=== PATIENT | male | born 1930 | race Caucasian/White ===

== ENCOUNTER 2017-03-01 21:23 | Inpatient (IN) | payer OTHER ==
[~2017-03-01] VITALS: Ht 167.6 cm; Wt 91.7 kg
[2017-03-01 11:00] VITALS: BP 184/105; PULSE 97; O2SAT 97
[2017-03-02] VITALS (18 sets, daily range): BP systolic 120–202; BP diastolic 72–116; PULSE 63–115; TEMP 36.5–38; O2SAT 90–99; Ht 167.6 cm; Wt 91.7 kg
[2017-03-02] MEDS ORDERED: ONDANSETRON INJ 2 MG/ML 2 ML VIAL IV PRN (02:00)
[2017-03-02] MEDS ORDERED: ACETAMINOPHEN 325 MG TAB PO PRN (02:00)
[2017-03-02] MEDS ORDERED: POLYETHYLENE (MIRALAX) 17 GM PACK PO PRN (02:00)
--- NOTE | 2017-03-02 02:13 | History and Physical ---
History & Physical Date & Time of Service: Mar 02, 2017 at 02:05 Chief Complaint: Liver (Food) Stuck In Lung From Aspiration Primary Care Physician: Kelvin Ivan M.D. History of Present Illness Source: patient 86-year-old male with past medical history of hypertension, metabolic placement , diabetes mellitus, paroxysmal atrial fibrillation currently on Coumadin, BPH, gout presented as a direct admit from [facility] after he had presented there with aspiration of food material this evening He stated that he was at a restaurant today and had choked on beef liver/belizean fries . He denied any respiratory distress, stridor but initially complained about chest pain after swallowing. He stated that he tried to cough up food material but was not able to. Denies any wheezing, fevers or chills. He stated that this is the second time in 6 months that he had trouble swallowing. Last time he had choked on a piece of apple and was admitted at [facility]. Allergies Coded Allergies: Penicillins (Unverified Allergy, Unknown, UNKOWN , 03/02/17) Informed from PT had blood work done while in [facility]. was told he should not recieved Penicillins. Home Medications Scheduled Allopurinol (Allopurinol), DAILY Colchicine (Colchicine), DAILY Digoxin (Digoxin), DAILY Diltiazem Hcl Ext Rel (Tiazac), 180 MG PO QPM Finasteride (Proscar), 5 MG PO DAILY Levofloxacin (Levaquin), 250 MG PO DAILY Lisinopril (Zestril), 10 MG PO DAILY Magnesium Oxide (Mag-Ox), 400 MG PO BID Metformin Hcl (Glucophage), 500 MG PO DAILY Metronidazole (Flagyl), 1 TAB PO TID Warfarin Sod (Coumadin), 2XWK Miscellaneous Medications Warfarin Sodium (Coumadin), 5 MG PO Review of Systems Constitutional: No fever, No chills Eyes: No worsening of vision ENT: No hearing loss Respiratory: No cough, No sputum Cardiovascular: No chest pain Abdomen: No pain, No nausea, No vomiting Musculoskeletal: No joint pain Genitourinary - Male: No hematuria Neurologic: No memory loss Psychiatric: No depression symptoms Endocrine: No fatigue Hematologic / Lymphatic: No abnormal bleeding/bruising Integumentary: No rash Allergic / Immunologic: No environmental allergies Physical Exam General Appearance: WD/WN, no apparent distress Eyes: normal inspection ENT: normal ENT inspection Neck: supple Respiratory/Chest: chest non-tender, lungs clear, normal breath sounds, no respiratory distress, no accessory muscle use Cardiovascular: regular rate, rhythm Abdomen/GI: normal bowel sounds, non tender, soft Extremities/Musculoskelatal: no pedal edema Neurologic/Psych: alert, normal mood/affect, oriented x 3 Skin: normal color Diagnostics Diagnostic Radiology Chest x-ray: Unremarkable Chest CT: Occlusion of the right lower lobe bronchus. This is nonspecific and could be due to numerous etiologies, including tumor. However, given the history, I suspect this is a soft tissue density food material. Rhonchi noted to be predominantly calcified, but otherwise appear clear. Bronchoscopy should be considered. There is a mild post obstructive atelectasis in the right lower lung field. The lungs elsewhere appear clear. Cardiac surgery with mitral valve replacement. Prominent atherosclerotic vascular calcifications particularly in the coronary arteries. Vascular structures are not evaluated in detail on this noncontrast examination Impression Assessment and Plan 86-year-old male with past medical history of hypertension, metabolic placement , diabetes mellitus, paroxysmal atrial fibrillation currently on Coumadin, BPH, gout presented as a direct admit from [facility] after he had presented there with aspiration of food material this evening Aspiration of food material: - Confirmed on CT chest done at outside hospital: Soft tissue density food material causing occlusion of right lower lobe bronchus - Consult pulmonology for bronchoscopy - O2 per protocol - Ceftriaxone and clindamycin for prophylactic coverage - Video swallow eval/ speech therapy consult considering history of prior aspiration Paroxysmal atrial fibrillation : - Continue digoxin and diltiazem - AC with Coumadin . Currently held in anticipation of bronchoscopy - Had received 10 mg of vitamin K at outside hospital Hypertension: - Continue lisinopril Gout: - Continue allopurinol and colchicine Diabetes: - Hold home medications - Insulin sliding scale DVT prophylaxis: SCDs Disposition: Admitted to telemetry, for bronchoscopy today Attending Addendum: I physically seen and examined this patient, have supervised the medical residents activities, and agree with the H&P as noted above with the following exceptions: NONE The patient is awake, well-developed and adequately nourished, alert and oriented 3, normocephalic and atraumatic, lying in bed and in no acute distress. HEENT--PERRL, EOMI, mucous membranes and oropharynx dry. Neck--supple, no JVD or bruits, thyroid normal, trachea midline, no adenopathy. Heart--normal S1 and S2, no extra beats, no murmurs, rubs or gallops. Lungs--clear bilaterally with good air movement, no respiratory distress, no accessory muscle use. Abdomen--normal bowel sounds and soft, nontender and nondistended, no hernias or masses, no organomegaly. Extremities--no cyanosis, clubbing or edema. There are good distal pulses b/l. Dermatologic--normal skin turgor, normal color, warm and dry, no abnormal lymph nodes, no rash. Neurologic--cranial nerves II through XII grossly intact, motor and sensory examination normal. Rheumatologic--normal range of motion, nontender, muscles and joints. Psychiatric--normal affect. Assessment and Plan: 1. Food aspiration into right lower lobe bronchus--patient is transferred from [facility] after abnormal findings on CT, and ED consultation there with Dr. Romero from pulmonology. The patient is transferred to [facility] for further diagnosis and treatment. He'll be kept nothing by mouth for potential bronchoscopy later in the day. Ceftriaxone 1 g IV daily, and clindamycin 900 mg IV every 8 hours will be started. Order video swallow and speech therapy consult. Consult Dr. Romero from pulmonology. Patient had already been given vitamin K 10 mg IV at our instruction at [facility] emergency department. Order follow-up PT/INR stat, along with CBC with differential, BMP and magnesium levels. VTE Prophylaxis VTE Risk Assessment Done? Y/N: Yes Risk Level: Moderate Resident Tracking Resident Involvement: Resident Care Provided Care Provided: Adult Hospital Medicine
[2017-03-02 02:23] LABS: BASO % 0.2 %; BASO ABS # 0.02 K/uL (0-0.2); COMPLETE YES; HEMATOCRIT 39.6 % (42-52); IG% 0.9 %; LYMPH % 15.7 %; LYMPH ABS # 1.65 K/uL (1.2-3.4); MEAN CELL VOLUME 91.9 fL (80-100); MEAN CORPUSCULAR HEMOGLOBIN 32.5 pg (25-34); MEAN CORPUSCULAR HGB CONC 35.4 g/dl (32-36); MEAN PLATELET VOLUME 11.2 fL (7.4-10.4); MONO % 11.3 %; NEUT % 70.9 %; PLATELET COUNT 149 K/uL (130-400); RED BLOOD COUNT 4.31 M/uL (4.7-6.1); WHITE BLOOD COUNT 10.48 K/uL (4.8-10.8)
[2017-03-02] MEDS ORDERED: GLUCOSE 10 TABS/TUBE PO PRN (02:30)
[2017-03-02] MEDS ORDERED: PATIENT'S ALLERGY INFO NEEDS ENTERED SCH (02:30)
[2017-03-02] MEDS ORDERED: DEXTROSE 50% 50 ML SYR IV PRN (02:30)
[2017-03-02] MEDS ORDERED: GLUCAGON FOR INJ 1 MG VIAL SQ PRN (02:30)
[2017-03-02] MEDS ORDERED: GLUCOSE 40% GEL 15 GM TUBE PO PRN (02:30)
[2017-03-02] MEDS ORDERED: DILT-113 PO (02:34)
[2017-03-02 02:37] LABS: INR 1.4 (0.9-1.1); PARTIAL THROMBOPLASTIN RATIO 1.1; PROTHROMBIN TIME (PATIENT) 15.3 SECONDS (9.0-12.0)
[2017-03-02] MEDS ORDERED: LISI-461 PO (02:37)
[2017-03-02 02:42] LABS: BUN/CREATININE RATIO 16.8 (10-20); CALCIUM 8.8 mg/dl (8.5-10.1); CREATININE 1.5 mg/dl (0.60-1.40); POTASSIUM 4.4 mmol/L (3.5-5.1)
[2017-03-02] MEDS ORDERED: FINA5TAB PO (02:51)
[2017-03-02] MEDS ORDERED: WARF5TAB90 PO (02:51)
[2017-03-02] MEDS ORDERED: CMD25 (02:51)
[2017-03-02] MEDS ORDERED: COLC1TAB25 (02:51)
[2017-03-02] MEDS ORDERED: LNX125 (02:51)
[2017-03-02] MEDS ORDERED: GLC/500 PO (02:51)
[2017-03-02] MEDS: SODIUM CHLORIDE 0.9% 1000ML 1,000 ML IV SCH ×2 (02:51→16:16)
[2017-03-02] MEDS ORDERED: ALL100 (02:51)
[2017-03-02] MEDS: CEFTRIAXONE SOD INJ 1 GM in DEXTROSE 5% ADD-VANTAGE 50ML 50 ML IV SCH (05:06)
[2017-03-02] MEDS ORDERED: PIPERACILL/TAZOBAC IV 3.375 GM in DEXTROSE 5% 100ML 100 ML IV SCH (06:00)
[2017-03-02] MEDS: CLINDAMYCIN IV 600 MG in DEXTROSE 5% 50ML 50 ML IV SCH ×2 (06:07→14:33)
[2017-03-02] MEDS: INSULIN ASPART 100 UNITS/ML 3 ML PEN SC SCH ×4 (08:47→21:15)
[2017-03-02] MEDS: COLCHICINE 0.6 MG TAB PO SCH (09:00)
[2017-03-02] MEDS: FINASTERIDE 5 MG TAB PO SCH (09:00)
[2017-03-02] MEDS: LISINOPRIL 10 MG TAB PO SCH (09:00)
[2017-03-02] MEDS: ALLOPURINOL 100 MG TAB PO SCH (09:00)
--- NOTE | 2017-03-02 10:04 | Pulmonary Consultation ---
History General Date of Service: Mar 02, 2017. Stated Complaint: Liver (Food) Stuck In Lung From Aspiration HPI The patient is a 86 year old male who presents to [facility] with complaints of Liver (Food) Stuck In Lung From Aspiration. The patient's primary care provider is Kelvin Ivan M.D.. Mr. Arguello is an 86 year old gentleman with PMH of HTN, mitral valve placement, DM, and paroxysmal atrial fibrillation on Coumadin who presents with a direct admit from [facility] after he presented with an aspiration after eating his evening meal. He was at [employer] and ser[employer] fries when he choked. He denies any respiratory distress or shortness of breath, but had the sensation of food bolus that was stuck in his throat that was associated with chest pain with swallowing. He made several attempts to cough of food bolus was was unable to. He denies any fevers, chills, wheezing or stridor. He denies any changes in appetite, weight loss or lethargy. CT done showed occlusion of right lower lobe bronchus with mild post obstructive atelectasis. He was transferred to [facility] for further evaluation and possible bronchoscopy. Of note, he states that he had similar episode about 6 months ago when he aspirated on an apple, but was able to cough it out. He was admitted to [facility] at that time. He had bronchoscopy at that time to evaluate for any retained food bolus. Today, he states that he feels fine. He denies any respiratory symptoms or distress. Historian: patient Onset: just prior to arrival Severity: moderate Complaint Status: improved Review of Systems Constitutional: reports: no symptoms Eyes: reports: no symptoms ENT: reports: no symptoms Cardiovascular: reports: no symptoms Respiratory: reports: as stated in HPI, other Genitourinary - Male: reports: no symptoms Musculoskeletal: reports: no symptoms Neurologic: reports: no symptoms Psychiatric: reports: no symptoms Endocrine: no symptoms Hematologic / Lymphatic: no symptoms Allergic / Immunologic: no symptoms All Other Symptoms All Other Systems: Reviewed and Negative Past Medical History Past Medical History: Hypertension Diabetes Mellitus Paroxysmal atrial fibrillation on coumadin BPH Gout Past Medical History: A Fib, diabetes Past Surgical History: CABG Mitral valve replacement AAA repair Cholecystecomy Appendectomy Family History Denies any pertinent medical history Social History Hx Tobacco Use In Past Year?: No Smoking Status: Former Smoker Alcohol: never Drug Use: none Allergies Coded Allergies: Penicillins (Unverified Allergy, Unknown, UNKOWN , 03/02/17) Informed from PT had blood work done while in [employer]. was told he should not recieved Penicillins. Current Medications Reported Home Medications Medications Dose Route/Sig Max Daily Dose Days Date Category Dose Instructions Glucophage (Metformin Hcl) 500 Mg Tab 500 Mg PO DAILY 03/02/17 Reported Coumadin (Warfarin Sodium) 5 Mg Tab 5 Mg PO 03/02/17 Reported Q Tuesday, Tuesday, Tuesday, , Tuesday Coumadin (Warfarin Sod) 2.5 Mg Tab 2XWK 03/02/17 Reported tuesday and tuesday Proscar (Finasteride) 5 Mg Tab 5 Mg PO DAILY 03/02/17 Reported Colchicine 0.6 Mg Tab DAILY 03/02/17 Reported Digoxin 0.125 Mg Tab DAILY 03/02/17 Reported Allopurinol 100 Mg Tab DAILY 03/02/17 Reported Zestril (Lisinopril) 10 Mg Tab 10 Mg PO DAILY 03/02/17 Reported Tiazac (Diltiazem HCl) 180 Mg Capcr 180 Mg PO QPM 03/02/17 Reported Physical Physical Exam Vital Signs: Date Time Temp Pulse Resp B/P (MAP) Pulse Ox O2 Delivery O2 Flow Rate FiO2 03/02/17 07:50 36.5 80 18 140/82 (101) 98 03/02/17 04:15 36.8 63 22 147/72 (97) 94 Nasal Cannula 4.0 03/02/17 04:00 Nasal Cannula 4.0 03/02/17 01:47 36.7 81 16 150/85 94 Nasal Cannula 4.0 General Appearance: WELL-APPEARING, NO APPARENT DISTRESS Head: NORMOCEPHALIC, ATRAUMATIC Eyes: PERRLA, NO DISCHARGE, EOMI, SCLERAE NORMAL, CONJUNCTIVAE NORMAL ENT: NORMAL NASAL EXAM, NORMAL MOUTH EXAM, NORMAL THROAT EXAM Neck: NORMAL RANGE OF MOTION, NO TENDERNESS, TRACHEA MIDLINE, NO STRIDOR, SUPPLE Respiratory: NO RESPIRATORY DISTRESS, NO TENDERNESS, other (Sporadic rhonchi on right lung field, left lung CTA) Cardiovasular: REGULAR RATE/RHYTHM, NORMAL S1S2, NORMAL PERIPHERAL PULSES, irregular rate, mechanical murmur Abdomen: NON TENDER, NORMAL BOWEL SOUNDS Back: NORMAL INSPECTION Upper Extremities: NO EDEMA Lower Extremities: NO EDEMA Neuro: ALERT, ORIENTED x 3 Psychiatric: NORMAL AFFECT, NO SUICIDAL IDEATION Diagnostics Labs Results Past 24 Hours Test 03/02/17 02:12 03/02/17 02:13 03/02/17 06:41 Range/Units Prothrombin Time 15.3 9.0-12.0 SECONDS Prothromb Time International Ratio 1.4 0.9-1.1 Activated Partial Thromboplast Time 29.2 21.0-31.0 SECONDS Partial Thromboplastin Ratio 1.1 Sodium Level 140 136-145 mmol/L Potassium Level 4.4 3.5-5.1 mmol/L Chloride Level 109 98-107 mmol/L Carbon Dioxide Level 22 21-32 mmol/L Anion Gap 9.0 3-11 mmol/L Blood Urea Nitrogen 25 7-18 mg/dl Creatinine 1.50 0.60-1.40 mg/dl Est Creatinine Clear Calc Drug Dose 39.0 ml/min Estimated GFR () 48.8 Estimated GFR (Non- 42.1 BUN/Creatinine Ratio 16.8 10-20 Random Glucose 200 70-99 mg/dl Calcium Level 8.8 8.5-10.1 mg/dl White Blood Count 10.48 4.8-10.8 K/uL Red Blood Count 4.31 4.7-6.1 M/uL Hemoglobin 14.0 14.0-18.0 g/dL Hematocrit 39.6 42-52 % Mean Corpuscular Volume 91.9 80-100 fL Mean Corpuscular Hemoglobin 32.5 25-34 pg Mean Corpuscular Hemoglobin Concent 35.4 32-36 g/dl Platelet Count 149 130-400 K/uL Mean Platelet Volume 11.2 7.4-10.4 fL Neutrophils (%) (Auto) 70.9 % Lymphocytes (%) (Auto) 15.7 % Monocytes (%) (Auto) 11.3 % Eosinophils (%) (Auto) 1.0 % Basophils (%) (Auto) 0.2 % Neutrophils # (Auto) 7.43 1.4-6.5 K/uL Lymphocytes # (Auto) 1.65 1.2-3.4 K/uL Monocytes # (Auto) 1.18 0.11-0.59 K/uL Eosinophils # (Auto) 0.11 0-0.5 K/uL Basophils # (Auto) 0.02 0-0.2 K/uL RDW Standard Deviation 48.8 36.4-46.3 fL RDW Coefficient of Variation 14.4 11.5-14.5 % Immature Granulocyte % (Auto) 0.9 % Immature Granulocyte # (Auto) 0.09 0.00-0.02 K/uL Bedside Glucose 208 70-99 mg/dl Diagnostic Radiology No imaging on file. Imaging document from [facility] CXR-unremarkable CT chest- occluseion of right lower lobe bronchus. This is nonspecific and cough be numerous etilogies. including tumor. However, given history, I suspect this is a soft tissue density food material. Bronchi noted to be predominatly calcified, but otherwise appear clear. Bronchoscopy should be considered. There is post-obstructive atelectasis in the right lower lung field. The lungs elsewhere appear clear. Cardiac surgery with mitral valve replacement. Prominent atherosclerotic vascular calcifications particularly in the coronary arteries. Vascular structures are not evaluated in detail on the noncontrast examination. EKG EKG 03/02/2017 74 bpm Sinus rhythm with 1st degree A-V block Left axis deviation Abnormal ECG No previous ECGs available Impression Assessment and Plan 86 year old male who presents s/p aspiration on food bolus with obsturction of RLL bronchus seen on CT from outside hospital. He is hemodynamically stable and not currently in any respiratory discomfort or distress. Aspiration on food bolus -Will obtain images from [facility] for review -Will schedule bronchoscopy today for retrieval of possible food bolus. Obtain consent for bronchoscopy with moderate sedation. He is currently NPO and coumadin is being held. -Continue with prophylactic antiobiotics -Speech and swallow evaluation for possible dysphagia. Appreciate the consult.
--- NOTE | 2017-03-02 10:38 | Procedure Note ---
Pre-Mod Sedation Assessment General Date of Moderate Sedation: Mar 02, 2017. Vital Signs: Vital Signs Past 12 Hours Date Time Temp Pulse Resp B/P (MAP) Pulse Ox O2 Delivery O2 Flow Rate FiO2 03/02/17 08:00 Nasal Cannula 4.0 03/02/17 07:50 36.5 80 18 140/82 (101) 98 03/02/17 04:15 36.8 63 22 147/72 (97) 94 Nasal Cannula 4.0 03/02/17 04:00 Nasal Cannula 4.0 03/02/17 01:47 36.7 81 16 150/85 94 Nasal Cannula 4.0 Review Cardiovascular: + irregularly irregular, + abnormal rhythm Abdomen: normal bowel sounds, non tender, soft Lungs: chest non-tender, + rhonchi, + pertinent finding Airway Class: III Pre-Sedation Airway Assessment Oral Cavity: Dentures Able to Visualize Vocal Cords: Yes Short Thick Neck: No Hx of Sleep Apnea: No Smoking Status: Former Smoker Mallampati Classification: Class III ASA Classification: Class III Procedure Planning Contraindications-for Mod Sed: None Yes Notes The planned sedation has been discussed with the patient and consent obtained. I have identified the patient, determined the appropriateness of sedation and have assessed the patient immediately prior to the procedure. All medicine(s) and interventions are by my order.
--- NOTE | 2017-03-02 11:32 | Family Medicine Progress Note ---
Progress Note Date of Service Mar 02, 2017. Subjective Pt evaluation today including: conversation w/ patient, physical exam, chart review, lab review, review of inpatient medication list Pain: No pain reported by patient PO Intake: NPO from midnight for bronch procedure today Voiding: no voiding problems Patient is alert and in good spirits this morning He has no complaints aside from wanting to be rid of nasal oxygen He is eager to go home as soon as possible Constitutional: No fever, No chills, No sweats, No weight loss, No weakness , No fatigue, No problem reported ENT: + trouble swallowing, No hearing loss, No unusual epistaxis, No nasal symptoms, No sore throat, No tinnitus, No dental problems, No problem reported Respiratory: No cough, No sputum, No wheezing, No shortness of breath, No dyspnea on exertion, No dyspnea at rest, No hemoptysis, No problem reported All Other Systems: Reviewed and Negative Medications Current Inpatient Medications Medications (Trade) Dose Ordered Sig/Nitza Route Start Time Stop Time Status Last Admin Dose Admin Sodium Chloride 1,000 ml @ 75 mls/hr [id number] IV 03/02/17 01:54 04/01/17 01:53 03/03/17 04:28 75 MLS/HR Acetaminophen (Tylenol Tab) 650 mg Q4H PRN PO 03/02/17 02:00 04/01/17 01:59 03/02/17 19:27 650 MG Ondansetron HCl (Zofran Inj) 4 mg Q6H PRN IV 03/02/17 02:00 04/01/17 01:59 Polyethylene (Miralax Powder Packet) 17 gm DAILY PRN PO 03/02/17 02:00 04/01/17 01:59 Insulin Aspart (novoLOG ASPART) SLIDING SCALE G... ACHS SC 03/02/17 07:00 04/01/17 06:59 03/02/17 21:15 2 UNITS Glucose (Glucose 40% Gel) 15-30 GRAMS 15 GRAMS... UD PRN PO 03/02/17 02:30 04/01/17 02:29 Glucose (Glucose Chew Tab) 4-8 Tablets 4 Tabl... UD PRN PO 03/02/17 02:30 04/01/17 02:29 Dextrose (Dextrose 50% 50ML Syringe) 25-50ML OF 50% DW IV FOR... UD PRN IV 03/02/17 02:30 04/01/17 02:29 Glucagon (Glucagon Inj) 1 mg UD PRN SQ 03/02/17 02:30 04/01/17 02:29 Ceftriaxone Sodium 1 gm/ Dextrose 50 ml @ 100 mls/hr Q24H IV 03/02/17 05:00 03/09/17 04:59 03/03/17 04:28 100 MLS/HR Allopurinol (Zyloprim Tab) 100 mg DAILY PO 03/02/17 09:00 04/01/17 08:59 Colchicine (Colchicine Tab) 0.6 mg DAILY PO 03/02/17 09:00 04/01/17 08:59 Digoxin (Lanoxin Tab) 0.125 mg DAILY@1600 PO 03/02/17 16:00 04/01/17 15:59 Future Hold 03/02/17 16:41 0.125 MG Diltiazem HCl (TIAzac CAP) 180 mg QPM PO 03/02/17 21:00 04/01/17 20:59 Future Hold 03/02/17 21:14 180 MG Finasteride (Proscar Tab) 5 mg DAILY PO 03/02/17 09:00 04/01/17 08:59 Lisinopril (Zestril Tab) 10 mg DAILY PO 03/02/17 09:00 04/01/17 08:59 Lactobacillus Acidophilus (Floranex Tab) 4 tab TIDM PO 03/03/17 07:30 04/02/17 07:29 Objective Vital Signs Date Time Temp Pulse Resp B/P (MAP) Pulse Ox O2 Delivery O2 Flow Rate FiO2 03/03/17 04:00 37.0 80 20 153/83 (106) 93 Room Air 03/03/17 04:00 93 Nasal Cannula 3.0 03/03/17 00:13 37.1 97 21 159/88 (111) 95 Nasal Cannula 4.0 03/03/17 00:01 Nasal Cannula 3.0 03/02/17 20:00 Nasal Cannula 3.0 03/02/17 19:25 38.0 115 24 159/90 (113) 93 Nasal Cannula 3.0 03/02/17 16:41 114 03/02/17 16:00 Nasal Cannula 3.0 03/02/17 15:30 37.0 90 22 130/78 (95) 90 Nasal Cannula 3.0 03/02/17 13:46 36.8 73 20 172/81 (111) 95 Nasal Cannula 3.0 03/02/17 12:44 36.8 81 130/81 (97) 96 Nasal Cannula 3.0 03/02/17 12:16 Nasal Cannula 4.0 03/02/17 12:14 36.8 89 127/79 (95) 95 Nasal Cannula 3.0 03/02/17 12:05 Mask 03/02/17 11:45 92 24 120/76 92 Nasal Cannula 3.0 03/02/17 11:40 95 24 133/77 95 Mask 8.0 03/02/17 11:35 97 20 168/79 97 Mask 8.0 03/02/17 11:30 110 16 168/79 97 Mask 8.0 03/02/17 11:25 106 16 178/81 98 Mask 8.0 03/02/17 11:20 105 16 163/93 99 Mask 8.0 03/02/17 11:15 101 20 173/100 99 Mask 8.0 03/02/17 11:10 94 20 172/88 94 Mask 8.0 03/02/17 11:05 97 20 202/116 97 Mask 8.0 03/02/17 08:00 Nasal Cannula 4.0 03/02/17 07:50 36.5 80 18 140/82 (101) 98 Physical Exam General Appearance: WD/WN, no apparent distress Eyes: normal inspection, PERRL, EOMI ENT: normal ENT inspection, hearing grossly normal, TMs normal, pharynx normal Neck: supple, no JVD Respiratory/Chest: chest non-tender, no respiratory distress, no accessory muscle use, + wheezing (on right side, presumably related to bolus of food aspirated), + pertinent finding (noticeable rattling on inspiration and expiration on right side, related to food bolus presumably) Cardiovascular: regular rate, rhythm, no edema, no JVD, no murmur Abdomen: normal bowel sounds, non tender, soft Extremities: normal range of motion, non-tender, normal inspection, no pedal edema Neurologic/Psychiatric: 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, no motor/sensory deficits, alert, normal mood/affect, oriented x 3 Skin: normal color, no rash Laboratory Results 03/03/17 05:55 Red Blood Count 4.20, Mean Corpuscular Volume 92.9, Mean Corpuscular Hemoglobin 32.1, Mean Corpuscular Hemoglobin Concent 34.6, Mean Platelet Volume 10.7, Neutrophils (%) (Auto) 75.9, Lymphocytes (%) (Auto) 11.9, Monocytes (%) (Auto) 10.9, Eosinophils (%) (Auto) 0.5, Basophils (%) (Auto) 0.1, Neutrophils # (Auto ) 9.44, Lymphocytes # (Auto) 1.48, Monocytes # (Auto) 1.35, Eosinophils # (Auto ) 0.06, Basophils # (Auto) 0.01 Test 03/02/17 18:25 03/02/17 21:11 03/03/17 05:55 Bedside Glucose 192 mg/dl (70-99) White Blood Count 12.43 K/uL (4.8-10.8) Red Blood Count 4.20 M/uL (4.7-6.1) Hemoglobin 13.5 g/dL (14.0-18.0) Hematocrit 39.0 % (42-52) Mean Corpuscular Volume 92.9 fL (80-100) Mean Corpuscular Hemoglobin 32.1 pg (25-34) Mean Corpuscular Hemoglobin Concent 34.6 g/dl (32-36) Platelet Count 128 K/uL (130-400) Mean Platelet Volume 10.7 fL (7.4-10.4) Neutrophils (%) (Auto) 75.9 % Lymphocytes (%) (Auto) 11.9 % Monocytes (%) (Auto) 10.9 % Eosinophils (%) (Auto) 0.5 % Basophils (%) (Auto) 0.1 % Neutrophils # (Auto) 9.44 K/uL (1.4-6.5) Lymphocytes # (Auto) 1.48 K/uL (1.2-3.4) Monocytes # (Auto) 1.35 K/uL (0.11-0.59) Eosinophils # (Auto) 0.06 K/uL (0-0.5) Basophils # (Auto) 0.01 K/uL (0-0.2) RDW Standard Deviation 49.3 fL (36.4-46.3) RDW Coefficient of Variation 14.6 % (11.5-14.5) Immature Granulocyte % (Auto) 0.7 % Immature Granulocyte # (Auto) 0.09 K/uL (0.00-0.02) Assessment and Plan Mr. Chavez is a 86 yo male who presents today after an episode of choking which led to aspiration of food bolus. His PMH includes:HTN, diabetes mellitus, paroxysmal atrial fibrillation currently on Coumadin, BPH, and gout Current Issues: Aspiration of food material: - Bronchoscopy today for removal of food bolus - O2 per protocol - Prophylactic Ceftriaxone and clindamycin for pneumonia Update: will convert clindamycin to metronidazole; total of 5 days - Video swallow evaluation as outpatient considering history of prior aspiration Paroxysmal atrial fibrillation: - Continue digoxin and diltiazem - Coumadin held today for bronchoscopy - Had received 10 mg of vitamin K at outside hospital - Will likely receive extra dose of coumadin for this reason before discharge - Recheck INR on TuesdayMarch 03 Hypertension: - Continue lisinopril Gout: - Continue allopurinol and colchicine Diabetes: - Hold home medications - Insulin sliding scale while admitted VTE: SCDs/coumadin held today DISPO: Admitted to telemetry, for bronchoscopy today CODE STATUS: unknown Resident Physician Supervision Note: I interviewed and examined the patient. Discussed with Dr. Soares and agree with findings and plan as documented in the note. Any exceptions or clarifications are listed here: None Documented By: Aydin Connor d/w pulmonary bronch went well did appear to have pneumonitis. no clear food particles but thick mucous. post bronch feeling reasonable but hadn't eaten yet hadn't tried to wean O2. later was having some chills otherwise not feeling bad but took pills w nursing supervision while i was there and had no problems. d/w son as well. later had tachycardia w exertion. all other ROS otherwise negative except for as above vitals noted nad breathing unlabored did have mild shaking chills when i was there second visit, no distress no respiratory distress no pallor or icterus aspiration event / aspiration pneumonitis - due to liver and azeri fries. post bronch no residual food particles. transition to levaquin/flagyl. probiotics with recent research suggesting maybe some benefit and he's low risk , await formal speech eval but suspect not a true dysphagia patient likely aspiration from not concentrating on eating or talking while eating hypoxia - due to above, supportive care wean O2 tachycardia - likely baseline disease of afib w acute flare from above. extra dilt x 1, dig and dilt today as regular. 12 lead EKG. afib - as above, resume coumadin. risks/benefits favor not bridging given friable lungs from pneumonitis DVT proph - coumadin Resident Tracking Resident Involvement: Resident Care Provided Care Provided: Adult Hospital Medicine
--- NOTE | 2017-03-02 11:43 | Procedure Note ---
Post-Moderate Sedation Plan General Date of Moderate Sedation Mar 02, 2017. Vital Signs: Vital Signs Past 12 Hours Date Time Temp Pulse Resp B/P (MAP) Pulse Ox O2 Delivery O2 Flow Rate FiO2 03/02/17 11:30 110 16 168/79 97 Mask 8.0 03/02/17 11:25 106 16 178/81 98 Mask 8.0 03/02/17 11:20 105 16 163/93 99 Mask 8.0 03/02/17 11:15 101 20 173/100 99 Mask 8.0 03/02/17 11:10 94 20 172/88 94 Mask 8.0 03/02/17 11:05 97 20 202/116 97 Mask 8.0 03/02/17 08:00 Nasal Cannula 4.0 03/02/17 07:50 36.5 80 18 140/82 (101) 98 03/02/17 04:15 36.8 63 22 147/72 (97) 94 Nasal Cannula 4.0 03/02/17 04:00 Nasal Cannula 4.0 03/02/17 01:47 36.7 81 16 150/85 94 Nasal Cannula 4.0 Review - Discharge Plan Post Moderate Sedation Plan: On clinical assessment, the patient appears to have tolerated the conscious sedation without complications. Patient is recovering as anticipated. Patient will continue to be monitored by nursing and may be discharged when conscious sedation discharge criteria are met.
--- NOTE | 2017-03-02 12:05 | Procedure Note ---
Procedure Note Date of Service Mar 02, 2017. Procedure Note After informed consent and time out, fiberoptic bronchoscope was entered into right nare. There was some difficult in passage. The left nare was also attempted without success. The bronchoscope was withdrawn and inserted orally. The vocal cords were visualized. No lesions were visualized. The trachea was inspected to the liz. The right mainstem bronchus, bronchus intermedius was visualized where whitish color particle was seen and suctioned until clear. The right upper lobe and right lower lobes and right middle lobe were inspected the subsegmental level no endobronchial lesion were seen. There was some mucus in the lower lobes that was suctioned until clear.The mucosa of the right middle and lower lobe was friable and had some bleeding. BAL was taken of L. The bronchoscope was withdrawn back to the liz and left mainstem inspected. The left upper lobe, lingula, and lower lobes were inspected to subsegmental level and no endobronchial lesions or abnormalities were visualized. The bronchoscope was withdrawn. The patient tolerated the procedure well without any complications. He was sedated with versed 2 mg and and 50 mg of fentanyl. Post procedure CXR ordered.
--- NOTE | 2017-03-02 12:23 | DIAGNOSTIC IMAGING REPORT ---
CHEST 1 VW FRONT-NOT PORTABLE HISTORY:86 yearsMalepost bronchoscopy COMPARISON: Chest CT and chest radiograph 03/01/2017 TECHNIQUE: Portable AP view of the chest FINDINGS: Cardiac silhouette is again mildly enlarged. Prior median sternotomy and prosthetic mitral valve placement. There is mild pulmonary vascular congestion without pneumothorax, pleural effusion, focal airspace consolidation or overt pulmonary edema. Degenerative changes involve the AC joints. Bones are grossly intact. IMPRESSION: 1. Cardiomegaly with mild pulmonary vascular congestion. 2. Prior median sternotomy with prosthetic mitral valve. The above report was generated using voice recognition software. It may contain grammatical, syntax or spelling errors. Electronically signed by: Bird Christopher M.D. 03/02/2017 12:22 PM Dictated Date/Time: 03/02/2017 12:20 PM
[2017-03-02] MEDS ORDERED: FENTANYL CITRATE 100 MCG 2 ML CARP IV ONE (12:53)
[2017-03-02] MEDS ORDERED: MIDAZOLAM HCL 5 MG/ML 2ML VIAL IV ONE (12:53)
[2017-03-02] MEDS ORDERED: FENTANYL CITRATE INJ 50 MCG/1 ML 2 ML VIAL IV ONE (13:00)
[2017-03-02] MEDS ORDERED: MIDAZOLAM HCL 5 MG/ML 1 ML VIAL IV ONE (13:00)
[2017-03-02] MEDS ORDERED: NURSING VERBAL MED ORDER ONE (13:00)
[2017-03-02] MEDS ORDERED: LEVO-17 PO (14:07)
[2017-03-02] MEDS ORDERED: METR-162 PO (14:07)
--- NOTE | 2017-03-02 14:12 | Discharge Instructions ---
Discharge Instructions Date of Service Mar 02, 2017. Admission Reason for Admission: Liver (Food) Stuck In Lung From Aspiration Discharge Discharge Diagnosis / Problem: aspiration event with pneumonitis (inflamed lung ) Discharge Goals Goal(s): Diagnostic testing, Therapeutic intervention Activity Recommendations Activity Limitations: resume your previous activity . Instructions / Follow-Up Instructions / Follow-Up aspiration pneumonitis (inflammation of your lung from the inhaled food/saliva) -fortunately this should get better quickly since you were treated right away -it's appearing that 5 more days of antibiotics should suffice - levaquin 500mg today (given before leaving) and 250mg daily (starting tomorrow) for 4 days, and flagyl (metronidazole) 500mg three times a day for five more days (next dose at bedtime tonight) -both antibiotics are usually really well tolerated. the levaquin (really rarely) can cause tendonitis or even tendon rupture so we'd want you to take it easy for the next few weeks as far as any heavy lifting/repetitive lifting/etc -the flagyl (metronidazole) can interact with alcohol (even one drink) to cause a nasty nausea/vomiting reaction, so it would be prudent to not drink anything alcoholic at all for the next week ---we'll have a speech therapy appointment set up to evaluate your swallowing in more detail; in the meantime, take it slow when you're eating, make sure you chew thoroughly, and take your time to swallow carefully. avoid talking while eating (far and away the most common "easy" way to aspirate something) -- but your bedside swallowing evaluation by nursing (who assess our patients even when they're immediately after stroke as far as safety with swallowing) appeared OK so if there is anything speech needs to work with it will likely be fairly minor. --levaquin can interact with coumadin to raise your INR - it's not very likely to run into trouble because we had to hold/reverse the coumadin in order to safely do the bronchoscopy, and also because it's going to be such a short course - but resume your regular dosing of coumadin as prescribed and have a PT/ INR checked on Sunday 03/04 Current Hospital Diet Patient's current hospital diet: Diabetes Type 2 Diet Discharge Diet Recommended Diet: Diabetes Type 2 Diet (chew thoroughly, swallow deliberately) Pending Studies Studies pending at discharge: no Medical Emergencies . Who to Call and When: Medical Emergencies: If at any time you feel your situation is an emergency, please call 911 immediately. . Non-Emergent Contact Non-Emergency issues call your: Primary Care Provider (follow up with Dr Ivan by the end of the week, and have a PT/INR drawn on tuesday) . . "Provider Documentation" section prepared by Aydin Connor. . VTE Core Measure Inpt VTE Proph given/why not?: Warfarin (Coumadin) (held for bronchoscopy)
[2017-03-02] MEDS ORDERED: METRONIDAZOLE 250 MG TAB PO ONE (15:00)
[2017-03-02] MEDS ORDERED: LEVOFLOXACIN 500 MG TAB PO ONE (15:00)
[2017-03-02] MEDS ORDERED: DIGOXIN 0.125 MG TAB PO SCH (16:00)
[2017-03-02] MEDS ORDERED: WARFARIN SOD 5 MG TAB PO ONE (16:00)
[2017-03-02] MEDS ORDERED: DILTIAZEM HCL 30 MG TAB PO ONE (17:45)
[2017-03-02] MEDS ORDERED: DILTIAZEM HCL (TIAzac) 180 MG CAPCR PO SCH (21:00)
[2017-03-03] VITALS (7 sets, daily range): BP systolic 153–159; BP diastolic 81–94; PULSE 75–97; TEMP 37–37.1; O2SAT 93–96
[2017-03-03] MEDS: CEFTRIAXONE SOD INJ 1 GM in DEXTROSE 5% ADD-VANTAGE 50ML 50 ML IV SCH (04:28)
[2017-03-03] MEDS: SODIUM CHLORIDE 0.9% 1000ML 1,000 ML IV SCH (04:28)
[2017-03-03] MEDS ORDERED: NURSING VERBAL MED ORDER ONE (05:45)
[2017-03-03 06:12] LABS: BASO % 0.1 %; BASO ABS # 0.01 K/uL (0-0.2); EOS % 0.5 %; IG% 0.7 %; LYMPH % 11.9 %; LYMPH ABS # 1.48 K/uL (1.2-3.4); MEAN CELL VOLUME 92.9 fL (80-100); MEAN CORPUSCULAR HEMOGLOBIN 32.1 pg (25-34); MEAN PLATELET VOLUME 10.7 fL (7.4-10.4); MONO % 10.9 %; NEUT % 75.9 %; PLATELET COUNT 128 K/uL (130-400); WHITE BLOOD COUNT 12.43 K/uL (4.8-10.8)
[2017-03-03 06:13] LABS: COMPLETE YES; MEAN CORPUSCULAR HGB CONC 34.6 g/dl (32-36)
[2017-03-03 06:43] LABS: BUN/CREATININE RATIO 17.3 (10-20); CALCIUM 8.7 mg/dl (8.5-10.1); CREATININE 1.5 mg/dl (0.60-1.40); MAGNESIUM 1.5 mg/dl (1.8-2.4); POTASSIUM 4.6 mmol/L (3.5-5.1)
[2017-03-03 07:10] LABS: ESTIMATED AVERAGE GLUCOSE 143 mg/dl; HA1C FLAG Normal (Normal)
[2017-03-03] MEDS: INSULIN ASPART 100 UNITS/ML 3 ML PEN SC SCH ×2 (07:25→11:38)
[2017-03-03] MEDS: LISINOPRIL 10 MG TAB PO SCH (07:29)
[2017-03-03] MEDS: LACTOBACILLUS ACIDOPHILUS (FLORANEX) TAB PO SCH ×2 (07:29→11:38)
[2017-03-03] MEDS: COLCHICINE 0.6 MG TAB PO SCH (07:29)
[2017-03-03] MEDS: ALLOPURINOL 100 MG TAB PO SCH (07:29)
[2017-03-03] MEDS: FINASTERIDE 5 MG TAB PO SCH (07:29)
[2017-03-03] MEDS ORDERED: MAGNESIUM OXIDE 400 MG TAB PO SCH (09:00)
--- NOTE | 2017-03-03 09:36 | Discharge Summary ---
Discharge Summary Date of Service Mar 03, 2017. (Aubree Soares M.D.) Discharge Summary Admission Date: Mar 02, 2017 at 02:05 Discharge Date: Mar 02, 2017 Discharge Disposition: Home Principal Diagnosis: Aspiration of food bolus Problems/Secondary Diagnoses: Diabetes mellitus, BPH, gout Procedures: Bronchoscopy for extraction of aspirated food bolus Consultations: Pulmonology, Hearing Aid Repairer (Aubree Soares M.D.) Medication Reconciliation New Medications: Levofloxacin (Levaquin) 250 Mg Tab 250 MG PO DAILY, #5 TAB Magnesium Oxide (Mag-Ox) 400 Mg Tab 400 MG PO BID for low mag for 7 Days, #14 TAB Metronidazole (Flagyl) 500 Mg Tab 1 TAB PO TID, #15 TAB Continued Medications: Allopurinol (Allopurinol) 100 Mg Tab DAILY Colchicine (Colchicine) 0.6 Mg Tab DAILY Digoxin (Digoxin) 0.125 Mg Tab DAILY Diltiazem Hcl Ext Rel (Tiazac) 180 Mg Capcr 180 MG PO QPM, CAP Finasteride (Proscar) 5 Mg Tab 5 MG PO DAILY, TAB Lisinopril (Zestril) 10 Mg Tab 10 MG PO DAILY, TAB Metformin Hcl (Glucophage) 500 Mg Tab 500 MG PO DAILY, TAB Warfarin Sod (Coumadin) 2.5 Mg Tab 2XWK tuesday and tuesday Warfarin Sodium (Coumadin) 5 Mg Tab 5 MG PO, TAB Q Tuesday, Tuesday, Tuesday, , Tuesday Discharge Exam Review of Systems: Constitutional: No fever, No chills, No sweats, No weight loss, No weakness , No fatigue, No problem reported Eyes: No worsening of vision, No eye pain, No redness, No discharge, No diplopia, No problem reported ENT: No hearing loss, No unusual epistaxis, No nasal symptoms, No sore throat, No tinnitus, No dental problems, No trouble swallowing, No problem reported Respiratory: No cough, No sputum, No wheezing, No shortness of breath, No dyspnea on exertion, No dyspnea at rest, No hemoptysis, No problem reported Cardiovascular: No chest pain, No orthopnea, No PND, No edema, No claudication, No palpitations, No problem reported Abdomen: No pain, No nausea, No vomiting, No diarrhea, No constipation, No GI bleeding, No problem reported Genitourinary - Male: No hematuria, No dysuria, No urinary frequency, No urinary urgency, No urinary hesitancy, No urinary retention, No urinary incontinence, No penile discharge, No lesions, No impotence, No problem reported Neurologic: No memory loss, No paralysis, No weakness, No numbness/tingling , No vertigo, No balance problems, No problem reported Psychiatric: No depression symptoms, No anhedonism, No anxiety, No insomnia , No substance abuse, No problem reported Endocrine: + problem reported (Concerned about elevated glucose levels) Hematologic / Lymphatic: No abnormal bleeding/bruising, No clotting problems , No swollen lymph nodes, No night sweats, No problem reported Physical Exam: General Appearance: WD/WN, no apparent distress Eyes: normal inspection, PERRL, sclerae normal ENT: normal ENT inspection, hearing grossly normal, pharynx normal Neck: supple, no JVD Respiratory/Chest: chest non-tender, lungs clear, normal breath sounds, no respiratory distress, no accessory muscle use Cardiovascular: regular rate, rhythm, no edema, no JVD, no murmur Abdomen / GI: normal bowel sounds, non tender, soft Extremities: normal inspection, no pedal edema Neurologic/Psychiatric: land manager II-XII nml as tested, no motor/sensory deficits , alert, normal mood/affect, oriented x 3 Skin: normal color, warm/dry, no rash (Aubree Soares M.D.) Hospital Course 86-year-old male with past medical history of hypertension, diabetes mellitus, paroxysmal atrial fibrillation, BPH, and gout presented as a direct admit from [facility] after he had presented there with aspiration of food material Aspiration of food material: - CT chest done at outside hospital: Soft tissue density food material causing occlusion of right lower lobe bronchus - Bronchoscopy performed yesterday, was successful and patient feels much better - O2 given per protocol - Ceftriaxone and clindamycin for prophylactic coverage initially; switched to levofloxacin and metronidazole - Swallow eval performed successfully; - Referral placed for home speech therapy considering history of multiple aspirations in the last 6 months Paroxysmal atrial fibrillation : - Continue digoxin and diltiazem - Coumadin restarted after bronchoscopy yesterday - Had received 10 mg of vitamin K at outside hospital - Draw INR and PT on Tuesday, March 05. Patient given Rx for this. Hypertension: - Continue lisinopril Gout: - Continue allopurinol and colchicine Diabetes: - Home medications held - Insulin sliding scale - Patient admits that he has not been pleased with his glucose levels lately; we discussed bringing this up with his PCP next week. I recommend a repeat Magnesium test at next appointment; patient had level of 1.5 during admission; likely transient but considering changes in ECG, pt was discharged on a short course of magnesium tabs Total Time Spent: Less than 30 minutes This includes examination of the patient, discharge planning, medication reconciliation, and communication with other providers. (Aubree Soares M.D.) Resident Physician Supervision Note: I interviewed and examined the patient. Discussed with Dr. Soares and agree with findings and plan as documented in the note. Any exceptions or clarifications are listed here: None Documented By: Aydin Connor feeling better wants to go home set up for speech as outpt as well speech inpatient input appreciated. discussed abx and f/u, revisited and family had no further questions. vitals noted nad breathing unlabored no pallor or icterus aspiration event/pneumonitis / hypoxia -- bronch done, improving. finish abx w levaquin/flagyl. stable for home. emphasized eating slow and deliberate, ongoign speech treat as outpt. PT/INR 2 days, PCP mid next week (Aydin Connor, D.O.) Discharge Instructions Please refer to the electronic Patient Visit Report (Discharge Instructions) for additional information. (Aubree Soares M.D.) Additional Copies To Kelvin Ivan M.D. Resident Tracking Resident Involvement: Resident Care Provided Care Provided: Adult Hospital Medicine (Aubree Soares M.D.)
[2017-03-03] MEDS ORDERED: MAGN400T6 PO (11:39)
[2017-03-28 23:29] LABS: HERPES SIMPLEX CULT SOURCE RESPIRATORY-RML; HERPES SIMPLEX VIRUS CULT NOT ISOLATED (NOT ISOLATED)
== END 2017-03-03 12:54 | disposition home health service (06) | DRG 168 ==
LOC: C.2E 03-02 01:04 → UNDOADMIN 03-02 01:04 → C.2E 03-02 02:05
PROVIDERS: ADMIT Hospitalist; ATTEND Family Medicine
PROC: 0B9D8ZX Drainage of Right Middle Lung Lobe, Via Natural or Artificial Opening Endoscopic, Diagnostic (ICD-10-PCS; principal; 2017-03-02)
PROC: 0BC38ZZ Extirpation of Matter from Right Main Bronchus, Via Natural or Artificial Opening Endoscopic (ICD-10-PCS; principal; 2017-03-02)
DX: T17.920A Food in respiratory tract, part unspecified causing asphyxiation, initial encounter (principal); I10 Essential (primary) hypertension; E11.9 Type 2 diabetes mellitus without complications; I48.0 Paroxysmal atrial fibrillation; N40.0 Benign prostatic hyperplasia without lower urinary tract symptoms; M10.9 Gout, unspecified; Z79.01 Long term (current) use of anticoagulants; Z79.899 Other long term (current) drug therapy; Z79.84 Long term (current) use of oral hypoglycemic drugs; X58.XXXA Exposure to other specified factors, initial encounter; Z95.2 Presence of prosthetic heart valve

== ENCOUNTER 2018-09-23 12:30 | Inpatient (IN) ==
[2018-09-23 17:04] LABS: Hematocrit (blood only) 33.8 % (42-52); Hemoglobin 12.1 g/dL (14.0-18.0); Mean Corpuscular Volume 92.6 fL (80-100); Mean Platelet Volume 11.7 fL (7.4-10.4); Platelet Count 154 K/uL (130-400); RDW Coefficient of Variation 14.2 % (11.5-14.5); Red Blood Count 3.65 M/uL (4.7-6.1); White Blood Count 9.85 K/uL (4.8-10.8)
[2018-09-23 17:20] LABS: Albumin Level 3.2 gm/dl (3.4-5.0); BUN Creatinine Ratio 33.2 (10-20); Calcium 9.2 mg/dl (8.5-10.1); Creatinine Clr Calc Pharmacy 12.1 ml/min; Est GFR (African American) 14.9; Est GFR (Non-African American) 12.9; Potassium 5.5 mmol/L (3.5-5.1)
[2018-09-23 17:23] LABS: Albumin Globulin Ratio 1.1 (0.9-2); Bilirubin,Total 0.3 mg/dl (0.2-1); Total Protein 6.2 gm/dl (6.4-8.2)
[2018-09-23 17:29] LABS: Mean Corpuscular Hgb Conc 35.8 g/dL (32-36)
[2018-09-23 17:30] LABS: Basophils # (auto) 0.01 K/uL (0-0.2); Basophils % (auto) 0.1 %; Echinocytes 2+; Eosinophils # (auto) 0.04 K/uL (0-0.5); Eosinophils % (auto) 0.4 %; Immature Granulocytes # (auto) 0.04 K/uL (0.00-0.02); Immature Granulocytes % (auto) 0.4 %; Lymphocytes # (auto) 1.29 K/uL (1.2-3.4); Lymphocytes % (auto) 13.1 %; Monocytes # (auto) 0.62 K/uL (0.11-0.59); Monocytes % (auto) 6.3 %; Neutrophils # (auto) 7.85 K/uL (1.4-6.5); Neutrophils % (auto) 79.7 %
[2018-09-23] MEDS ORDERED: NSS + 20MEQ KCL 20 MEQ/1,000 ML BAG IV SCH (17:30)
[2018-09-23 17:37] LABS: Prothrombin Time > 100.0 Seconds (9.0-12.0)
[2018-09-23 17:42] LABS: INR > 11.0 (0.9-1.1)
[2018-09-23] MEDS: SODIUM CHLORIDE 0.9% 1000ML 1,000 ML IV SCH (18:00)
[2018-09-23] MEDS: PANTOprazole 40 MG in DEXTROSE 5% 100 ML IV SCH ×2 (18:28→22:34)
[2018-09-23] MEDS ORDERED: PHYTONADIONE 10 MG in SODIUM CHLORIDE 0.9% 50 ML IV ONE (18:45)
--- NOTE | 2018-09-23 19:24 | History & Physical Report ---
Date of Service September 23, 2018 Assessment & Plan (1) NAIF (acute kidney injury): 88 y/o M with PMH HTN, HLD, Afib on Coumadin, Mitral Valve Replacement, BPH, Gout, DM2, and Hyothyroidism direct admit from [facility] for supratherapuetic INR (~15) and increased BUN (120) and Cr (4+). 1) NAIF -latest BUN 131, Cr. 3.95. Cont trend. Baseline? -IVF 100 mls/hr -nephro consult 2) Supratherapeutic INR -last INR >11 -warfarin held -10 mg Vit K x1 -recheck INR in AM, cont trend -GI consult 3) Acute GI bleed/ Anemia -dark tarry stool. Hematuria also noted -GI consult -last hgb 12.1, cont trend h/h -transfuse as needed, threshold 7.0 -PPI drip 4) Afib -coumadin held 5) HTN -cont [employer] lisinopril 10 mg, diltiazem Hcl ER 240 mg daily 6) HLD - cont atorvastatin 20 mg daily 7) DM -hold home glipizide 10 mg PO and metformin HCL 500 mg PO BID -ISS, qAC checks. Will adjust as needed 8) Hypothyroidism -cont levothyroxin 75 mcg PO daily 9) BPH -cont tamsulosin .8 mg, finasteride 5 mg PO daily *Will work to find PCP records for additional background on Meds/History FULL DVT Prophylaxis: SCD's, Warfarin held History of Present Illness Primary Care Provider: Kelvin Ivan MD 88 y/o M with PMH of HTN, HLD, Afib on Coumadin, Mitral Valve Replacement, BPH , Gout, DM2, and Hyothyroidism presents to [facility] as direct admit from [facility] ER. Earlier today, pt presented to ER with complaints of cough, congestion, SOB , decreased appetite that had been going on ~3 weeks. Denied any F/N/V/D, chills , abd pain. Influenza swab was negative. CXR at [place] was negative for any acute pathology. CBC was 'reassuring.' CMP showed increased BUN 120, Cr 4+. BSG 50. Was given D10 500 ml bolus and D5 @200 mls/hr and transferred to [facility] in case of possible dialysis. Additionally, INR found to be 15.16 and was subsequently given PO mephyton (Vit. K) 5 mg x1. In speaking with pt on arrival , he denies any acute concerns or complaints. Denies any CP, SOB, cough, lightheadedness, dizziness, abd pain, F/N/V, signs of bleeding (melena, epistaxis). Notes that he has never had something like this happen in past. Further history not able to be obtained 2/2 pt being a poor historian and no family present yet. Allergies Allergy/AdvReac Type Severity Reaction Status Date / Time Penicillins Allergy Unknown UNKOWN Unverified 03/02/17 02:51 Home Medications Home Medications Medication Instructions Recorded Confirmed Type Allopurinol 300 mg DAILY #0 03/02/17 History Colchicine DAILY #0 03/02/17 History Digoxin DAILY #0 03/02/17 History Diltiazem Hcl Ext Rel (Tiazac) 240 mg PO DAILY #0 cap 03/02/17 History Finasteride (Proscar) 5 mg PO DAILY #0 tab 03/02/17 History Lisinopril (Zestril) 10 mg PO DAILY #0 tab 03/02/17 History METFORMIN HCL (GLUCOPHAGE) 500 mg PO BID #0 tab 03/02/17 History Warfarin Sod (Coumadin) DAILY #0 03/02/17 History atorvastatin 20 mg PO DAILY 09/23/18 History glipizide 10 mg PO BID 09/23/18 History levothyroxine 75 mcg PO DAILY 09/23/18 History tamsulosin 0.8 mg PO DAILY 09/23/18 History trazodone 50 mg PO HS 09/23/18 History Past Med/Surg History Social History Current Living Situation: Alone Other Information That Helps Us Care for You: No Feels Safe at Home: Yes Safety Concerns: Feels Safe At This Time Smoking Status: Former smoker Do You Dip or Chew Tobacco: No Smoking End Date: 1978 Second Hand Exposure: No Tobacco Cessation Education Requested by Patient: No Hx Alcohol Use: No Hx Substance Use: No Beliefs That Will Affect Care: None Communication Ability: Impaired Review of Systems All systems reviewed & are unremarkable except as noted in HPI & below Physical Exam 2 Vital Signs (Past 24 Hours): Last Vital Signs Temp 36.4 C L 09/23/18 14:51 Pulse 80 09/23/18 14:51 Resp 20 09/23/18 14:51 BP 152/68 H 09/23/18 14:51 Pulse Ox 97 09/23/18 14:51 Constitutional: WD/WN, vitals as above Eyes: PERRL, conjunctivae normal, anicteric sclerae ENMT: external ear and nose normal, oropharynx normal Respiratory: b/l crackles Cardiovascular: RRR, no murmur, no edema Gastrointestinal (Abdomen): normal bowel sounds, soft, nontender, no hepatosplenomegaly Skin: no rashes, warm and dry Psychiatric: A+Ox3, euthymic affect Lymphatic: no LE swelling, calfs non-tender Results & Data Laboratory Results Laboratory Results - last 24 hr 09/23/18 09/23/18 09/23/18 16:42 16:42 16:44 WBC 9.85 RBC 3.65 L Hgb 12.1 L Hct 33.8 L MCV 92.6 MCH 33.2 MCHC 35.8 RDW Std Deviation 48.0 H RDW Coeff of Ayo 14.2 Plt Count 154 MPV 11.7 H Immature Gran % (Auto) 0.4 Neut % (Auto) 79.7 Lymph % (Auto) 13.1 [place] % (Auto) 6.3 Eos % (Auto) 0.4 Baso % (Auto) 0.1 Immature Gran # (Auto) 0.04 H Neut # (Auto) 7.85 H Lymph # (Auto) 1.29 [place] # (Auto) 0.62 H Eos # (Auto) 0.04 Baso # (Auto) 0.01 Echinocytes 2+ PT > 100.0 H INR > 11.0 H* Sodium 135 L Potassium 5.5 H Chloride 114 H Carbon Dioxide 11 L Anion Gap 10.0 BUN 131 H Creatinine 3.95 H Est Cr Clr Drug Dosing 12.1 Est GFR ( Amer) 14.9 Est GFR (Non-Af Amer) 12.9 BUN/Creatinine Ratio 33.2 H Glucose 109 H POC Glucose Calcium 9.2 Total Bilirubin 0.3 AST 16 ALT 20 Alkaline Phosphatase 103 Total Protein 6.2 L Albumin 3.2 L Globulin 3.0 Albumin/Globulin Ratio 1.1 Stool Occult Bld Scrn 09/23/18 09/23/18 18:20 20:12 WBC RBC Hgb Hct MCV MCH MCHC RDW Std Deviation RDW Coeff of Ayo Plt Count MPV Immature Gran % (Auto) Neut % (Auto) Lymph % (Auto) [place] % (Auto) Eos % (Auto) Baso % (Auto) Immature Gran # (Auto) Neut # (Auto) Lymph # (Auto) [place] # (Auto) Eos # (Auto) Baso # (Auto) Echinocytes PT INR Sodium Potassium Chloride Carbon Dioxide Anion Gap BUN Creatinine Est Cr Clr Drug Dosing Est GFR ( Amer) Est GFR (Non-Af Amer) BUN/Creatinine Ratio Glucose POC Glucose 91 Calcium Total Bilirubin AST ALT Alkaline Phosphatase Total Protein Albumin Globulin Albumin/Globulin Ratio Stool Occult Bld Scrn Positive H Medications Administered Current Inpatient Medications Sodium Chloride (Nss 1000ml) 1,000 mls @ 100 mls/hr IV .Q10H NOLAN Stop: 10/23/18 17:14 Last Admin: 09/23/18 18:00 Dose: 100 mls/hr Pantoprazole Sodium 40 mg/ (Dextrose) 100 mls @ 20 mls/hr IV Q5H [facility]OL[facility] Stop: 10/23/18 17:44 Last Admin: 09/23/18 18:28 Dose: 8 mg/hr, 20 mls/hr Sodium Chloride (Nss 1000ml) 500 mls @ 999 mls/hr IV .Q31M ONE Stop: 09/23/18 20:48 Insulin Aspart (Novolog Flexpen) 0 units SC ACHS [facility] Stop: 10/23/18 20:59 Last Admin: 09/23/18 20:13 Dose: Not Given Code Status & VTE Plan Code Status FULL Supervising Physician Co-Signing Physician Notes Patient seen and examined at bedside following transfer from [facility]. Sleeping but easily arousable and responsive to questions. Presently states that he is feeling mildly fatigued but otherwise well. Specifically, denies CULVER, vision changes, lightheadedness, CP/palpitations, SOB, n/v, paresthesias, rashes, brusing, epistaxis. On inquiry, he is unable to give me a particularly specific history of his medical issues and is unsure of his medications and conditions at this time. On examination, Gen: AAOx3, NAD EENT: Minimal visible subconjunctival pallor, no jaundice/cullen CV: S1/S2 nl regular on exam Resp: CTAB Abd: NT/ND, BS +ve Ext: No appreciable edema, str 5/5 Repeat lab studies reviewed from [facility], as well as records from [facility]. OBTAIN records from PCP for full medical hx and medications. Acute GIB with melena in the setting of INR > 11 - hold warfarin. 10mg Vit K x 1. Trend INR daily. GI consultation. PPI drip. Monitor H/H q4h overnight. Transfusion threshold @ 7 or with symptoms, or with aggressive drop in Hgb. Acute renal injury - reported baseline Cr of 1. IVF. Nephrology consultation. Monitor BMP in AM. Hyperkalemia - last 5.5, will bolus 500cc NS and repeat in AM DMII - hold home medications. insulin sliding scale and AM qAC checks, t/c lantus if needed. HTN - hold diltiazem, lisinopril for concern of GIB ?Atrial fibrillation - patient is on digoxin but does not accurately recall AF in history, will review charts/records and restart when clear. Else per resident documentation as noted. Resident Activity Tracking Resident Involvement: Resident Care Provided Care Provided: Adult Hospital Medicine
[2018-09-23] MEDS: INSULIN ASPART 100 UNITS/ML 3 ML PEN SC SCH (20:13)
[2018-09-23] MEDS ORDERED: SODIUM CHLORIDE 0.9% 1000ML 500 ML IV ONE (20:18)
[2018-09-24 02:51] LABS: Hematocrit (blood only) 33.4 % (42-52); Hemoglobin 12.1 g/dL (14.0-18.0); Mean Corpuscular Hgb Conc 36.2 g/dL (32-36); Mean Corpuscular Volume 92.5 fL (80-100); Mean Platelet Volume 10.5 fL (7.4-10.4); Platelet Count 134 K/uL (130-400); RDW Coefficient of Variation 14.1 % (11.5-14.5); RDW Standard Deviation 47.5 fL (36.4-46.3); Red Blood Count 3.61 M/uL (4.7-6.1); White Blood Count 11.36 K/uL (4.8-10.8)
[2018-09-24 03:02] LABS: INR 1.7 (0.9-1.1); Prothrombin Time 16.9 Seconds (9.0-12.0)
[2018-09-24 03:13] LABS: Basophils # (auto) 0.01 K/uL (0-0.2); Basophils % (auto) 0.1 %; Echinocytes 3+; Eosinophils % (auto) 0.9 %; Immature Granulocytes # (auto) 0.04 K/uL (0.00-0.02); Immature Granulocytes % (auto) 0.4 %; Lymphocytes # (auto) 1.42 K/uL (1.2-3.4); Lymphocytes % (auto) 12.5 %; Monocytes # (auto) 1.11 K/uL (0.11-0.59); Monocytes % (auto) 9.8 %; Neutrophils # (auto) 8.68 K/uL (1.4-6.5); Neutrophils % (auto) 76.3 %; Ovalocytes 2+
[2018-09-24 03:18] LABS: Albumin Globulin Ratio 1.2 (0.9-2); Albumin Level 3.4 gm/dl (3.4-5.0); BUN Creatinine Ratio 36.8 (10-20); Bilirubin,Total 0.9 mg/dl (0.2-1); Calcium 9.1 mg/dl (8.5-10.1); Est GFR (African American) 17.8; Est GFR (Non-African American) 15.4; Globulin 2.9 gm/dl (2.5-4.0); Potassium 5.3 mmol/L (3.5-5.1); Total Protein 6.3 gm/dl (6.4-8.2)
[2018-09-24] MEDS: PANTOprazole 40 MG in DEXTROSE 5% 100 ML IV SCH ×4 (04:01→22:13)
[2018-09-24] MEDS: SODIUM CHLORIDE 0.9% 1000ML 1,000 ML IV SCH (05:52)
[2018-09-24] MEDS: INSULIN ASPART 100 UNITS/ML 3 ML PEN SC SCH ×4 (07:40→21:32)
[2018-09-24] MEDS ORDERED: GLUCOSE 10 TABS/TUBE PO PRN (09:34)
[2018-09-24] MEDS ORDERED: CARBOHYDRATES FOR HYPOGLYCEMIA PO PRN (09:34)
[2018-09-24] MEDS ORDERED: DEXTROSE 50% 50 ML SYRINGE IV PRN (09:34)
[2018-09-24] MEDS ORDERED: GLUCOSE 40% GEL 15 GM TUBE PO PRN (09:34)
[2018-09-24] MEDS ORDERED: GLUCAGON FOR INJ 1 MG VIAL IM PRN (09:34)
[2018-09-24] MEDS: SODIUM BICARBONATE 8.4% 150 MEQ in WATER, STERILE 1,000 ML IV SCH ×2 (10:04→23:31)
[2018-09-24 10:10] LABS: Appearance Urine Clear (Clear); Bacteria Urine Automated Negative (Negative); Bilirubin Urine Negative (Negative); Color Urine Yellow; Epithelial Cell Urine Auto 0-5 /lpf (0-5); Glucose Urine UA Negative (Negative); Ketones Urine Negative (Negative); Leukocyte Esterase Urine Negative (Negative); Nitrite Urine Negative (Negative); Protein Urine Negative (Negative); Specific Gravity Urine 1.012 (1.000-1.030); Urobilinogen Urine Negative (Negative)
[2018-09-24 10:43] LABS: Creatinine Urine Random 32.3 mg/dl; Total Protein Urine Random 18.2 mg/dl (0-11.9)
--- NOTE | 2018-09-24 11:36 | Nephrology Consultation ---
Date of Consultation September 24, 2018 Assessment & Plan (1) Renal insufficiency: -- Patient is clinically euvolemic. He has metabolic acidosis and mild hyperkalemia that will respond to IV NaHCO3 therapy. No acute indication for HD today -- Will order urinalysis w/ microscopy and renal US -- Will order tatum catheter insertion due to h/o BPH and to monitor UO. Will repeat PSA -- Serial PRP -- Will request last OV note and all creatinine values over the last [address] Kelvin Ivan (PCP in [place], [place]) (2) Metabolic acidosis: -- OPAL likely related to renal insufficiency and recent Metformin therapy. Agree w/ stopping Metformin. Use insulin for glycemic control. Will start NaHCO3 gtt to correct metabolic acidosis (3) Anemia: -- Mild anemia. Will check iron studies. FOBT positive x1. Recommend consultation w/ GI History of Present Illness Reason for Consultation: Evaluation of renal insufficiency and metabolic acidosis Attending Physician: Joseph Napier MD History of Present Illness Mr. Chavez is an 88 year old white male who is seen at the request of [facility] Hospitalist Service for evaluation of renal insufficiency and metabolic acidosis. 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 Mr. Chavez has a h/o BPH. His last [facility] Urology evaluation was in 2012. At that time he was placed on Flomax therapy. It was noted that his PSA increased from 2.7 to 8.0 while on alpha bindu therapy. One year check up was advised but patient was lost to follow up. He reports that he stopped Flomax as he did not feel that it was helping. Mr. Chavez baseline creatinine is unknown at this time. Over the last 3 weeks he has suffered from progressive weakness and anorexia. He presented to [facility] yesterday for evaluation and was found to have renal insufficiency and metabolic acidosis. Mr. Chavez was transferred to [facility] in case dialysis is needed. Mr. Chavez does c/o urinary hesitancy. His home medication list does include Lisinopril and Metformin. These medications have already been held Allergies Allergy/AdvReac Type Severity Reaction Status Date / Time Penicillins Allergy Unknown UNKOWN Unverified 03/02/17 02:51 Home Medications Home Medications Medication Instructions Recorded Confirmed Type Allopurinol 300 mg DAILY #0 03/02/17 History Colchicine DAILY #0 03/02/17 History Digoxin DAILY #0 03/02/17 History Diltiazem Hcl Ext Rel (Tiazac) 240 mg PO DAILY #0 cap 03/02/17 History Finasteride (Proscar) 5 mg PO DAILY #0 tab 03/02/17 History Lisinopril (Zestril) 10 mg PO DAILY #0 tab 03/02/17 History METFORMIN HCL (GLUCOPHAGE) 500 mg PO BID #0 tab 03/02/17 History Warfarin Sod (Coumadin) DAILY #0 03/02/17 History atorvastatin 20 mg PO DAILY 09/23/18 History glipizide 10 mg PO BID 09/23/18 History levothyroxine 75 mcg PO DAILY 09/23/18 History tamsulosin 0.8 mg PO DAILY 09/23/18 History trazodone 50 mg PO HS 09/23/18 History Patient History Social History Current Living Situation: Alone Other Information That Helps Us Care for You: No Feels Safe at Home: Yes Safety Concerns: Feels Safe At This Time Smoking Status: Former smoker Do You Dip or Chew Tobacco: No Smoking End Date: 1978 Second Hand Exposure: No Tobacco Cessation Education Requested by Patient: No Hx Alcohol Use: No Hx Substance Use: No Beliefs That Will Affect Care: None Preferred Language: Chinese Communication Ability: Effective Communication Ability Comment: alert to person and place 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 Required: No Review of Systems Constitutional: no fever Respiratory: no dyspnea Cardiovascular: no chest pain and no edema Gastrointestinal: no abdominal pain Genitourinary (Male): + urinary hesitancy Physical Exam 2 Vital Signs (Past 24 Hours): Last Vital Signs Temp 36.9 C 09/24/18 06:55 Pulse 94 H 09/24/18 06:55 Resp 16 09/24/18 06:55 BP 127/68 09/24/18 06:55 Pulse Ox 96 09/24/18 06:55 Constitutional: well developed; no acute distress Eyes: PERRL, conjunctivae normal, anicteric sclerae Neck: trachea midline, no thyromegaly Respiratory: normal respiratory effort, lungs clear to auscultation Cardiovascular: Rate/Rhythm: regular rate and regular rhythm (Prosthetic S1) Extremities: no edema Gastrointestinal (Abdomen): normal bowel sounds, soft, nontender, no hepatosplenomegaly Results & Data Laboratory Results Laboratory Tests 09/24/18 09/24/18 09/24/18 02:38 02:38 09:50 WBC 11.36 H Hgb 12.1 L Hct 33.4 L Plt Count 134 Sodium 135 L Potassium 5.3 H Chloride 118 H Carbon Dioxide 8 L* BUN 126 H Creatinine 3.41 H D Glucose 114 H Calcium 9.1 Albumin 3.4 Urine Color Yellow Urine Appearance Clear Urine pH 5.0 Ur Specific [place] 1.012 Urine Protein Negative Urine Glucose (UA) Negative Urine Blood 3+ H Urine Nitrite Negative Urine WBC (Auto) 1-5 Urine RBC (Auto) 10-30 H U Epithel Cells (Auto) 0-5 Urine Bacteria (Auto) Negative U Random Total Protein Protein/Creatinin Ratio 09/24/18 09:50 WBC Hgb Hct Plt Count Sodium Potassium Chloride Carbon Dioxide BUN Creatinine Glucose Calcium Albumin Urine Color Urine Appearance Urine pH Ur Specific [place] Urine Protein Urine Glucose (UA) Urine Blood Urine Nitrite Urine WBC (Auto) Urine RBC (Auto) U Epithel Cells (Auto) Urine Bacteria (Auto) U Random Total Protein 18.2 H Protein/Creatinin Ratio 0.6 H
[2018-09-24] MEDS ORDERED: HALOPERIDOL LACTATE 5 MG/ML 1 ML VIAL IM PRN (12:04)
--- NOTE | 2018-09-24 12:23 | CT Scan Report ---
CT head/brain wo con CT DOSE: 835.71 mGycm HISTORY: Mental status change ams TECHNIQUE: Multiaxial CT images of the head were performed without the use of intravenous contrast. A dose lowering technique was utilized adhering to the principles of ALARA. Comparison: None. Findings: The paranasal sinuses and mastoid air cells are clear. The calvarium and skull base are int act. The ventricles and sulci are within normal limits. There is no mass, hematoma, midline shift, or acute infarct. Impression: No acute intracranial abnormality. Age-related atrophy and chronic small vessel change The above report was generated using voice recognition software. It may contain grammatical, syntax or spelling errors. Electronically signed by: Zach Cardenas M.D. 09/24/2018 12:21 PM
--- NOTE | 2018-09-24 13:10 | Gastrointestinal Consultation ---
Date of Consultation September 24, 2018 Assessment & Plan (1) Anemia: Patient with chronic anemia and CKD, admitted with NAIF and supratherpeutic INR, his FOBT was positive hence GI consulted. Rectal exam with no overt ongoing GI bleeding. H/H at baseline for many years. He has AMS at this time. No family available. Serial H/H here are unchanged. Recommend: No ongoing overt GI bleeding and H/H in the hospital is stable despite his high INR hence no active bleed to warrant urgent endoscopy. His positive stool occult blood can be investigated with endoscopy electively as OP once his NAIF resolve and if family desires. Please recall GI if any questions or concerns. (2) Positive fecal occult blood test: History of Present Illness Attending Physician: Joseph Napier MD 88 years old male patient with medical comorbids of HTN, Afib on Coumadin, Mitral Valve Replacement, BPH, Gout, DM2, and Hyothyroidism presents to [facility] as direct admit from [facility] ER for NAIF. He reported symptoms of fatigue and cough for few weeks and found with NAIF and hyperkalemia. His INR was >11 hence given vitamin K. GI consulted for positive FOBT and dark colored stool. The patient is a poor historian but denies any rectal bleeding or hematemesis. No abdominal pain or vomiting. Reviewed records from [facility] and his H/H are at baseline. Allergies Allergy/AdvReac Type Severity Reaction Status Date / Time Penicillins Allergy Unknown UNKOWN Unverified 03/02/17 02:51 Home Medications Home Medications Medication Instructions Recorded Confirmed Type Allopurinol 300 mg DAILY #0 03/02/17 History Colchicine DAILY #0 03/02/17 History Digoxin DAILY #0 03/02/17 History Diltiazem Hcl Ext Rel (Tiazac) 240 mg PO DAILY #0 cap 03/02/17 History Finasteride (Proscar) 5 mg PO DAILY #0 tab 03/02/17 History Lisinopril (Zestril) 10 mg PO DAILY #0 tab 03/02/17 History METFORMIN HCL (GLUCOPHAGE) 500 mg PO BID #0 tab 03/02/17 History Warfarin Sod (Coumadin) DAILY #0 03/02/17 History atorvastatin 20 mg PO DAILY 09/23/18 History glipizide 10 mg PO BID 09/23/18 History levothyroxine 75 mcg PO DAILY 09/23/18 History tamsulosin 0.8 mg PO DAILY 09/23/18 History trazodone 50 mg PO HS 09/23/18 History Patient History Social History Current Living Situation: Alone Other Information That Helps Us Care for You: No Feels Safe at Home: Yes Safety Concerns: Feels Safe At This Time Smoking Status: Former smoker Do You Dip or Chew Tobacco: No Smoking End Date: 1978 Second Hand Exposure: No Tobacco Cessation Education Requested by Patient: No Hx Alcohol Use: No Hx Substance Use: No Beliefs That Will Affect Care: None Preferred Language: Brazilian Communication Ability: Effective Communication Ability Comment: alert to person and place Gis Instructor Required: No Review of Systems Constitutional: no fever, no chills, no fatigue and no weight loss Respiratory: no cough, no dyspnea, no dyspnea on exertion and no wheezing Cardiovascular: no chest pain, no orthopnea, no palpitations and no edema Gastrointestinal: as per Subjective / HPI Physical Exam 2 Vital Signs (Past 24 Hours): Last Vital Signs Temp 36.9 C 09/24/18 06:55 Pulse 94 H 09/24/18 06:55 Resp 16 09/24/18 06:55 BP 127/68 09/24/18 06:55 Pulse Ox 96 09/24/18 06:55 Constitutional: comfortable; no acute distress Respiratory: normal respiratory effort, lungs clear to auscultation Cardiovascular: RRR, no murmur, no edema Gastrointestinal (Abdomen): normal bowel sounds, soft, nontender, no hepatosplenomegaly Rectal exam: dark green stool, no melena or blood. Results & Data Laboratory Results Laboratory Results - last 24 hr 09/23/18 09/23/18 09/23/18 16:42 16:42 16:44 WBC 9.85 RBC 3.65 L Hgb 12.1 L Hct 33.8 L MCV 92.6 MCH 33.2 MCHC 35.8 RDW Std Deviation 48.0 H RDW Coeff of Ayo 14.2 Plt Count 154 MPV 11.7 H Immature Gran % (Auto) 0.4 Neut % (Auto) 79.7 Lymph % (Auto) 13.1 [place] % (Auto) 6.3 Eos % (Auto) 0.4 Baso % (Auto) 0.1 Immature Gran # (Auto) 0.04 H Neut # (Auto) 7.85 H Lymph # (Auto) 1.29 [place] # (Auto) 0.62 H Eos # (Auto) 0.04 Baso # (Auto) 0.01 Ovalocytes Echinocytes 2+ PT > 100.0 H INR > 11.0 H* ABG pH ABG pCO2 ABG pO2 ABG HCO3 ABG O2 Saturation ABG Base Excess Javad Test Barometric Pressure Oxygen Given Sodium 135 L Potassium 5.5 H Chloride 114 H Carbon Dioxide 11 L Anion Gap 10.0 BUN 131 H Creatinine 3.95 H Est Cr Clr Drug Dosing 12.1 Est GFR ( Amer) 14.9 Est GFR (Non-Af Amer) 12.9 BUN/Creatinine Ratio 33.2 H Glucose 109 H POC Glucose Calcium 9.2 Total Bilirubin 0.3 AST 16 ALT 20 Alkaline Phosphatase 103 Total Protein 6.2 L Albumin 3.2 L Globulin 3.0 Albumin/Globulin Ratio 1.1 Urine Color Urine Appearance Urine pH Ur Specific [place] Urine Protein Urine Glucose (UA) Urine Ketones Urine Blood Urine Nitrite Urine Bilirubin Urine Urobilinogen Ur Leukocyte Esterase Urine WBC (Auto) Urine RBC (Auto) U Hyaline Cast (Auto) U Epithel Cells (Auto) Urine Bacteria (Auto) Ur Random Creatinine U Random Total Protein Protein/Creatinin Ratio Stool Occult Bld Scrn 09/23/18 09/23/18 09/24/18 18:20 20:12 02:38 WBC RBC Hgb Hct MCV MCH MCHC RDW Std Deviation RDW Coeff of Ayo Plt Count MPV Immature Gran % (Auto) Neut % (Auto) Lymph % (Auto) [place] % (Auto) Eos % (Auto) Baso % (Auto) Immature Gran # (Auto) Neut # (Auto) Lymph # (Auto) [place] # (Auto) Eos # (Auto) Baso # (Auto) Ovalocytes Echinocytes PT 16.9 H INR 1.7 H ABG pH ABG pCO2 ABG pO2 ABG HCO3 ABG O2 Saturation ABG Base Excess Javad Test Barometric Pressure Oxygen Given Sodium Potassium Chloride Carbon Dioxide Anion Gap BUN Creatinine Est Cr Clr Drug Dosing Est GFR ( Amer) Est GFR (Non-Af Amer) BUN/Creatinine Ratio Glucose POC Glucose 91 Calcium Total Bilirubin AST ALT Alkaline Phosphatase Total Protein Albumin Globulin Albumin/Globulin Ratio Urine Color Urine Appearance Urine pH Ur Specific [place] Urine Protein Urine Glucose (UA) Urine Ketones Urine Blood Urine Nitrite Urine Bilirubin Urine Urobilinogen Ur Leukocyte Esterase Urine WBC (Auto) Urine RBC (Auto) U Hyaline Cast (Auto) U Epithel Cells (Auto) Urine Bacteria (Auto) Ur Random Creatinine U Random Total Protein Protein/Creatinin Ratio Stool Occult Bld Scrn Positive H 09/24/18 09/24/18 09/24/18 02:38 02:38 07:30 WBC 11.36 H RBC 3.61 L Hgb 12.1 L Hct 33.4 L MCV 92.5 MCH 33.5 MCHC 36.2 H RDW Std Deviation 47.5 H RDW Coeff of Ayo 14.1 Plt Count 134 MPV 10.5 H Immature Gran % (Auto) 0.4 Neut % (Auto) 76.3 Lymph % (Auto) 12.5 [place] % (Auto) 9.8 Eos % (Auto) 0.9 Baso % (Auto) 0.1 Immature Gran # (Auto) 0.04 H Neut # (Auto) 8.68 H Lymph # (Auto) 1.42 [place] # (Auto) 1.11 H Eos # (Auto) 0.10 Baso # (Auto) 0.01 Ovalocytes 2+ Echinocytes 3+ PT INR ABG pH ABG pCO2 ABG pO2 ABG HCO3 ABG O2 Saturation ABG Base Excess Javad Test Barometric Pressure Oxygen Given Sodium 135 L Potassium 5.3 H Chloride 118 H Carbon Dioxide 8 L* Anion Gap 9.0 BUN 126 H Creatinine 3.41 H D Est Cr Clr Drug Dosing 14.0 Est GFR ( Amer) 17.8 Est GFR (Non-Af Amer) 15.4 BUN/Creatinine Ratio 36.8 H Glucose 114 H POC Glucose 131 H Calcium 9.1 Total Bilirubin 0.9 D AST 22 ALT 21 Alkaline Phosphatase 110 Total Protein 6.3 L Albumin 3.4 Globulin 2.9 Albumin/Globulin Ratio 1.2 Urine Color Urine Appearance Urine pH Ur Specific [place] Urine Protein Urine Glucose (UA) Urine Ketones Urine Blood Urine Nitrite Urine Bilirubin Urine Urobilinogen Ur Leukocyte Esterase Urine WBC (Auto) Urine RBC (Auto) U Hyaline Cast (Auto) U Epithel Cells (Auto) Urine Bacteria (Auto) Ur Random Creatinine U Random Total Protein Protein/Creatinin Ratio Stool Occult Bld Scrn 09/24/18 09/24/18 09/24/18 09:50 09:50 12:54 WBC RBC Hgb Hct MCV MCH MCHC RDW Std Deviation RDW Coeff of Ayo Plt Count MPV Immature Gran % (Auto) Neut % (Auto) Lymph % (Auto) [place] % (Auto) Eos % (Auto) Baso % (Auto) Immature Gran # (Auto) Neut # (Auto) Lymph # (Auto) [place] # (Auto) Eos # (Auto) Baso # (Auto) Ovalocytes Echinocytes PT INR ABG pH 7.28 L ABG pCO2 20 L ABG pO2 99 H ABG HCO3 9 L ABG O2 Saturation 97.3 H ABG Base Excess -15.4 L Javad Test Pos Barometric Pressure 733.0 Oxygen Given ROOM AIR Sodium Potassium Chloride Carbon Dioxide Anion Gap BUN Creatinine Est Cr Clr Drug Dosing Est GFR ( Amer) Est GFR (Non-Af Amer) BUN/Creatinine Ratio Glucose POC Glucose Calcium Total Bilirubin AST ALT Alkaline Phosphatase Total Protein Albumin Globulin Albumin/Globulin Ratio Urine Color Yellow Urine Appearance Clear Urine pH 5.0 Ur Specific [place] 1.012 Urine Protein Negative Urine Glucose (UA) Negative Urine Ketones Negative Urine Blood 3+ H Urine Nitrite Negative Urine Bilirubin Negative Urine Urobilinogen Negative Ur Leukocyte Esterase Negative Urine WBC (Auto) 1-5 Urine RBC (Auto) 10-30 H U Hyaline Cast (Auto) 1-5 U Epithel Cells (Auto) 0-5 Urine Bacteria (Auto) Negative Ur Random Creatinine 32.3 U Random Total Protein 18.2 H Protein/Creatinin Ratio 0.6 H Stool Occult Bld Scrn
[2018-09-24 13:11] LABS: Allen Test Pos (Pos); HCO3 ABG 9 mmol/L (19-24); Oxygen Saturation ABG 97.3 % (90-95); PCO2 ABG 20 mmHg (35-46); PO2 ABG 99 mm/Hg (80-95); pH ABG 7.28 (7.35-7.45)
--- NOTE | 2018-09-24 14:22 | Ultrasound Report ---
US renal/blad retro comp HISTORY: Renal insufficiency NAIF COMPARISON: None. FINDINGS: Right kidney: Maximum linear dimension 10.5 cm. No evidence for hydronephrosis. 1.6 cm upper pole cys t. Cortical thinning and scarring Left kidney: Maximum linear dimension 12.1 cm. No evidence for hydronephrosis. Several small sub-1 c m cysts. Moderate cortical thinning and scarring Bladder: No bladder wall thickening. The bilateral ureteral jets were identified. IMPRESSION: 1. No evidence for hydronephrosis. 2. Cortical thinning and scarring bilaterally. 3. Several small renal cysts. The above report was generated using voice recognition software. It may contain grammatical, syntax or spelling errors. Electronically signed by: Zach Cardenas M.D. 09/24/2018 2:20 PM
--- NOTE | 2018-09-24 18:49 | Family Medicine Progress Note ---
Date of Service September 24, 2018 Assessment & Plan (1) NAIF (acute kidney injury): 88 y/o M with PMH HTN, HLD, Afib on Coumadin, Mitral Valve Replacement, BPH, Gout, DM2, and Hyothyroidism direct admit from [facility] for supratherapuetic INR (~15) and increased BUN (120) and Cr (4+). 1) NAIF -latest BUN 126, Cr. 3.41. Cont trend. Baseline Cr around 1 -IVF 100 mls/hr -nephro consult: IV NaHCO3 therapy for OPAL and mild hyperkalemia. No acute indication for HD today. Will order urinalysis w/ microscopy and renal US. Will repeat PSA. Serial PRP 2) Supratherapeutic INR/Anemia -last INR 1.7 -warfarin held -10 mg Vit K x1 on admission -recheck INR in AM, cont trend -last hgb 12.1, cont trend h/h. Transfuse as needed, threshold 7.0 -FOBT positive -GI consult: No ongoing overt GI bleeding and H/H stable despite high INR yesterday, hence no urgent endoscopy. Positive FOBT can be investigated with endoscopy electively as OP once NAIF resolve -PPI drip 3) Afib -coumadin held 4) HTN -hold [employer] lisinopril 10 mg, diltiazem Hcl ER 240 mg daily 5) HLD - cont atorvastatin 20 mg daily 6) DM -hold home glipizide 10 mg PO and metformin HCL 500 mg PO BID -ISS, qAC checks. Will adjust as needed 7) Hypothyroidism -hold levothyroxin 75 mcg PO daily 8) BPH -hold tamsulosin .8 mg, finasteride 5 mg PO daily -per nephro: tatum catheter insertion due to h/o BPH and to monitor UO 9) Acute Delirium -CT head normal. Other Labs (UA, UDS, ABG, TSH) unremarkable -haldol 0.5 IM prn for agitation *Will work to find PCP records for additional background on Meds/History in AM FULL DVT Prophylaxis: SCD's, Warfarin held Supervising Physician Co-Signing Physician Notes Attending attestation Pt seen and examined in concert with Dr. Vega. In agreement with the documented findings as noted in the resident documentation with any exceptions or additions as noted here. Called to bedside for patient delirium agitated but easily redirected. Denies pain but refusing to answer other questions. Unable to assess patient refusal/agitation Delirium renal insufficiency v. underlying dementia CT head, lab studies as noted. Haldol 0.5mg IM q6 for agitation w/ provider notification. Acute renal insufficiency with metabolic acidosis, hyperkalemia - Nephrology consultation appreciated IV hydration w/ NaHCO3 and monitor q12h Supratherapeutic INR with hematuria improved following Vit K administration, now 1.7. Trend PT/INR daily. DMII - hold home medications. insulin sliding scale and AM qAC checks, t/c lantus if needed. Obtain records from PCP in AM Else per resident documentation as noted. Subjective 88 y/o M found in bed today in NAD. Reports no acute overnight events. Per RN, pt was acting agitated later in day and pulled out IV. Was cooperative with physicians. No issues voiding, tatum still in. Toleratin PO intake. Pt reports no other acute concerns or complaints. Review of Systems All systems reviewed & are unremarkable except as noted in HPI & below Physical Exam 2 Vital Signs (Past 24 Hours): Last Vital Signs Temp 37.1 C 09/24/18 15:42 Pulse 102 H 09/24/18 16:00 Resp 18 09/24/18 15:42 BP 161/90 H 09/24/18 15:42 Pulse Ox 98 09/24/18 15:42 Constitutional: WD/WN, vitals as above Eyes: PERRL, conjunctivae normal, anicteric sclerae ENMT: external ear and nose normal, oropharynx normal Respiratory: crackles auscultated b/l Cardiovascular: RRR, no murmur, no edema Gastrointestinal (Abdomen): normal bowel sounds, soft, nontender, no hepatosplenomegaly Skin: no rashes, warm and dry Psychiatric: A+Ox3, euthymic affect Somewhat agitated on exam. Results & Data Laboratory Results Laboratory Results - last 24 hr 09/23/18 09/24/18 09/24/18 20:12 02:38 02:38 WBC 11.36 H RBC 3.61 L Hgb 12.1 L Hct 33.4 L MCV 92.5 MCH 33.5 MCHC 36.2 H RDW Std Deviation 47.5 H RDW Coeff of Ayo 14.1 Plt Count 134 MPV 10.5 H Immature Gran % (Auto) 0.4 Neut % (Auto) 76.3 Lymph % (Auto) 12.5 [place] % (Auto) 9.8 Eos % (Auto) 0.9 Baso % (Auto) 0.1 Immature Gran # (Auto) 0.04 H Neut # (Auto) 8.68 H Lymph # (Auto) 1.42 [place] # (Auto) 1.11 H Eos # (Auto) 0.10 Baso # (Auto) 0.01 Ovalocytes 2+ Echinocytes 3+ PT 16.9 H INR 1.7 H ABG pH ABG pCO2 ABG pO2 ABG HCO3 ABG O2 Saturation ABG Base Excess Javad Test Barometric Pressure Oxygen Given Sodium Potassium Chloride Carbon Dioxide Anion Gap BUN Creatinine Est Cr Clr Drug Dosing Est GFR ( Amer) Est GFR (Non-Af Amer) BUN/Creatinine Ratio Glucose POC Glucose 91 Calcium Total Bilirubin AST ALT Alkaline Phosphatase Total Protein Albumin Globulin Albumin/Globulin Ratio TSH Urine Color Urine Appearance Urine pH Ur Specific [place] Urine Protein Urine Glucose (UA) Urine Ketones Urine Blood Urine Nitrite Urine Bilirubin Urine Urobilinogen Ur Leukocyte Esterase Urine WBC (Auto) Urine RBC (Auto) U Hyaline Cast (Auto) U Epithel Cells (Auto) Urine Bacteria (Auto) Ur Random Creatinine U Random Total Protein Protein/Creatinin Ratio Digoxin 09/24/18 09/24/18 09/24/18 02:38 07:30 09:50 WBC RBC Hgb Hct MCV MCH MCHC RDW Std Deviation RDW Coeff of Ayo Plt Count MPV Immature Gran % (Auto) Neut % (Auto) Lymph % (Auto) [place] % (Auto) Eos % (Auto) Baso % (Auto) Immature Gran # (Auto) Neut # (Auto) Lymph # (Auto) [place] # (Auto) Eos # (Auto) Baso # (Auto) Ovalocytes Echinocytes PT INR ABG pH ABG pCO2 ABG pO2 ABG HCO3 ABG O2 Saturation ABG Base Excess Javad Test Barometric Pressure Oxygen Given Sodium 135 L Potassium 5.3 H Chloride 118 H Carbon Dioxide 8 L* Anion Gap 9.0 BUN 126 H Creatinine 3.41 H D Est Cr Clr Drug Dosing 14.0 Est GFR ( Amer) 17.8 Est GFR (Non-Af Amer) 15.4 BUN/Creatinine Ratio 36.8 H Glucose 114 H POC Glucose 131 H Calcium 9.1 Total Bilirubin 0.9 D AST 22 ALT 21 Alkaline Phosphatase 110 Total Protein 6.3 L Albumin 3.4 Globulin 2.9 Albumin/Globulin Ratio 1.2 TSH Urine Color Yellow Urine Appearance Clear Urine pH 5.0 Ur Specific [place] 1.012 Urine Protein Negative Urine Glucose (UA) Negative Urine Ketones Negative Urine Blood 3+ H Urine Nitrite Negative Urine Bilirubin Negative Urine Urobilinogen Negative Ur Leukocyte Esterase Negative Urine WBC (Auto) 1-5 Urine RBC (Auto) 10-30 H U Hyaline Cast (Auto) 1-5 U Epithel Cells (Auto) 0-5 Urine Bacteria (Auto) Negative Ur Random Creatinine U Random Total Protein Protein/Creatinin Ratio Digoxin 09/24/18 09/24/18 09/24/18 09:50 11:53 12:53 WBC RBC Hgb Hct MCV MCH MCHC RDW Std Deviation RDW Coeff of Ayo Plt Count MPV Immature Gran % (Auto) Neut % (Auto) Lymph % (Auto) [place] % (Auto) Eos % (Auto) Baso % (Auto) Immature Gran # (Auto) Neut # (Auto) Lymph # (Auto) [place] # (Auto) Eos # (Auto) Baso # (Auto) Ovalocytes Echinocytes PT INR ABG pH ABG pCO2 ABG pO2 ABG HCO3 ABG O2 Saturation ABG Base Excess Javad Test Barometric Pressure Oxygen Given Sodium Potassium Chloride Carbon Dioxide Anion Gap BUN Creatinine Est Cr Clr Drug Dosing Est GFR ( Amer) Est GFR (Non-Af Amer) BUN/Creatinine Ratio Glucose POC Glucose 161 H Calcium Total Bilirubin AST ALT Alkaline Phosphatase Total Protein Albumin Globulin Albumin/Globulin Ratio TSH 0.388 Urine Color Urine Appearance Urine pH Ur Specific [place] Urine Protein Urine Glucose (UA) Urine Ketones Urine Blood Urine Nitrite Urine Bilirubin Urine Urobilinogen Ur Leukocyte Esterase Urine WBC (Auto) Urine RBC (Auto) U Hyaline Cast (Auto) U Epithel Cells (Auto) Urine Bacteria (Auto) Ur Random Creatinine 32.3 U Random Total Protein 18.2 H Protein/Creatinin Ratio 0.6 H Digoxin 09/24/18 09/24/18 09/24/18 12:54 12:54 16:07 WBC RBC Hgb Hct MCV MCH MCHC RDW Std Deviation RDW Coeff of Ayo Plt Count MPV Immature Gran % (Auto) Neut % (Auto) Lymph % (Auto) [place] % (Auto) Eos % (Auto) Baso % (Auto) Immature Gran # (Auto) Neut # (Auto) Lymph # (Auto) [place] # (Auto) Eos # (Auto) Baso # (Auto) Ovalocytes Echinocytes PT INR ABG pH 7.28 L ABG pCO2 20 L ABG pO2 99 H ABG HCO3 9 L ABG O2 Saturation 97.3 H ABG Base Excess -15.4 L Javad Test Pos Barometric Pressure 733.0 Oxygen Given ROOM AIR Sodium Potassium Chloride Carbon Dioxide Anion Gap BUN Creatinine Est Cr Clr Drug Dosing Est GFR ( Amer) Est GFR (Non-Af Amer) BUN/Creatinine Ratio Glucose POC Glucose 195 H Calcium Total Bilirubin AST ALT Alkaline Phosphatase Total Protein Albumin Globulin Albumin/Globulin Ratio TSH Urine Color Urine Appearance Urine pH Ur Specific [place] Urine Protein Urine Glucose (UA) Urine Ketones Urine Blood Urine Nitrite Urine Bilirubin Urine Urobilinogen Ur Leukocyte Esterase Urine WBC (Auto) Urine RBC (Auto) U Hyaline Cast (Auto) U Epithel Cells (Auto) Urine Bacteria (Auto) Ur Random Creatinine U Random Total Protein Protein/Creatinin Ratio Digoxin 0.2 L Medications Administered Current Inpatient Medications Dextrose (Dextrose 50%) 25 - 50 ml IV UD PRN; Protocol PRN Reason: Hypoglycemia Protocol Stop: 10/24/18 09:33 Glucagon (Glucagen) 1 mg IM UD PRN; Protocol PRN Reason: Hypoglycemia Protocol Stop: 10/24/18 09:33 Glucose (Glucose 40%) 15 - 30 gm PO UD PRN; Protocol PRN Reason: Hypoglycemia Protocol Stop: 10/24/18 09:33 Glucose (Dex4 Glucose) 4 - 8 tabs PO UD PRN; Protocol PRN Reason: Hypoglycemia Protocol Stop: 10/24/18 09:33 Haloperidol Lactate (Haldol) 0.5 mg IM DAILY PRN PRN Reason: Agitation Stop: 10/24/18 12:03 Pantoprazole Sodium 40 mg/ (Dextrose) 100 mls @ 20 mls/hr IV Q5H [facility] Stop: 10/23/18 17:44 Last Admin: 09/24/18 15:40 Dose: 8 mg/hr, 20 mls/hr Sodium Bicarbonate 150 meq/ (Sterile Water) 1,150 mls @ 100 mls/hr IV .[id number] [facility] Stop: 10/24/18 09:29 Last Admin: 09/24/18 10:04 Dose: 100 mls/hr Insulin Aspart (Novolog Flexpen) 0 units SC ACHS [facility] Stop: 10/23/18 20:59 Last Admin: 09/24/18 16:59 Dose: 2 units Miscellaneous (Carbohydrates For Hypoglycemia) 15 - 30 gm PO UD PRN PRN Reason: Hypoglycemia Treatment Stop: 10/24/18 09:33 Resident Activity Tracking Resident Involvement: Resident Care Provided Care Provided: Adult Hospital Medicine
[2018-09-25 00:15] LABS: Hematocrit (blood only) 33.8 % (42-52)
[2018-09-25] MEDS: INSULIN ASPART 100 UNITS/ML 3 ML PEN SC SCH ×5 (00:22→23:56)
[2018-09-25] MEDS: PANTOprazole 40 MG in DEXTROSE 5% 100 ML IV SCH ×2 (03:30→08:51)
[2018-09-25 07:01] LABS: Basophils # (auto) 0.02 K/uL (0-0.2); Basophils % (auto) 0.2 %; Eosinophils # (auto) 0.06 K/uL (0-0.5); Eosinophils % (auto) 0.5 %; Hematocrit (blood only) 34.2 % (42-52); Hemoglobin 12.4 g/dL (14.0-18.0); Immature Granulocytes # (auto) 0.04 K/uL (0.00-0.02); Immature Granulocytes % (auto) 0.4 %; Lymphocytes # (auto) 1.21 K/uL (1.2-3.4); Lymphocytes % (auto) 11.1 %; Mean Corpuscular Hgb Conc 36.3 g/dL (32-36); Mean Corpuscular Volume 90.7 fL (80-100); Mean Platelet Volume 11.1 fL (7.4-10.4); Monocytes # (auto) 1.18 K/uL (0.11-0.59); Monocytes % (auto) 10.8 %; Neutrophils # (auto) 8.43 K/uL (1.4-6.5); Platelet Count 151 K/uL (130-400); RDW Coefficient of Variation 14.1 % (11.5-14.5); RDW Standard Deviation 46.2 fL (36.4-46.3); Red Blood Count 3.77 M/uL (4.7-6.1); White Blood Count 10.94 K/uL (4.8-10.8)
[2018-09-25 07:17] LABS: INR 1.2 (0.9-1.1); Prothrombin Time 11.7 Seconds (9.0-12.0)
[2018-09-25 07:34] LABS: Albumin Level 3.4 gm/dl (3.4-5.0); BUN Creatinine Ratio 35.5 (10-20); Bilirubin,Total 1.2 mg/dl (0.2-1); Calcium 9.3 mg/dl (8.5-10.1); Creatinine Clr Calc Pharmacy 19.3 ml/min; Est GFR (African American) 23.7; Est GFR (Non-African American) 20.4; Ferritin 556.5 ng/ml (8-388); Globulin 3.3 gm/dl (2.5-4.0); Potassium 4.1 mmol/L (3.5-5.1); Prostate Specific Antigen 9.2 ng/ml (0-4); Total Protein 6.7 gm/dl (6.4-8.2)
[2018-09-25] MEDS: SODIUM BICARBONATE 8.4% 150 MEQ in WATER, STERILE 1,000 ML IV SCH ×2 (08:54→20:50)
--- NOTE | 2018-09-25 10:45 | Family Medicine Progress Note ---
Date of Service September 25, 2018 Assessment & Plan (1) NAIF (acute kidney injury): 88 y/o M with PMH HTN, HLD, Afib on Coumadin, Mitral Valve Replacement, BPH, Gout, DM2, and Hyothyroidism direct admit from [facility] for supratherapuetic INR (~15) and increased BUN (120) and Cr (4+). 1) NAIF -latest BUN 96, Cr. 2.70. Trending down. Cont trend. Baseline Cr around 1 -continue IVF 100 mls/hr -nephro consult: IV NaHCO3 therapy for OPAL and mild hyperkalemia. No acute indication for HD today. Will order urinalysis w/ microscopy and renal US. Will repeat PSA. Serial PRP 2) Supratherapeutic INR/Anemia -last INR 1.2 -warfarin held -10 mg Vit K x1 on admission -recheck INR in AM, cont trend -last hgb 12.4, cont trend h/h. Transfuse as needed, threshold 7.0 -FOBT positive -GI consult: No ongoing overt GI bleeding and H/H stable despite high INR yesterday, hence no urgent endoscopy. Positive FOBT can be investigated with endoscopy electively as OP once NAIF resolve -PPI drip 3) Afib -coumadin held 4) HTN -hold [employer] HE[employer] THERAPIST lisinopril 10 mg, diltiazem Hcl ER 240 mg daily 5) HLD - cont atorvastatin 20 mg daily 6) DM -hold home glipizide 10 mg PO and metformin HCL 500 mg PO BID -ISS, qAC checks. Will adjust as needed 7) Hypothyroidism -hold levothyroxin 75 mcg PO daily 8) BPH -hold tamsulosin .8 mg, finasteride 5 mg PO daily -per nephro: tatum catheter insertion due to h/o BPH and to monitor UO 9) Acute Delirium -CT head normal. Other Labs (UA, UDS, ABG, TSH) unremarkable -haldol 0.5 IM prn for agitation *Will work to find PCP records for additional background on Meds/History in AM FULL DVT Prophylaxis: SCD's, Warfarin held Supervising Physician Co-Signing Physician Notes I personally examined the patient and verified all lackey points of history and exam, discussed case, and agree with decision making with Dr Singh. No meaningful HPI or review of systems. Son is present. He notes that his dad had diarrhea ongoing for about 2 weeks, with poor appetite. It was not until Tuesday that he started to see him acting off, in fact earlier this week he was still driving to a restaurant to meet his friends "the old [employer] club" as his son put it. Then on Tuesday he was appearing weaker and a little bit confused, they kept a close eye on him, and then Tuesday as he was clearly worsening they brought him to the ER. Son also wonders if he was taking too much of his meds given his INR being significantly elevated, although there is no other reason the son is suspecting this besides his labwork. Vitals noted, in general he is awake but just staring at the ceiling but appears in no distress. HEENT normocephalic atraumatic mucous membranes may be slightly dry. Lungs are unlabored no accessory muscle use. Skin shows no rashes may be mild pallor no icterus. Acute renal failureappears to be due to dehydration, from poor oral intake and diarrhea, compounded probably by late effects from his ALMAZ inhibitor and metformin once he was already significantly dehydrated. Continue IV fluids and supportive care Metabolic encephalopathyhe appears most likely delirious from his dehydration and renal failure, we will be vigilant for any signs or symptoms of infection ( currently none) and be vigilant for any other metabolic or toxic contributors to his delirium (currently not as well), discussed delirium with the son in depth he expresses a good understanding, more than likely the patient will need to go to SNF at time of discharge unless his delirium clears more quickly than average Heme positive stool/supratherapeutic INRmore than likely the heme positive stools are just due to his high INR. He does not show any signs or symptoms of true acute blood loss. Vigilance, supportive care, his INR has been reversed, endoscopic workup can be looked at as an outpatient is still required. Otherwise as above Subjective Pt was agitated overnight, trying to get out of bed. Son and granddaughter at bedside later. Son states that pt had about 2 weeks of diarrhea before presentation with decreased meal intake/appetite. Described a slow progression of delirium that has seemed to worsen in the last few days. Agrees there might be a possibility of warfarin overdose with the delirium but can't say for sure. Review of Systems Unobtainable due to cognitive status Physical Exam 2 Vital Signs (Past 24 Hours): Last Vital Signs Temp 36.8 C 09/25/18 07:05 Pulse 110 H 09/25/18 07:05 Resp 20 09/25/18 07:05 BP 133/83 09/25/18 07:05 Pulse Ox 99 09/25/18 07:05 General: Alert, NOT orientedx3. No acute distress HEENT: NC/AT, PERRL, EOMI, oropharynx moist. Chest: Nontender to palpation. CV: RRR, Normal s1, s2. No murmurs appreciated Resp: Breath sounds clear bilaterally, no increased effort of breathing. No crackles/rhonchi/rales. Abdomen: BS+. Soft, nontender, nondistended. No guarding. No organomegaly appreciated. Extremities: No edema. Results & Data Laboratory Results Laboratory Results - last 24 hr 09/24/18 09/24/18 09/24/18 09:50 11:53 12:53 WBC RBC Hgb Hct MCV MCH MCHC RDW Std Deviation RDW Coeff of Ayo Plt Count MPV Immature Gran % (Auto) Neut % (Auto) Lymph % (Auto) [place] % (Auto) Eos % (Auto) Baso % (Auto) Immature Gran # (Auto) Neut # (Auto) Lymph # (Auto) [place] # (Auto) Eos # (Auto) Baso # (Auto) PT INR ABG pH ABG pCO2 ABG pO2 ABG HCO3 ABG O2 Saturation ABG Base Excess Javad Test Barometric Pressure Oxygen Given Sodium Potassium Chloride Carbon Dioxide Anion Gap BUN Creatinine Est Cr Clr Drug Dosing Est GFR ( Amer) Est GFR (Non-Af Amer) BUN/Creatinine Ratio Glucose POC Glucose 161 H Calcium Iron Transferrin Transferrin % Sat Ferritin Total Bilirubin AST ALT Alkaline Phosphatase Total Protein Albumin Globulin Albumin/Globulin Ratio Prostate Specific Ag TSH 0.388 Ur Random Creatinine 32.3 U Random Total Protein 18.2 H Protein/Creatinin Ratio 0.6 H Digoxin 09/24/18 09/24/18 09/24/18 12:54 12:54 16:07 WBC RBC Hgb Hct MCV MCH MCHC RDW Std Deviation RDW Coeff of Ayo Plt Count MPV Immature Gran % (Auto) Neut % (Auto) Lymph % (Auto) [place] % (Auto) Eos % (Auto) Baso % (Auto) Immature Gran # (Auto) Neut # (Auto) Lymph # (Auto) [place] # (Auto) Eos # (Auto) Baso # (Auto) PT INR ABG pH 7.28 L ABG pCO2 20 L ABG pO2 99 H ABG HCO3 9 L ABG O2 Saturation 97.3 H ABG Base Excess -15.4 L Javad Test Pos Barometric Pressure 733.0 Oxygen Given ROOM AIR Sodium Potassium Chloride Carbon Dioxide Anion Gap BUN Creatinine Est Cr Clr Drug Dosing Est GFR ( Amer) Est GFR (Non-Af Amer) BUN/Creatinine Ratio Glucose POC Glucose 195 H Calcium Iron Transferrin Transferrin % Sat Ferritin Total Bilirubin AST ALT Alkaline Phosphatase Total Protein Albumin Globulin Albumin/Globulin Ratio Prostate Specific Ag TSH Ur Random Creatinine U Random Total Protein Protein/Creatinin Ratio Digoxin 0.2 L 09/24/18 09/25/18 09/25/18 23:59 00:05 06:04 WBC RBC Hgb 12.0 L Hct 33.8 L MCV MCH MCHC RDW Std Deviation RDW Coeff of Ayo Plt Count MPV Immature Gran % (Auto) Neut % (Auto) Lymph % (Auto) [place] % (Auto) Eos % (Auto) Baso % (Auto) Immature Gran # (Auto) Neut # (Auto) Lymph # (Auto) [place] # (Auto) Eos # (Auto) Baso # (Auto) PT INR ABG pH ABG pCO2 ABG pO2 ABG HCO3 ABG O2 Saturation ABG Base Excess Javad Test Barometric Pressure Oxygen Given Sodium Potassium Chloride Carbon Dioxide Anion Gap BUN Creatinine Est Cr Clr Drug Dosing Est GFR ( Amer) Est GFR (Non-Af Amer) BUN/Creatinine Ratio Glucose POC Glucose 172 H 198 H Calcium Iron Transferrin Transferrin % Sat Ferritin Total Bilirubin AST ALT Alkaline Phosphatase Total Protein Albumin Globulin Albumin/Globulin Ratio Prostate Specific Ag TSH Ur Random Creatinine U Random Total Protein Protein/Creatinin Ratio Digoxin 09/25/18 09/25/18 09/25/18 06:38 06:38 06:38 WBC 10.94 H RBC 3.77 L Hgb 12.4 L Hct 34.2 L MCV 90.7 MCH 32.9 MCHC 36.3 H RDW Std Deviation 46.2 RDW Coeff of Ayo 14.1 Plt Count 151 MPV 11.1 H Immature Gran % (Auto) 0.4 Neut % (Auto) 77.0 Lymph % (Auto) 11.1 [place] % (Auto) 10.8 Eos % (Auto) 0.5 Baso % (Auto) 0.2 Immature Gran # (Auto) 0.04 H Neut # (Auto) 8.43 H Lymph # (Auto) 1.21 [place] # (Auto) 1.18 H Eos # (Auto) 0.06 Baso # (Auto) 0.02 PT 11.7 INR 1.2 H ABG pH ABG pCO2 ABG pO2 ABG HCO3 ABG O2 Saturation ABG Base Excess Javad Test Barometric Pressure Oxygen Given Sodium 143 D Potassium 4.1 D Chloride 113 H Carbon Dioxide 19 L Anion Gap 11.0 BUN 96 H Creatinine 2.70 H D Est Cr Clr Drug Dosing 19.3 Est GFR ( Amer) 23.7 Est GFR (Non-Af Amer) 20.4 BUN/Creatinine Ratio 35.5 H Glucose 199 H POC Glucose Calcium 9.3 Iron 122 Transferrin 189 L Transferrin % Sat 46 Ferritin 556.5 H Total Bilirubin 1.2 H AST 27 ALT 22 Alkaline Phosphatase 116 Total Protein 6.7 Albumin 3.4 Globulin 3.3 Albumin/Globulin Ratio 1.0 Prostate Specific Ag 9.200 H TSH Ur Random Creatinine U Random Total Protein Protein/Creatinin Ratio Digoxin Medications Administered Home Medications Allopurinol 300 mg DAILY #0 03/02/17 [History] Colchicine DAILY #0 03/02/17 [History] Digoxin DAILY #0 03/02/17 [History] Diltiazem Hcl Ext Rel (Tiazac) 240 mg PO DAILY #0 cap 03/02/17 [History] Finasteride (Proscar) 5 mg PO DAILY #0 tab 03/02/17 [History] Lisinopril (Zestril) 10 mg PO DAILY #0 tab 03/02/17 [History] METFORMIN HCL (GLUCOPHAGE) 500 mg PO BID #0 tab 03/02/17 [History] Warfarin Sod (Coumadin) DAILY #0 03/02/17 [History] atorvastatin 20 mg PO DAILY 09/23/18 [History] glipizide 10 mg PO BID 09/23/18 [History] levothyroxine 75 mcg PO DAILY 09/23/18 [History] tamsulosin 0.8 mg PO DAILY 09/23/18 [History] trazodone 50 mg PO HS 09/23/18 [History] Active Medications Dextrose (Dextrose 50%) 25 - 50 ml IV UD PRN; Protocol PRN Reason: Hypoglycemia Protocol Stop: 10/24/18 09:33 Glucagon (Glucagen) 1 mg IM UD PRN; Protocol PRN Reason: Hypoglycemia Protocol Stop: 10/24/18 09:33 Glucose (Glucose 40%) 15 - 30 gm PO UD PRN; Protocol PRN Reason: Hypoglycemia Protocol Stop: 10/24/18 09:33 Glucose (Dex4 Glucose) 4 - 8 tabs PO UD PRN; Protocol PRN Reason: Hypoglycemia Protocol Stop: 10/24/18 09:33 Haloperidol Lactate (Haldol) 0.5 mg IM DAILY PRN PRN Reason: Agitation Stop: 10/24/18 12:03 Last Admin: 09/25/18 02:14 Dose: 0.5 mg Sodium Bicarbonate 150 meq/ (Sterile Water) 1,150 mls @ 100 mls/hr IV .[id number] [facility] Stop: 10/24/18 09:29 Last Admin: 09/25/18 08:54 Dose: 100 mls/hr Insulin Aspart (Novolog Flexpen) 0 units SC Q6 [facility] Stop: 10/25/18 00:00 Last Admin: 09/25/18 06:23 Dose: 2 units Miscellaneous (Carbohydrates For Hypoglycemia) 15 - 30 gm PO UD PRN PRN Reason: Hypoglycemia Treatment Stop: 10/24/18 09:33 Resident Activity Tracking Resident Involvement: Resident Care Provided Care Provided: Adult Hospital Medicine
--- NOTE | 2018-09-25 11:40 | Nephrology Progress Note ---
Date of Service September 25, 2018 Assessment & Plan (1) Renal insufficiency: 88-year-old male with acute kidney injury with history of chronic kidney disease. Most likely pre renal with volume depletion as renal function has been improving nicely with volume resuscitation. Renal ultrasound with no postrenal obstruction. Creatinine improved to 2.7 from 4.0 on admission. Metabolic acidosis improving as well. -- continue on sodium bicarbonate drip for now -- Serial PRP -- continue to hold metformin and ALMAZ-inhibitor/ARB Will follow (2) Metabolic acidosis: s (3) Anemia: -- Mild anemia, hemoglobin stable. Evaluated by GI, no other workup at this time point, can have further evaluation as an outpatient. Kyrie Arguello Was seen and examined in his room this morning with his sitter at bedside. He was awake and alert however was confused. He was not aware that he was in hospital however he was able to give some detailed report of his remote medical history. Denies shortness of breath, chest pain, fever or chills. Denies nausea, vomiting or abdominal pain. Review of Systems Detailed review of system was negative except mentioned above. Genitourinary (Male): + urinary hesitancy Physical Exam 2 Vital Signs (Past 24 Hours): Last Vital Signs Temp 36.8 C 09/25/18 07:05 Pulse 110 H 09/25/18 07:05 Resp 20 09/25/18 07:05 BP 133/83 09/25/18 07:05 Pulse Ox 99 09/25/18 07:05 Constitutional: + ill appearing Awake, alert but confused. Respiratory: normal respiratory effort, lungs clear to auscultation Cardiovascular: Heart Sounds: normal S1 and normal S2 Gastrointestinal (Abdomen): normal bowel sounds, soft, nontender, no hepatosplenomegaly Neurologic: moves all extremities and awake Psychiatric: Orientation: alert
[2018-09-26 00:38] LABS: Appearance Urine Clear (Clear); Bilirubin Urine Negative (Negative); Color Urine Orange; Epithelial Cell Urine Auto 0-5 /lpf (0-5); Glucose Urine UA Negative (Negative); Ketones Urine 1+ (Negative); Leukocyte Esterase Urine 1+ (Negative); Nitrite Urine Negative (Negative); Protein Urine 1+ (Negative); Specific Gravity Urine 1.015 (1.000-1.030); Urobilinogen Urine Negative (Negative)
[2018-09-26 00:57] LABS: Amphetamines+Metham, Urine Neg (Neg); Barbiturates, Urine Neg (Neg); Benzodiazepine, Urine Neg (Neg); Cocaine, Urine Neg (Neg); MDMA (Ecstacy), Urine Neg (Neg); Methadone, Urine Neg (Neg); Opiate, Urine Neg (Neg); Phencyclidine, Urine Neg (Neg)
[2018-09-26 02:01] LABS: Bacteria Urine Automated 1+ (Negative)
[2018-09-26] MEDS: INSULIN ASPART 100 UNITS/ML 3 ML PEN SC SCH ×4 (06:28→20:41)
[2018-09-26 07:27] LABS: Basophils # (auto) 0.01 K/uL (0-0.2); Basophils % (auto) 0.1 %; Eosinophils # (auto) 0.12 K/uL (0-0.5); Hematocrit (blood only) 33.6 % (42-52); Hemoglobin 11.9 g/dL (14.0-18.0); Immature Granulocytes # (auto) 0.05 K/uL (0.00-0.02); Immature Granulocytes % (auto) 0.4 %; Lymphocytes # (auto) 1.54 K/uL (1.2-3.4); Mean Corpuscular Hgb Conc 35.4 g/dL (32-36); Mean Corpuscular Volume 90.8 fL (80-100); Mean Platelet Volume 12.1 fL (7.4-10.4); Monocytes # (auto) 1.35 K/uL (0.11-0.59); Monocytes % (auto) 11.4 %; Neutrophils # (auto) 8.75 K/uL (1.4-6.5); Neutrophils % (auto) 74.1 %; Platelet Count 143 K/uL (130-400); RDW Coefficient of Variation 14.2 % (11.5-14.5); RDW Standard Deviation 47.1 fL (36.4-46.3); White Blood Count 11.82 K/uL (4.8-10.8)
[2018-09-26 07:32] LABS: Albumin Level 3.3 gm/dl (3.4-5.0); BUN Creatinine Ratio 35.7 (10-20); Creatinine Clr Calc Pharmacy 25.3 ml/min; Est GFR (African American) 32.8; Est GFR (Non-African American) 28.3; Phosphorus 2.6 mg/dl (2.5-4.9); Potassium 3.8 mmol/L (3.5-5.1)
[2018-09-26] MEDS: SODIUM BICARBONATE 8.4% 150 MEQ in WATER, STERILE 1,000 ML IV SCH (07:54)
[2018-09-26 08:38] LABS: INR 1.2 (0.9-1.1); Prothrombin Time 11.6 Seconds (9.0-12.0)
--- NOTE | 2018-09-26 10:38 | Nephrology Progress Note ---
Date of Service September 26, 2018 Assessment & Plan (1) Renal insufficiency: 88-year-old male with acute kidney injury with history of chronic kidney disease. Most likely pre renal with volume depletion as renal function has been improving nicely with volume resuscitation. Renal ultrasound with no postrenal obstruction. Renal function continues to improve, creatinine down to 2.1. Electrolyte abnormality resolved. -- discontinue bicarb drip, give normal saline if patient is not taking orally -- Serial PRP -- continue to hold metformin and ALMAZ-inhibitor/ARB Will follow (2) Metabolic acidosis: s (3) Anemia: -- Mild anemia, hemoglobin stable. Evaluated by GI, no other workup at this time point, can have further evaluation as an outpatient. Kyrie Arguello Was seen and examined in his room this morning with his sitter at bedside. He was in deep sleep, woke up but fell asleep again. He did not sleep last 2 days until this morning. Vital sign has been stable. Renal function continues to improve, electrolyte abnormality resolved. Genitourinary (Male): + urinary hesitancy Physical Exam 2 Vital Signs (Past 24 Hours): Last Vital Signs Temp 36.8 C 09/26/18 07:00 Pulse 109 H 09/26/18 08:00 Resp 20 09/26/18 07:00 BP 143/84 H 09/26/18 07:00 Pulse Ox 96 09/26/18 07:00 Constitutional: + ill appearing Respiratory: normal respiratory effort, lungs clear to auscultation Cardiovascular: Heart Sounds: normal S1 and normal S2 Gastrointestinal (Abdomen): normal bowel sounds, soft, nontender, no hepatosplenomegaly
--- NOTE | 2018-09-26 10:49 | Family Medicine Progress Note ---
Date of Service September 26, 2018 Assessment & Plan (1) NAIF (acute kidney injury): 88 y/o M with PMH HTN, HLD, Afib on Coumadin, Mitral Valve Replacement, BPH, Gout, DM2, and Hyothyroidism direct admit from [facility] for supratherapuetic INR (~15) and increased BUN (120) and Cr (4+). 1) NAIF -latest BUN 74, Cr. 2.06. Trending down. Cont trend. Baseline Cr around 1 -continue IVF 100 mls/hr -nephro consult: "Renal function continues to improve, creatinine down to 2.1. Electrolyte abnormality resolved. discontinue bicarb drip, give normal saline if patient is not taking orally. Serial PRP. continue to hold metformin and ALMAZ- inhibitor/ARB. Will follow" 2) Supratherapeutic INR/Anemia -last INR 1.2 -warfarin held -10 mg Vit K x1 on admission -recheck INR in AM, cont trend -last hgb 11.9, cont trend h/h. Transfuse as needed, threshold 7.0 -FOBT positive -GI consult: No ongoing overt GI bleeding and H/H stable despite high INR yesterday, hence no urgent endoscopy. Positive FOBT can be investigated with endoscopy electively as OP once NAIF resolve -PPI drip 3) Afib -coumadin held 4) HTN -hold [employer] lisinopril 10 mg, diltiazem Hcl ER 240 mg daily 5) HLD - cont atorvastatin 20 mg daily 6) DM -hold home glipizide 10 mg PO and metformin HCL 500 mg PO BID -ISS, qAC checks. Will adjust as needed 7) Hypothyroidism -hold levothyroxin 75 mcg PO daily 8) BPH -hold tamsulosin .8 mg, finasteride 5 mg PO daily -per nephro: tatum catheter insertion due to h/o BPH and to monitor UO 9) Acute Delirium -CT head normal. Other Labs (UA, UDS, ABG, TSH) unremarkable -haldol 0.5 IM prn for agitation -Diet with aspiration precautions FULL DVT Prophylaxis: SCD's, Warfarin held Supervising Physician Co-Signing Physician Notes I personally examined the patient and verified all lackey points of history and exam, discussed case, and agree with decision making with Dr Singh. Still no meaningful HPI or review of systems obtainable. We were informed the family was present, Dr. Singh and I went to see the patient to discuss with family, and unfortunately they left. Dr. Singh will try to get a hold of the family later. Vitals noted, in general he is awake but just staring at the ceiling but appears in no distress. HEENT normocephalic atraumatic mucous membranes may be slightly dry. Lungs are unlabored no accessory muscle use no rales rhonchi or wheezes with good effort. Skin shows no rashes may be mild pallor no icterus. Cardio is regular rate no rubs murmurs or gallops Acute renal failureappears to be due to dehydration, from poor oral intake and diarrhea, compounded probably by late effects from his ALMAZ inhibitor and metformin once he was already significantly dehydrated. Continue IV fluids and supportive care, this is improving Metabolic encephalopathyhe appears most likely delirious from his dehydration and renal failure, we will be vigilant for any signs or symptoms of infection ( currently none) and be vigilant for any other metabolic or toxic contributors to his delirium (currently not as well), he does appear alert enough to cautiously try diet with aspiration precautions Heme positive stool/supratherapeutic INRmore than likely the heme positive stools are just due to his high INR. He does not show any signs or symptoms of true acute blood loss. This is fortunately appearing stable. Otherwise as above Subjective Pt oriented to self only. Still agitated overnight. Review of Systems Unobtainable due to cognitive status Physical Exam 2 Vital Signs (Past 24 Hours): Last Vital Signs Temp 36.8 C 09/26/18 07:00 Pulse 109 H 09/26/18 08:00 Resp 20 09/26/18 07:00 BP 143/84 H 09/26/18 07:00 Pulse Ox 96 09/26/18 07:00 General: Alert, orientedx1. No acute distress HEENT: NC/AT, PERRL, EOMI, oropharynx moist. Chest: Nontender to palpation. CV: RRR, Normal s1, s2. No murmurs appreciated Resp: Breath sounds clear bilaterally, no increased effort of breathing. No crackles/rhonchi/rales. Abdomen: BS+. Soft, nontender, nondistended. No guarding. No organomegaly appreciated. : tatum in place Extremities: No edema. Results & Data Laboratory Results Laboratory Results - last 24 hr 09/25/18 09/25/18 09/25/18 12:02 18:17 23:52 WBC RBC Hgb Hct MCV MCH MCHC RDW Std Deviation RDW Coeff of Ayo Plt Count MPV Immature Gran % (Auto) Neut % (Auto) Lymph % (Auto) Dillon % (Auto) Eos % (Auto) Baso % (Auto) Immature Gran # (Auto) Neut # (Auto) Lymph # (Auto) Dillon # (Auto) Eos # (Auto) Baso # (Auto) PT INR Sodium Potassium Chloride Carbon Dioxide Anion Gap BUN Creatinine Est Cr Clr Drug Dosing Est GFR ( Amer) Est GFR (Non-Af Amer) BUN/Creatinine Ratio Glucose POC Glucose 170 H 171 H 142 H Calcium Phosphorus Albumin Urine Color Urine Appearance Urine pH Ur Specific [place] Urine Protein Urine Glucose (UA) Urine Ketones Urine Blood Urine Nitrite Urine Bilirubin Urine Urobilinogen Ur Leukocyte Esterase Urine WBC (Auto) Urine RBC (Auto) U Hyaline Cast (Auto) U Epithel Cells (Auto) Urine Bacteria (Auto) Urine Yeast Urine Opiates Screen Ur Methadone, Qual Urine Barbiturates Ur Phencyclidine (PCP) U Amphetamin/Meth Scrn MDMA (Ecstasy) Screen U Benzodiazepines Scrn Ur Cocaine Metabolite U Marijuana (THC) Screen 09/26/18 09/26/18 09/26/18 00:20 00:20 06:10 WBC RBC Hgb Hct MCV MCH MCHC RDW Std Deviation RDW Coeff of Ayo Plt Count MPV Immature Gran % (Auto) Neut % (Auto) Lymph % (Auto) Dillon % (Auto) Eos % (Auto) Baso % (Auto) Immature Gran # (Auto) Neut # (Auto) Lymph # (Auto) Dillon # (Auto) Eos # (Auto) Baso # (Auto) PT INR Sodium Potassium Chloride Carbon Dioxide Anion Gap BUN Creatinine Est Cr Clr Drug Dosing Est GFR ( Amer) Est GFR (Non-Af Amer) BUN/Creatinine Ratio Glucose POC Glucose 157 H Calcium Phosphorus Albumin Urine Color [place] Urine Appearance Clear Urine pH 5.0 Ur Specific [place] 1.015 Urine Protein 1+ H Urine Glucose (UA) Negative Urine Ketones 1+ H Urine Blood 3+ H Urine Nitrite Negative Urine Bilirubin Negative Urine Urobilinogen Negative Ur Leukocyte Esterase 1+ H Urine WBC (Auto) 5-10 H Urine RBC (Auto) >30 H U Hyaline Cast (Auto) 1-5 U Epithel Cells (Auto) 0-5 Urine Bacteria (Auto) 1+ H Urine Yeast Not Reportable Urine Opiates Screen Neg Ur Methadone, Qual Neg Urine Barbiturates Neg Ur Phencyclidine (PCP) Neg U Amphetamin/Meth Scrn Neg MDMA (Ecstasy) Screen Neg U Benzodiazepines Scrn Neg Ur Cocaine Metabolite Neg U Marijuana (THC) Screen Neg 09/26/18 09/26/18 09/26/18 06:29 06:29 07:35 WBC 11.82 H RBC 3.70 L Hgb 11.9 L Hct 33.6 L MCV 90.8 MCH 32.2 MCHC 35.4 RDW Std Deviation 47.1 H RDW Coeff of Ayo 14.2 Plt Count 143 MPV 12.1 H Immature Gran % (Auto) 0.4 Neut % (Auto) 74.1 Lymph % (Auto) 13.0 Dillon % (Auto) 11.4 Eos % (Auto) 1.0 Baso % (Auto) 0.1 Immature Gran # (Auto) 0.05 H Neut # (Auto) 8.75 H Lymph # (Auto) 1.54 Dillon # (Auto) 1.35 H Eos # (Auto) 0.12 Baso # (Auto) 0.01 PT INR Sodium 145 Potassium 3.8 Chloride 110 H Carbon Dioxide 27 Anion Gap 8.0 BUN 74 H Creatinine 2.06 H D Est Cr Clr Drug Dosing 25.3 Est GFR ( Amer) 32.8 Est GFR (Non-Af Amer) 28.3 BUN/Creatinine Ratio 35.7 H Glucose 156 H POC Glucose 158 H Calcium 9.0 Phosphorus 2.6 Albumin 3.3 L Urine Color Urine Appearance Urine pH Ur Specific [place] Urine Protein Urine Glucose (UA) Urine Ketones Urine Blood Urine Nitrite Urine Bilirubin Urine Urobilinogen Ur Leukocyte Esterase Urine WBC (Auto) Urine RBC (Auto) U Hyaline Cast (Auto) U Epithel Cells (Auto) Urine Bacteria (Auto) Urine Yeast Urine Opiates Screen Ur Methadone, Qual Urine Barbiturates Ur Phencyclidine (PCP) U Amphetamin/Meth Scrn MDMA (Ecstasy) Screen U Benzodiazepines Scrn Ur Cocaine Metabolite U Marijuana (THC) Screen 09/26/18 08:07 WBC RBC Hgb Hct MCV MCH MCHC RDW Std Deviation RDW Coeff of Ayo Plt Count MPV Immature Gran % (Auto) Neut % (Auto) Lymph % (Auto) Dillon % (Auto) Eos % (Auto) Baso % (Auto) Immature Gran # (Auto) Neut # (Auto) Lymph # (Auto) Dillon # (Auto) Eos # (Auto) Baso # (Auto) PT 11.6 INR 1.2 H Sodium Potassium Chloride Carbon Dioxide Anion Gap BUN Creatinine Est Cr Clr Drug Dosing Est GFR ( Amer) Est GFR (Non-Af Amer) BUN/Creatinine Ratio Glucose POC Glucose Calcium Phosphorus Albumin Urine Color Urine Appearance Urine pH Ur Specific [place] Urine Protein Urine Glucose (UA) Urine Ketones Urine Blood Urine Nitrite Urine Bilirubin Urine Urobilinogen Ur Leukocyte Esterase Urine WBC (Auto) Urine RBC (Auto) U Hyaline Cast (Auto) U Epithel Cells (Auto) Urine Bacteria (Auto) Urine Yeast Urine Opiates Screen Ur Methadone, Qual Urine Barbiturates Ur Phencyclidine (PCP) U Amphetamin/Meth Scrn MDMA (Ecstasy) Screen U Benzodiazepines Scrn Ur Cocaine Metabolite U Marijuana (THC) Screen Medications Administered Home Medications Allopurinol 300 mg DAILY #0 03/02/17 [History] Colchicine DAILY #0 03/02/17 [History] Digoxin DAILY #0 03/02/17 [History] Diltiazem Hcl Ext Rel (Tiazac) 240 mg PO DAILY #0 cap 03/02/17 [History] Finasteride (Proscar) 5 mg PO DAILY #0 tab 03/02/17 [History] Lisinopril (Zestril) 10 mg PO DAILY #0 tab 03/02/17 [History] METFORMIN HCL (GLUCOPHAGE) 500 mg PO BID #0 tab 03/02/17 [History] Warfarin Sod (Coumadin) DAILY #0 03/02/17 [History] atorvastatin 20 mg PO DAILY 09/23/18 [History] glipizide 10 mg PO BID 09/23/18 [History] levothyroxine 75 mcg PO DAILY 09/23/18 [History] tamsulosin 0.8 mg PO DAILY 09/23/18 [History] trazodone 50 mg PO HS 09/23/18 [History] Active Medications Dextrose (Dextrose 50%) 25 - 50 ml IV UD PRN; Protocol PRN Reason: Hypoglycemia Protocol Stop: 03/05/19 09:33 Glucagon (Glucagen) 1 mg IM UD PRN; Protocol PRN Reason: Hypoglycemia Protocol Stop: 10/24/18 09:33 Glucose (Glucose 40%) 15 - 30 gm PO UD PRN; Protocol PRN Reason: Hypoglycemia Protocol Stop: 10/24/18 09:33 Glucose (Dex4 Glucose) 4 - 8 tabs PO UD PRN; Protocol PRN Reason: Hypoglycemia Protocol Stop: 10/24/18 09:33 Haloperidol Lactate (Haldol) 0.5 mg IM DAILY PRN PRN Reason: Agitation Stop: 10/24/18 12:03 Last Admin: 09/25/18 02:14 Dose: 0.5 mg Dextrose/Sodium Chloride (D5w And Nss) 1,000 mls @ 80 mls/hr IV .[id number] [facility] Stop: 10/26/18 10:44 Insulin Aspart (Novolog Flexpen) 0 units SC Q6 [facility] Stop: 10/25/18 00:00 Last Admin: 09/26/18 06:28 Dose: Not Given Miscellaneous (Carbohydrates For Hypoglycemia) 15 - 30 gm PO UD PRN PRN Reason: Hypoglycemia Treatment Stop: 10/24/18 09:33 Resident Activity Tracking Resident Involvement: Resident Care Provided Care Provided: Adult Hospital Medicine
[2018-09-26] MEDS: D5W AND NSS 1,000 ML IV SCH (11:19)
[2018-09-27] MEDS: D5W AND NSS 1,000 ML IV SCH ×2 (00:41→12:36)
[2018-09-27 07:33] LABS: Basophils # (auto) 0.02 K/uL (0-0.2); Basophils % (auto) 0.2 %; Eosinophils # (auto) 0.14 K/uL (0-0.5); Eosinophils % (auto) 1.3 %; Hematocrit (blood only) 29.4 % (42-52); Hemoglobin 10.3 g/dL (14.0-18.0); Immature Granulocytes # (auto) 0.04 K/uL (0.00-0.02); Immature Granulocytes % (auto) 0.4 %; Lymphocytes # (auto) 1.65 K/uL (1.2-3.4); Lymphocytes % (auto) 15.9 %; Mean Corpuscular Volume 93.3 fL (80-100); Mean Platelet Volume 10.8 fL (7.4-10.4); Monocytes # (auto) 1.03 K/uL (0.11-0.59); Monocytes % (auto) 9.9 %; Neutrophils # (auto) 7.53 K/uL (1.4-6.5); Neutrophils % (auto) 72.3 %; Platelet Count 130 K/uL (130-400); RDW Coefficient of Variation 14.3 % (11.5-14.5); RDW Standard Deviation 48.2 fL (36.4-46.3); Red Blood Count 3.15 M/uL (4.7-6.1); White Blood Count 10.41 K/uL (4.8-10.8)
[2018-09-27] MEDS: LEVOTHYROXINE SODIUM 75 MCG TABLET PO SCH (07:44)
[2018-09-27] MEDS: INSULIN ASPART 100 UNITS/ML 3 ML PEN SC SCH ×4 (07:47→20:14)
[2018-09-27 08:22] LABS: Albumin Level 2.9 gm/dl (3.4-5.0); BUN Creatinine Ratio 32.3 (10-20); Calcium 8.6 mg/dl (8.5-10.1); Creatinine Clr Calc Pharmacy 26.3 ml/min; Est GFR (African American) 38.1; Est GFR (Non-African American) 32.9; Phosphorus 2.6 mg/dl (2.5-4.9); Potassium 3.6 mmol/L (3.5-5.1)
--- NOTE | 2018-09-27 10:34 | Nephrology Progress Note ---
Date of Service September 27, 2018 Assessment & Plan (1) Renal insufficiency: 88-year-old male with acute kidney injury with history of chronic kidney disease. Most likely pre renal with volume depletion as renal function has been improving nicely with volume resuscitation. Renal ultrasound with no postrenal obstruction. Renal function continues to improve, creatinine down to 1.8. Electrolyte abnormality resolved. -- discontinue IV fluid as patient has been awake and alert and has been able to have adequate oral fluid intake -- Serial PRP --discontinue Kwong catheter -- continue to hold metformin and ALMAZ-inhibitor/ARB Will follow (2) Metabolic acidosis: s (3) Anemia: -- Mild anemia, hemoglobin stable. Evaluated by GI, no other workup at this time point, can have further evaluation as an outpatient. Kyrie Arguello Was seen and examined in his room this morning. He is awake, alert and answering question appropriately. Vital sign has been stable. Renal function continues to improve, electrolyte abnormality resolved. Genitourinary (Male): + urinary hesitancy Physical Exam 2 Vital Signs (Past 24 Hours): Last Vital Signs Temp 37 C 09/27/18 09:54 Pulse 101 H 09/27/18 09:54 Resp 18 09/27/18 09:54 BP 154/74 H 09/27/18 09:54 Pulse Ox 93 09/27/18 09:54 Constitutional: + ill appearing Respiratory: normal respiratory effort, lungs clear to auscultation Cardiovascular: Heart Sounds: normal S1 and normal S2 Gastrointestinal (Abdomen): normal bowel sounds, soft, nontender, no hepatosplenomegaly Neurologic: moves all extremities and awake Psychiatric: Orientation: alert
--- NOTE | 2018-09-27 12:00 | Family Medicine Progress Note ---
Date of Service September 27, 2018 Assessment & Plan (1) NAIF (acute kidney injury): 88 y/o M with PMH HTN, HLD, Afib on Coumadin, Mitral Valve Replacement, BPH, Gout, DM2, and Hyothyroidism direct admit from [facility] for supratherapuetic INR (~15) and increased BUN (120) and Cr (4+). 1) NAIF -latest BUN 74, Cr. 2.06. Trending down. Cont trend. Baseline Cr around 1 -continue IVF 100 mls/hr -nephro consult: "Renal function continues to improve, creatinine down to 2.1. Electrolyte abnormality resolved. discontinue bicarb drip, give normal saline if patient is not taking orally. Serial PRP. continue to hold metformin and ALMAZ- inhibitor/ARB. Will follow" 2) Supratherapeutic INR/Anemia -last INR 1.2 -warfarin held -10 mg Vit K x1 on admission -recheck INR in AM, cont trend -last hgb 11.9, cont trend h/h. Transfuse as needed, threshold 7.0 -FOBT positive -GI consult: No ongoing overt GI bleeding and H/H stable despite high INR yesterday, hence no urgent endoscopy. 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 Will adjust as needed 7) Hypothyroidism -hold levothyroxin 75 mcg PO daily 8) BPH -hold tamsulosin .8 mg, finasteride 5 mg PO daily -per nephro: tatum catheter insertion due to h/o BPH and to monitor UO 9) Acute Delirium -CT head normal. Other Labs (UA, UDS, ABG, TSH) unremarkable -haldol 0.5 IM prn for agitation -Diet with aspiration precautions FULL DVT Prophylaxis: SCD's, Warfarin held Supervising Physician Co-Signing Physician Notes I personally examined the patient and verified all lackey points of history and exam, discussed case, and agree with decision making with Dr Singh. able to talk! feeling fairly well, ate well. only complaint is pain from tatum. corroborates HPI of diarrhea preceding admission, poor PO intake leading up to it too. Vitals noted, in general he is awake but just staring at the ceiling but appears in no distress. HEENT normocephalic atraumatic mucous membranes moist, breathing unlabored no accessory muscles. Acute renal failureappears to be due to dehydration, from poor oral intake and diarrhea, compounded probably by late effects from his ALMAZ inhibitor and metformin once he was already significantly dehydrated. This is improving nicely, his p.o. intake is improved, will hold IV fluids and continue to follow. Metabolic encephalopathyhe was most likely delirious from his dehydration and renal failure, and is a very pleasant surprise he is improved very quickly Heme positive stool/supratherapeutic INRmore than likely the heme positive stools are just due to his high INR. He does not show any signs or symptoms of true acute blood loss. This is fortunately appearing stable. Outpatient endoscopic workup, defer to his PCP in this regard. Stable for MedSurg, hopefully to SNF with a rehab emphasis tomorrow Otherwise as above Subjective Pt was in a better state mentally today, aware of his surroundings and able to carry on a conversation. Review of Systems All systems reviewed & are unremarkable except as noted in HPI & below Physical Exam 2 Vital Signs (Past 24 Hours): Last Vital Signs Temp 37 C 09/27/18 09:54 Pulse 101 H 09/27/18 09:54 Resp 18 09/27/18 09:54 BP 154/74 H 09/27/18 09:54 Pulse Ox 93 09/27/18 09:54 General: Alert, orientedx2. No acute distress HEENT: NC/AT, PERRL, EOMI, oropharynx moist. Chest: Nontender to palpation. CV: RRR, Normal s1, s2. No murmurs appreciated Resp: Breath sounds clear bilaterally, no increased effort of breathing. No crackles/rhonchi/rales. Abdomen: BS+. Soft, nontender, nondistended. No guarding. No organomegaly appreciated. : tatum in place Extremities: No edema. Results & Data Laboratory Results Laboratory Results - last 24 hr 09/27/18 09/27/18 09/27/18 07:16 07:17 07:17 WBC 10.41 RBC 3.15 L Hgb 10.3 L Hct 29.4 L MCV 93.3 MCH 32.7 MCHC 35.0 RDW Std Deviation 48.2 H RDW Coeff of Ayo 14.3 Plt Count 130 MPV 10.8 H Immature Gran % (Auto) 0.4 Neut % (Auto) 72.3 Lymph % (Auto) 15.9 Harvey % (Auto) 9.9 Eos % (Auto) 1.3 Baso % (Auto) 0.2 Immature Gran # (Auto) 0.04 H Neut # (Auto) 7.53 H Lymph # (Auto) 1.65 Harvey # (Auto) 1.03 H Eos # (Auto) 0.14 Baso # (Auto) 0.02 Sodium 146 H Potassium 3.6 Chloride 111 H Carbon Dioxide 30 Anion Gap 5.0 BUN 59 H Creatinine 1.82 H Est Cr Clr Drug Dosing 26.3 Est GFR ( Amer) 38.1 Est GFR (Non-Af Amer) 32.9 BUN/Creatinine Ratio 32.3 H Glucose 169 H POC Glucose 161 H Calcium 8.6 Phosphorus 2.6 Albumin 2.9 L Specimen Hemolysis 09/27/18 09/27/18 09/27/18 11:24 16:32 19:49 WBC RBC Hgb Hct MCV MCH MCHC RDW Std Deviation RDW Coeff of Ayo Plt Count MPV Immature Gran % (Auto) Neut % (Auto) Lymph % (Auto) [place] % (Auto) Eos % (Auto) Baso % (Auto) Immature Gran # (Auto) Neut # (Auto) Lymph # (Auto) Harvey # (Auto) Eos # (Auto) Baso # (Auto) Sodium Potassium Chloride Carbon Dioxide Anion Gap BUN Creatinine Est Cr Clr Drug Dosing Est GFR ( Amer) Est GFR (Non-Af Amer) BUN/Creatinine Ratio Glucose POC Glucose 172 H 163 H 146 H Calcium Phosphorus Albumin Specimen Hemolysis 09/28/18 06:17 WBC 9.53 RBC 3.10 L Hgb 10.3 L Hct 29.1 L MCV 93.9 MCH 33.2 MCHC 35.4 RDW Std Deviation 48.2 H RDW Coeff of Ayo 14.1 Plt Count 127 L MPV 10.5 H Immature Gran % (Auto) 0.5 Neut % (Auto) 71.8 Lymph % (Auto) 17.2 [place] % (Auto) 9.0 Eos % (Auto) 1.4 Baso % (Auto) 0.1 Immature Gran # (Auto) 0.05 H Neut # (Auto) 6.84 H Lymph # (Auto) 1.64 [place] # (Auto) 0.86 H Eos # (Auto) 0.13 Baso # (Auto) 0.01 Sodium Potassium Chloride Carbon Dioxide Anion Gap BUN Creatinine Est Cr Clr Drug Dosing Est GFR ( Amer) Est GFR (Non-Af Amer) BUN/Creatinine Ratio Glucose POC Glucose Calcium Phosphorus Albumin Specimen Hemolysis Medications Administered Home Medications Allopurinol 300 mg DAILY #0 03/02/17 [History] Colchicine DAILY #0 03/02/17 [History] Digoxin DAILY #0 03/02/17 [History] Diltiazem Hcl Ext Rel (Tiazac) 240 mg PO DAILY #0 cap 03/02/17 [History] Finasteride (Proscar) 5 mg PO DAILY #0 tab 03/02/17 [History] Lisinopril (Zestril) 10 mg PO DAILY #0 tab 03/02/17 [History] METFORMIN HCL (GLUCOPHAGE) 500 mg PO BID #0 tab 03/02/17 [History] Warfarin Sod (Coumadin) DAILY #0 03/02/17 [History] atorvastatin 20 mg PO DAILY 09/23/18 [History] glipizide 10 mg PO BID 09/23/18 [History] levothyroxine 75 mcg PO DAILY 09/23/18 [History] tamsulosin 0.8 mg PO DAILY 09/23/18 [History] trazodone 50 mg PO HS 09/23/18 [History] Active Medications Dextrose (Dextrose 50%) 25 - 50 ml IV UD PRN; Protocol PRN Reason: Hypoglycemia Protocol Stop: 10/24/18 09:33 Glucagon (Glucagen) 1 mg IM UD PRN; Protocol PRN Reason: Hypoglycemia Protocol Stop: 10/24/18 09:33 Glucose (Glucose 40%) 15 - 30 gm PO UD PRN; Protocol PRN Reason: Hypoglycemia Protocol Stop: 10/24/18 09:33 Glucose (Dex4 Glucose) 4 - 8 tabs PO UD PRN; Protocol PRN Reason: Hypoglycemia Protocol Stop: 10/24/18 09:33 Haloperidol Lactate (Haldol) 0.5 mg IM DAILY PRN PRN Reason: Agitation Stop: 10/24/18 12:03 Last Admin: 09/25/18 02:14 Dose: 0.5 mg Insulin Aspart (Novolog Flexpen) 0 units SC ACHS [facility] Stop: 10/26/18 20:59 Last Admin: 09/27/18 20:14 Dose: Not Given Levothyroxine Sodium (Synthroid) 75 mcg PO DAILYBB [facility] Stop: 10/27/18 06:29 Last Admin: 09/28/18 06:11 Dose: 75 mcg Miscellaneous (Carbohydrates For Hypoglycemia) 15 - 30 gm PO UD PRN PRN Reason: Hypoglycemia Treatment Stop: 10/24/18 09:33
[2018-09-28] MEDS: LEVOTHYROXINE SODIUM 75 MCG TABLET PO SCH (06:11)
[2018-09-28 06:46] LABS: Basophils # (auto) 0.01 K/uL (0-0.2); Basophils % (auto) 0.1 %; Eosinophils # (auto) 0.13 K/uL (0-0.5); Eosinophils % (auto) 1.4 %; Hematocrit (blood only) 29.1 % (42-52); Hemoglobin 10.3 g/dL (14.0-18.0); Immature Granulocytes # (auto) 0.05 K/uL (0.00-0.02); Immature Granulocytes % (auto) 0.5 %; Lymphocytes # (auto) 1.64 K/uL (1.2-3.4); Lymphocytes % (auto) 17.2 %; Mean Corpuscular Hgb Conc 35.4 g/dL (32-36); Mean Corpuscular Volume 93.9 fL (80-100); Mean Platelet Volume 10.5 fL (7.4-10.4); Monocytes # (auto) 0.86 K/uL (0.11-0.59); Neutrophils # (auto) 6.84 K/uL (1.4-6.5); Neutrophils % (auto) 71.8 %; Platelet Count 127 K/uL (130-400); RDW Coefficient of Variation 14.1 % (11.5-14.5); RDW Standard Deviation 48.2 fL (36.4-46.3); White Blood Count 9.53 K/uL (4.8-10.8)
[2018-09-28 07:24] LABS: Albumin Level 2.9 gm/dl (3.4-5.0); BUN Creatinine Ratio 27.9 (10-20); Calcium 8.4 mg/dl (8.5-10.1); Creatinine Clr Calc Pharmacy 31.9 ml/min; Est GFR (African American) 48.2; Est GFR (Non-African American) 41.6; Phosphorus 2.7 mg/dl (2.5-4.9); Potassium 3.5 mmol/L (3.5-5.1)
[2018-09-28 08:33] LABS: INR 1.1 (0.9-1.1); Prothrombin Time 11.3 Seconds (9.0-12.0)
[2018-09-28] MEDS: INSULIN ASPART 100 UNITS/ML 3 ML PEN SC SCH ×4 (08:45→21:21)
--- NOTE | 2018-09-28 09:10 | Discharge Summary ---
Date of Service September 28, 2018 Admission HPI Per Admitting Provider 88 y/o M with PMH of HTN, HLD, Afib on Coumadin, Mitral Valve Replacement, BPH , Gout, DM2, and Hyothyroidism presents to [facility] as direct admit from [facility]. Earlier today, pt presented to ER with complaints of cough, congestion, SOB , decreased appetite that had been going on ~3 weeks. Denied any F/N/V/D, chills , abd pain. Influenza swab was negative. CXR at [place] was negative for any acute pathology. CBC was 'reassuring.' CMP showed increased BUN 120, Cr 4+. BSG 50. Was given D10 500 ml bolus and D5 @200 mls/hr and transferred to [facility] in case of possible dialysis. Additionally, INR found to be 15.16 and was subsequently given PO mephyton (Vit. K) 5 mg x1. In speaking with pt on arrival , he denies any acute concerns or complaints. Denies any CP, SOB, cough, lightheadedness, dizziness, abd pain, F/N/V, signs of bleeding (melena, epistaxis). Notes that he has never had something like this happen in past. Further history not able to be obtained 2/2 pt being a poor historian and no family present yet. Admission Exam Per Admitting Provider Constitutional: WD/WN, vitals as above Eyes: PERRL, conjunctivae normal, anicteric sclerae ENMT: external ear and nose normal, oropharynx normal Respiratory: b/l crackles Cardiovascular: RRR, no murmur, no edema Gastrointestinal (Abdomen): normal bowel sounds, soft, nontender, no hepatosplenomegaly Skin: no rashes, warm and dry Psychiatric: A+Ox3, euthymic affect Lymphatic: no LE swelling, calfs non-tender Principal Diagnosis Acute Kidney Injury Discharge Exam General: Alert, orientedx2. No acute distress HEENT: NC/AT, PERRL, EOMI, oropharynx moist. Chest: Nontender to palpation. CV: RRR, Normal s1, s2. Murmur appreciated. Resp: Breath sounds clear bilaterally, no increased effort of breathing. No crackles/rhonchi/rales. Abdomen: BS+. Soft, nontender, nondistended. No guarding. No organomegaly appreciated. : tatum removed Extremities: No edema. Discharge Data Allergies Allergy/AdvReac Type Severity Reaction Status Date / Time Penicillins Allergy Unknown UNKOWN Unverified 03/02/17 02:51 Consultations 09/23/18 16:28 Consult Gastroenterology Routine 09/23/18 20:57 Consult Nephrology Routine Ordered Studies 09/24/18 09:31 US renal/blad retro comp Routine 09/24/18 11:52 CT head/brain wo con Stat Hospital Course (1) NAIF (acute kidney injury): 88 y/o M with PMH HTN, HLD, Afib on Coumadin, Mitral Valve Replacement, BPH, Gout, DM2, and Hyothyroidism direct admit from [facility] for supratherapuetic INR (~15) and increased BUN (120) and Cr (4+). 1) NAIF -latest BUN 42, Cr. 1.50. Trending down. Baseline Cr around 1 - IVF 100 mls/hr- STOPPED -nephro consult: "88-year-old male with acute kidney injury with history of chronic kidney disease. Most likely pre renal with volume depletion as renal function has been improving nicely with volume resuscitation. Renal ultrasound with no postrenal obstruction. Renal function continues to improve, creatinine down to 1.8. Electrolyte abnormality resolved. -- discontinue IV fluid as patient has been awake and alert and has been able to have adequate oral fluid intake -- Serial PRP --discontinue Tatum catheter -- continue to hold metformin and ALMAZ-inhibitor/ARB" 2) Supratherapeutic INR/Anemia -last INR 1.2 -warfarin restarted- home dose of 2.5mg daily -10 mg Vit K x1 on admission -INR trend -last hgb 10.3, cont trend h/h. Transfuse as needed, threshold 7.0 -FOBT positive -GI consult: No ongoing overt GI bleeding and H/H stable despite high INR yesterday, hence no urgent endoscopy. 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 Will adjust as needed 7) Hypothyroidism -hold levothyroxin 75 mcg PO daily 8) BPH -hold tamsulosin .8 mg, finasteride 5 mg PO daily -per nephro: tatum catheter insertion due to h/o BPH and to monitor UO 9) Acute Delirium -CT head normal. Other Labs (UA, UDS, ABG, TSH) unremarkable -haldol 0.5 IM prn for agitation -Diet with aspiration precautions FULL DVT Prophylaxis: SCD's, Warfarin held Total Time Total Time Spent Total Time Spent (In Minutes): <30 Total Time Includes: Examination of the Patient, Discharge Planning and Medication Reconciliation Discharge Plan Discharge Items Patient Disposition: Transfer Shelter Fac Reason For Visit: ACUTE RENAL FAILURE Discharge Diagnosis: Acute Renal Failure, AMS Discharge Goals: Decrease discomfort and Improve disease control Activity: Resume your previous activity Non-emergency contact: Primary Care Provider Call non-emergency contact if: you have any medication questions, your symptoms worsen and your pain is not controlled Follow-up/Referrals: Kelvin Ivan MD [Primary Care Provider] - Diet: Regular Diet Texture: Dental soft (bite-sized) Addtl Provider Instructions: You were admitted because your kidneys were injured and not working as they should. You also had some changes to your mental status. You were seen while here by many doctors including the kidney doctors. You were treated with fluids and an IV sodium bicarbonate drip medication that seemed to slowly improve how your kidneys were functioning.Your mental status waxed and waned as a result of delirium that often happens when older folks are sick and hospitalized and away from their usual surroundings.A blood test of your feces determined that you are bleeding in your gut and that is likely contributing to your anemia that we noticed. It is not so severe that anything had to be done while hospitalized, HOWEVER we strongly suggest that you follow up with the tire tester you will be connected with on discharge for further workup. Acute Kidney Injury -continue to remain hydrated, PO intake and IV fluids if adequate fluids cannot be taken orally. And ESPECIALLY if diarrhea develops once more. -Continue to hold lisinopril, metformin, finasteride and tamsulosin until creatinine function back to baseline. Upon discharge it was 1.50, baseline is 1.0 -Continue to do weekly BMP checks and once back to baseline and medications above restarted, check a BMP the next day. Supratherapeutic INR -INR at discharge down to 1.1, down from ~15 upon admission. For atrial fibrillation control should be between 2-3. -Warfarin restarted at home dose of 2.5mg daily. -Follow INR as outpatient closely Hypertension -Lisinopril held as described above. Please restart once creatinine back to baseline. Check BMP 3-5 days after restart. Diabetes -Continue to hold metformin as above until creatinine back to baseline. BPH -Continue to hold tamsulosin and finesteride as above until creatinine back to baseline. Positive Fecal Occult blood test -Please followup with the [employer] Sales Representative office of Dr. Granda who saw you while hospitalized. Please also followup with your primary care physician in a few days after discharge. Please let him/her know if there are any new symptoms or your symptoms have returned or are getting worse. Please go to the nearest emergency room immediately should you develop the sudden onset of chest pain, trouble breathing or your heart racing. Prescriptions: Continue Diltiazem Hcl Ext Rel (Tiazac) 180 MG CONTR REL CAP 240 mg PO DAILY Qty: 0 RF: 0 Allopurinol 100 MG tablet 300 mg DAILY Qty: 0 RF: 0 Colchicine 0.6 MG tablet DAILY Qty: 0 RF: 0 Digoxin 0.125 MG tablet DAILY Qty: 0 RF: 0 Warfarin Sod (Coumadin) 2.5 MG tablet DAILY Qty: 0 RF: 0 levothyroxine 75 mcg Capsule 75 mcg PO DAILY RF: 0 glipizide 10 mg Tablet 10 mg PO BID RF: 0 trazodone 50 mg Tablet 50 mg PO HS RF: 0 atorvastatin 20 mg Tablet 20 mg PO DAILY RF: 0 Discontinued Lisinopril (Zestril) 10 MG tablet 10 mg PO DAILY Qty: 0 RF: 0 Finasteride (Proscar) 5 MG tablet 5 mg PO DAILY Qty: 0 RF: 0 METFORMIN HCL (GLUCOPHAGE) 500 MG tablet 500 mg PO BID Qty: 0 RF: 0 tamsulosin 0.4 mg Capsule 0.8 mg PO DAILY RF: 0 Stand-Alone Forms: [facility] Discharge Orders: Discharge Order (Routine); Ordered 09/28/18 Ordered By: Aydin Connor Skilled Items Patient informed of condition?: Yes DNR: No Discharge Level of Care: Skilled Communicable Disease: No Discharge Prognosis: Stable Admission Data Admit Date/Time: 09/23/18 14:47 Attending Provider: Aydin Connor Admit Provider: Storm Webb Primary Care Provider: Kelvin Ivan Other Providers: Joseph Napier ; Guy Granda ; Jacob Jones Service: Medical Supervising Physician Co-Signing Physician Notes I personally examined the patient and verified all lackey points of history and exam, discussed case, and agree with decision making with Dr Singh. Feeling okay, eating okay, no new complaints. Ready to go to SNF Vitals noted, in general he is awake and alert, no distress. HEENT normocephalic atraumatic mucous membranes moist, breathing unlabored no accessory muscles. Neuro shows no focal deficits Acute renal failureappears to be due to dehydration, from poor oral intake and diarrhea, compounded probably by late effects from his ALMAZ inhibitor and metformin once he was already significantly dehydrated. Continues to improve, even off of IV fluids. Follow p.o. intake, follow basic metabolic panel, continue to hold lisinopril and metformin until he is euvolemic and back to baseline, but he is stable for SNF with serial BMPs there Metabolic encephalopathyhe was most likely delirious from his dehydration and renal failure, and is a very pleasant surprise he is improved very quickly, stable for SNF Heme positive stool/supratherapeutic INRmore than likely the heme positive stools are just due to his high INR. He did not show any signs or symptoms of true acute blood loss. Cautiously resume Coumadin for his atrial fibrillation, follow his INR closely, but I suspect that he got supratherapeutic more due to continuing to take his Coumadin with poor p.o. intake and/or accidentally taking too much Coumadin, rather than truly being on too high of a dose, given that this seems to be the first time he got so supratherapeutic. Consider outpatient endoscopic workup, defer to his PCP in this regard. Stable for transfer to SNF with close follow-up as above, serial BMP, close follow-up of his INR, and resumption of his lisinopril and metformin once his creatinine is returned to baseline, with a follow-up basic metabolic panel afterwards as well Otherwise as above Resident Activity Tracking Resident Involvement: Resident Care Provided Care Provided: Adult [facility] Medicine
--- NOTE | 2018-09-28 10:06 | Nephrology Progress Note ---
Date of Service September 28, 2018 Assessment & Plan (1) Renal insufficiency: 88-year-old male with acute kidney injury with history of chronic kidney disease. Most likely pre renal with volume depletion as renal function has been improving nicely with volume resuscitation. Renal ultrasound with no postrenal obstruction. Renal function continues to improve, creatinine down to 1.5. Electrolyte abnormality resolved. Blood pressure well controlled -- continue to monitor renal function while in patient --discontinue Kwong catheter -- continue to hold metformin and ALMAZ-inhibitor/ARB, if renal function stays stable or further improvement ALMAZ-inhibitor/ARB and metformin could be resumed on discharge Will sign off. Thank you for the consultation. (2) Metabolic acidosis: s (3) Anemia: -- Mild anemia, hemoglobin stable. Evaluated by GI, no other workup at this time point, can have further evaluation as an outpatient. Kyrie Agruello Was seen and examined in his room this morning. He is awake, alert and answering question appropriately. Vital sign has been stable. Renal function continues to improve, creatinine down to 1.5, electrolyte abnormality resolved. Blood pressure well controlled. Decent urine output. Genitourinary (Male): + urinary hesitancy Physical Exam 2 Vital Signs (Past 24 Hours): Last Vital Signs Temp 36.7 C 09/28/18 07:08 Pulse 79 09/28/18 07:08 Resp 18 09/28/18 07:08 BP 148/80 H 09/28/18 07:08 Pulse Ox 97 09/28/18 07:08 Constitutional: + ill appearing Respiratory: normal respiratory effort, lungs clear to auscultation Cardiovascular: Heart Sounds: normal S1 and normal S2 Gastrointestinal (Abdomen): normal bowel sounds, soft, nontender, no hepatosplenomegaly Neurologic: moves all extremities and awake Psychiatric: Orientation: alert
--- NOTE | 2018-09-28 14:33 | Family Medicine Progress Note ---
Date of Service September 28, 2018 Assessment & Plan (1) NAIF (acute kidney injury): 88 y/o M with PMH HTN, HLD, Afib on Coumadin, Mitral Valve Replacement, BPH, Gout, DM2, and Hyothyroidism direct admit from [facility] for supratherapuetic INR (~15) and increased BUN (120) and Cr (4+). 1) NAIF -latest BUN 42, Cr. 1.50. Trending down. Baseline Cr around 1 - IVF 100 mls/hr- STOPPED -nephro consult: "88-year-old male with acute kidney injury with history of chronic kidney disease. Most likely pre renal with volume depletion as renal function has been improving nicely with volume resuscitation. Renal ultrasound with no postrenal obstruction. Renal function continues to improve, creatinine down to 1.8. Electrolyte abnormality resolved. -- discontinue IV fluid as patient has been awake and alert and has been able to have adequate oral fluid intake -- Serial PRP --discontinue Tatum catheter -- continue to hold metformin and ALMAZ-inhibitor/ARB" 2) Supratherapeutic INR/Anemia -last INR 1.1 -warfarin restarted- home dose of 2.5mg daily -10 mg Vit K x1 on admission -INR trend -last hgb 10.3, cont trend h/h. Transfuse as needed, threshold 7.0 -FOBT positive -GI consult: No ongoing overt GI bleeding and H/H stable despite high INR yesterday, hence no urgent endoscopy. 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 Will adjust as needed 7) Hypothyroidism -hold levothyroxin 75 mcg PO daily 8) BPH -hold tamsulosin .8 mg, finasteride 5 mg PO daily -per nephro: tatum catheter insertion due to h/o BPH and to monitor UO 9) Acute Delirium -CT head normal. Other Labs (UA, UDS, ABG, TSH) unremarkable -haldol 0.5 IM prn for agitation -Diet with aspiration precautions FULL DVT Prophylaxis: SCD's, Warfarin held Supervising Physician Co-Signing Physician Notes I personally examined the patient and verified all lackey points of history and exam, discussed case, and agree with decision making with Dr Singh. Feeling better, more alert, still a little bit cloudy mentally but only off and on. Pleased with his progress and eating well. Vitals noted, in general he is awake and alert no distress. HEENT normal cephalic atraumatic mucous membranes are moist. Skin shows no rashes no pallor or icterus. Lungs are unlabored no accessory muscle use good effort. Acute renal failurethis is improving quite nicely appears to have been from volume depletion related to diarrhea and then probably compounded by his home meds once he was dry. Continue to follow, he is stable for SNF when available. Deliriumprobably metabolic encephalopathy related to his renal failure. This is improving far quicker than anticipated, and fortunately his mental status is improving quite nicely. Stable for SNF when available. Subjective Alert and oriented x 2. No new complaints. Denies chest pain, n/v, sob, palps. Review of Systems All systems reviewed & are unremarkable except as noted in HPI & below Physical Exam 2 Vital Signs (Past 24 Hours): Last Vital Signs Temp 36.7 C 09/28/18 07:08 Pulse 79 09/28/18 07:08 Resp 18 09/28/18 07:08 BP 148/80 H 09/28/18 07:08 Pulse Ox 97 09/28/18 07:08 General: Alert, orientedx2. No acute distress HEENT: NC/AT, PERRL, EOMI, oropharynx moist. Chest: Nontender to palpation. CV: RRR, Normal s1, s2. Murmur appreciated. Resp: Breath sounds clear bilaterally, no increased effort of breathing. No crackles/rhonchi/rales. Abdomen: BS+. Soft, nontender, nondistended. No guarding. No organomegaly appreciated. : tatum removed Extremities: No edema. Results & Data Laboratory Results Laboratory Results - last 24 hr 09/27/18 09/27/18 09/28/18 16:32 19:49 06:17 WBC RBC Hgb Hct MCV MCH MCHC RDW Std Deviation RDW Coeff of Ayo Plt Count MPV Immature Gran % (Auto) Neut % (Auto) Lymph % (Auto) Dickey % (Auto) Eos % (Auto) Baso % (Auto) Immature Gran # (Auto) Neut # (Auto) Lymph # (Auto) Dickey # (Auto) Eos # (Auto) Baso # (Auto) PT INR Sodium 142 Potassium 3.5 Chloride 109 H Carbon Dioxide 28 Anion Gap 5.0 BUN 42 H Creatinine 1.50 H D Est Cr Clr Drug Dosing 31.9 Est GFR ( Amer) 48.2 Est GFR (Non-Af Amer) 41.6 BUN/Creatinine Ratio 27.9 H Glucose 127 H POC Glucose 163 H 146 H Calcium 8.4 L Phosphorus 2.7 Albumin 2.9 L 09/28/18 09/28/18 09/28/18 06:17 07:43 08:07 WBC 9.53 RBC 3.10 L Hgb 10.3 L Hct 29.1 L MCV 93.9 MCH 33.2 MCHC 35.4 RDW Std Deviation 48.2 H RDW Coeff of Ayo 14.1 Plt Count 127 L MPV 10.5 H Immature Gran % (Auto) 0.5 Neut % (Auto) 71.8 Lymph % (Auto) 17.2 Dickey % (Auto) 9.0 Eos % (Auto) 1.4 Baso % (Auto) 0.1 Immature Gran # (Auto) 0.05 H Neut # (Auto) 6.84 H Lymph # (Auto) 1.64 Dickey # (Auto) 0.86 H Eos # (Auto) 0.13 Baso # (Auto) 0.01 PT 11.3 INR 1.1 Sodium Potassium Chloride Carbon Dioxide Anion Gap BUN Creatinine Est Cr Clr Drug Dosing Est GFR ( Amer) Est GFR (Non-Af Amer) BUN/Creatinine Ratio Glucose POC Glucose 128 H Calcium Phosphorus Albumin 09/28/18 11:31 WBC RBC Hgb Hct MCV MCH MCHC RDW Std Deviation RDW Coeff of Ayo Plt Count MPV Immature Gran % (Auto) Neut % (Auto) Lymph % (Auto) Dickey % (Auto) Eos % (Auto) Baso % (Auto) Immature Gran # (Auto) Neut # (Auto) Lymph # (Auto) Dickey # (Auto) Eos # (Auto) Baso # (Auto) PT INR Sodium Potassium Chloride Carbon Dioxide Anion Gap BUN Creatinine Est Cr Clr Drug Dosing Est GFR ( Amer) Est GFR (Non-Af Amer) BUN/Creatinine Ratio Glucose POC Glucose 143 H Calcium Phosphorus Albumin Medications Administered Home Medications Allopurinol 300 mg DAILY #0 03/02/17 [History] Colchicine DAILY #0 03/02/17 [History] Digoxin DAILY #0 03/02/17 [History] Diltiazem Hcl Ext Rel (Tiazac) 240 mg PO DAILY #0 cap 03/02/17 [History] Finasteride (Proscar) 5 mg PO DAILY #0 tab 03/02/17 [History] Lisinopril (Zestril) 10 mg PO DAILY #0 tab 03/02/17 [History] METFORMIN HCL (GLUCOPHAGE) 500 mg PO BID #0 tab 03/02/17 [History] Warfarin Sod (Coumadin) DAILY #0 03/02/17 [History] atorvastatin 20 mg PO DAILY 09/23/18 [History] glipizide 10 mg PO BID 09/23/18 [History] levothyroxine 75 mcg PO DAILY 09/23/18 [History] tamsulosin 0.8 mg PO DAILY 09/23/18 [History] trazodone 50 mg PO HS 09/23/18 [History] Active Medications Dextrose (Dextrose 50%) 25 - 50 ml IV UD PRN; Protocol PRN Reason: Hypoglycemia Protocol Stop: 10/24/18 09:33 Glucagon (Glucagen) 1 mg IM UD PRN; Protocol PRN Reason: Hypoglycemia Protocol Stop: 10/24/18 09:33 Glucose (Glucose 40%) 15 - 30 gm PO UD PRN; Protocol PRN Reason: Hypoglycemia Protocol Stop: 10/24/18 09:33 Glucose (Dex4 Glucose) 4 - 8 tabs PO UD PRN; Protocol PRN Reason: Hypoglycemia Protocol Stop: 10/24/18 09:33 Haloperidol Lactate (Haldol) 0.5 mg IM DAILY PRN PRN Reason: Agitation Stop: 10/24/18 12:03 Last Admin: 09/25/18 02:14 Dose: 0.5 mg Insulin Aspart (Novolog Flexpen) 0 units SC ACHS [facility] Stop: 10/26/18 20:59 Last Admin: 09/28/18 12:33 Dose: 4 units Levothyroxine Sodium (Synthroid) 75 mcg PO DAILYBB [facility] Stop: 10/27/18 06:29 Last Admin: 09/28/18 06:11 Dose: 75 mcg Miscellaneous (Carbohydrates For Hypoglycemia) 15 - 30 gm PO UD PRN PRN Reason: Hypoglycemia Treatment Stop: 10/24/18 09:33 Warfarin Sodium (Coumadin) 2.5 mg PO DAILY@1600 [facility] Stop: 10/28/18 15:59 Resident Activity Tracking Resident Involvement: Resident Care Provided Care Provided: Adult Hospital Medicine
[2018-09-28] MEDS: WARFARIN SOD 2.5 MG TAB PO SCH (16:08)
[2018-09-29 05:50] LABS: Basophils # (auto) 0.01 K/uL (0-0.2); Basophils % (auto) 0.1 %; Eosinophils # (auto) 0.19 K/uL (0-0.5); Eosinophils % (auto) 2.2 %; Hematocrit (blood only) 29.6 % (42-52); Hemoglobin 10.3 g/dL (14.0-18.0); Immature Granulocytes # (auto) 0.05 K/uL (0.00-0.02); Immature Granulocytes % (auto) 0.6 %; Lymphocytes # (auto) 1.83 K/uL (1.2-3.4); Lymphocytes % (auto) 20.9 %; Mean Corpuscular Hgb Conc 34.8 g/dL (32-36); Mean Corpuscular Volume 93.4 fL (80-100); Mean Platelet Volume 11.4 fL (7.4-10.4); Monocytes # (auto) 0.83 K/uL (0.11-0.59); Monocytes % (auto) 9.5 %; Neutrophils # (auto) 5.84 K/uL (1.4-6.5); Neutrophils % (auto) 66.7 %; Platelet Count 151 K/uL (130-400); RDW Coefficient of Variation 14.3 % (11.5-14.5); RDW Standard Deviation 48.1 fL (36.4-46.3); Red Blood Count 3.17 M/uL (4.7-6.1); White Blood Count 8.75 K/uL (4.8-10.8)
[2018-09-29 05:56] LABS: INR 1.1 (0.9-1.1); Prothrombin Time 11.2 Seconds (9.0-12.0)
[2018-09-29] MEDS: LEVOTHYROXINE SODIUM 75 MCG TABLET PO SCH (06:16)
[2018-09-29 06:19] LABS: Albumin Level 3.1 gm/dl (3.4-5.0); BUN Creatinine Ratio 22.1 (10-20); Calcium 8.6 mg/dl (8.5-10.1); Creatinine Clr Calc Pharmacy 31.9 ml/min; Est GFR (African American) 48.2; Est GFR (Non-African American) 41.6; Phosphorus 2.9 mg/dl (2.5-4.9); Potassium 3.7 mmol/L (3.5-5.1)
[2018-09-29] MEDS: INSULIN ASPART 100 UNITS/ML 3 ML PEN SC SCH ×2 (08:23→12:21)
[2018-09-29] MEDS: WARFARIN SOD 2.5 MG TAB PO SCH (15:32)
== END 2018-09-29 16:28 | disposition home health service (06) | DRG 682 ==
LOC: 2S 14:47 → SUATTDRO 14:47 → 2S 09-24 17:09 → 4E 09-27 07:52

== ENCOUNTER 2019-01-16 16:53 | Inpatient (IN) ==
--- OUTSIDE RECORDS SUMMARY | 2019-01-16 16:56 | External Medical Summary | Continuity of Care Document ---
:1930 Author Name Alon Saucedo Address Unavailable Unavailable , Care Team Providers Name Role Phone Unavailable Unavailable Unavailable Adithya Saucedo Unavailable [email or web address] CHAND Unavailable Unavailable Unavailable Unavailable Unavailable Problems Benign prostatic hypertrophy with urinary obstruction (600.0 1) (N40.1) Allergies and Adverse Reactions No Known Drug Allergies (Allergy) Medications Finasteride 5 MG Oral Tablet; TAKE ONE TABLET BY MOUTH DAILY Sheryl Haji Start: 04-Dec-2012 Quantity: 90 Refills: 3 Tamsulosin HCl - 0.4 MG Oral Capsule; TA KE 1 CAPSULE Daily 1/2 hour after supper Sheryl Haji Start: 04-Dec-2012 Quantity: 90 Refills: 0 Procedures Procedures not documented Immunizations Immunizations not documented Social History - Smoking Status Former smoker Never smoker Plan of Treatment Planned Observations Planned Goals not documented Results No Known Results Results not documented
[2019-01-16] MEDS ORDERED: PHYTONADIONE 5 MG in SODIUM CHLORIDE 0.9% 50 ML IV ONE ×2 (17:15→17:23)
[2019-01-16] MEDS ORDERED: SODIUM CHLORIDE 0.9% 250 ML IV PRN ×4 (17:25→19:33)
[2019-01-16] MEDS ORDERED: PHYTONADIONE 10 MG in SODIUM CHLORIDE 0.9% 50 ML IV ONE (17:30)
[2019-01-16] MEDS ORDERED: PANTOprazole 40 MG in SYRINGE 0 ML IV ONE (17:30)
[2019-01-16] MEDS ORDERED: PROTHROMBIN COMP CONC- KCENTRA 4,000 UNITS in SYRINGE 0 ML IV SCH (17:30)
[2019-01-16] MEDS: SODIUM CHLORIDE 0.9% 1000ML 1,000 ML IV SCH (18:15)
[2019-01-16] MEDS: PANTOprazole 40 MG in DEXTROSE 5% 100 ML IV SCH ×2 (18:20→22:35)
--- NOTE | 2019-01-16 18:31 | History & Physical Report ---
Date of Service January 16, 2019 Assessment & Plan (1) Acute GI bleeding: (2) Melena: This is a 88-year-old male who has a significant PMH of mechanical mitral valve replacement in 1985 on chronic warfarin therapy, T2DM, HTN, HLD, CKD stage III with baseline creatinine 1.7, hypothyroidism, BPH who presents to [facility] secondary to melena x3 weeks. Hgb/hct 4.9/30.1 NAILER MACHINE. While at [facility] patient received 1 unit of PRBC, Protonix bolus and 1 L of IVF Repeat H/H 5.8 and 17, POC INR > 7.0 2 units PRBC ordered 10mg of VIT K given KCENTRA ordered Monitor H/H q6h Consult GI - spoke with Dr. Caputo NPO Per Dr. 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: Noted on EKG done outpatient cardiology office on 01/12 At that time digoxin was stopped A Holter/echocardiogram recommended Monitor patient on telemetry and once patient hemodynamically stable from a GI bleed standpoint patient may need echocardiogram and cardiology evaluation (5) H/O mitral valve replacement with mechanical valve: MVR done back in 1980s lost to cardiology follow up last echo 2011 EF 50-54%, Grade 1 diastolic dysfunction along with functioning MVR established with [facility] cardiology on 01/12 (6) HTN (hypertension): Blood pressure stable Hold lasix in setting of hypovolemia continue diltiazem for now (7) HLD (hyperlipidemia): Hold statin in setting of acute GI bleed (8) T2DM (type 2 diabetes mellitus): A1C 6.8 04/2018 hold oral glycemics Accuchecks Q4h NovoLog sliding scale per protocol (9) Hypothyroidism: continue levothyroxine (10) DVT prophylaxis: SCDS/TEDS Warfarin on hold given acute GIB follow PT/INR Disposition: to be determined, case management consulted Follow up: PCP Dr. Ivan upon discharge along with appropriate GI and cardiology follow up History of Present Illness Chief Complaint: Melena x 3 weeks. 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 Patient was initially seen this morning at [facility] and referred to [facility] secondary to acute GI bleed. Patient had recent lab work done from cardiology office which revealed a hemoglobin of 4.9 today. Patient then referred to [facility] ED. He received 1 unit of PRBC along with 1 L of normal saline and Protonix bolus. He states he has been doing well until the past 3 weeks. He noticed increasing fatigue, LEON, dark tarry bowel movements, dizziness with standing, intermittent lower abdominal discomfort. Abdominal discomfort was located in suprapubic region, nonradiating, lasting approximately 1 hour, improving on own, nothing makes symptoms better or worse including urination or BM. Pain will not occur daily. He denies any other recent illness fever, chills, syncope, chest pain, palpitations, shortness breath at rest, cough, hemoptysis, nausea, vomiting, hematemesis, diarrhea, dysuria, hematuria. He does have history of BPH and therefore does have difficulty with stream as well as incomplete bladder emptying which he feels is unchanged. His appetite has overall been poor. He notes a 20 to 25 pound weight loss unintentional in the past 2 to 2-1/2 months. Of significance patient follows [facility] pharmacy for Coumadin management. Last INR was done on 01/11 and was 3.65. Goal ranges 2.5-3.5 given mechanical valve. He was instructed to continue warfarin 2.5 mg on Tuesday and 5 mg all other days. He also saw per cardiology Dr. Acevedo on 01/12. 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 At this visit digoxin was stopped secondary to EKG revealing second-degree AV block Mobitz type I. His Lasix was increased to 20 mg daily as opposed to every other day. He was also ordered a Holter monitor and echocardiogram which does not appear to have been done. His last echocardiogram was done in 2011 which revealed EF 50 to 55% with grade 1 diastolic dysfunction along with functioning mitral valve replacement. He was hospitalized in [facility] in September 2018 secondary to NAIF as well as supratherapeutic INR. At that time he was heme positive stool but H&H was stable therefore no further intervention was done. Allergies Allergy/AdvReac Type Severity Reaction Status Date / Time Penicillins Allergy Unknown UNKOWN Unverified 01/16/19 17:24 Home Medications Home Medications Medication Instructions Recorded Confirmed Type atorvastatin 20 mg PO DAILY 09/23/18 01/16/19 History glipizide 10 mg PO BID 09/23/18 01/16/19 History levothyroxine 75 mcg PO DAILY 09/23/18 01/16/19 History trazodone 50 mg PO HS 09/23/18 01/16/19 History allopurinol 300 mg PO DAILY 01/16/19 01/16/19 History colchicine 0.6 mg PO DAILY PRN 01/16/19 01/16/19 History diltiazem HCl 240 mg PO DAILY 01/16/19 01/16/19 History furosemide [Lasix] 20 mg PO DAILY 01/16/19 01/16/19 History warfarin 2.5 mg PO SUMOWEFR 01/16/19 01/16/19 History warfarin [Coumadin] 2.5 mg PO TUTHSA 01/16/19 01/16/19 History Past Med/Surg History Medical History T2DM (type 2 diabetes mellitus) (Chronic) HLD (hyperlipidemia) (Chronic) CKD (chronic kidney disease) stage 3, GFR 30-59 ml/min (Chronic) HTN (hypertension) (Chronic) 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) BPH (benign prostatic hyperplasia) (Chronic) Hypothyroidism (Chronic) Obesity (Chronic) Lumbar spinal stenosis (Chronic) Positive fecal occult blood test Anemia Metabolic acidosis NAIF (acute kidney injury) (Resolved) Aspiration into airway (Resolved) Surgical History 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) History of AAA (abdominal aortic aneurysm) repair (Chronic) History of cholecystectomy (Chronic) History of appendectomy (Chronic) History of bronchoscopy (Chronic) No pertinent past surgical history Family History Father Pancreatic cancer Mother Coronary heart disease Brother MVA (motor vehicle accident) Son Diabetes Other No pertinent past surgical history Social History Preferred Language: Greenlandic Communication Ability: Effective Visual Impairment: No Limitations Hearing Ability: Normal Beliefs That Will Affect Care: None Current Living Situation: Alone Feels Safe at Home: Yes Smoking Status: Former smoker Second Hand Exposure: No Hx Alcohol Use: No Hx Substance Use: No Review of Systems Review of Systems: As noted per HPI, 10 systems reviewed and negative unless noted above. Physical Exam Physical Exam: Gen: WD/WN, male, pale, sitting up in bed, pleasant, conversing easily, answers questions appropriately Head: Normocephalic, Atraumatic Eyes: Sclera normal, no conjunctival injection, PERRLA, EOMI ENT: Gross hearing intact, normal pharynx, mucous membranes dry Neck: supple, no adenopathy, No JVD, no bruit, Resp: Clear to auscultation b/l, no wheeze, rales, rhonchi. 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 Extremities: +1 edema bilaterally Skin: warm, moist, no rash,Mild turgor, cap refill prolonged Neuro: Alert and oriented x 3, but was unaware of year, speech normal, good mood/affect, cran nerve 2-12 intact grossly : deferred Results & Data Vital Signs (Past 12 Hours) Vital Signs Temp Pulse Resp BP Pulse Ox 01/16/19 17:31 70 21 159/78 H 95 01/16/19 17:30 70 20 92 01/16/19 17:16 64 24 153/65 H 97 01/16/19 17:15 60 24 96 01/16/19 17:06 70 29 H 148/64 H 96 01/16/19 17:02 72 22 96 01/16/19 17:00 36.4 C L 76 18 169/80 H 97 01/16/19 16:56 72 17 169/80 H 93 Laboratory Results H/H 5.8 and 17 Medications Administered Pantoprazole Sodium 40 mg/ (Dextrose) 100 mls @ 20 mls/hr IV Q5H [facility] Stop: 01/16/19 22:29 Last Admin: 01/16/19 18:20 Dose: 20 mls/hr Documented by: [id number] Prothrombin Complex Concent ( (Human) 4,000 units/ Syringe) 160 mls @ 0 mls/min IV TODAY@1730 [facility]; Protocol Stop: 01/16/19 20:00 Last Admin: 01/16/19 17:37 Dose: 5 mls/min Documented by: [id number] Sodium Chloride (Nss 1000ml) 1,000 mls @ 125 mls/hr IV .Q8H [facility] Stop: 02/15/19 17:29 Last Admin: 01/16/19 18:15 Dose: 125 mls/hr Documented by: [id number] Discontinued Medications Pantoprazole Sodium 40 mg/ (Syringe) 10 mls @ 5 mls/min IV ONE ONE Stop: 01/16/19 17:31 Last Admin: 01/16/19 17:57 Dose: 5 mls/min Documented by: [id number] Phytonadione 10 mg/ Sodium (Chloride) 51 mls @ 102 mls/hr IV NOW ONE Stop: 01/16/19 17:59 Last Admin: 01/16/19 17:59 Dose: 102 mls/hr Documented by: [id number] Code Status & VTE Plan Code Status Full Code VTE Prophylaxis Plan VTE Prophylaxis will be ordered: Yes Reason for no VTE drug order: Contraindicated Supervising Physician Co-Signing Physician Notes I have seen and examined the patient with physician bankruptcy legal assistant and agree with the assessment and plan and would like to add that patient was seen at [facility] with severe anemia with Hgb of 4 and supratherapeutic INR. Patient had received 1 unit of PRBC at [facility] and the supratherepeutic INR has been reversed to 1.6 with currently Hgb 6.1. Patient will be due for 2 units or PRBC as ordered by ED physician but has not received blood products yet due to IV access issues. Patient on exam is awake and alert and breathing comfortably on room air. He is somewhat pale looking but vitals are stable. Patient able to sit up and cooperate with physical exam. No focal neurologic deficits. will keep patient NPO and hold the coumadin in case of acute blood loss anemia from a gastrointestinal bleed. Gastroenterology service is aware. Continue IV fluids and Protonix Continue the telemetry monitoring. the mechanical valve management and 2nd degree heart block should be followed but the active issue at this time is to stabilize the anemia
[2019-01-16 18:33] LABS: iSTAT Creatinine 1.6 mg/dl (0.6-1.3); iSTAT Hemoglobin 5.8 g/dl (14.0-18.0); iSTAT Ionized Calcium 1.15 mmol/l (1.12-1.32)
[2019-01-16 18:57] LABS: Bilirubin Direct 0.2 mg/dl (0-0.2); Bilirubin,Total 0.7 mg/dl (0.2-1)
[2019-01-16 18:59] LABS: INR 1.6 (0.9-1.1); Partial Thromboplastin Ratio 0.8; Partial Thromboplastin Time 22.8 Seconds (21.0-31.0); Prothrombin Time 15.9 Seconds (9.0-12.0)
[2019-01-16 19:01] LABS: Hematocrit (blood only) 18.3 % (42-52); Hemoglobin 6.1 g/dL (14.0-18.0); Mean Corpuscular Hgb Conc 33.3 g/dL (32-36); Mean Corpuscular Volume 88.4 fL (80-100); Mean Platelet Volume 10.3 fL (7.4-10.4); Nucleated RBC # (auto) 0.02 K/uL (0-0); Nucleated RBC % (auto) 0.3 %; Platelet Count 193 K/uL (130-400); RDW Coefficient of Variation 15.9 % (11.5-14.5); RDW Standard Deviation 51.2 fL (36.4-46.3); Red Blood Count 2.07 M/uL (4.7-6.1); White Blood Count 6.18 K/uL (4.8-10.8)
[2019-01-16] MEDS ORDERED: CARBOHYDRATES FOR HYPOGLYCEMIA PO PRN (19:26)
[2019-01-16] MEDS ORDERED: DEXTROSE 50% 50 ML SYRINGE IV PRN (19:26)
[2019-01-16] MEDS ORDERED: ACETAMINOPHEN 325 MG TAB PO PRN (19:26)
[2019-01-16] MEDS ORDERED: GLUCOSE 40% GEL 15 GM TUBE PO PRN (19:26)
[2019-01-16] MEDS ORDERED: MAGNESIUM HYDROXIDE SUSP 30 ML UDC PO PRN (19:26)
[2019-01-16] MEDS ORDERED: GLUCOSE 10 TABS/TUBE PO PRN (19:26)
[2019-01-16] MEDS ORDERED: ALUMINUM/MAGNESIUM SUSP 30 ML UDC PO PRN (19:26)
[2019-01-16] MEDS ORDERED: ONDANSETRON INJ 2 MG/ML 2 ML VIAL IV PRN (19:26)
[2019-01-16] MEDS ORDERED: GLUCAGON FOR INJ 1 MG VIAL SQ PRN (19:26)
--- NOTE | 2019-01-16 21:00 | Emergency Department Note ---
Entered by Heidi Ashford acting as a scribe for History of Present Illness General Chief complaint: GI Bleed Stated complaint: WEAKNESS, SOB, GI BLEED, TRANSFER FROM [facility] Source: patient Mode of arrival: EMS Limitations: no limitations History of Present Illness Onset (ago): week(s) 3 Location: abdomen (rectum) Pain Consistency: + constant Quality: + other (GI bleed) Exacerbated By: + movement Associated symptoms: + shortness of breath and + weakness; no other (The patient denies abdominal pain.) The patient is an 88 year old male with a history of mitral valve replacement who presents to the ED via EMS with complaints of a constant GI bleed that onset 3 weeks ago. Patient states he has had black stools for 3 weeks. The patient was referred from [facility]. We did receive a phone call prior to his arrival. Patient was seen and evaluated there and found to have a hemoglobin of 4.7. Patient does take Coumadin due to a prior mechanical valve replacement as well as atrial fibrillation. The ER doctor there who called stated he did perform a rectal exam which was positive on the patient. The patient complains of melena, weakness, and shortness of breath. Patient denies any recent nausea or vomiting. Denies any accompanying chest pain or palpitations. Denies headaches. States he does get lightheaded/dizzy with standing up and movement. The patient denies abdominal pain. He notes that he is on Coumadin. He does not know when his Coumadin was last checked and cannot recall an INR. Patient denies any prior history of GI bleeding including peptic ulcer disease or other intestinal bleeding. It was reported that prior to arrival patient did receive IV Protonix and 1 unit of packed red blood cells. A second unit that have been ordered could not be given to him as the EMS crew bring him a similar to transfuse the patient in route. Patient states on arrival here that he is feeling better after receiving 1 unit of blood. Home Medications Home Medications Medication Instructions Recorded Confirmed Type atorvastatin 20 mg PO DAILY 09/23/18 01/16/19 History glipizide 10 mg PO BID 09/23/18 01/16/19 History levothyroxine 75 mcg PO DAILY 09/23/18 01/16/19 History trazodone 50 mg PO HS 09/23/18 01/16/19 History allopurinol 300 mg PO DAILY 01/16/19 01/16/19 History colchicine 0.6 mg PO DAILY PRN 01/16/19 01/16/19 History diltiazem HCl 240 mg PO DAILY 01/16/19 01/16/19 History furosemide [Lasix] 20 mg PO DAILY 01/16/19 01/16/19 History warfarin 2.5 mg PO SUMOWEFR 01/16/19 01/16/19 History warfarin [Coumadin] 2.5 mg PO TUTHSA 01/16/19 01/16/19 History Allergies Allergy/AdvReac Type Severity Reaction Status Date / Time Penicillins Allergy Unknown UNKOWN Unverified 01/16/19 17:24 Past Med/Surg History Medical History T2DM (type 2 diabetes mellitus) (Chronic) HLD (hyperlipidemia) (Chronic) CKD (chronic kidney disease) stage 3, GFR 30-59 ml/min (Chronic) HTN (hypertension) (Chronic) 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) BPH (benign prostatic hyperplasia) (Chronic) Hypothyroidism (Chronic) Obesity (Chronic) Lumbar spinal stenosis (Chronic) Positive fecal occult blood test Anemia Metabolic acidosis NAIF (acute kidney injury) (Resolved) Aspiration into airway (Resolved) Surgical History 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) History of AAA (abdominal aortic aneurysm) repair (Chronic) History of cholecystectomy (Chronic) History of appendectomy (Chronic) History of bronchoscopy (Chronic) No pertinent past surgical history Family History Father Pancreatic cancer Mother Coronary heart disease Brother MVA (motor vehicle accident) Son Diabetes Other No pertinent past surgical history Social History Preferred Language: German Communication Ability: Effective Visual Impairment: No Limitations Hearing Ability: Normal Tune Up Mechanic Required: No Beliefs That Will Affect Care: None Current Living Situation: Alone Other Information That Helps Us Care for You: No Feels Safe at Home: Yes Safety Concerns: Feels Safe At This Time Smoking Status: Former smoker Second Hand Exposure: No Hx Alcohol Use: Yes Alcohol type: beer Hx Substance Use: No Review of Systems See HPI for pertinent positives & negatives. and A total of 10 systems reviewed and were otherwise negative Physical Exam Vital Signs Vital Signs - 24 hr 01/16/19 16:56 01/16/19 17:00 01/16/19 17:02 Temperature 36.4 C L Temperature Source Oral Sepsis Recent Fever Within 48 Hours No Sepsis New/Unexplained Change in Mental Status No Sepsis Action Taken by Nursing No Action Required Pulse Rate 72 76 72 Pulse Rate from SpO2 Sensor 74 71 Respiratory Rate 17 18 22 Respiratory Effort / Characteristics Non-Labored Spontaneous Respiratory Depth Normal Respiratory Pattern Regular Blood Pressure 169/80 H 169/80 H Blood Pressure Mean 109 109 Pulse Oximetry 93 97 96 Oxygen Delivery Method Room Air 01/16/19 17:06 01/16/19 17:15 01/16/19 17:16 Temperature Temperature Source Sepsis Recent Fever Within 48 Hours Sepsis New/Unexplained Change in Mental Status Sepsis Action Taken by Nursing Pulse Rate 70 60 64 Pulse Rate from SpO2 Sensor 69 57 L 64 Respiratory Rate 29 H 24 24 Respiratory Effort / Characteristics Respiratory Depth Respiratory Pattern Blood Pressure 148/64 H 153/65 H Blood Pressure Mean 92 94 Pulse Oximetry 96 96 97 Oxygen Delivery Method 01/16/19 17:30 01/16/19 17:31 01/16/19 17:45 Temperature Temperature Source Sepsis Recent Fever Within 48 Hours Sepsis New/Unexplained Change in Mental Status Sepsis Action Taken by Nursing Pulse Rate 70 70 62 Pulse Rate from SpO2 Sensor 77 73 64 Respiratory Rate 20 21 25 H Respiratory Effort / Characteristics Respiratory Depth Respiratory Pattern Blood Pressure 159/78 H Blood Pressure Mean 105 Pulse Oximetry 92 95 95 Oxygen Delivery Method 01/16/19 17:48 Temperature Temperature Source Sepsis Recent Fever Within 48 Hours Sepsis New/Unexplained Change in Mental Status Sepsis Action Taken by Nursing Pulse Rate 67 Pulse Rate from SpO2 Sensor 68 Respiratory Rate 21 Respiratory Effort / Characteristics Respiratory Depth Respiratory Pattern Blood Pressure 147/69 H Blood Pressure Mean 95 Pulse Oximetry 97 Oxygen Delivery Method GENERAL: Pale, alert, well appearing, well nourished, no distress, non-toxic EYE EXAM: normal conjunctiva, PERRL and EOM's grossly intact OROPHARYNX: no exudate, no erythema, lips, buccal mucosa, and tongue normal and mucous membranes are moist NECK: supple, no nuchal rigidity, no adenopathy, non-tender LUNGS: Diminished breath sounds, no wheezes, rhonchi, rales. HEART: no murmurs, S1 normal and S2 normal ABDOMEN: abdomen soft, non-tender, normo-active bowel sounds, no masses, no rebound or guarding. BACK: Back is symmetrical on inspection and there is no deformity, no midline tenderness, no CVA tenderness. SKIN: no rashes and no bruising. Pale. UPPER EXTREMITIES: upper extremities are grossly normal. Full range of motion bilaterally. Normal pulses. LOWER EXTREMITIES: 1+ lower extremity edema bilaterally. Full range of motion bilaterally. NEURO EXAM: Normal sensorium, cranial nerves II-XII grossly intact, normal speech, no gross weakness of arms, no gross weakness of legs. Course 165: Past medical records reviewed. The patient was evaluated in room C07. A c omplete history and physical examination was performed. 1658: I reviewed the patient's case with Blessing Foss who was aware of the transfer. She or a colleague will see the patient. 1720: I reviewed the patient's case with Dr. Ilya Dillard. She suggested adding additional vitamin K as well as K Centra to help manage this patient's bleeding and anemia. She also recommended resuscitation and a 2:1 manner of packed cells to plasma. 1730: I received the blood consent. The patient is being evaluated by Cherise Foss. She will evaluate the patient for further management. I did discuss Dr. Caraballo's recommendations with her. Consultations Consultation #1: 1658: I reviewed the patient's case with Blessing Foss who was aware of the transfer. She or a colleague will see the patient. Time: 16:58 Consultation #2: 1720: I reviewed the patient's case with Dr. Ilya Dillard. Time: 17:20 Consultation #3: 1730: I received the blood consent. The patient is being evaluated by Cherise Foss. She will evaluate the patient for further management. Time: 17:30 Administered Medications Pantoprazole Sodium 40 mg/ (Dextrose) 100 mls @ 20 mls/hr IV Q5H [facility] Stop: 02/15/19 17:29 Last Admin: 01/16/19 18:20 Dose: 20 mls/hr Documented by: [id number] Sodium Chloride (Nss 1000ml) 1,000 mls @ 125 mls/hr IV .Q8H [facility] Stop: 02/15/19 17:29 Last Admin: 01/16/19 18:15 Dose: 125 mls/hr Documented by: [id number] Discontinued Medications Pantoprazole Sodium 40 mg/ (Syringe) 10 mls @ 5 mls/min IV ONE ONE Stop: 01/16/19 17:31 Last Admin: 01/16/19 17:57 Dose: 5 mls/min Documented by: [id number] Prothrombin Complex Concent ( (Human) 4,000 units/ Syringe) 160 mls @ 0 mls/min IV TODAY@1730 [facility]; Protocol Stop: 01/16/19 20:00 Last Admin: 01/16/19 17:37 Dose: 5 mls/min Documented by: [id number] Phytonadione 10 mg/ Sodium (Chloride) 51 mls @ 102 mls/hr IV NOW ONE Stop: 01/16/19 17:59 Last Admin: 01/16/19 17:59 Dose: 102 mls/hr Documented by: [id number] Medical Decision Making Differential Diagnosis Differential diagnoses: Diverticulosis, AVM, coagulopathy, colitis, inflammatory bowel disease, malignancy, Marbella-Saldaña tear, esophagitis, peptic ulcer disease, variceal bleed, gastritis, epistaxis, fissure, hemorrhoids, as well as others were entertained. Medical Records Attestation: I reviewed the patient's medical records. Home Medications Current Medication List: was personally reviewed by me Laboratory Data Attestation: I reviewed the patient's lab results. Result diagrams: 01/16/19 18:22 Lab Results 01/16/19 Range/Units 17:57 PT 15.9 H (9.0-12.0) Seconds INR 1.6 H (0.9-1.1) APTT 22.8 (21.0-31.0) Seconds PTT Ratio 0.8 ECG Data Attestation: I personally reviewed and interpreted this ECG as follows: Indication: other (GI bleed) Rate (beats per minute): 58 Rhythm: sinus bradycardia Findings: + other (normal axis, normal QRS and QTC. ) Blood Pressure Blood Pressure Findings: Elevated blood pressure Blood Pressure Disposition: further management by hospitalist SIMI Whyte Patient presenting here after being initially evaluated at [facility], markedly ill-appearing, however hemodynamically stable despite profound symptomatic anemia and GI bleed. No PT/INR had been performed at [facility] according to records sent. A [id number] PT/INR was performed here and found to be 7.6. Patient does use Coumadin due to prior history of mechanical valve and atrial fibrillation. No prior history of GI bleed. In light of this patient was start ed on IV vitamin K initially 5 mg as ordered by myself, however after additional discussion with Dr. Caraballo, and additional 5 mg was ordered and she also recommended adding Kcentra. I did have the patient sign a blood consent at bedside and additional units of packed red blood cells were ordered. There was some difficulty obtaining adequate IV access on the patient for all the medications that were ordered. I also ordered a Protonix drip on the patient. Patient he reported feeling improved after the first unit of packed red blood cells that was transfused to [facility] prior to transportation. Patient remained hemodynamically stable while here. Patient was made aware of all results and p brook and was in agreement. [facility] to [facility] as they were initially contacted for possible direct admission. They came and saw the patient quickly after patient's arrival at bedside while I was still evaluating the patient and managing them here in the emergency room as well. Impression & Plan GI bleed, HTN (hypertension), Symptomatic anemia, Supratherapeutic INR, NAIF (acute kidney injury), LEON (dyspnea on exertion) Critical Care Time I have personally spent 45 minutes of critical care time in the direct manageme nt of this patient. This includes bedside care, interpretation of diagnostic studies, and testing, discussion with consultants, patient, and family members, and other required patient management activities. This 45 minutes is in excess of all separately billable procedures. Critical Care Time: Yes (45) Total Critical Care Time: 45 Discharge Plan Visit Data *Final* Discharge Date/Time: 01/16/19 18:53 Chief Complaint: GI Bleed Stated Complaint: WEAKNESS, SOB, GI BLEED, TRANSFER FROM [facility] ED Provider: Carly Gomez Discharge Problem: GI bleed, HTN (hypertension), Symptomatic anemia, Supratherapeutic INR, NAIF (acute kidney injury), LEON (dyspnea on exertion) Patient Disposition: Admitted As Inpatient Discharge Instructions Interventions: ED Discharge Assessment Last Done: 01/16/19 18:53 Discharge Problem: GI bleed Qualifiers: GI bleed type/associated pathology: melena Qualified Code(s): K92.1 - Melena HTN (hypertension) Qualifiers: Hypertension type: unspecified Qualified Code(s): I10 - Essential (primary) hypertension The scribe's documentation has been prepared under my direction and personally reviewed by me in its entirety. I confirm that the note above accurately reflects all work, treatment, procedures, and medical decision making performed by me.
[2019-01-17] MEDS: INSULIN ASPART 100 UNITS/ML 3 ML PEN SC SCH ×4 (00:45→19:30)
[2019-01-17] MEDS: PANTOprazole 40 MG in DEXTROSE 5% 100 ML IV SCH ×4 (03:16→22:25)
[2019-01-17] MEDS ORDERED: FUROSEMIDE 40 MG in SYRINGE 0 ML IV ONE (05:40)
[2019-01-17] MEDS: LEVOTHYROXINE SODIUM 75 MCG TABLET PO SCH (05:43)
[2019-01-17 06:09] LABS: Hematocrit (blood only) 23.3 % (42-52); Mean Corpuscular Hgb Conc 34.3 g/dL (32-36); Mean Corpuscular Volume 87.6 fL (80-100); Mean Platelet Volume 10.6 fL (7.4-10.4); Nucleated RBC # (auto) 0.06 K/uL (0-0); Nucleated RBC % (auto) 0.6 %; Platelet Count 173 K/uL (130-400); RDW Coefficient of Variation 15.7 % (11.5-14.5); Red Blood Count 2.66 M/uL (4.7-6.1); White Blood Count 11.08 K/uL (4.8-10.8)
[2019-01-17 06:17] LABS: Estimated Average Glucose 105 mg/dl; Hemoglobin A1C 5.3 % (4.5-5.6); INR 1.2 (0.9-1.1); Prothrombin Time 12.1 Seconds (9.0-12.0)
--- NOTE | 2019-01-17 06:28 | XRay Report ---
XR chest 1V portable CLINICAL HISTORY: Shortness of breath. Crackles on physical examination. COMPARISON STUDY: 03/02/2017 FINDINGS: The study is mildly rotated. There are postsurgical changes of midline sternotomy. The hear t is enlarged. There is mild mediastinal fullness similar to the prior study given the degree of rota tion. There is elevation of the interstitium suggesting underlying pulmonary vascular congestion/flui d overload.[ IMPRESSION: Cardiomegaly and radiographic evidence of congestive failure/fluid overload. Electronically signed by: Kendell Maurer M.D. 01/17/2019 6:26 AM
[2019-01-17 06:41] LABS: BUN Creatinine Ratio 24.5 (10-20); Calcium 8.6 mg/dl (8.5-10.1); Creatinine Clr Calc Pharmacy 35.9 ml/min; Est GFR (African American) 48.6; Est GFR (Non-African American) 41.9; Potassium 3.9 mmol/L (3.5-5.1)
[2019-01-17] MEDS ORDERED: METOPROLOL TARTRATE 1 MG/ML VIAL IV STA (07:33)
[2019-01-17] MEDS: SODIUM CHLORIDE 0.9% 1000ML 1,000 ML IV SCH (07:55)
--- NOTE | 2019-01-17 09:53 | Gastrointestinal Consultation ---
Date of Consultation January 17, 2019 Assessment & Plan (1) Melena: 1. EGD later this morning. 2. Agree with PPI drip. 3. Continue NPO, close monitoring of heart rhythm, VS and stools. 4. Further recommendations to follow EGD. Present on Admission?: Yes (2) Acute on chronic blood loss anemia: Same as above. Present on Admission?: Yes Supervising Physician Co-Signing Physician Notes I saw and evaluated the patient. He presented with melena and anemia thought to be from an upper GI source. Physical examination No obvious distress No scleral icterus Systolic murmur noted Impression: Patient presents with melena and anemia likely from an upper digestive source. We are planning to do upper endoscopy today for further evaluation. Should this be negative who would then need to consider colonoscopy for further evaluation. Recommendation Upper endoscopy today History of Present Illness Reason for Consultation: GI Bleed Requesting Physician: Dr. Lo, Cherise Hubbard PA-C Attending Physician: Jose Lo, History of Present Illness Mr. Jos Chavez is an 88 yr old male pt of Dr. Ivan with a hx of HTN, DM2, hyperlipidemia, CKD-3, mitral valve replacement (mechanical) on warfarin, prior AAA repair. He presented to [facility] yesterday for SOB, weakness and black BMs. Hb was 4 and he was transferred to [facility]. He reports chronic SOB, worse in the past 3 months. Then about 3 weeks ago, he began to pass loose black BMs, 1-2 times/day, most recently on night baker last night. He has not had abdominal pain, nausea/vomiting and is not on iron or Pepto Bismol. He is maintained on colchicine and allopurinal but denies any NSAID use. He denies any abdominal pain. No prior endoscopies (no EGDs and says he was never told to do a colonoscopy). He received a unit of blood at [facility], then on arrival here yesterday, Hb was 6.1. He received 2 units of RBCs and 2 units of FFP and Hb this morning is 8, INR was 1.6 on arrival and is 1.2 today. MCV has been normal. He is awake, alert, oriented. He experienced a HR of 130's during morning care and there were irregular beats. Cardiology was consulted. I spoke with Dr. Obrien who stated that the pt had PACs/PVCs but no A-fib and no sustained arrhythmias; the pt is OK to go forward with EGD today. The pt is NPO, on a PPI drip and has remained hemodynamically stable. Allergies Allergy/AdvReac Type Severity Reaction Status Date / Time Penicillins Allergy Unknown UNKOWN Unverified 01/16/19 17:24 Home Medications Home Medications Medication Instructions Recorded Confirmed Type atorvastatin 20 mg PO DAILY 09/23/18 01/16/19 History glipizide 10 mg PO BID 09/23/18 01/16/19 History levothyroxine 75 mcg PO DAILY 09/23/18 01/16/19 History trazodone 50 mg PO HS 09/23/18 01/16/19 History allopurinol 300 mg PO DAILY 01/16/19 01/16/19 History colchicine 0.6 mg PO DAILY PRN 01/16/19 01/16/19 History diltiazem HCl 240 mg PO DAILY 01/16/19 01/16/19 History furosemide [Lasix] 20 mg PO DAILY 01/16/19 01/16/19 History warfarin 2.5 mg PO SUMOWEFR 01/16/19 01/16/19 History warfarin [Coumadin] 2.5 mg PO TUTHSA 01/16/19 01/16/19 History Patient History Medical History T2DM (type 2 diabetes mellitus) (Chronic) HLD (hyperlipidemia) (Chronic) CKD (chronic kidney disease) stage 3, GFR 30-59 ml/min (Chronic) HTN (hypertension) (Chronic) 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) BPH (benign prostatic hyperplasia) (Chronic) Hypothyroidism (Chronic) Obesity (Chronic) Lumbar spinal stenosis (Chronic) Positive fecal occult blood test Anemia Metabolic acidosis NAIF (acute kidney injury) (Resolved) Aspiration into airway (Resolved) Surgical History 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) History of AAA (abdominal aortic aneurysm) repair (Chronic) History of cholecystectomy (Chronic) History of appendectomy (Chronic) History of bronchoscopy (Chronic) No pertinent past surgical history Family History Father Pancreatic cancer Mother Coronary heart disease Brother MVA (motor vehicle accident) Son Diabetes Other No pertinent past surgical history Social History Preferred Language: Belarusian Communication Ability: Effective Visual Impairment: No Limitations Hearing 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 No fevers, weight loss Eyes: No eye redness, or pain, no recent vision changes Resp: + exertional SOB, no cough Cardio: He denies feeling any palpitations/irregular beats, denies any chest pain GI: + loose black BMs, No abdominal pain, no nausea/vomiting : Denies pain on urination Skin: No jaundice, itching or new rashes Physical Exam Constitutional: WD/WN, vitals as above well developed, well nourished and + obese (mildly) Eyes: PERRL, conjunctivae normal, anicteric sclerae ENMT: external ear and nose normal, oropharynx normal Neck: trachea midline, no thyromegaly Respiratory: normal respiratory effort, lungs clear to auscultation Cardiovascular: RRR, no murmur, no edema Gastrointestinal (Abdomen): normal bowel sounds, soft, nontender, no hepatosplenomegaly Skin: no rashes, warm and dry Neurologic: patellar DTR's 2+ bilat, sensation intact Psychiatric: A+Ox3, euthymic affect Lymphatic: no cervical or axillary lymphadenopathy Results & Data Vital Signs (Past 12 Hours) Vital Signs Temp Pulse Pulse Pulse Resp BP BP 01/17/19 09:40 74 01/17/19 07:54 84 172/90 H 01/17/19 07:31 36.6 C 88 21 01/17/19 05:09 36.5 C 80 24 164/77 H 01/17/19 04:59 37 C 83 20 146/75 H 01/17/19 03:59 36.7 C 63 20 157/70 H 01/17/19 03:47 36.8 C 60 16 145/64 H 01/17/19 03:29 36.8 C 60 16 145/64 H 01/17/19 03:14 36.7 C 64 16 139/58 L 01/17/19 02:56 37.0 C 67 20 154/86 H 01/17/19 02:15 37 C 63 18 133/65 01/17/19 02:07 37 C 71 22 133/65 01/17/19 01:07 36.5 C 67 18 141/57 H 01/17/19 00:37 36.4 C L 74 18 92/39 L 01/17/19 00:22 36.4 C L 64 18 114/52 L 01/17/19 00:03 36.8 C 68 21 95/45 L 01/17/19 00:02 36.8 C 71 15 121/70 01/17/19 00:00 63 01/16/19 23:25 37 C 69 18 138/65 01/16/19 23:17 37.0 C 80 18 01/16/19 23:05 37.0 C 75 20 124/62 01/16/19 22:25 36.9 C 61 15 159/68 H 01/16/19 22:24 87 17 159/68 H 01/16/19 22:15 79 9 L 01/16/19 22:01 72 3 L 147/60 H 01/16/19 22:00 49 L 12 127/57 L 01/16/19 21:55 36.9 C 69 12 147/60 H BP Pulse Ox 01/17/19 09:40 147/80 H 01/17/19 07:54 01/17/19 07:31 172/90 H 99 01/17/19 05:09 94 01/17/19 04:59 95 01/17/19 03:59 94 01/17/19 03:47 90 01/17/19 03:29 90 01/17/19 03:14 95 01/17/19 02:56 95 01/17/19 02:15 90 01/17/19 02:07 93 01/17/19 01:07 90 01/17/19 00:37 97 01/17/19 00:22 94 01/17/19 00:03 98 01/17/19 00:02 93 01/17/19 00:00 01/16/19 23:25 92 01/16/19 23:17 124/62 93 01/16/19 23:05 97 01/16/19 22:25 91 01/16/19 22:24 90 01/16/19 22:15 87 L 01/16/19 22:01 92 01/16/19 22:00 94 01/16/19 21:55 97 Laboratory Results See HPI Diagnostic Findings CXR 01/16: Cardiomegaly and radiographic evidence of congestive failure/fluid overload. Medications Administered Most recent warfarin 01/15 Protonix drip Vit K 10mg once FFP 2 units RBCs, total of 3 units
--- NOTE | 2019-01-17 09:58 | Cardiology Consultation ---
Date of Consultation January 17, 2019 Assessment & Plan (1) Supratherapeutic INR: INR reportedly elevated at [facility], however, values not available. In any event, INR now subtherapeutic at 1.2. Chronic Coumadin therapy likely contributing to her GI bleed. She is scheduled for an EGD later this morning. (2) H/O mitral valve replacement with mechanical valve: The patient a Medtronic Kenny #31 prosthetic mitral valve placed in 1985 at [facility]. She was lost to follow-up until last week when seen by Dr. Acevedo. Would check an echocardiogram. (3) Abnormal ECG: EKG reveals sinus rhythm with first-degree AV block infrequent PACs and PVCs. No evidence of atrial fibrillation thus far. (4) HTN (hypertension): Adequate control on current medical regimen. (5) Preoperative cardiovascular examination: The patient is an acceptable cardiac risk for endoscopy or other procedures necessary to work up his GI bleed. History of Present Illness Attending Physician: Jose Lo DO History of Present Illness Mr. Chavez is an 88-year-old white male admitted yesterday with a profound anemia, melena, and chronic anticoagulation for mechanical mitral valve. This consultation was ordered to assist in his cardiac management. The patient was in his usual state of health until approximately 2-3 weeks ago. He began to notice dark stools and had progressive exertional dyspnea and lower extremity edema. He presented to the emergency room in [facility] and was found have a hemoglobin 4.7. He was transferred to our institution for further care. The patient has a history of a mechanical mitral valve (Medtronic Kenny #31) that was placed in 1985 at [facility]. Just prior to that procedure, the patient had a complicated abdominal aortic aneurysm repair would that required a total of 3 months in the hospital according to his report. The patient was lost to cardiology follow-up until January 12 of this year when she was seen in consultation by Dr. Jenn Acevedo. An EKG during that visit apparently showed sinus rhythm with Mobitz type 1 second-degree AV block. An echocardiogram was ordered at that time. The patient has never experienced exertional angina pectoris. He further denies syncope, presyncope, PND, orthopnea, palpitations, lower extremity edema, and claudication. Currently, patient is resting comfortably bed and without complaints. He is s cheduled for an upper endoscopy later this morning. Past medical and surgical history 1. Hypertension 2. Hypercholesterolemia 3. Mechanical mitral valve-Medtronic Kenny #31-1985 4. AAA repair-1985 5. Diabetes mellitus 6. Chronic renal failure 7. Hypothyroidism 8. Gout 9. BPH 10. Cholecystectomy 11. 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 Allergies Allergy/AdvReac Type Severity Reaction Status Date / Time Penicillins Allergy Unknown UNKOWN Unverified 01/16/19 17:24 Home Medications Home Medications Medication Instructions Recorded Confirmed Type atorvastatin 20 mg PO DAILY 09/23/18 01/16/19 History glipizide 10 mg PO BID 09/23/18 01/16/19 History levothyroxine 75 mcg PO DAILY 09/23/18 01/16/19 History trazodone 50 mg PO HS 09/23/18 01/16/19 History allopurinol 300 mg PO DAILY 01/16/19 01/16/19 History colchicine 0.6 mg PO DAILY PRN 01/16/19 01/16/19 History diltiazem HCl 240 mg PO DAILY 01/16/19 01/16/19 History furosemide [Lasix] 20 mg PO DAILY 01/16/19 01/16/19 History warfarin 2.5 mg PO SUMOWEFR 01/16/19 01/16/19 History warfarin [Coumadin] 2.5 mg PO TUTHSA 01/16/19 01/16/19 History Patient History Medical History T2DM (type 2 diabetes mellitus) (Chronic) HLD (hyperlipidemia) (Chronic) CKD (chronic kidney disease) stage 3, GFR 30-59 ml/min (Chronic) HTN (hypertension) (Chronic) 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) BPH (benign prostatic hyperplasia) (Chronic) Hypothyroidism (Chronic) Obesity (Chronic) Lumbar spinal stenosis (Chronic) Positive fecal occult blood test Anemia Metabolic acidosis NAIF (acute kidney injury) (Resolved) Aspiration into airway (Resolved) Surgical History 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) History of AAA (abdominal aortic aneurysm) repair (Chronic) History of cholecystectomy (Chronic) History of appendectomy (Chronic) History of bronchoscopy (Chronic) No pertinent past surgical history Family History Father Pancreatic cancer Mother Coronary heart disease Brother MVA (motor vehicle accident) Son Diabetes Other No pertinent past surgical history Social History Preferred Language: [place] Communication Ability: Effective Visual Impairment: No Limitations Hearing Ability: Normal Nursing Specialist Required: No Beliefs That Will Affect Care: None Current Living Situation: Alone Other Information That Helps Us Care for You: No Feels Safe at Home: Yes Safety Concerns: Feels Safe At This Time Smoking Status: Former smoker Second Hand Exposure: No Hx Alcohol Use: Yes Alcohol type: beer Hx Substance Use: No Physical Exam Physical Exam: In general is a pale, well-developed well-nourished white male lying supine in bed without complaints. HEENT exam is negative. Neck is supple with full carotid upstrokes. There are no carotid bruits. Jugular venous pr essure is flat at 90 degrees. There is no thyromegaly. Cardiovascular exam reveals a regular rhythm with an occasional extrasystole. [place] mechanical valve sounds noted. No obvious murmurs. No S3. Lungs are clear without rales, rhonchi or wheezes. Chest reveals a well-healed midline scar. Abdomen is soft nontender without bruits. Well-healed midline scar is noted. Extremities reveal intact radial artery pulses bilaterally. Trace pretibial edema is noted. Results & Data Vital Signs (Past 12 Hours) Vital Signs Temp Pulse Pulse Pulse Resp BP BP 01/17/19 09:40 74 01/17/19 07:54 84 172/90 H 01/17/19 07:31 36.6 C 88 21 01/17/19 05:09 36.5 C 80 24 164/77 H 01/17/19 04:59 37 C 83 20 146/75 H 01/17/19 03:59 36.7 C 63 20 157/70 H 01/17/19 03:47 36.8 C 60 16 145/64 H 01/17/19 03:29 36.8 C 60 16 145/64 H 01/17/19 03:14 36.7 C 64 16 139/58 L 05/29/19 02:56 37.0 C 67 20 154/86 H 01/17/19 02:15 37 C 63 18 133/65 01/17/19 02:07 37 C 71 22 133/65 01/17/19 01:07 36.5 C 67 18 141/57 H 01/17/19 00:37 36.4 C L 74 18 92/39 L 01/17/19 00:22 36.4 C L 64 18 114/52 L 01/17/19 00:03 36.8 C 68 21 95/45 L 01/17/19 00:02 36.8 C 71 15 121/70 01/17/19 00:00 63 01/16/19 23:25 37 C 69 18 138/65 01/16/19 23:17 37.0 C 80 18 01/16/19 23:05 37.0 C 75 20 124/62 01/16/19 22:25 36.9 C 61 15 159/68 H 01/16/19 22:24 87 17 159/68 H 01/16/19 22:15 79 9 L 01/16/19 22:01 72 3 L 147/60 H 01/16/19 22:00 49 L 12 127/57 L 01/16/19 21:55 36.9 C 69 12 147/60 H 01/16/19 21:45 80 16 BP Pulse Ox 01/17/19 09:40 147/80 H 01/17/19 07:54 01/17/19 07:31 172/90 H 99 01/17/19 05:09 94 01/17/19 04:59 95 01/17/19 03:59 94 01/17/19 03:47 90 01/17/19 03:29 90 01/17/19 03:14 95 01/17/19 02:56 95 01/17/19 02:15 90 01/17/19 02:07 93 01/17/19 01:07 90 01/17/19 00:37 97 01/17/19 00:22 94 01/17/19 00:03 98 01/17/19 00:02 93 01/17/19 00:00 01/16/19 23:25 92 01/16/19 23:17 124/62 93 01/16/19 23:05 97 01/16/19 22:25 91 01/16/19 22:24 90 01/16/19 22:15 87 L 01/16/19 22:01 92 01/16/19 22:00 94 01/16/19 21:55 97 01/16/19 21:45 81 L Laboratory Results CBC notes a hemoglobin of 8.0, hematocrit 23.3, white count 11.08, and platelet count of [id number]. Electrolytes note a sodium of 141, potassium 3.9, chloride 111, bicarb 21, BUN 36, creatinine 1.49, and glucose of 156. INR is 1 2. Initial EKG notes sinus rhythm with first-degree AV block, frequent PACs, and poor R-wave progression across the anterior precordium. Second EKG is similar but does note PVCs. Review of lunchroom monitor confirms the same.
[2019-01-17 10:15] LABS: Hematocrit (blood only) 25.4 % (42-52); Hemoglobin 8.6 g/dL (14.0-18.0)
--- NOTE | 2019-01-17 10:27 | Hospitalist Progress Note ---
Date of Service January 17, 2019 Assessment & Plan (1) Acute GI bleeding: (2) Melena: This is a 88-year-old male who has a significant PMH of mechanical mitral valve replacement in 1985 on chronic warfarin therapy, T2DM, HTN, HLD, CKD stage III with baseline creatinine 1.7, hypothyroidism, BPH who presents to [facility] secondary to melena x3 weeks. 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 While at [facility] patient received 1 unit of PRBC, Protonix bolus and 1 L of IVF Repeat H/H 5.8 and 17, POC INR > 7.0 2 units PRBC ordered 10mg of VIT K given KCENTRA ordered Monitor H/H q6h Consult GI - spoke with Dr. Caputo NPO Per Dr. 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: Noted on EKG done outpatient cardiology office on 01/12 At that time digoxin was stopped A Holter/echocardiogram recommended Monitor patient on telemetry and once patient hemodynamically stable from a GI bleed standpoint patient may need echocardiogram and cardiology evaluation (5) H/O mitral valve replacement with mechanical valve: MVR done back in 1980s lost to cardiology follow up last echo 2011 EF 50-54%, Grade 1 diastolic dysfunction along with functioning MVR established with [facility] cardiology on 01/12 (6) HTN (hypertension): Blood pressure stable Hold lasix in setting of hypovolemia continue diltiazem for now (7) HLD (hyperlipidemia): Hold statin in setting of acute GI bleed (8) T2DM (type 2 diabetes mellitus): A1C 6.8 04/2018 hold oral glycemics Accuchecks Q4h NovoLog sliding scale per protocol (9) Hypothyroidism: continue levothyroxine (10) DVT prophylaxis: SCDS/TEDS Warfarin on hold given acute GIB follow PT/INR ROS-No Headache, No Visual Changes, No Nausea, No Vomiting, No Fever, No Chills, No Neck Pain or Stiffness, No Chest Pain, No Palpitations, No SOB, No LEON, No Cough, No Sputum, No Wheezing, No Abdominal Pain, No Diarrhea, No Hematemesis, No Hemoptysis, No Unexpected Weight Loss, No Flank pain, No Melena, No Hematochezia, No Frequency, No Urgency, No Burning, No Hematuria, No Rashes, No Diaphoresis. Appetite is Normal Physical Exam Gen-AAO x 3, NAD, Afebrile, Obese Head-NCAT, EOMI, PERRLA, Anicteric Sclera, Pale, No Posterior Pharyngeal Erythema Neck-Supple, No JVD, No Thyromegaly, No Masses, No LAD, No Bruits Lungs-Clear to Auscultation Bilaterally, No Rales, No Rhonchi, No Wheezing, No Crepitus Chest-No S4, +S1, +S2, No S3, No Murmurs, No Rubs, No Gallops, No Ectopy Abdomen-Soft, Obese, Bowel Sounds Present, Non Tender, Non Distended, No Hepatomegaly, No Splenomegaly, No Palpable Masses, No Rebound, No Rigidity, No Guarding Musculoskeletal-Full Range of Motion Bilaterally, No CVAT Extremities-No Cyanosis, No Clubbing, No Edema Nuero-Cranial Nerves II-XII grossly intact, Motor WNL, DTRs WNL, Strength WNL, Non Focal Psych-Normal Mood Disposition: to be determined, case management consulted Follow up: PCP Dr. Ivan upon discharge along with appropriate GI and cardiology follow up Results & Data Vital Signs (Past 12 Hours) Vital Signs Temp Pulse Pulse Pulse Resp BP BP 01/17/19 09:40 74 01/17/19 07:54 84 172/90 H 01/17/19 07:31 36.6 C 88 21 01/17/19 05:09 36.5 C 80 24 164/77 H 01/17/19 04:59 37 C 83 20 146/75 H 01/17/19 03:59 36.7 C 63 20 157/70 H 01/17/19 03:47 36.8 C 60 16 145/64 H 01/17/19 03:29 36.8 C 60 16 145/64 H 01/17/19 03:14 36.7 C 64 16 139/58 L 01/17/19 02:56 37.0 C 67 20 154/86 H 01/17/19 02:15 37 C 63 18 133/65 01/17/19 02:07 37 C 71 22 133/65 01/17/19 01:07 36.5 C 67 18 141/57 H 01/17/19 00:37 36.4 C L 74 18 92/39 L 01/17/19 00:22 36.4 C L 64 18 114/52 L 01/17/19 00:03 36.8 C 68 21 95/45 L 01/17/19 00:02 36.8 C 71 15 121/70 01/17/19 00:00 63 01/16/19 23:25 37 C 69 18 138/65 01/16/19 23:17 37.0 C 80 18 01/16/19 23:05 37.0 C 75 20 124/62 BP Pulse Ox 01/17/19 09:40 147/80 H 01/17/19 07:54 01/17/19 07:31 172/90 H 99 01/17/19 05:09 94 01/17/19 04:59 95 01/17/19 03:59 94 01/17/19 03:47 90 01/17/19 03:29 90 01/17/19 03:14 95 01/17/19 02:56 95 01/17/19 02:15 90 01/17/19 02:07 93 01/17/19 01:07 90 01/17/19 00:37 97 01/17/19 00:22 94 01/17/19 00:03 98 01/17/19 00:02 93 01/17/19 00:00 01/16/19 23:25 92 01/16/19 23:17 124/62 93 01/16/19 23:05 97 Current Diagnoses Hypothyroidism, unspecified (01/16/19) Type 2 diabetes mellitus without complications (01/16/19) Hyperlipidemia, unspecified (01/16/19) Essential (primary) hypertension (01/16/19) Atrioventricular block, second degree (01/16/19) Melena (01/16/19) Gastrointestinal hemorrhage, unspecified (01/16/19) Chronic kidney disease, stage 3 (moderate) (01/16/19) Abnormal coagulation profile (01/16/19) Abnormal electrocardiogram [ECG] [EKG] (01/16/19) Encounter for preprocedural cardiovascular examination (05/28/19) Presence of prosthetic heart valve (01/16/19) Allergies Penicillins Allergy (Unknown, Unverified 01/16/19 17:24) UNKOWN Height/Weight/Isolation Height 5 ft 6 in Weight 82.5 kg Chemistry 01/17/19 05:37 Sodium 141 Potassium 3.9 Chloride 111 H Carbon Dioxide 21 Anion Gap 9.0 BUN 36 H Creatinine 1.49 H Glucose 139 H
[2019-01-17] MEDS ORDERED: LIDOCAINE HCL 2% 2 ML VIAL/AMP(20MG/ML) INFIL ONE (13:58)
[2019-01-17] MEDS ORDERED: PROPOFOL IV EMULSION 10 MG/ML 20 ML VIAL IV ONE (13:58)
--- NOTE | 2019-01-17 14:08 | History & Physical Bridge Note ---
Date of Service January 17, 2019 History & Physical Bridge Note I have examined the patient, reviewed the History & Physical and in the interval since the performance of the History & Physical I have noted the following changes of clinical significance: no changes noted
--- NOTE | 2019-01-17 14:37 | Anesthesiology Consultation ---
Date of Service January 17, 2019 Assessment & Plan Chart Review Chart Review: Acceptable Risk for Surgery Consults Requested none History Surgery Operation Date: 01/17/19 08:30 Proposed Procedures p Esophagogastroduodenoscopy Dr Migue Camarena Height/Weight Height: 5 ft 6 in Weight: 82.5 kg Allergies Allergy/AdvReac Type Severity Reaction Status Date / Time Penicillins Allergy Unknown UNKOWN Unverified 01/16/19 17:24 Medications Home Medications Medication Instructions Recorded Confirmed Last Taken atorvastatin 20 mg PO DAILY 09/23/18 01/16/19 01/15/19 glipizide 10 mg PO BID 09/23/18 01/16/19 01/15/19 levothyroxine 75 mcg PO DAILY 09/23/18 01/16/19 01/15/19 trazodone 50 mg PO HS 09/23/18 01/16/19 01/15/19 allopurinol 300 mg PO DAILY 01/16/19 01/16/19 01/15/19 colchicine 0.6 mg PO DAILY PRN 01/16/19 01/16/19 01/15/19 diltiazem HCl 240 mg PO DAILY 01/16/19 01/16/19 01/15/19 furosemide [Lasix] 20 mg PO DAILY 01/16/19 01/16/19 01/15/19 warfarin 2.5 mg PO SUMOWEFR 01/16/19 01/16/19 Unknown warfarin [Coumadin] 2.5 mg PO TUTHSA 01/16/19 01/16/19 01/15/19 Active Medications Generic Name Dose Route Start Last Admin Trade Name Freq PRN Reason Stop Dose Admin Pantoprazole Sodium 40 mg/ 100 mls @ 20 mls/hr 01/16/19 17:30 01/17/19 13:09 Dextrose IV 02/15/19 17:29 20 mls/hr Q5H NOLAN Administration Insulin Aspart 0 units 01/17/19 00:00 01/17/19 12:20 Novolog Flexpen SC 02/16/19 00:00 2 units Q6 NOLAN Administration Levothyroxine Sodium 75 mcg 01/17/19 06:30 01/17/19 05:43 Synthroid PO 02/16/19 06:29 75 mcg DAILYBB NOLAN Administration NPO Date Last Intake of Fluids: 01/17/19 Time Last Intake of Fluids: 06:00 Last Intake of Fluids Comment: sip with meds Date Last Intake of Solids: 01/16/19 Time Last Intake of Solids: 18:00 Past Medical History Medical History T2DM (type 2 diabetes mellitus) (Chronic) HLD (hyperlipidemia) (Chronic) CKD (chronic kidney disease) stage 3, GFR 30-59 ml/min (Chronic) HTN (hypertension) (Chronic) 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) BPH (benign prostatic hyperplasia) (Chronic) Hypothyroidism (Chronic) Obesity (Chronic) Lumbar spinal stenosis (Chronic) Positive fecal occult blood test Anemia Metabolic acidosis NAIF (acute kidney injury) (Resolved) Aspiration into airway (Resolved) Past Family History Family History Father Pancreatic cancer Mother Coronary heart disease Brother MVA (motor vehicle accident) Son Diabetes Other No pertinent past surgical history Past Surgical History Surgical History 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
--- NOTE | 2019-01-17 15:00 | GI REPORT ---
Patient Name: Jos Chavez Procedure Date: 01/17/2019 2:08 PM Date of : 1930 Admit Type: Inpatient Age: 88 Gender: Male Attending MD: Nusrat Camarena DO Procedure: Upper GI endoscopy Providers: Nusrat Camarena DO Referring MD: Jose Osorio Do, Richard Buza Indications: Melena Medicines: Monitored Anesthesia Care Complications: No immediate complications. Estimated blood loss: Minimal. Estimated Blood Loss: Estimated blood loss was minimal. Procedure: Pre-Anesthesia Assessment: - Prior to the procedure, a History and Physical was performed, and patient medications, allergies and sensitivities were reviewed. The patient's tolerance of previous anesthesia was reviewed. - The risks and benefits of the procedure and the sedation options and risks were discussed with the patient. All questions were answered and informed consent was obtained. - Patient identification and proposed procedure were verified prior to the procedure by the physician, the nurse and the it architect. The procedure was verified in the procedure room. - Pre-procedure physical examination revealed no contraindications to sedation. - ASA Grade Assessment: III - A patient with severe systemic disease. - After reviewing the risks and benefits, the patient was deemed in satisfactory condition to undergo the procedure. - The anesthesia plan was to use monitored anesthesia care (MAC). - Immediately prior to administration of medications, the patient was re-assessed for adequacy to receive sedatives. - The heart rate, respiratory rate, oxygen saturations, blood pressure, adequacy of pulmonary ventilation, and response to care were monitored throughout the procedure. - The physical status of the patient was re-assessed after the procedure. After obtaining informed consent, the endoscope was passed under direct vision. Throughout the procedure, the patient's blood pressure, pulse, and oxygen saturations were monitored continuously. The Endoscope was introduced through the mouth, and advanced to the third part of duodenum. The upper GI endoscopy was accomplished without difficulty. The patient tolerated the procedure well. Findings: The examined esophagus was normal. The Z-line was regular and was found 39 cm from the incisors. The entire examined stomach was normal. The examined duodenum was normal. Impression: - Normal esophagus. - Z-line regular, 39 cm from the incisors. - Normal stomach. - Normal examined duodenum. - No specimens collected. Recommendation: - Perform a colonoscopy tomorrow. Nusrat Camarena D.O. Nusrat Camarena, 01/17/2019 3:00:23 PM This report has been signed electronically. Note Initiated On: 01/17/2019 2:08 PM Number of Addenda: 0 I attest to the content of the Intraoperative Record and orders documented therein, exceptions below {[id number]}
[2019-01-17] MEDS ORDERED: LAVAGE SOLUTION 4000ML PO SCH (15:30)
--- NOTE | 2019-01-17 15:30 | Communication Note ---
Date of Service: January 17, 2019 The patient underwent upper endoscopy today. There was no evidence of a bleeding lesion from the upper digestive tract. Given this and his history of melena we would recommend further evaluation with a colonoscopy. Bowel preparation was written for tonight. Given the patient's age and comorbidities we will need to use a Colyte bowel prep.
--- NOTE | 2019-01-17 16:02 | Anesthesiology Progress Note ---
Date of Service January 17, 2019 Anesthesia Post Procedure Vital Signs Vital Signs: Temp Pulse Pulse Pulse Resp BP BP 01/17/19 15:52 37.0 C 72 18 144/63 H 01/17/19 15:17 54 L 14 124/50 L 01/17/19 15:02 59 L 16 113/62 01/17/19 11:48 36.8 C 95 H 20 01/17/19 09:40 74 01/17/19 07:54 84 172/90 H 01/17/19 07:31 36.6 C 88 21 01/17/19 05:09 36.5 C 80 24 164/77 H 01/17/19 04:59 37 C 83 20 146/75 H 01/17/19 03:59 36.7 C 63 20 157/70 H 01/17/19 03:47 36.8 C 60 16 145/64 H 01/17/19 03:29 36.8 C 60 16 145/64 H 01/17/19 03:14 36.7 C 64 16 139/58 L 01/17/19 02:56 37.0 C 67 20 154/86 H 01/17/19 02:15 37 C 63 18 133/65 01/17/19 02:07 37 C 71 22 133/65 01/17/19 01:07 36.5 C 67 18 141/57 H 01/17/19 00:37 36.4 C L 74 18 92/39 L 01/17/19 00:22 36.4 C L 64 18 114/52 L 01/17/19 00:03 36.8 C 68 21 95/45 L 01/17/19 00:02 36.8 C 71 15 121/70 01/17/19 00:00 63 01/16/19 23:25 37 C 69 18 138/65 01/16/19 23:17 37.0 C 80 18 01/16/19 23:05 37.0 C 75 20 124/62 01/16/19 22:25 36.9 C 61 15 159/68 H 01/16/19 22:24 87 17 159/68 H 01/16/19 22:15 79 9 L 01/16/19 22:01 72 3 L 147/60 H 01/16/19 22:00 49 L 12 127/57 L 01/16/19 21:55 36.9 C 69 12 147/60 H 01/16/19 21:45 80 16 01/16/19 21:41 67 12 150/68 H 01/16/19 21:40 36.9 C 71 22 150/68 H 01/16/19 21:30 77 10 L 01/16/19 21:26 37 C 79 16 138/70 01/16/19 21:23 79 17 144/77 H 01/16/19 21:15 76 10 L 01/16/19 21:01 72 10 L 138/70 01/16/19 21:00 82 11 L 01/16/19 20:45 76 22 01/16/19 20:30 47 L 15 01/16/19 20:15 63 21 01/16/19 20:01 61 19 141/59 H 01/16/19 20:00 58 L 15 01/16/19 19:48 88 01/16/19 19:45 60 15 01/16/19 19:30 71 25 H 149/84 H 01/16/19 19:27 36.8 C 78 30 H 01/16/19 19:23 99 H 35 H 01/16/19 19:00 72 24 01/16/19 18:46 73 20 152/98 H 01/16/19 18:45 70 23 01/16/19 18:31 64 22 172/49 H 01/16/19 18:30 66 22 01/16/19 18:28 62 24 154/59 H 01/16/19 18:15 68 23 01/16/19 18:01 65 15 142/69 H 01/16/19 18:00 67 01/16/19 17:48 67 21 147/69 H 01/16/19 17:45 62 25 H 01/16/19 17:31 70 21 159/78 H 01/16/19 17:30 70 20 01/16/19 17:16 64 24 153/65 H 01/16/19 17:15 60 24 01/16/19 17:06 70 29 H 148/64 H 01/16/19 17:02 72 22 01/16/19 17:00 36.4 C L 76 18 169/80 H 01/16/19 16:56 72 17 169/80 H BP Pulse Ox 01/17/19 15:52 93 01/17/19 15:17 96 01/17/19 15:02 97 01/17/19 11:48 159/94 H 95 01/17/19 09:40 147/80 H 01/17/19 07:54 01/17/19 07:31 172/90 H 99 01/17/19 05:09 94 01/17/19 04:59 95 01/17/19 03:59 94 01/17/19 03:47 90 01/17/19 03:29 90 01/17/19 03:14 95 01/17/19 02:56 95 01/17/19 02:15 90 01/17/19 02:07 93 01/17/19 01:07 90 01/17/19 00:37 97 01/17/19 00:22 94 01/17/19 00:03 98 01/17/19 00:02 93 01/17/19 00:00 01/16/19 23:25 92 01/16/19 23:17 124/62 93 01/16/19 23:05 97 01/16/19 22:25 91 01/16/19 22:24 90 01/16/19 22:15 87 L 01/16/19 22:01 92 01/16/19 22:00 94 01/16/19 21:55 97 01/16/19 21:45 81 L 01/16/19 21:41 97 01/16/19 21:40 94 01/16/19 21:30 93 01/16/19 21:26 94 01/16/19 21:23 95 01/16/19 21:15 93 01/16/19 21:01 96 01/16/19 21:00 97 01/16/19 20:45 87 L 01/16/19 20:30 95 01/16/19 20:15 84 L 01/16/19 20:01 97 01/16/19 20:00 95 01/16/19 19:48 01/16/19 19:45 93 01/16/19 19:30 99 01/16/19 19:27 149/84 H 97 01/16/19 19:23 01/16/19 19:00 95 01/16/19 18:46 97 01/16/19 18:45 98 01/16/19 18:31 97 01/16/19 18:30 96 01/16/19 18:28 100 01/16/19 18:15 96 01/16/19 18:01 98 01/16/19 18:00 96 01/16/19 17:48 97 01/16/19 17:45 95 01/16/19 17:31 95 01/16/19 17:30 92 01/16/19 17:16 97 01/16/19 17:15 96 01/16/19 17:06 96 01/16/19 17:02 96 01/16/19 17:00 97 01/16/19 16:56 93 Transfer of Care Handoff Completed per policy Notes Mental Status: alert / awake / arousable and participated in evaluation Patient Amnestic to Procedure: Yes Nausea / Vomiting: adequately controlled Pain: adequately controlled Airway Patency, RR, SpO2: stable & adequate BP & HR: stable & adequate Hydration State: stable & adequate Anesthetic Complications: no major complications apparent
[2019-01-17 16:20] LABS: Hematocrit (blood only) 26.7 % (42-52); Hemoglobin 8.4 g/dL (14.0-18.0)
[2019-01-17] MEDS ORDERED: LAVAGE SOLUTION 4000ML PO ONE (16:30)
[2019-01-17 22:31] LABS: Hematocrit (blood only) 22.7 % (42-52); Hemoglobin 7.5 g/dL (14.0-18.0)
[2019-01-18] MEDS: INSULIN ASPART 100 UNITS/ML 3 ML PEN SC SCH ×4 (00:32→18:11)
[2019-01-18] MEDS: PANTOprazole 40 MG in DEXTROSE 5% 100 ML IV SCH ×4 (03:25→15:52)
[2019-01-18] MEDS ORDERED: HALOPERIDOL LACTATE 5 MG/ML 1 ML VIAL IM STA (04:23)
[2019-01-18] MEDS: LEVOTHYROXINE SODIUM 75 MCG TABLET PO SCH (05:25)
[2019-01-18 05:54] LABS: Hematocrit (blood only) 25.2 % (42-52); Hemoglobin 8.4 g/dL (14.0-18.0); Mean Corpuscular Hgb Conc 33.3 g/dL (32-36); Mean Corpuscular Volume 88.1 fL (80-100); Mean Platelet Volume 10.8 fL (7.4-10.4); Nucleated RBC # (auto) 0.08 K/uL (0-0); Nucleated RBC % (auto) 0.7 %; Platelet Count 174 K/uL (130-400); RDW Coefficient of Variation 15.7 % (11.5-14.5); RDW Standard Deviation 50.2 fL (36.4-46.3); Red Blood Count 2.86 M/uL (4.7-6.1); White Blood Count 10.62 K/uL (4.8-10.8)
[2019-01-18 06:05] LABS: INR 1.1 (0.9-1.1); Prothrombin Time 11.3 Seconds (9.0-12.0)
[2019-01-18 06:32] LABS: BUN Creatinine Ratio 23.8 (10-20); Calcium 9.1 mg/dl (8.5-10.1); Creatinine Clr Calc Pharmacy 32.8 ml/min; Est GFR (African American) 44.6; Est GFR (Non-African American) 38.4; Potassium 3.1 mmol/L (3.5-5.1)
--- NOTE | 2019-01-18 08:05 | Anesthesiology Progress Note ---
Date of Service January 18, 2019 Anesthesia Post Procedure Vital Signs Vital Signs: Temp Pulse Pulse Pulse Resp BP BP 01/18/19 07:31 36.6 C 84 22 150/94 H 01/18/19 04:50 36.5 C 86 86 20 159/83 H 01/18/19 00:44 76 01/17/19 19:30 36.8 C 64 18 144/76 H 01/17/19 16:00 72 01/17/19 15:52 37.0 C 72 18 144/63 H 01/17/19 15:32 60 16 141/81 H 01/17/19 15:17 54 L 14 124/50 L 01/17/19 15:02 59 L 16 113/62 01/17/19 11:48 36.8 C 95 H 20 159/94 H 01/17/19 09:40 74 147/80 H Pulse Ox 01/18/19 07:31 97 01/18/19 04:50 95 01/18/19 00:44 01/17/19 19:30 93 01/17/19 16:00 01/17/19 15:52 93 01/17/19 15:32 96 01/17/19 15:17 96 01/17/19 15:02 97 01/17/19 11:48 95 01/17/19 09:40 Notes Mental Status: alert / awake / arousable and participated in evaluation Patient Amnestic to Procedure: Yes Nausea / Vomiting: adequately controlled Pain: adequately controlled Airway Patency, RR, SpO2: stable & adequate BP & HR: stable & adequate Hydration State: stable & adequate Anesthetic Complications: no major complications apparent
--- NOTE | 2019-01-18 08:38 | Hospitalist Progress Note ---
Date of Service January 18, 2019 Assessment & Plan (1) Acute GI bleeding: (2) Melena: This is a 88-year-old male who has a significant PMH of mechanical mitral valve replacement in 1985 on chronic warfarin therapy, T2DM, HTN, HLD, CKD stage III with baseline creatinine 1.7, hypothyroidism, BPH who presents to [facility] secondary to melena x3 weeks. Hgb/hct 4.9/30.1 [employer]. While at [facility] patient received 1 unit of PRBC, Protonix bolus and 1 L of IVF Repeat H/H 5.8 and 17, POC INR > 7.0 2 units PRBC ordered 10mg of VIT K given KCENTRA ordered Monitor H/H q6h GI on case Was confused last night and pulled off his telemetry leads, is refusing EGD at this point, hemoglobin 7.5 today and is trending down. Clears Per Dr. Bryant recommendations are to transfuse 2 units of PRBC to 1 unit of Plasma monitor volume status closely (3) CKD (chronic kidney disease) stage 3, GFR 30-59 ml/min: monitor bmp (4) 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: Noted on EKG done outpatient cardiology office on 01/12 At that time digoxin was stopped A Holter/echocardiogram recommended Cards on case (5) H/O mitral valve replacement with mechanical valve: MVR done back in 1980s lost to cardiology follow up last echo 2011 EF 50-54%, Grade 1 diastolic dysfunction along with functioning MVR established with LT[facility], [facility] cardiology on 12/21 (6) HTN (hypertension): Blood pressure stable Hold lasix in setting of hypovolemia continue diltiazem for now (7) HLD (hyperlipidemia): Hold statin in setting of acute GI bleed (8) T2DM (type 2 diabetes mellitus): A1C 6.8 04/2018 hold oral glycemics Accuchecks Q4h NovoLog sliding scale per protocol (9) Hypothyroidism: continue levothyroxine (10) DVT prophylaxis: SCDS/TEDS Warfarin on hold given acute GIB Patient currently has a sitter Labs were reviewed Patient was confused last night, pulled off his telemetry leads and is refusing to be scoped at this point ROS-No Headache, No Visual Changes, No Nausea, No Vomiting, No Fever, No Chills, No Neck Pain or Stiffness, No Chest Pain, No Palpitations, No SOB, No LEON, No Cough, No Sputum, No Wheezing, No Abdominal Pain, No Diarrhea, No Hematemesis, No Hemoptysis, No Unexpected Weight Loss, No Flank pain, No Melena, No Hematochezia, No Frequency, No Urgency, No Burning, No Hematuria, No Rashes, No Diaphoresis. Appetite is Normal Physical Exam Gen-AAO x 3, NAD, Afebrile, Obese Head-NCAT, EOMI, PERRLA, Anicteric Sclera, Pale, No Posterior Pharyngeal Erythema Neck-Supple, No JVD, No Thyromegaly, No Masses, No LAD, No Bruits Lungs-Clear to Auscultation Bilaterally, No Rales, No Rhonchi, No Wheezing, No Crepitus Chest-No S4, +S1, +S2, No S3, No Murmurs, No Rubs, No Gallops, No Ectopy Abdomen-Soft, Obese, Bowel Sounds Present, Non Tender, Non Distended, No Hepatomegaly, No Splenomegaly, No Palpable Masses, No Rebound, No Rigidity, No Guarding Musculoskeletal-Full Range of Motion Bilaterally, No CVAT Extremities-No Cyanosis, No Clubbing, No Edema Nuero-Cranial Nerves II-XII grossly intact, Motor WNL, DTRs WNL, Strength WNL, Non Focal Psych-Normal Mood Disposition: Would like to get him stabilized cardiac xiong to get an EGD, hemoglobin still trending down. Follow up: PCP Dr. Ivan upon discharge along with appropriate GI and cardiology follow up Results & Data Vital Signs (Past 12 Hours) Vital Signs Temp Pulse Pulse Pulse Resp BP Pulse Ox 01/18/19 07:31 36.6 C 84 22 150/94 H 97 01/18/19 04:50 36.5 C 86 86 20 159/83 H 95 01/18/19 00:44 76
[2019-01-18] MEDS ORDERED: dilTIAZem HCL 240 MG CAPCR PO SCH (09:00)
--- NOTE | 2019-01-18 09:36 | Cardiology Progress Note ---
Date of Service January 18, 2019 Assessment & Plan (1) H/O mitral valve replacement with mechanical valve: The patient a [employer] Kenny #31 prosthetic mitral valve placed in 1985 in [place]. Was seen last week by Dr. Acevedo in [place]. Would check an echocardiogram. (2) Abnormal ECG: Sinus rhythm with first-degree AV block infrequent PACs and PVCs. No evidence of atrial fibrillation. (3) HTN (hypertension): Adequate control on current medical regimen. (4) Preoperative cardiovascular examination: The patient is an acceptable cardiac risk for endoscopy or other procedures necessary to work up his GI bleed. Subjective The patient is resting comfortably at the bedside. Results of his EGD were reviewed. He is to undergo colonoscopy this morning, however, the patient explains that he is upset and wants to speak with his family before any further procedures. Physical Exam Physical Exam: In general is a pale, well-developed well-nourished white male lying supine in bed without complaints. HEENT exam is negative. Neck is supple with full carotid upstrokes. There are no carotid bruits. Jugular venous pressure is flat at 90 degrees. There is no thyromegaly. Cardiovascular exam reveals a regular rhythm with an occasional extrasystole. [place] mechanical valve sounds noted. No obvious murmurs. No S3. Lungs are clear without rales, rhonchi or wheezes. Chest reveals a well-healed midline scar. Abdomen is soft nontender without bruits. Well-healed midline scar is noted. Extremities reveal intact radial artery pulses bilaterally. Trace pretibial edema is noted. Results & Data Vital Signs (Past 12 Hours) Vital Signs Temp Pulse Pulse Pulse Resp BP Pulse Ox 01/18/19 07:31 36.6 C 84 22 150/94 H 97 01/18/19 04:50 36.5 C 86 86 20 159/83 H 95 01/18/19 00:44 76 Laboratory Results Laboratory Results - last 24 hr 01/17/19 01/17/19 01/17/19 10:01 12:11 16:08 WBC RBC Hgb 8.6 L 8.4 L Hct 25.4 L 26.7 L MCV MCH MCHC RDW Std Deviation RDW Coeff of Ayo Plt Count MPV Absolute Nucleated RBC Nucleated RBC % (auto) PT INR Sodium Potassium Chloride Carbon Dioxide Anion Gap BUN Creatinine Est Cr Clr Drug Dosing Est GFR ( Amer) Est GFR (Non-Af Amer) BUN/Creatinine Ratio Glucose POC Glucose 213 H Calcium 01/17/19 01/17/19 01/18/19 17:29 22:17 00:09 WBC RBC Hgb 7.5 L Hct 22.7 L MCV MCH MCHC RDW Std Deviation RDW Coeff of Ayo Plt Count MPV Absolute Nucleated RBC Nucleated RBC % (auto) PT INR Sodium Potassium Chloride Carbon Dioxide Anion Gap BUN Creatinine Est Cr Clr Drug Dosing Est GFR ( Amer) Est GFR (Non-Af Amer) BUN/Creatinine Ratio Glucose POC Glucose 161 H 134 H Calcium 01/18/19 01/18/19 01/18/19 05:19 05:19 05:19 WBC 10.62 RBC 2.86 L Hgb 8.4 L Hct 25.2 L MCV 88.1 MCH 29.4 MCHC 33.3 RDW Std Deviation 50.2 H RDW Coeff of Ayo 15.7 H Plt Count 174 MPV 10.8 H Absolute Nucleated RBC 0.08 H Nucleated RBC % (auto) 0.7 PT 11.3 INR 1.1 Sodium 143 Potassium 3.1 L D Chloride 108 H Carbon Dioxide 22 Anion Gap 13.0 H BUN 38 H Creatinine 1.60 H Est Cr Clr Drug Dosing 32.8 Est GFR ( Amer) 44.6 Est GFR (Non-Af Amer) 38.4 BUN/Creatinine Ratio 23.8 H Glucose 153 H POC Glucose Calcium 9.1 01/18/19 05:34 WBC RBC Hgb Hct MCV MCH MCHC RDW Std Deviation RDW Coeff of Ayo Plt Count MPV Absolute Nucleated RBC Nucleated RBC % (auto) PT INR Sodium Potassium Chloride Carbon Dioxide Anion Gap BUN Creatinine Est Cr Clr Drug Dosing Est GFR ( Amer) Est GFR (Non-Af Amer) BUN/Creatinine Ratio Glucose POC Glucose 175 H Calcium
--- NOTE | 2019-01-18 13:06 | History & Physical Bridge Note ---
Date of Service January 18, 2019 History & Physical Bridge Note I have examined the patient, reviewed the History & Physical and in the interval since the performance of the History & Physical I have noted the following changes of clinical significance: no changes noted. Given history of his anemia and melena with a negative upper endoscopy we are planning for colonoscopy today.
[2019-01-18] MEDS ORDERED: ATROPINE SULFATE 0.1 MG/ML 10ML SYR IV PRN (13:12)
[2019-01-18] MEDS ORDERED: ePHEDrine sulfate 50 MG/ML AMP IV PRN (13:12)
--- NOTE | 2019-01-18 13:48 | GI REPORT ---
Patient Name: Jos Chavez Procedure Date: 01/18/2019 12:54 PM Date of : 1930 Admit Type: Inpatient Age: 88 Gender: Male Attending MD: Nusrat Camarena DO Procedure: Colonoscopy Providers: Nusrat Camarena DO Referring MD: Jose Osorio Do Indications: Melena Medicines: Monitored Anesthesia Care Complications: No immediate complications. Estimated blood loss: Minimal. Estimated Blood Loss: Estimated blood loss was minimal. Procedure: Pre-Anesthesia Assessment: - Prior to the procedure, a History and Physical was performed, and patient medications, allergies and sensitivities were reviewed. The patient's tolerance of previous anesthesia was reviewed. - The risks and benefits of the procedure and the sedation options and risks were discussed with the patient. All questions were answered and informed consent was obtained. - Patient identification and proposed procedure were verified prior to the procedure by the physician, the nurse and the copy operator. The procedure was verified in the procedure room. - Pre-procedure physical examination revealed no contraindications to sedation. - ASA Grade Assessment: III - A patient with severe systemic disease. - After reviewing the risks and benefits, the patient was deemed in satisfactory condition to undergo the procedure. - The anesthesia plan was to use monitored anesthesia care (MAC). - Immediately prior to administration of medications, the patient was re-assessed for adequacy to receive sedatives. - The heart rate, respiratory rate, oxygen saturations, blood pressure, adequacy of pulmonary ventilation, and response to care were monitored throughout the procedure. - The physical status of the patient was re-assessed after the procedure. After I obtained informed consent, the scope was passed under direct vision. Throughout the procedure, the patient's blood pressure, pulse, and oxygen saturations were monitored continuously. The scope was introduced through the anus and advanced to the terminal ileum. The colonoscopy was performed with difficulty due to poor bowel prep, significant looping and the patient's body habitus. Successful completion of the procedure was aided by withdrawing and reinserting the scope, applying abdominal pressure and lavage. Findings: The digital rectal exam findings include non-thrombosed external hemorrhoids. Pertinent negatives include normal sphincter tone. Internal hemorrhoids were found during retroflexion. The hemorrhoids were moderate. The terminal ileum contained clotted blood. Clotted blood was found in the entire colon. Impression: - Non-thrombosed external hemorrhoids found on digital rectal exam. - Internal hemorrhoids. - Blood in the terminal ileum. - Blood in the entire examined colon. - No specimens collected. Recommendation: - [facility]. - Refer to Tertiary center for consideration of a balloon enteroscopy. Nusrat Camarena D.O. Nusrat Camarena, 01/18/2019 1:48:24 PM This report has been signed electronically. Note Initiated On: 01/18/2019 12:54 PM Number of Addenda: 0 I attest to the content of the Intraoperative Record and orders documented therein, exceptions below {[id number]}
--- NOTE | 2019-01-18 13:49 | Communication Note ---
Date of Service: January 18, 2019 The patient underwent a colonoscopy this afternoon. It was notable for clotted old blood throughout the colon in addition to the distal terminal ileum. As no source of bleeding could be identified I suspect this may be a small bowel etiology and given the nature of his symptoms I would suggest referral to a tertiary center with balloon enteroscopy capabilities.
--- NOTE | 2019-01-18 14:52 | Discharge Summary ---
Date of Service January 18, 2019 Admission HPI Per Admitting Provider This is a 88-year-old male who has a significant PMH of mechanical mitral valve replacement in 1985 on chronic warfarin therapy, T2DM, HTN, HLD, CKD stage III with baseline creatinine 1.7, hypothyroidism, BPH who presents to [facility] secondary to melena x3 weeks. Patient was initially seen this morning at [facility] and referred to [facility] secondary to acute GI bleed. Patient had recent lab work done from cardiology office which revealed a hemoglobin of 4.9 today. Patient then referred to [facility] ED. He received 1 unit of PRBC along with 1 L of normal saline and Protonix bolus. He states he has been doing well until the past 3 weeks. He noticed increasing fatigue, LEON, dark tarry bowel movements, dizziness with standing, intermittent lower abdominal discomfort. Abdominal discomfort was located in suprapubic region, nonradiating, lasting approximately 1 hour, improving on own, nothing makes symptoms better or worse including urination or BM. Pain will not occur daily. He denies any other recent illness fever, chills, syncope, chest pain, palpitations, shortness breath at rest, cough, hemoptysis, nausea, vomiting, hematemesis, diarrhea, dysuria, hematuria. He does have history of BPH and therefore does have difficulty with stream as well as incomplete bladder emptying which he feels is unchanged. His appetite has overall been poor. He notes a 20 to 25 pound weight loss unintentional in the past 2 to 2-1/2 months. Of significance patient follows [facility] pharmacy for Coumadin management. Last INR was done on 01/11 and was 3.65. Goal ranges 2.5-3.5 given mechanical valve. He was instructed to continue warfarin 2.5 mg on Tuesday and 5 mg all other days. He also saw per cardiology Dr. Acevedo on 01/12. It appears after his mitral valve replacement in the , which was done at [facility] secondary to endocarditis, patient was lost to cardiology follow-up. At this visit digoxin was stopped secondary to EKG revealing second-degree AV block Mobitz type I. His Lasix was increased to 20 mg daily as opposed to every other day. He was also ordered a Holter monitor and echocardiogram which does not appear to have been done. His last echocardiogram was done in 2011 which revealed EF 50 to 55% with grade 1 diastolic dysfunction along with functioning mitral valve replacement. He was hospitalized in [facility] in September 2018 secondary to NAIF as well as supratherapeutic INR. At that time he was heme positive stool but H&H was stable therefore no further intervention was done. Admission Exam Per Admitting Provider Gen: WD/WN, male, pale, sitting up in bed, pleasant, conversing easily, answers questions appropriately Head: Normocephalic, Atraumatic Eyes: Sclera normal, no conjunctival injection, PERRLA, EOMI ENT: Gross hearing intact, normal pharynx, mucous membranes dry Neck: supple, no adenopathy, No JVD, no bruit, Resp: Clear to auscultation b/l, no wheeze, rales, rhonchi. 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 Extremities: +1 edema bilaterally Skin: warm, moist, no rash,Mild turgor, cap refill prolonged Neuro: Alert and oriented x 3, but was unaware of year, speech normal, good mood/affect, cran nerve 2-12 intact grossly : deferred Principal Diagnosis GI Bleed s/p Upper and Lower endoscopy Acute GI DANICA HTN NAIF DM II 2nd degree Heart Block CKD III Mechanical Mitral Valve BPH Hypothyroid Spinal Stenosis Hx of AAA Discharge Exam ROS-No Headache, No Visual Changes, No Nausea, No Vomiting, No Fever, No Chills, No Neck Pain or Stiffness, No Chest Pain, No Palpitations, No SOB, No LEON, No Cough, No Sputum, No Wheezing, No Abdominal Pain, No Diarrhea, No Hematemesis, No Hemoptysis, No Unexpected Weight Loss, No Flank pain, No Melena, No Hematochezia, No Frequency, No Urgency, No Burning, No Hematuria, No Rashes, No Diaphoresis. Appetite is Normal Physical Exam Gen-AAO x 3, NAD, Afebrile Head-NCAT, EOMI, PERRLA, Anicteric Sclera, No Posterior Pharyngeal Erythema Neck-Supple, No JVD, No Thyromegaly, No Masses, No LAD, No Bruits Lungs-Clear to Auscultation Bilaterally, No Rales, No Rhonchi, No Wheezing, No Crepitus Chest-No S4, +S1, +S2, No S3, No Murmurs, No Rubs, No Gallops, No Ectopy Abdomen-Soft, Bowel Sounds Present, Non Tender, Non Distended, No Hepatomegaly, No Splenomegaly, No Palpable Masses, No Rebound, No Rigidity, No Guarding Musculoskeletal-Full Range of Motion Bilaterally, No CVAT Extremities-No Cyanosis, No Clubbing, No Edema Nuero-Cranial Nerves II-XII grossly intact, Motor WNL, DTRs WNL, Strength WNL, Non Focal Psych-Normal Mood Discharge Data Allergies Allergy/AdvReac Type Severity Reaction Status Date / Time Penicillins Allergy Unknown UNKOWN Unverified 01/16/19 17:24 Consultations 01/16/19 17:40 ED Decision to Admit Stat 01/16/19 17:59 Consult Gastroenterology Routine 01/16/19 19:26 Consult Case Management - Discharge Planning Routine 01/17/19 07:36 Consult Cardiology Routine Procedures Performed Operation Date: 01/17/19 08:30 Actual Procedures p Esophagogastroduodenoscopy - Nusrat Camarena Operation Date: 01/18/19 08:25 Actual Procedures p Colonoscopy - Nusrat Camarena Current Diagnoses Acute posthemorrhagic anemia (01/16/19) Hypothyroidism, unspecified (01/16/19) Type 2 diabetes mellitus without complications (01/16/19) Hyperlipidemia, unspecified (01/16/19) Essential (primary) hypertension (01/16/19) Atrioventricular block, second degree (01/16/19) Melena (01/16/19) Gastrointestinal hemorrhage, unspecified (01/16/19) Chronic kidney disease, stage 3 (moderate) (01/16/19) Abnormal coagulation profile (01/16/19) Abnormal electrocardiogram [ECG] [EKG] (01/16/19) Encounter for preprocedural cardiovascular examination (01/16/19) Presence of prosthetic heart valve (01/16/19) Allergies Penicillins Allergy (Unknown, Unverified 01/16/19 17:24) UNKOWN Height/Weight/Isolation Height 5 ft 6 in Weight 79.4 kg Chemistry 01/17/19 01/18/19 05:37 05:19 Sodium 141 143 Potassium 3.9 3.1 L D Chloride 111 H 108 H Carbon Dioxide 21 22 Anion Gap 9.0 13.0 H BUN 36 H 38 H Creatinine 1.49 H 1.60 H Glucose 139 H 153 H Hospital Course (1) Acute GI bleeding: (2) Melena: This is a 88-year-old male who has a significant PMH of mechanical mitral valve replacement in 1985 on chronic warfarin therapy, T2DM, HTN, HLD, CKD stage III with baseline creatinine 1.7, hypothyroidism, BPH who presents to [facility] secondary to melena x3 weeks. Hgb/hct 4.9/30.1 [employer]STATE [employer]. While at [facility] patient received 1 unit of PRBC, Protonix bolus and 1 L of IVF Repeat H/H 5.8 and 17, POC INR > 7.0 2 units PRBC ordered 10mg of VIT K given KCENTRA ordered Monitor H/H q6h GI on case Was confused last night and pulled off his telemetry leads, is refusing EGD at this point, hemoglobin 7.5 today and is trending down. NPO Dr Nusrat Camarena performed his upper and lower endoscopy, the upper endoscopy was normal however the lower endoscopies revealed blood throughout the colon and blood in the terminal ileum and he is recommending transfer to [facility] under the service of Dr. Lima with a GI consult for balloon enteroscopy Per Dr. Bryant recommendations are to transfuse 2 units of PRBC to 1 unit of Plasma monitor volume status closely (3) CKD (chronic kidney disease) stage 3, GFR 30-59 ml/min: monitor bmp (4) 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: Noted on EKG done outpatient cardiology office on 01/12 At that time digoxin was stopped A Holter/echocardiogram recommended Cards on case (5) H/O mitral valve replacement with mechanical valve: MVR done back in 1980s lost to cardiology follow up last echo 2011 EF 50-54%, Grade 1 diastolic dysfunction along with functioning MVR established with [facility] cardiology on 12/21 (6) HTN (hypertension): Blood pressure stable Hold lasix in setting of hypovolemia continue diltiazem for now (7) HLD (hyperlipidemia): Hold statin in setting of acute GI bleed (8) T2DM (type 2 diabetes mellitus): A1C 6.8 04/2018 hold oral glycemics Accuchecks Q4h NovoLog sliding scale per protocol (9) Hypothyroidism: continue levothyroxine (10) DVT prophylaxis: SCDS/TEDS Warfarin on hold given acute GIB Patient currently has a sitter Labs were reviewed Patient was confused last night, pulled off his telemetry leads and is refusing to be scoped at this point ROS-No Headache, No Visual Changes, No Nausea, No Vomiting, No Fever, No Chills, No Neck Pain or Stiffness, No Chest Pain, No Palpitations, No SOB, No LEON, No Cough, No Sputum, No Wheezing, No Abdominal Pain, No Diarrhea, No Hematemesis, No Hemoptysis, No Unexpected Weight Loss, No Flank pain, No Melena, No Hematochezia, No Frequency, No Urgency, No Burning, No Hematuria, No Rashes, No Diaphoresis. Appetite is Normal Physical Exam Gen-AAO x 3, NAD, Afebrile, Obese Head-NCAT, EOMI, PERRLA, Anicteric Sclera, Pale, No Posterior Pharyngeal Erythema Neck-Supple, No JVD, No Thyromegaly, No Masses, No LAD, No Bruits Lungs-Clear to Auscultation Bilaterally, No Rales, No Rhonchi, No Wheezing, No Crepitus Chest-No S4, +S1, +S2, No S3, No Murmurs, No Rubs, No Gallops, No Ectopy Abdomen-Soft, Obese, Bowel Sounds Present, Non Tender, Non Distended, No Hepatomegaly, No Splenomegaly, No Palpable Masses, No Rebound, No Rigidity, No Guarding Musculoskeletal-Full Range of Motion Bilaterally, No CVAT Extremities-No Cyanosis, No Clubbing, No Edema Nuero-Cranial Nerves II-XII grossly intact, Motor WNL, DTRs WNL, Strength WNL, Non Focal Psych-Normal Mood Disposition: Would like to get him stabilized cardiac xiong to get an EGD, hemoglobin still trending down. Follow up: PCP Dr. Ivan upon discharge along with appropriate GI and cardiology follow up Total Time Total Time Spent Total Time Spent (In Minutes): 1 hour Discharge Plan Discharge Items Patient Disposition: Transfer Acute Care Hospital Reason For Visit: GIB Discharge Diagnosis: GI Bleed s/p Upper and Lower endoscopy Acute GI DANICA HTN NAIF DM II 2nd degree Heart Block CKD III Mechanical Mitral Valve BPH Hypothyroid Spinal Stenosis Hx of AAA Condition: Serious Discharge Goals: Improve disease control Specific Goals: Baloon Enteroscopy Activity: As commented below Activity Comment: As Tolerated Lifting: None Bathing: No limitations Sexual Activity: Wait until after follow-up appointment Exercise/Sports: None Driving/Machine Use: No limitations Weightbearing: Left weightbearing and Right weightbearing Non-emergency contact: Primary Care Provider and Service Desk Agent Call non-emergency contact if: you have any medication questions and your symptoms worsen Follow-up/Referrals: Travis Obrien MD [Physician] - Kelvin Ivan MD [Primary Care Provider] - Charissa Caputo [Physician] - Diet: Nothing by mouth Addtl Provider Instructions: Dr Nusrat Camarena performed his upper and lower endoscopy, the upper endoscopy was normal however the lower endoscopies revealed blood throughout the colon and blood in the terminal ileum and he is recommending transfer to [facility] under the service of Dr. Mckeon with a GI consult for balloon enteroscopy Prescriptions: New acetaminophen [Mapap (acetaminophen)] 325 mg Tablet 650 mg PO Q4H PRN (Reason: fever or pain) Qty: 20 RF: 0 Continued levothyroxine 75 mcg Capsule 75 mcg PO DAILY RF: 0 trazodone 50 mg Tablet 50 mg PO HS RF: 0 diltiazem HCl 240 mg Capsule,Extended Release 24 Hr 240 mg PO DAILY RF: 0 allopurinol 300 mg Tablet 300 mg PO DAILY RF: 0 Discontinued glipizide 10 mg Tablet 10 mg PO BID RF: 0 atorvastatin 20 mg Tablet 20 mg PO DAILY RF: 0 warfarin [Coumadin] 2.5 mg Tablet 2.5 mg PO TUTHSA RF: 0 furosemide [Lasix] 20 mg Tablet 20 mg PO DAILY RF: 0 colchicine 0.6 mg Tablet 0.6 mg PO DAILY PRN (Reason: GOUT) RF: 0 warfarin 2.5 mg Tablet 2.5 mg PO SUMOWEFR RF: 0 Stand-Alone Forms: [facility] Discharge Orders: Discharge Order (Routine); Ordered 01/18/19 Ordered By: Jose Lo Admission Data Admit Date/Time: 01/16/19 17:59 Attending Provider: Jose Lo Admit Provider: Jose Owens Primary Care Provider: Kelvin Ivan Other Providers: Charissa Caputo ; Jose Owens ; Travis Obrien Service: Telemetry Other Interventions: Discharge Summary Assessment (RN) Last Done: 01/17/19 15:35
--- NOTE | 2019-01-18 15:01 | Anesthesiology Progress Note ---
Date of Service January 18, 2019 Anesthesia Post Procedure Vital Signs Vital Signs: Temp Pulse Pulse Pulse Resp BP BP 01/18/19 14:40 36.5 C 99 H 16 128/69 01/18/19 14:20 77 20 133/69 01/18/19 14:05 70 20 107/63 01/18/19 14:04 36.5 C 84 20 96/57 L 01/18/19 12:54 36.5 C 52 L 20 143/46 H 01/18/19 10:59 36.5 C 121 H 20 130/62 01/18/19 07:31 36.6 C 84 22 150/94 H 01/18/19 04:50 36.5 C 86 86 20 159/83 H 01/18/19 00:44 76 01/17/19 19:30 36.8 C 64 18 144/76 H 01/17/19 16:00 72 01/17/19 15:52 37.0 C 72 18 144/63 H 01/17/19 15:32 60 16 141/81 H 01/17/19 15:17 54 L 14 124/50 L 01/17/19 15:02 59 L 16 113/62 Pulse Ox 01/18/19 14:40 94 01/18/19 14:20 99 01/18/19 14:05 100 01/18/19 14:04 98 01/18/19 12:54 96 01/18/19 10:59 95 01/18/19 07:31 97 01/18/19 04:50 95 01/18/19 00:44 01/17/19 19:30 93 01/17/19 16:00 01/17/19 15:52 93 01/17/19 15:32 96 01/17/19 15:17 96 01/17/19 15:02 97 Transfer of Care Handoff Completed per policy Notes Mental Status: alert / awake / arousable Patient Amnestic to Procedure: Yes Nausea / Vomiting: adequately controlled Pain: adequately controlled Airway Patency, RR, SpO2: stable & adequate BP & HR: stable & adequate Hydration State: stable & adequate Anesthetic Complications: no major complications apparent
== END 2019-01-18 20:00 | disposition short-term general hospital (02) | DRG 813 ==
LOC: ED 16:53 → 2E 17:59 → SUATTDRO 17:59 → 2E 18:53

== ENCOUNTER 2019-01-31 08:13 | Inpatient (IN) ==
[2019-01-31] MEDS ORDERED: PANTOprazole 80 MG in DEXTROSE 5% 100 ML IV SCH (08:45)
[2019-01-31 09:02] LABS: Basophils # (auto) 0.01 K/uL (0-0.2); Basophils % (auto) 0.1 %; Hematocrit (blood only) 27.1 % (42-52); Hemoglobin 8.4 g/dL (14.0-18.0); Immature Granulocytes # (auto) 0.18 K/uL (0.00-0.02); Immature Granulocytes % (auto) 1.9 %; Lymphocytes % (auto) 9.3 %; Mean Corpuscular Volume 91.2 fL (80-100); Mean Platelet Volume 9.8 fL (7.4-10.4); Monocytes # (auto) 1.02 K/uL (0.11-0.59); Monocytes % (auto) 10.5 %; Neutrophils # (auto) 7.51 K/uL (1.4-6.5); Neutrophils % (auto) 77.2 %; Nucleated RBC # (auto) 0.03 K/uL (0-0); Nucleated RBC % (auto) 0.3 %; Platelet Count 241 K/uL (130-400); RDW Standard Deviation 57.6 fL (36.4-46.3); Red Blood Count 2.97 M/uL (4.7-6.1); White Blood Count 9.72 K/uL (4.8-10.8)
[2019-01-31 09:11] LABS: iSTAT Creatinine 1.2 mg/dl (0.6-1.3); iSTAT Hemoglobin 8.8 g/dl (14.0-18.0); iSTAT Ionized Calcium 1.21 mmol/l (1.12-1.32); iSTAT Potassium 3.9 mEq/L (3.3-5.0)
[2019-01-31 09:12] LABS: INR 2.3 (0.9-1.1); Partial Thromboplastin Ratio 1.3; Partial Thromboplastin Time 35.6 Seconds (21.0-31.0); Prothrombin Time 22.4 Seconds (9.0-12.0)
[2019-01-31 09:17] LABS: Albumin Level 2.8 gm/dl (3.4-5.0); BUN Creatinine Ratio 18.2 (10-20); Calcium 8.9 mg/dl (8.5-10.1); Creatinine Clr Calc Pharmacy 43.5 ml/min; Est GFR (African American) 61.8; Est GFR (Non-African American) 53.4; Potassium 3.9 mmol/L (3.5-5.1)
[2019-01-31 09:27] LABS: Albumin Globulin Ratio 0.9 (0.9-2); Bilirubin,Total 0.6 mg/dl (0.2-1); Globulin 3.1 gm/dl (2.5-4.0); Total Protein 5.9 gm/dl (6.4-8.2); Troponin I 0.159 ng/ml (0-0.045)
[2019-01-31] MEDS: PANTOprazole 40 MG in DEXTROSE 5% 100 ML IV SCH ×3 (09:49→23:16)
[2019-01-31] MEDS ORDERED: OPTIRAY 320 125ml IV PRN (10:03)
--- NOTE | 2019-01-31 10:10 | XRay Report ---
XR chest 1V portable CLINICAL HISTORY: central line placement COMPARISON STUDY: Chest radiograph January 17, 2019. FINDINGS: There is no pneumothorax following placement of a left internal jugular central line. Margo ter tip projects over the brachiocephalic vein confluence/proximal SVC. Patient is rotated. Cardiomeg heather is unchanged. There are median sternotomy wires and a prosthetic mitral valve. Pulmonary edema steward s improved. There are small bilateral pleural effusions. There is pulmonary vascular congestion. IMPRESSION: 1. No pneumothorax following placement of a left internal jugular central line. Catheter tip projects over the brachiocephalic vein confluence/proximal SVC. 2. Small bilateral pleural effusions. Pulmonary vascular congestion, improved since prior exam. Electronically signed by: Rudy Moulton M.D. 01/31/2019 10:08 AM
--- NOTE | 2019-01-31 10:28 | Gastrointestinal Consultation ---
Date of Consultation January 31, 2019 Assessment & Plan (1) GI bleed: 88 year old male with history of MVR x 3, AAA repair on coumadin w/ recent admission for obscure GIB w/ negative EGD/Colonoscopy x 2 and negative capsule who was restarted on coumadin w/ lovenox bridge on 01/25/19 who developed painless rectal bleeding last evening x 3 episodes. No melena, no prior report of coffee ground emesis or hematemesis. He is awake, alert and oriented w/o leukocytosis. HGB 8.4 largely stable from OP value of 9.1 w/o BUN elevation. INR is 2.3. Troponin was elevated 0.159 again he denies CP or SOB. - Would recommend consultation for admission - Consider cardiology consultation, troponin trending - Please keep NPO - PO PPI - Trend H&H - Monitor and document all GI output - Transfuse PRN HGB < 8 per the primary service - Arrange bleeding scan - If positive, will require transfer to a tertiary care center for IR evaluation Will review imaging when returns. Thank you for allowing us to participate in the care of this patient. Please call with any acute changes, questions or concerns. Please see addendum below with additional recommendation from my supervising physician. Attg add: I interviewed ans emxained pt, reviewed chart and labs. Pt with h/o recent overt obscure GIB on coumadin, now returns to hospital with painless rectal bleeding after resuming coumadin. BP stable but tachy, BUN mildly increased, INR 2.1, Hgb not sig decreased. Plan as above. Present on Admission?: Yes History of Present Illness Reason for Consultation: GI bleed Requesting Physician: Gab Attending Physician: Gab History of Present Illness 88 year old male with history of HTN, T2DM, dyslipidemia, CKD3, AAA repair, MVR on coumadin who presents through the ED for evaluation of rectal bleeding x 1 day. Pt was seen and evaluated, chart reviewed. Son at bedside. He was admitted at [place] in December w/ symptomatic anemia and melena. He had negative EGD following by colonoscopy w/ evidence of blood in the colon but no identifiable source. Subsequently transferred to [place]. Repeat colonoscopy w/ AVMs not thought to be source. Repeat EGD w/ capsule placement was negative. I am unable to load capsule imaging but this was reported negative. Was sent home from [place], total of 4 unit RBC transfused, HGB at discharge was 7.7 He was restarted on coumadin w/ a heparin bridge. Last evening, developed painless rectal bleeding. Endorses three additional BMs since last night. All BRB. Some clots. No melena. No abdominal pain. No rectal pain. NO nausea, vomiting. No fever, chills, CP, SOB. Denies any lightheadedness, dizziness, CP, SOB. CTA: pending VCE 01/22/19: bilious fluid throughout, no blood identified EGD 01/22/19: Small hiatal hernia.Successful completion of the Video CapsuleEnteroscope placement. Colonoscopy 01/22/19: Diverticulosis in the sigmoid colon. Three non-bleeding colonic angiodysplastic lesions.Treated with argon plasma coagulation (APC). Internal hemorrhoids. The examined portion of the ileum was normal. COMMENT: It is unlikely that these three small AVMsled to the clinically significant GI bleeding. Colonoscopy 01/18/19: Non-thrombosed external hemorrhoids found on digital rectal exam.Internal hemorrhoids. Blood in the terminal ileum. Blood in the entire examined colon. No specimens collected. EGD 01/17/19: Normal esophagus.Z-line regular, 39 cm from the incisors.Normal stomach. Normal examined duodenum. No specimens collected. Allergies Allergy/AdvReac Type Severity Reaction Status Date / Time Penicillins Allergy Unknown UNKOWN Unverified 01/31/19 09:52 Home Medications Home Medications Medication Instructions Recorded Confirmed Type levothyroxine 75 mcg PO DAILY 09/23/18 01/31/19 History trazodone 50 mg PO HS 09/23/18 01/31/19 History allopurinol 300 mg PO DAILY 01/16/19 01/31/19 History acetaminophen [Mapap 650 mg PO Q4H PRN #20 tab 01/18/19 01/31/19 Rx (acetaminophen)] atorvastatin 20 mg PO DAILY 01/31/19 01/31/19 History ciprofloxacin HCl 250 mg PO DAILY 01/31/19 01/31/19 History colchicine 0.6 mg PO DAILY PRN 01/31/19 01/31/19 History enoxaparin 80 mg SUBCUT Q12H 01/31/19 01/31/19 History ferrous sulfate 325 mg PO BIDM 01/31/19 01/31/19 History folic acid 1 mg PO DAILY 01/31/19 01/31/19 History glipizide 10 mg PO DAILY 01/31/19 01/31/19 History tamsulosin 0.8 mg PO HS 01/31/19 01/31/19 History warfarin [Jantoven] 2.5 mg PO DAILY 01/31/19 01/31/19 History Patient History Medical History T2DM (type 2 diabetes mellitus) (Chronic) HLD (hyperlipidemia) (Chronic) CKD (chronic kidney disease) stage 3, GFR 30-59 ml/min (Chronic) HTN (hypertension) (Chronic) 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) BPH (benign prostatic hyperplasia) (Chronic) Hypothyroidism (Chronic) Obesity (Chronic) Lumbar spinal stenosis (Chronic) Positive fecal occult blood test Anemia Metabolic acidosis NAIF (acute kidney injury) (Resolved) Aspiration into airway (Resolved) Surgical History 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) History of AAA (abdominal aortic aneurysm) repair (Chronic) History of cholecystectomy (Chronic) History of appendectomy (Chronic) History of bronchoscopy (Chronic) No pertinent past surgical history Family History Father Pancreatic cancer Mother Coronary heart disease Brother MVA (motor vehicle accident) Son Diabetes Other No pertinent past surgical history Social History Preferred Language: Malay Communication Ability: Effective Visual Impairment: No Limitations Hearing Ability: Normal Beliefs That Will Affect Care: None Current Living Situation: Alone Other Information That Helps Us Care for You: No Feels Safe at Home: Yes Safety Concerns: Feels Safe At This Time Smoking Status: Never smoker Second Hand Exposure: No Hx Alcohol Use: Yes Alcohol type: beer Hx Substance Use: No Review of Systems Constitutional: no fever, no chills, no fatigue and no weakness Respiratory: no cough, no dyspnea, no hemoptysis, no snoring and no wheezing Cardiovascular: no chest pain, no radiating jaw, neck or arm pain, no dyspnea on exertion and no palpitations Gastrointestinal: + blood in stools (BRB started last night); no abdominal pain, no belching, no bloating, no early satiety, no nausea, no vomiting, no coffee ground emesis, no hematemesis and no melena Physical Exam Constitutional: well developed, + ill appearing (chronically ill) and average body habitus; no acute distress Neck: trachea midline Respiratory: normal respiratory effort, lungs clear to auscultation no respiratory distress and no labored breathing Cardiovascular: Rate/Rhythm: regular rate and regular rhythm Heart Sounds: no gallop and no murmur Mechanical valve sounds. Gastrointestinal (Abdomen): normal bowel sounds, soft, nontender, no hepatosplenomegaly Percussion/Palpation: no guarding, abdomen not rigid, no abdominal mass and no ascites Skin: no rashes, warm and dry Psychiatric: A+Ox3, euthymic affect Results & Data Vital Signs (Past 12 Hours) Vital Signs Temp Pulse Pulse Resp BP BP Pulse Ox 01/31/19 10:13 87 20 146/74 H 95 01/31/19 09:46 97 H 20 146/96 H 98 01/31/19 09:31 102 H 16 149/91 H 98 01/31/19 09:16 99 H 26 H 148/96 H 98 01/31/19 09:11 96 01/31/19 09:00 104 H 22 142/83 H 96 01/31/19 08:17 36.7 C 109 H 18 147/78 H 97 Laboratory Results 01/31/19 01/31/19 01/31/19 Range/Units 08:56 08:55 08:52 WBC (4.8-10.8) K/uL RBC (4.7-6.1) M/uL Hgb (14.0-18.0) g/dL POC Hgb 8.8 L (14.0-18.0) g/dl Hct (42-52) % POC Hct 26 L (42-52) % MCV (80-100) fL MCH (25-34) pg MCHC (32-36) g/dL RDW Std Deviation (36.4-46.3) fL RDW Coeff of Ayo (11.5-14.5) % Plt Count (130-400) K/uL MPV (7.4-10.4) fL Immature Gran % (Auto) % Neut % (Auto) % Lymph % (Auto) % [place] % (Auto) % Eos % (Auto) % Baso % (Auto) % Immature Gran # (Auto) (0.00-0.02) K/uL Neut # (Auto) (1.4-6.5) K/uL Lymph # (Auto) (1.2-3.4) K/uL [place] # (Auto) (0.11-0.59) K/uL Eos # (Auto) (0-0.5) K/uL Baso # (Auto) (0-0.2) K/uL Absolute Nucleated RBC (0-0) K/uL Nucleated RBC % (auto) % PT (9.0-12.0) Seconds INR (0.9-1.1) APTT (21.0-31.0) Seconds PTT Ratio POC Sodium 141 (135-144) mEq/L Sodium (136-145) mmol/L POC Potassium 3.9 (3.3-5.0) mEq/L Potassium (3.5-5.1) mmol/L POC Chloride 105 (101-112) mEq/L Chloride (98-107) mmol/L Carbon Dioxide (21-32) mmol/L POC Total CO2 22 L (24-31) mEq/l Anion Gap (3-11) POC Anion Gap 19.0 (16-25) mmol/L POC BUN 21 H (7-18) mg/dl BUN (7-18) mg/dl Creatinine (0.6-1.4) mg/dl POC Creatinine 1.2 (0.6-1.3) mg/dl Est Cr Clr Drug Dosing ml/min Est GFR ( Amer) Est GFR (Non-Af Amer) BUN/Creatinine Ratio (10-20) Glucose (70-99) mg/dl POC Glucose (other) 155 H (70-99) mg/dl Calcium (8.5-10.1) mg/dl POC Ioniz Calcium Jose Roberto 1.21 (1.12-1.32) mmol/l Total Bilirubin (0.2-1) mg/dl AST (15-37) U/L ALT (12-78) U/L Alkaline Phosphatase (45-117) U/L Troponin I (0-0.045) ng/ml Total Protein (6.4-8.2) gm/dl Albumin (3.4-5.0) gm/dl Globulin (2.5-4.0) gm/dl Albumin/Globulin Ratio (0.9-2) POC Stool Occult Blood Positive A (Negative) Blood Type Pending Antibody Screen Pending 01/31/19 01/31/19 01/31/19 Range/Units 08:52 08:52 08:52 WBC 9.72 (4.8-10.8) K/uL RBC 2.97 L (4.7-6.1) M/uL Hgb 8.4 L (14.0-18.0) g/dL POC Hgb (14.0-18.0) g/dl Hct 27.1 L (42-52) % POC Hct (42-52) % MCV 91.2 (80-100) fL MCH 28.3 (25-34) pg MCHC 31.0 L (32-36) g/dL RDW Std Deviation 57.6 H (36.4-46.3) fL RDW Coeff of Ayo 18.0 H (11.5-14.5) % Plt Count 241 (130-400) K/uL MPV 9.8 (7.4-10.4) fL Immature Gran % (Auto) 1.9 % Neut % (Auto) 77.2 % Lymph % (Auto) 9.3 % [place] % (Auto) 10.5 % Eos % (Auto) 1.0 % Baso % (Auto) 0.1 % Immature Gran # (Auto) 0.18 H (0.00-0.02) K/uL Neut # (Auto) 7.51 H (1.4-6.5) K/uL Lymph # (Auto) 0.90 L (1.2-3.4) K/uL [place] # (Auto) 1.02 H (0.11-0.59) K/uL Eos # (Auto) 0.10 (0-0.5) K/uL Baso # (Auto) 0.01 (0-0.2) K/uL Absolute Nucleated RBC 0.03 H (0-0) K/uL Nucleated RBC % (auto) 0.3 % PT 22.4 H (9.0-12.0) Seconds INR 2.3 H (0.9-1.1) APTT 35.6 H (21.0-31.0) Seconds PTT Ratio 1.3 POC Sodium (135-144) mEq/L Sodium 142 (136-145) mmol/L POC Potassium (3.3-5.0) mEq/L Potassium 3.9 (3.5-5.1) mmol/L POC Chloride (101-112) mEq/L Chloride 109 H (98-107) mmol/L Carbon Dioxide 26 (21-32) mmol/L POC Total CO2 (24-31) mEq/l Anion Gap 7.0 (3-11) POC Anion Gap (16-25) mmol/L POC BUN (7-18) mg/dl BUN 22 H (7-18) mg/dl Creatinine 1.22 (0.6-1.4) mg/dl POC Creatinine (0.6-1.3) mg/dl Est Cr Clr Drug Dosing 43.5 ml/min Est GFR ( Amer) 61.8 Est GFR (Non-Af Amer) 53.4 BUN/Creatinine Ratio 18.2 (10-20) Glucose 146 H (70-99) mg/dl POC Glucose (other) (70-99) mg/dl Calcium 8.9 (8.5-10.1) mg/dl POC Ioniz Calcium Jose Roberto (1.12-1.32) mmol/l Total Bilirubin 0.6 (0.2-1) mg/dl AST 31 (15-37) U/L ALT 31 (12-78) U/L Alkaline Phosphatase 110 (45-117) U/L Troponin I 0.159 H* (0-0.045) ng/ml Total Protein 5.9 L (6.4-8.2) gm/dl Albumin 2.8 L (3.4-5.0) gm/dl Globulin 3.1 (2.5-4.0) gm/dl Albumin/Globulin Ratio 0.9 (0.9-2) POC Stool Occult Blood (Negative) Blood Type Antibody Screen (1) GI bleed GI bleed type/associated pathology: unspecified gastrointestinal hemorrhage type Qualified Code(s): K92.2 - Gastrointestinal hemorrhage, unspecified
--- NOTE | 2019-01-31 11:02 | CT Scan Report ---
CT angio abdomen pelvis w con CLINICAL HISTORY: 88 years-old Male with Pt hx of AAA repair, rectal bleed acute rectal bleeding a nd patient with history of abdominal aortic aneurysm with repair COMPARISON STUDY: Chest CT 03/01/2017 TECHNIQUE: Following the IV administration of 119 cc of Optiray 320, CT angiogram of the abdomen and pelvis was performed from the lung bases the proximal femora. Images are reviewed in the axial, sagit dea, and coronal planes. 3-D MIPS images are created and assessed. IV contrast was administered witho ut complication. All measurements were obtained according to NASCET criteria. A dose lowering techni que was utilized adhering to the principles of ALARA. CT DOSE: 496.10 mGy.cm FINDINGS: Mildly motion degraded exam. CTA: Marked cardiomegaly with mitral valvular prosthesis. No pericardial effusion. Moderate to severe mixe d plaque formation of the abdominal aorta. No aneurysm. Chronic partially calcified short segment dis section flap noted about the infrarenal abdominal aorta which measures up to approximately 1.3 cm in length. Mild ectasia of the aorta at the level of the dissection, 2.1 x 2.2 cm. Patency of the bilate ral common and external iliac arteries, common and visualized superficial femoral arteries. 40% lumin al narrowing at the origin of the celiac trunk secondary to mixed plaque formation. Additional promin ent mixed plaque formation is noted about the proximal splenic artery without occlusion. The superior and inferior mesenteric arteries appear patent. Mixed plaque formation at the origin of the bilatera l renal arteries without definite high-grade stenosis or occlusion. Dual renal arterial supply to the right kidney. CT ABDOMEN/PELVIS: Small bilateral pleural effusions with bibasilar groundglass opacities. No pneumatosis or pneumoperit oneum. Spleen is enlarged, 15.1 cm. The liver, pancreas and adrenal glands are unremarkable. Gallblad marta appears to be surgically absent. Mild dilation of the common bile duct is likely postsurgical. Mu ltifocal cortical scarring and parenchymal thinning of the bilateral kidneys. No ureteral calculi or obstructive uropathy. Marked prostamegaly with 12 mm cystic focus about the left paracentral prostate .. Mild circumferential wall thickening of the bladder. Nonspecific mildly prominent bilateral iliac chain lymph nodes measure up to 9 mm. Mild wall thickening of the distal esophagus. Large duodenal di verticula. No small bowel obstruction. Fluid noted within multiple loops of large bowel with air-flui d levels. Fluid-filled loops of small bowel also noted. Colonic diverticulosis without acute divertic ulitis. The appendix is not definitively seen. No secondary signs of acute appendicitis. Mild general ized body wall edema. Gynecomastia. Degenerative changes of the spine, pelvis and hips. No suspicious bone lesions. IMPRESSION: 1. Motion degraded exam. 2. 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 No aneurysm, acute dissec tion or proximal branch occlusion identified. 3. 40% luminal narrowing at the origin of the celiac trunk secondary to mixed plaque formation. 4. Fluid-filled loops of small and large bowel are noted without bowel obstruction. Cortically clinic ally to exclude enteritis with diarrheal illness. 5. Prostamegaly with urinary bladder distention and wall thickening suggestive of chronic bladder out let obstruction. Correlate with urinalysis to exclude cystitis. 6. Small pleural effusions with bibasilar groundglass densities suggestive of atelectasis or pneumoni tis. 7. Cardiomegaly. 8. Additional findings as above. The above report was generated using voice recognition software. It may contain grammatical, syntax o r spelling errors. Electronically signed by: Bird Christopher M.D. 01/31/2019 11:01 AM
[2019-01-31 13:21] LABS: Hematocrit (blood only) 27.4 % (42-52); Hemoglobin 8.4 g/dL (14.0-18.0)
--- NOTE | 2019-01-31 15:17 | Emergency Department Note ---
Entered by Charissa Cummings acting as a scribe for Mikey De Guzman MD History of Present Illness General Chief complaint: Rectal Bleed Stated complaint: GI BLEED,BLOODY STOOLS Time Seen by Provider: 01/31/19 08:22 Source: patient History of Present Illness Onset (ago): hour(s) (this morning) Location: buttocks Pain Consistency: + other (episode) Quality: + other (rectal bleed) Associated symptoms: + other (hematochezia) The patient is a 88 year old male that is presenting to the Emergency Room with complaints of an episode of rectal bleeding that started this morning. The patient reports that he noticed a considerable amount of blood in his stool this morning when he went to the bathroom in a toilet. He denies noticing any blood prior to this episode. The patient notes that he was discharged from [facility] 4 days ago. He states that he is currently taking Coumadin due to his history of heart valve replacement. The patient reports that he has a history of an abdominal aortic aneurysm that has been repaired in the past. Home Medications Home Medications Medication Instructions Recorded Confirmed Type levothyroxine 75 mcg PO DAILY 09/23/18 01/31/19 History trazodone 50 mg PO HS 09/23/18 01/31/19 History allopurinol 300 mg PO DAILY 01/16/19 01/31/19 History acetaminophen [Mapap 650 mg PO Q4H PRN #20 tab 01/18/19 01/31/19 Rx (acetaminophen)] atorvastatin 20 mg PO DAILY 01/31/19 01/31/19 History ciprofloxacin HCl 250 mg PO DAILY 01/31/19 01/31/19 History colchicine 0.6 mg PO DAILY PRN 01/31/19 01/31/19 History enoxaparin 80 mg SUBCUT Q12H 01/31/19 01/31/19 History ferrous sulfate 325 mg PO BIDM 01/31/19 01/31/19 History folic acid 1 mg PO DAILY 01/31/19 01/31/19 History glipizide 10 mg PO DAILY 01/31/19 01/31/19 History tamsulosin 0.8 mg PO HS 01/31/19 01/31/19 History warfarin [Jantoven] 2.5 mg PO DAILY 01/31/19 01/31/19 History Allergies Allergy/AdvReac Type Severity Reaction Status Date / Time Penicillins Allergy Unknown UNKOWN Unverified 01/31/19 09:52 Past Med/Surg History Medical History T2DM (type 2 diabetes mellitus) (Chronic) HLD (hyperlipidemia) (Chronic) CKD (chronic kidney disease) stage 3, GFR 30-59 ml/min (Chronic) HTN (hypertension) (Chronic) 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) BPH (benign prostatic hyperplasia) (Chronic) Hypothyroidism (Chronic) Obesity (Chronic) Lumbar spinal stenosis (Chronic) Positive fecal occult blood test Anemia Metabolic acidosis NAIF (acute kidney injury) (Resolved) Aspiration into airway (Resolved) Surgical History 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) History of AAA (abdominal aortic aneurysm) repair (Chronic) History of cholecystectomy (Chronic) History of appendectomy (Chronic) History of bronchoscopy (Chronic) No pertinent past surgical history Family History Father Pancreatic cancer Mother Coronary heart disease Brother MVA (motor vehicle accident) Son Diabetes Other No pertinent past surgical history Social History Preferred Language: [place] Communication Ability: Effective Visual Impairment: No Limitations Hearing Ability: Normal Beliefs That Will Affect Care: None Current Living Situation: Alone Other Information That Helps Us Care for You: No Feels Safe at Home: Yes Safety Concerns: Feels Safe At This Time Smoking Status: Never smoker Second Hand Exposure: No Hx Alcohol Use: Yes Alcohol type: beer Hx Substance Use: No Review of Systems See HPI for pertinent positives & negatives. and A total of 10 systems reviewed and were otherwise negative Physical Exam Vital Signs Vital Signs - 24 hr 01/31/19 08:17 01/31/19 09:00 01/31/19 09:11 Temperature 36.7 C Temperature Source Oral Sepsis Recent Fever Within 48 Hours No Sepsis New/Unexplained Change in Mental Status No Sepsis Action Taken by Nursing No Action Required Pulse Rate 109 H Pulse Rate [Apical] 104 H Pulse Rate from SpO2 Sensor Respiratory Rate 18 22 Blood Pressure 147/78 H Blood Pressure [Left Arm] 142/83 H Blood Pressure Mean 101 Blood Pressure Mean [Left Arm] 102 Pulse Oximetry 97 96 96 Oxygen Delivery Method Room Air Room Air Room Air 01/31/19 09:16 01/31/19 09:31 01/31/19 09:46 Temperature Temperature Source Sepsis Recent Fever Within 48 Hours Sepsis New/Unexplained Change in Mental Status Sepsis Action Taken by Nursing Pulse Rate 99 H 102 H 97 H Pulse Rate [Apical] Pulse Rate from SpO2 Sensor 101 H 104 H 105 H Respiratory Rate 26 H 16 20 Blood Pressure 148/96 H 149/91 H 146/96 H Blood Pressure [Left Arm] Blood Pressure Mean 113 110 112 Blood Pressure Mean [Left Arm] Pulse Oximetry 98 98 98 Oxygen Delivery Method 01/31/19 10:13 01/31/19 10:41 01/31/19 11:01 Temperature Temperature Source Sepsis Recent Fever Within 48 Hours Sepsis New/Unexplained Change in Mental Status Sepsis Action Taken by Nursing Pulse Rate 87 90 85 Pulse Rate [Apical] Pulse Rate from SpO2 Sensor 88 89 87 Respiratory Rate 20 27 H 16 Blood Pressure 146/74 H 134/88 116/82 Blood Pressure [Left Arm] Blood Pressure Mean 98 103 93 Blood Pressure Mean [Left Arm] Pulse Oximetry 95 97 98 Oxygen Delivery Method 01/31/19 11:11 01/31/19 11:30 01/31/19 12:01 Temperature Temperature Source Sepsis Recent Fever Within 48 Hours Sepsis New/Unexplained Change in Mental Status Sepsis Action Taken by Nursing Pulse Rate 92 H 66 Pulse Rate [Apical] Pulse Rate from SpO2 Sensor 87 71 Respiratory Rate 17 13 Blood Pressure 140/82 147/76 H Blood Pressure [Left Arm] Blood Pressure Mean 101 99 Blood Pressure Mean [Left Arm] Pulse Oximetry 97 98 Oxygen Delivery Method Room Air 01/31/19 12:31 01/31/19 13:01 01/31/19 13:05 Temperature Temperature Source Sepsis Recent Fever Within 48 Hours Sepsis New/Unexplained Change in Mental Status Sepsis Action Taken by Nursing Pulse Rate 100 H 88 103 H Pulse Rate [Apical] Pulse Rate from SpO2 Sensor 100 H 91 H 107 H Respiratory Rate 27 H 15 26 H Blood Pressure 126/74 143/86 H 143/86 H Blood Pressure [Left Arm] Blood Pressure Mean 91 105 105 Blood Pressure Mean [Left Arm] Pulse Oximetry 98 97 100 Oxygen Delivery Method 01/31/19 13:30 01/31/19 14:00 01/31/19 14:27 Temperature Temperature Source Sepsis Recent Fever Within 48 Hours Sepsis New/Unexplained Change in Mental Status Sepsis Action Taken by Nursing Pulse Rate 93 H 99 H Pulse Rate [Apical] Pulse Rate from SpO2 Sensor 96 H 96 H 101 H Respiratory Rate 20 9 L Blood Pressure 143/80 H 161/87 H 150/88 H Blood Pressure [Left Arm] Blood Pressure Mean 101 111 108 Blood Pressure Mean [Left Arm] Pulse Oximetry 98 95 98 Oxygen Delivery Method GENERAL: Awake, alert, well-appearing, in no acute distress HENT: Normocephalic, atraumatic. Oropharynx unremarkable. EYES: Normal conjunctiva. Sclera non-icteric. NECK: Supple. No nuchal rigidity. FROM. No JVD. RESPIRATORY: Clear to auscultation. CARDIAC: Regular rate, normal rhythm. Extremities warm and well perfused. Pulses equal. ABDOMEN: Soft, non-distended. No tenderness to palpation. No rebound or guarding. No masses. RECTAL: Dark red blood on rectal exam. Heme positive. MUSCULOSKELETAL: Chest examination reveals no tenderness. The back is symmetrical on inspection without obvious abnormality. There is no CVA tenderness to palpation. No joint edema. LOWER EXTREMITIES: Calves are equal size bilaterally and non-tender. No edema. No discoloration. NEURO: Normal sensorium. No sensory or motor deficits noted. SKIN: No rash or jaundice noted. Procedures Central Line Placement Left IJ: Time Out Performed: Yes Patient Placed on Monitor/Pulse Ox: Yes MD Prep: mask, gown and gloves Central Line Prep: Povidone-Iodine 1%, Chlorhexidine scrub and sterile drapes applied Local Anesthetic: lidocaine 1% Amount of anesthesia used (mL): 10 Ultrasound Used for Placement: Yes Central Line Lumen Inserted: triple Post Procedure: sutured in place, good blood return, all ports aspirated, flushed, capped and sterile dressing applied Post Procedure X-Ray: tip of catheter in good position and no pneumothorax seen Patient Tolerated Procedure: well and no complications Course 08:The patient was evaluated in room B06. A complete history and physical examination was performed. 899: I updated the patient on his current lab and imaging results. 919: I performed a central line placement procedure at this time. The patient tolerated the procedure well. 1020: I discussed the patient's case with [facility], who recommended the patient be admitted. 1025: I discussed the patient's case with KRISTY Tobar, who will evaluate the patient for further management and care with Dr. Choudhary as the attending physician. 1030: Upon reevaluation, the patient is resting comfortably. I discussed laboratory and radiographic results with the patient. He verbalized agreement of the treatment plan. The patient will be evaluated for further management and care. Consultations Consultation #1: I discussed the patient's case with [facility], who recommended the patient be admitted. Time: 10:20 Consultation #2: I discussed the patient's case with KRISTY Tobar, who will evaluate the patient for further management and care with Dr. Choudhary as the attending physician. Time: 10:25 Administered Medications Pantoprazole Sodium 40 mg/ (Dextrose) 100 mls @ 20 mls/hr IV Q5H [facility] Stop: 03/02/19 08:59 Last Infusion: 01/31/19 12:40 Dose: 0 mls/hr Documented by: [id number] Admin: 01/31/19 09:49 Dose: 20 mls/hr Documented by: [id number] Ioversol (Optiray 320 125ml) 119 ml IV ONCE PRN PRN Reason: Interaction Checking Stop: 02/04/19 10:02 Last Admin: 01/31/19 10:03 Dose: 119 ml Documented by: [id number] Discontinued Medications Pantoprazole Sodium 80 mg/ (Dextrose) 120 mls @ 480 mls/hr IV TODAY@0845 [facility] Stop: 01/31/19 08:59 Last Infusion: 01/31/19 09:13 Dose: 0 mls/hr Documented by: [id number] Admin: 01/31/19 08:58 Dose: 480 mls/hr Documented by: [id number] Medical Decision Making Differential Diagnosis Differential diagnosis: Etiologies such as esophagitis, variceal bleed, [place], [place] tear, gastritis, peptic ulcer disease, AVM, inflammatory bowel disease, ischemia, diverticulosis, colitis, malignancy, coagulopathy, thrombocytopenia, fissure, he morrhoid, epistaxis , as well as others were entertained. Medical Records Attestation: I reviewed the patient's medical records. Home Medications Current Medication List: was personally reviewed by me Laboratory Data Attestation: I reviewed the patient's lab results. Result diagrams: 01/31/19 13:10 01/31/19 08:52 Lab Results 01/31/19 01/31/19 01/31/19 Range/Units 08:52 08:52 08:52 WBC 9.72 (4.8-10.8) K/uL RBC 2.97 L (4.7-6.1) M/uL Hgb 8.4 L (14.0-18.0) g/dL POC Hgb (14.0-18.0) g/dl Hct 27.1 L (42-52) % POC Hct (42-52) % MCV 91.2 (80-100) fL MCH 28.3 (25-34) pg MCHC 31.0 L (32-36) g/dL RDW Std Deviation 57.6 H (36.4-46.3) fL RDW Coeff of Ayo 18.0 H (11.5-14.5) % Plt Count 241 (130-400) K/uL MPV 9.8 (7.4-10.4) fL Immature Gran % (Auto) 1.9 % Neut % (Auto) 77.2 % Lymph % (Auto) 9.3 % [place] % (Auto) 10.5 % Eos % (Auto) 1.0 % Baso % (Auto) 0.1 % Immature Gran # (Auto) 0.18 H (0.00-0.02) K/uL Neut # (Auto) 7.51 H (1.4-6.5) K/uL Lymph # (Auto) 0.90 L (1.2-3.4) K/uL [place] # (Auto) 1.02 H (0.11-0.59) K/uL Eos # (Auto) 0.10 (0-0.5) K/uL Baso # (Auto) 0.01 (0-0.2) K/uL Absolute Nucleated RBC 0.03 H (0-0) K/uL Nucleated RBC % (auto) 0.3 % PT 22.4 H (9.0-12.0) Seconds INR 2.3 H (0.9-1.1) APTT 35.6 H (21.0-31.0) Seconds PTT Ratio 1.3 POC Sodium (135-144) mEq/L Sodium 142 (136-145) mmol/L POC Potassium (3.3-5.0) mEq/L Potassium 3.9 (3.5-5.1) mmol/L POC Chloride (101-112) mEq/L Chloride 109 H (98-107) mmol/L Carbon Dioxide 26 (21-32) mmol/L POC Total CO2 (24-31) mEq/l Anion Gap 7.0 (3-11) POC Anion Gap (16-25) mmol/L POC BUN (7-18) mg/dl BUN 22 H (7-18) mg/dl Creatinine 1.22 (0.6-1.4) mg/dl POC Creatinine (0.6-1.3) mg/dl Est Cr Clr Drug Dosing 43.5 ml/min Est GFR ( Amer) 61.8 Est GFR (Non-Af Amer) 53.4 BUN/Creatinine Ratio 18.2 (10-20) Glucose 146 H (70-99) mg/dl POC Glucose (other) (70-99) mg/dl Calcium 8.9 (8.5-10.1) mg/dl POC Ioniz Calcium Jose Roberto (1.12-1.32) mmol/l Total Bilirubin 0.6 (0.2-1) mg/dl AST 31 (15-37) U/L ALT 31 (12-78) U/L Alkaline Phosphatase 110 (45-117) U/L Troponin I 0.159 H* (0-0.045) ng/ml Total Protein 5.9 L (6.4-8.2) gm/dl Albumin 2.8 L (3.4-5.0) gm/dl Globulin 3.1 (2.5-4.0) gm/dl Albumin/Globulin Ratio 0.9 (0.9-2) POC Stool Occult Blood (Negative) Blood Type Antibody Screen Antibody Identification 01/31/19 01/31/19 01/31/19 Range/Units 08:52 08:55 08:56 WBC (4.8-10.8) K/uL RBC (4.7-6.1) M/uL Hgb (14.0-18.0) g/dL POC Hgb 8.8 L (14.0-18.0) g/dl Hct (42-52) % POC Hct 26 L (42-52) % MCV (80-100) fL MCH (25-34) pg MCHC (32-36) g/dL RDW Std Deviation (36.4-46.3) fL RDW Coeff of Ayo (11.5-14.5) % Plt Count (130-400) K/uL MPV (7.4-10.4) fL Immature Gran % (Auto) % Neut % (Auto) % Lymph % (Auto) % [place] % (Auto) % Eos % (Auto) % Baso % (Auto) % Immature Gran # (Auto) (0.00-0.02) K/uL Neut # (Auto) (1.4-6.5) K/uL Lymph # (Auto) (1.2-3.4) K/uL [place] # (Auto) (0.11-0.59) K/uL Eos # (Auto) (0-0.5) K/uL Baso # (Auto) (0-0.2) K/uL Absolute Nucleated RBC (0-0) K/uL Nucleated RBC % (auto) % PT (9.0-12.0) Seconds INR (0.9-1.1) APTT (21.0-31.0) Seconds PTT Ratio POC Sodium 141 (135-144) mEq/L Sodium (136-145) mmol/L POC Potassium 3.9 (3.3-5.0) mEq/L Potassium (3.5-5.1) mmol/L POC Chloride 105 (101-112) mEq/L Chloride (98-107) mmol/L Carbon Dioxide (21-32) mmol/L POC Total CO2 22 L (24-31) mEq/l Anion Gap (3-11) POC Anion Gap 19.0 (16-25) mmol/L POC BUN 21 H (7-18) mg/dl BUN (7-18) mg/dl Creatinine (0.6-1.4) mg/dl POC Creatinine 1.2 (0.6-1.3) mg/dl Est Cr Clr Drug Dosing ml/min Est GFR ( Amer) Est GFR (Non-Af Amer) BUN/Creatinine Ratio (10-20) Glucose (70-99) mg/dl POC Glucose (other) 155 H (70-99) mg/dl Calcium (8.5-10.1) mg/dl POC Ioniz Calcium Jose Roberto 1.21 (1.12-1.32) mmol/l Total Bilirubin (0.2-1) mg/dl AST (15-37) U/L ALT (12-78) U/L Alkaline Phosphatase (45-117) U/L Troponin I (0-0.045) ng/ml Total Protein (6.4-8.2) gm/dl Albumin (3.4-5.0) gm/dl Globulin (2.5-4.0) gm/dl Albumin/Globulin Ratio (0.9-2) POC Stool Occult Blood Positive A (Negative) Blood Type O Negative Antibody Screen POSITIVE A Antibody Identification Anti-Jkb 01/31/19 Range/Units 13:10 WBC (4.8-10.8) K/uL RBC (4.7-6.1) M/uL Hgb 8.4 L (14.0-18.0) g/dL POC Hgb (14.0-18.0) g/dl Hct 27.4 L (42-52) % POC Hct (42-52) % MCV (80-100) fL MCH (25-34) pg MCHC (32-36) g/dL RDW Std Deviation (36.4-46.3) fL RDW Coeff of Ayo (11.5-14.5) % Plt Count (130-400) K/uL MPV (7.4-10.4) fL Immature Gran % (Auto) % Neut % (Auto) % Lymph % (Auto) % [place] % (Auto) % Eos % (Auto) % Baso % (Auto) % Immature Gran # (Auto) (0.00-0.02) K/uL Neut # (Auto) (1.4-6.5) K/uL Lymph # (Auto) (1.2-3.4) K/uL [place] # (Auto) (0.11-0.59) K/uL Eos # (Auto) (0-0.5) K/uL Baso # (Auto) (0-0.2) K/uL Absolute Nucleated RBC (0-0) K/uL Nucleated RBC % (auto) % PT (9.0-12.0) Seconds INR (0.9-1.1) APTT (21.0-31.0) Seconds PTT Ratio POC Sodium (135-144) mEq/L Sodium (136-145) mmol/L POC Potassium (3.3-5.0) mEq/L Potassium (3.5-5.1) mmol/L POC Chloride (101-112) mEq/L Chloride (98-107) mmol/L Carbon Dioxide (21-32) mmol/L POC Total CO2 (24-31) mEq/l Anion Gap (3-11) POC Anion Gap (16-25) mmol/L POC BUN (7-18) mg/dl BUN (7-18) mg/dl Creatinine (0.6-1.4) mg/dl POC Creatinine (0.6-1.3) mg/dl Est Cr Clr Drug Dosing ml/min Est GFR ( Amer) Est GFR (Non-Af Amer) BUN/Creatinine Ratio (10-20) Glucose (70-99) mg/dl POC Glucose (other) (70-99) mg/dl Calcium (8.5-10.1) mg/dl POC Ioniz Calcium Jose Roberto (1.12-1.32) mmol/l Total Bilirubin (0.2-1) mg/dl AST (15-37) U/L ALT (12-78) U/L Alkaline Phosphatase (45-117) U/L Troponin I (0-0.045) ng/ml Total Protein (6.4-8.2) gm/dl Albumin (3.4-5.0) gm/dl Globulin (2.5-4.0) gm/dl Albumin/Globulin Ratio (0.9-2) POC Stool Occult Blood (Negative) Blood Type Antibody Screen Antibody Identification Imaging Data Radiologist's Impression: Radiology results as stated below per my review and the radiologist's interpretation: XR chest 1V portable CLINICAL HISTORY: central line placement COMPARISON STUDY: Chest radiograph January 17, 2019. FINDINGS: There is no pneumothorax following placement of a left internal jugular central line. Catheter tip projects over the brachiocephalic vein confluence/proximal SVC. Patient is rotated. Cardiomegaly is unchanged. There are median sternotomy wires and a prosthetic mitral valve. Pulmonary edema has improved. There are small bilateral pleural effusions. There is pulmonary vascular congestion. IMPRESSION: 1. No pneumothorax following placement of a left internal jugular central line. Catheter tip projects over the brachiocephalic vein confluence/proximal SVC. 2. Small bilateral pleural effusions. Pulmonary vascular congestion, improved since prior exam. Electronically signed by: Rudy Moulton M.D. 01/31/2019 10:[address] angio abdomen pelvis w con CLINICAL HISTORY: 88 years-old Male with Pt hx of AAA repair, rectal bleed acute rectal bleeding and patient with history of abdominal aortic aneurysm with repair COMPARISON STUDY: Chest CT 03/01/2017 TECHNIQUE: Following the IV administration of 119 cc of Optiray 320, CT angiogram of the abdomen and pelvis was performed from the lung bases the proximal femora. Images are reviewed in the axial, sagittal, and coronal planes. 3-D MIPS images are created and assessed. IV contrast was administered without complication. All measurements were obtained according to NASCET criteria. A dose lowering technique was utilized adhering to the principles of ALARA. CT DOSE: 496.10 mGy.cm FINDINGS: Mildly motion degraded exam. CTA: Marked cardiomegaly with mitral valvular prosthesis. No pericardial effusion. Moderate to severe mixed plaque formation of the abdominal aorta. No aneurysm. 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 Mild ectasia of the aorta at the level of the dissection, 2.1 x 2.2 cm. Patency of the bilateral common and external iliac arteries, common and visualized superficial femoral arteries. 40% luminal narrowing at the origin of the celiac trunk secondary to mixed plaque formation. Additional prominent mixed plaque formation is noted about the proximal splenic artery without occlusion. The superior and inferior mesenteric arteries appear patent. Mixed plaque formation at the origin of the bilateral renal arteries without definite high-grade stenosis or occlusion. Dual renal arterial supply to the right kidney. CT ABDOMEN/PELVIS: Small bilateral pleural effusions with bibasilar groundglass opacities. No pneumatosis or pneumoperitoneum. Spleen is enlarged, 15.1 cm. The liver, pancreas and adrenal glands are unremarkable. Gallbladder appears to be surgically absent. Mild dilation of the common bile duct is likely postsurgical. Multifocal cortical scarring and parenchymal thinning of the bilateral kidneys. No ureteral calculi or obstructive uropathy. Marked prostamegaly with 12 mm cystic focus about the left paracentral prostate.. Mild circumferential wall thickening of the bladder. Nonspecific mildly prominent bilateral iliac chain lymph nodes measure up to 9 mm. Mild wall thickening of the distal esophagus. Large duodenal diverticula. No small bowel obstruction. Fluid noted within multiple loops of large bowel with air-fluid levels. Fluid-filled loops of small bowel also noted. Colonic diverticulosis without acute diverticulitis. The appendix is not definitively seen. No secondary signs of acute appendicitis. Mild generalized body wall edema. Gynecomastia. Degenerative changes of the spine, pelvis and hips. No suspicious bone lesions. IMPRESSION: 1. Motion degraded exam. 2. 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 No aneurysm, acute dissection or proximal branch occlusion identified. 3. 40% luminal narrowing at the origin of the celiac trunk secondary to mixed plaque formation. 4. Fluid-filled loops of small and large bowel are noted without bowel obstruction. Cortically clinically to exclude enteritis with diarrheal illness. 5. Prostamegaly with urinary bladder distention and wall thickening suggestive of chronic bladder outlet obstruction. Correlate with urinalysis to exclude cystitis. 6. Small pleural effusions with bibasilar groundglass densities suggestive of atelectasis or pneumonitis. 7. Cardiomegaly. 8. Additional findings as above. The above report was generated using voice recognition software. It may contain grammatical, syntax or spelling errors. Electronically signed by: Bird Christopher M.D. 01/31/2019 11:01 AM ECG Data Attestation: I personally reviewed and interpreted this ECG as follows: Indication: tachycardia Rate (beats per minute): 103 Rhythm: sinus rhythm Findings: + other (second degree mobitz); no ST depression, no ST elevation and no acute ischemic change Comparison ECG Date: from (01/18/2019) Change: no significant change Blood Pressure Blood Pressure Findings: Elevated blood pressure Blood Pressure Disposition: Referred to patients primary care provider MDM Narrative This is an 88-year-old male who presents emergency department complaining of rectal bleed. Patient has a complicated medical history including repair of AAA as well as mitral valve replacement on Coumadin. Due to the fact that the patient has had a AAA repair previously he was sent for CT angios. This did not show any acute process. He was typed and screened. He was started on a Protonix bolus and drip. Central line was placed as above due to the fact that the patient could not obtain access. Consent was signed for the central line and placed on the chart. I did discuss the case with the GI service who thought that the patient could be admitted here to the medicine service. Case was then discussed with the medicine service who agreed to admit the patient. Patient and family were in agreement with the treatment plan. Impression & Plan GI bleed Critical Care Time I have personally spent greater than 30 minutes of critical care time in the direct management of this patient. This includes bedside care, interpretation of diagnostic studies, and testing, discussion with consultants, patient, and family members, and other required patient management activities. This 30 minutes is in excess of all separately billable procedures. Discharge Plan Visit Data Chief Complaint: Rectal Bleed Stated Complaint: GI BLEED,BLOODY STOOLS ED Provider: Mikey De Guzman Discharge Problem: GI bleed Patient Disposition: Being Evaluated by Hospitalist Forms Stand Alone Forms: My [facility] Prescriptions Prescriptions: No Action levothyroxine 75 mcg Capsule 75 mcg PO DAILY RF: 0 trazodone 50 mg Tablet 50 mg PO HS RF: 0 allopurinol 300 mg Tablet 300 mg PO DAILY RF: 0 acetaminophen [Mapap (acetaminophen)] 325 mg Tablet 650 mg PO Q4H PRN (Reason: fever or pain) Qty: 20 RF: 0 atorvastatin 20 mg Tablet 20 mg PO DAILY RF: 0 glipizide 10 mg Tablet 10 mg PO DAILY RF: 0 warfarin [Jantoven] 2.5 mg Tablet 2.5 mg PO DAILY RF: 0 ciprofloxacin HCl 250 mg Tablet 250 mg PO DAILY RF: 0 tamsulosin 0.4 mg Capsule 0.8 mg PO HS RF: 0 ferrous sulfate 325 mg (65 mg iron) Tablet 325 mg PO BIDM RF: 0 folic acid 1 mg Tablet 1 mg PO DAILY RF: 0 colchicine 0.6 mg Tablet 0.6 mg PO DAILY PRN (Reason: GOUT) RF: 0 enoxaparin 80 mg/0.8 mL Syringe 80 mg SUBCUT Q12H RF: 0 Referrals Referrals: Kelvin Ivan MD [Primary Care Provider] - Discharge Problem: GI bleed Qualifiers: GI bleed type/associated pathology: unspecified gastrointestinal hemorrhage type Qualified Code(s): K92.2 - Gastrointestinal hemorrhage, unspecified The scribe's documentation has been prepared under my direction and personally reviewed by me in its entirety. I confirm that the note above accurately reflects all work, treatment, procedures, and medical decision making performed by me.
--- NOTE | 2019-01-31 16:51 | Nuclear Medicine Report ---
NM GI bleeding CLINICAL HISTORY: 88 years-old Male presenting with BRBPR, negative colonoscopy and negative EGD x2. TECHNIQUE: Following the IV administration of 27 mCi of technetium 99m UltraTag labeled red blood cristin ls, nuclear bleeding scan was performed. Anterior flow images were obtained every 2 seconds for a tot al 48 seconds. Anterior static images were obtained every 5 minutes for a total of 60 minutes. COMPARISON: CTA of the abdomen and pelvis from earlier today. FINDINGS: Expected radiotracer distribution within the stricture, spleen, and liver are in no evidence of radio tracer avidity which conforms to bowel anatomy or is mobile over the course of the dynamic acquisitio n. No foci of increasing avidity over time. No ectopic radiotracer avidity is appreciated. IMPRESSION: No evidence of gastrointestinal bleed. Electronically signed by: Rafi De Los Santos M.D. 01/31/2019 4:50 PM
--- NOTE | 2019-01-31 17:20 | History & Physical Report ---
Date of Service January 31, 2019 Assessment & Plan (1) GI bleed: (2) Acute on chronic blood loss anemia: This is an 88-year-old male with a PMH of recent GI bleed, h/o MV replacement in 1980s on coumadin, DM II, HTN, CKD III, AAA repair, hypothyroidism and other medical problems listed below who presents with bright red bleeding per rectum starting last night. -H/o GI bleed of unknown source, s/p EGD x 2, capsule study that were negative. Evidence of non-bleeding AVMs, diverticulosis on 01/22 colonoscopy -Hgb stable at 8.4. Continue trending -Consented, type and cross, 2u held. Transfuse for hgb <8 -On coumadin with recent Lovenox bridge until yesterday. INR of 2.3. Holding coumadin -GI consulted. Ordered nuclear medicine GI bleeding scan that was negative for acute bleeding -Received IV protonix bolus in ED. Now on PO PPI, per GI service -Clears for now, NPO after midnight (3) Elevated troponin: In setting of GI bleed, likely demand ischemia -Denies chest pain -Initial troponin 0.159. 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 Acevedo later this month -Routine cardiology consult -Telemetry (5) T2DM (type 2 diabetes mellitus): Hgb of 5.3 in December 2018 -Hold home agents -SSI while in-patient -BSG AC HS, Q6H if NPO (6) HTN (hypertension): BP slightly elevated -Diltiazem and digoxin have been on hold due to Mobitz 2 block -Will add PRN for HTN (7) CKD (chronic kidney disease) stage 3, GFR 30-59 ml/min: Kidney function improved from previous admission -Continue trending (8) H/O mitral valve replacement with mechanical valve: Coumadin held for now (9) HLD (hyperlipidemia): Holding statin for now (10) Hypothyroidism: Levothyroxine DVT Ppx: SCDs Code status: FULL PCP: [facility] Dispo: Admitted to telemetry. Discharge planning ordered. Patient seen in collaboration with Dr. Kern. Please see addendum. History of Present Illness Chief Complaint: Bright red blood per rectum Primary Care Provider: Kelvin Ivan MD This is an 88-year-old male with a PMH of recent GI bleed, h/o MV replacement in on coumadin, DM II, HTN, CKD III, AAA repair, hypothyroidism and other medical problems listed below who presents with bright red bleeding per rectum starting last night. Patient was discharged home with services from [facility] on 01/25 and denies any blood per rectum until last evening, when he reports 3 episodes of blood per rectum last night. No stool or blood clots noted. Not associated with abdominal or rectal pain. Denies lightheadedness, chest pain, SOB, nausea or vomiting. Patient was recently admitted to our service in late December with symptomatic anemia and melena, requiring blood transfusion and reversal of coumadin with vitamin K. Underwent EGD that was negative, followed by colonoscopy with evidence of blood in the colon but no identifiable source and was transferred to [place]. Repeat colonoscopy performed on January 22 with three non-bleeding AVMs and diverticulosis. Gastroenterology did not feel that was source of bleeding. Repeat EGD with capsule study negative. Was treated with Argon plasma coagulation. During admission, found to be in second degree AV block Mobitz Type I and diltiazem and digoxin have been held since then. 2D echo performed with EF of 37% (unable to view report). Has upcoming cardiology appointment with Dr. Acevedo later this month. Coumadin was restarted while at [facility] with Lovenox bridge until yesterday. Also recently completed antibiotic course of Cipro as of 01/29/19. Repeat urine cx from 01/30 with mixed normal tonya. Hemodynamically stable. Hgb of 8.4. INR of 2.3. Central line was placed while patient was in ED for access. GI evaluated the patient and he was sent for nuclear medicine GI bleeding scan that was negative for acute bleeding. Al lergies Allergy/AdvReac Type Severity Reaction Status Date / Time Penicillins Allergy Unknown UNKOWN Unverified 01/31/19 09:52 Home Medications Home Medications Medication Instructions Recorded Confirmed Type levothyroxine 75 mcg PO DAILY 09/23/18 01/31/19 History trazodone 50 mg PO HS 09/23/18 01/31/19 History allopurinol 300 mg PO DAILY 01/16/19 01/31/19 History acetaminophen [Mapap 650 mg PO Q4H PRN #20 tab 01/18/19 01/31/19 Rx (acetaminophen)] atorvastatin 20 mg PO DAILY 01/31/19 01/31/19 History colchicine 0.6 mg PO DAILY PRN 01/31/19 01/31/19 History ferrous sulfate 325 mg PO BIDM 01/31/19 01/31/19 History folic acid 1 mg PO DAILY 01/31/19 01/31/19 History glipizide 10 mg PO DAILY 01/31/19 01/31/19 History tamsulosin 0.8 mg PO HS 01/31/19 01/31/19 History warfarin 5 mg PO SUTUWETHSA@1600 01/31/19 01/31/19 History warfarin [Jantoven] 2.5 mg PO MOFR@1600 01/31/19 01/31/19 History Past Med/Surg History Medical History T2DM (type 2 diabetes mellitus) (Chronic) HLD (hyperlipidemia) (Chronic) CKD (chronic kidney disease) stage 3, GFR 30-59 ml/min (Chronic) HTN (hypertension) (Chronic) 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) BPH (benign prostatic hyperplasia) (Chronic) Hypothyroidism (Chronic) Obesity (Chronic) Lumbar spinal stenosis (Chronic) Anemia (Chronic) NAIF (acute kidney injury) (Resolved) Aspiration into airway (Resolved) Surgical History 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) History of AAA (abdominal aortic aneurysm) repair (Chronic) History of cholecystectomy (Chronic) History of appendectomy (Chronic) History of bronchoscopy (Chronic) Family History Father Pancreatic cancer Mother Coronary heart disease Brother MVA (motor vehicle accident) Son Diabetes Social History Preferred Language: Vincentian Communication Ability: Effective Visual Impairment: No Limitations Hearing Ability: Normal Beliefs That Will Affect Care: None Current Living Situation: Alone Other Information That Helps Us Care for You: No Feels Safe at Home: Yes Safety Concerns: Feels Safe At This Time Smoking Status: Never smoker Second Hand Exposure: No Hx Alcohol Use: Yes Alcohol type: beer Hx Substance Use: No Review of Systems Constitutional: + fatigue, + weakness and + weight loss; no fever, no chills and no sweats Eyes: no diplopia Ear, Nose, Mouth, Throat: no sore throat and no dysphagia Respiratory: + cough; no change in sputum, no dyspnea and no wheezing Cardiovascular: + radiating jaw, neck or arm pain; no chest pain, no dyspnea on exertion, no palpitations, no syncope and no edema Gastrointestinal: no abdominal pain, no early satiety, no heartburn, no d[place] sea, no vomiting, no coffee ground emesis and no blood in stools Genitourinary: + urinary frequency; no dysuria and no hematuria Musculoskeletal: no limited range of motion and no muscle weakness Integumentary: no rash and no wounds Neurologic: no localized weakness, no generalized weakness and no confusion Psychiatric: no behavioral changes Physical Exam Physical Exam: General Appearance: WD/WN, appears acutely ill, pale Head: normocephalic, atraumatic Eyes: normal inspection, PERRL, EOMI ENT: hearing grossly normal, pharynx normal (dry mucous membranes). + L IJ central line in place, no bleeding Neck: supple, no JVD, no adenopathy Respiratory/Chest: lungs clear to auscultation. No wheezes, rales or rhonci. No respiratory distress or accessory muscle use Cardiovascular: regular rate, irregular rhythm, no murmur appreciated, normal peripheral pulses, trace BLE edema Abdomen/GI: normal bowel sounds, soft, non-tender to palpation Extremities/Musculoskelatal: normal inspection, no calf tenderness, normal capillary refill Neurologic/Psych: alert, normal mood/affect, oriented x 3. Slow to respond to questions but at mentation baseline, per family Skin: pale, warm/dry Results & Data Vital Signs (Past 12 Hours) Vital Signs Temp Pulse Pulse Resp BP BP Pulse Ox 01/31/19 17:00 102 H 20 145/80 H 99 01/31/19 14:27 150/88 H 98 01/31/19 14:00 99 H 9 L 161/87 H 95 01/31/19 13:30 93 H 20 143/80 H 98 01/31/19 13:05 103 H 26 H 143/86 H 100 01/31/19 13:01 88 15 143/86 H 97 01/31/19 12:31 100 H 27 H 126/74 98 01/31/19 12:01 66 13 147/76 H 98 01/31/19 11:30 92 H 17 140/82 97 01/31/19 11:01 85 16 116/82 98 01/31/19 10:41 90 27 H 134/88 97 01/31/19 10:13 87 20 146/74 H 95 01/31/19 09:46 97 H 20 146/96 H 98 01/31/19 09:31 102 H 16 149/91 H 98 01/31/19 09:16 99 H 26 H 148/96 H 98 01/31/19 09:11 96 01/31/19 09:00 104 H 22 142/83 H 96 01/31/19 08:17 36.7 C 109 H 18 147/78 H 97 Laboratory Results Short CBC 01/31/19 01/31/19 01/31/19 Range/Units 08:52 08:52 13:10 WBC 9.72 (4.8-10.8) K/uL Hgb 8.4 L 8.4 L (14.0-18.0) g/dL Hct 27.1 L 27.4 L (42-52) % Plt Count 241 (130-400) K/uL Troponin I 0.159 H* (0-0.045) ng/ml 01/31/19 Range/Units 19:32 WBC (4.8-10.8) K/uL Hgb 8.8 L (14.0-18.0) g/dL Hct 27.8 L (42-52) % Plt Count (130-400) K/uL Troponin I (0-0.045) ng/ml BMP 01/31/19 08:52 Sodium 142 Potassium 3.9 Chloride 109 H Carbon Dioxide 26 BUN 22 H Creatinine 1.22 Glucose 146 H Calcium 8.9 Cardiac Enzymes 01/31/19 Range/Units 08:52 Troponin I 0.159 H* (0-0.045) ng/ml Liver Function 01/31/19 Range/Units 08:52 Total Bilirubin 0.6 (0.2-1) mg/dl AST 31 (15-37) U/L ALT 31 (12-78) U/L Alkaline Phosphatase 110 (45-117) U/L Albumin 2.8 L (3.4-5.0) gm/dl Diagnostic Findings CXR: IMPRESSION: 1. No pneumothorax following placement of a left internal jugular central line. Catheter tip projects over the brachiocephalic vein confluence/proximal SVC. 2. Small bilateral pleural effusions. Pulmonary vascular congestion, improved since prior exam. Abd/pelvis CTA: IMPRESSION: 1. Motion degraded exam. 2. 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 No aneurysm, acute dissection or proximal branch occlusion identified. 3. 40% luminal narrowing at the origin of the celiac trunk secondary to mixed plaque formation. 4. Fluid-filled loops of small and large bowel are noted without bowel obstruction. Cortically clinically to exclude enteritis with diarrheal illness. 5. Prostamegaly with urinary bladder distention and wall thickening suggestive of chronic bladder outlet obstruction. Correlate with urinalysis to exclude cystitis. 6. Small pleural effusions with bibasilar groundglass densities suggestive of atelectasis or pneumonitis. 7. Cardiomegaly. GI Bleed scan nuclear medicine: IMPRESSION: No evidence of gastrointestinal bleed. Supervising Physician Co-Signing Physician Notes Patient is an 88-year-old man with history of multiple medical problems who recently was evaluated for GI bleed and was thoroughly investigated with endo scopy, colonoscopy and capsule study and was found to have nonbleeding AVMs which were coagulated presents with history of rectal bleed which is bright red blood with some clots since yesterday. Patient is on Coumadin for chronic anticoagulation due to mechanical mitral ritika . Please review HPI for complete details of presentation. His hemoglobin was noted to be 8.8 today. INR is elevated at 2.3. Mild troponin elevation at 0.15. He denies any chest pain, shortness of breath, abdominal pain, nausea, hemoptysis. CT abdomen reviewed. Bleeding scan showed no evidence of GI bleed. Currently no active bleeding. On exam patient is chronically ill-appearing, elderly, no distress, normocephalic atraumatic neck-left central line, lungs are clear to auscultation, decreased breath sounds, S1-S2, metallic click, abdomen soft nontender, trace pedal edema, pallor,+ grossly no focal neurological deficits. Rectal bleeding in setting of chronic anticoagulation with Coumadin, therapeutic INR, history of diverticulosis of sigmoid colon, angiodysplastic lesions, external and internal hemorrhoids, AVMs. Monitor H&H, continue Protonix, transfuse PRBCs as needed. N.p.o. after midnight for EGD in the morning. Appreciate GI input. Hold Coumadin for now. If develops active bleeding will reverse INR as needed. Avoid aspirin, NSAIDs. Agree with consulting cardiology for input on second-de gree AV block management and for further anticoagulation recommendations. I personally reviewed the record. Patient is interviewed and examined at bedside. Patient's care is coordinated with Blessing Preston PA-C. Please refer to the documentation above for details of patient's presentation and for discussion of other issues. (1) GI bleed GI bleed type/associated pathology: unspecified gastrointestinal hemorrhage type Qualified Code(s): K92.2 - Gastrointestinal hemorrhage, unspecified
[2019-01-31] MEDS: SODIUM CHLORIDE 0.9% 1000ML 1,000 ML IV SCH ×2 (17:50→21:31)
[2019-01-31] MEDS ORDERED: GLUCOSE 10 TABS/TUBE PO PRN (19:05)
[2019-01-31] MEDS ORDERED: ACETAMINOPHEN 325 MG TAB PO PRN (19:05)
[2019-01-31] MEDS ORDERED: DEXTROSE 50% 50 ML SYRINGE IV PRN (19:05)
[2019-01-31] MEDS ORDERED: CARBOHYDRATES FOR HYPOGLYCEMIA PO PRN (19:05)
[2019-01-31] MEDS ORDERED: GLUCAGON FOR INJ 1 MG VIAL SQ PRN (19:05)
[2019-01-31] MEDS ORDERED: GLUCOSE 40% GEL 15 GM TUBE PO PRN (19:05)
[2019-01-31 19:38] LABS: Hematocrit (blood only) 27.8 % (42-52); Hemoglobin 8.8 g/dL (14.0-18.0)
[2019-01-31] MEDS ORDERED: SODIUM CHLORIDE 0.9% 250 ML IV PRN (20:24)
[2019-01-31] MEDS ORDERED: INSULIN ASPART 100 UNITS/ML 3 ML PEN SC SCH (21:00)
[2019-01-31] MEDS: TRAZODONE HCL 50 MG TAB PO SCH (21:30)
[2019-01-31] MEDS: TAMSULOSIN HCL 0.4 MG CAP PO SCH (21:30)
[2019-02-01 01:05] LABS: Hematocrit (blood only) 26.5 % (42-52); Hemoglobin 8.2 g/dL (14.0-18.0)
[2019-02-01] MEDS: SODIUM CHLORIDE 0.9% 1000ML 1,000 ML IV SCH ×2 (01:19→21:59)
[2019-02-01] MEDS: LEVOTHYROXINE SODIUM 75 MCG TABLET PO SCH (06:10)
[2019-02-01 06:12] LABS: Hematocrit (blood only) 25.5 % (42-52); Hemoglobin 8.1 g/dL (14.0-18.0); Mean Corpuscular Hgb Conc 31.8 g/dL (32-36); Mean Corpuscular Volume 91.1 fL (80-100); Mean Platelet Volume 9.5 fL (7.4-10.4); Nucleated RBC # (auto) 0.03 K/uL (0-0); Nucleated RBC % (auto) 0.4 %; Platelet Count 221 K/uL (130-400); RDW Coefficient of Variation 18.4 % (11.5-14.5); RDW Standard Deviation 57.6 fL (36.4-46.3); White Blood Count 8.99 K/uL (4.8-10.8)
[2019-02-01 06:33] LABS: INR 2.3 (0.9-1.1); Prothrombin Time 22.6 Seconds (9.0-12.0)
[2019-02-01] MEDS: INSULIN ASPART 100 UNITS/ML 3 ML PEN SC SCH ×3 (06:36→18:05)
[2019-02-01 06:39] LABS: Albumin Level 2.6 gm/dl (3.4-5.0); BUN Creatinine Ratio 14.6 (10-20); Calcium 8.2 mg/dl (8.5-10.1); Creatinine Clr Calc Pharmacy 37.1 ml/min; Est GFR (African American) 57.8; Est GFR (Non-African American) 49.9; Potassium 3.6 mmol/L (3.5-5.1)
[2019-02-01 06:42] LABS: Bilirubin,Total 0.9 mg/dl (0.2-1); Globulin 2.6 gm/dl (2.5-4.0); Total Protein 5.2 gm/dl (6.4-8.2)
[2019-02-01] MEDS: FOLIC ACID 1 MG TAB PO SCH (08:11)
[2019-02-01] MEDS: FERROUS SULFATE 325 MG TAB PO SCH ×2 (08:11→17:22)
[2019-02-01] MEDS ORDERED: PANTOprazole 40 MG TAB PO SCH (09:00)
[2019-02-01] MEDS ORDERED: PANTOprazole 40 MG in SYRINGE 0 ML IV SCH (09:00)
--- NOTE | 2019-02-01 09:07 | Gastroenterology Progress Note ---
Date of Service February 01, 2019 Assessment & Plan (1) GI bleed: 88 year old male with history of MVR x 3, AAA repair on coumadin w/ recent admission for obscure GIB w/ negative EGD/Colonoscopy x 2 and negative capsule who was restarted on coumadin w/ lovenox bridge on 01/25/19 who developed painless rectal bleeding last evening x 3 episodes. No melena, no prior report of coffee ground emesis or hematemesis. He is awake, alert and oriented w/o leukocytosis. HGB 8.1 largely stable from OP value of 9.1 w/o BUN elevation. INR is 2.3. Troponin trended, elevated 0.159 w/o report of CP, SOB. Since admission no further episodes of GI blood loss. Repeat endoscopy at this point in time likely low yield. - No GI contraindication to diet this AM but will keep NPO until evaluated by cardiology - No current plan for repeat endoscopic evaluation - PO PPI - Trend H&H - Monitor and document all GI output - Transfuse PRN HGB < 8 per the primary service - I did discuss safety of lobsterman coumadin use given recurrent episodes of GIB and would recommend ongoing conversation regarding this with his regular outpatient prescriber Thank you for allowing us to participate in the care of this patient. Please call with any acute changes, questions or concerns. Please see addendum below with additional recommendation from my supervising physician. Attg add: I interviewed and exmained pt, reviewed chart and labs. He has no further bleeding, and CTA and bleeding scan are without acute bleed. He is at high risk for recurrent bleeding with resumption of anti-coagulation; presumably, given his MVR, he is at also at high risk of thromboembolism. There is no way to mitigate his risk of recurrent GIB, and yield of repeat endoscopic w/u is likely low in the absence of acute ongoing GIB. At present, he is ok to resume anti-coagulation, given cessation of bleeding. The decision to continue long - term anti-coagulation should be made by his outpt prescriber. He is ok for d/c tomorrow if no recurrence of GIB. Subjective Pt was seenand evaluated, chart reviewed. CTA and bleeding scan negative. No further BM or report of rectal bleeding since admission. No melena. Overall feels well. No abdominal pain. No nausea, vomiting. Denies UGI symptoms specifically no coffee ground emesis or hematemesis. No fever, chills, CP, SOB. Bleeding scan: No evidence of gastrointestinal bleed. 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 No aneurysm, acute dissection or proximal branch occlusion identified.40% luminal narrowing at the origin of the celiac trunk secondary to mixed plaque formation.Fluid-filled loops of small and large bowel are noted without bowel obstruction. Cortically clinically to exclude enteritis with diarrheal illness.Prostamegaly with urinary bladder distention and wall thickening suggestive of chronic bladder outlet obstruction. Correlate with urinalysis to exclude cystitis.Small pleural effusions with bibasilar groundglass densities suggestive of atelectasis or pneumonitis. Cardiomegaly. VCE 01/22/19: bilious fluid throughout, no blood identified EGD 01/22/19: Small hiatal hernia.Successful completion of the Video CapsuleEnteroscope placement. Colonoscopy 01/22/19: Diverticulosis in the sigmoid colon. Three non-bleeding colonic angiodysplastic lesions.Treated with argon plasma coagulation (APC). Internal hemorrhoids. The examined portion of the ileum was normal. COMMENT: It is unlikely that these three small AVMsled to the clinically significant GI bleeding. Colonoscopy 01/18/19: Non-thrombosed external hemorrhoids found on digital rectal exam.Internal hemorrhoids. Blood in the terminal ileum. Blood in the entire examined colon. No specimens collected. EGD 01/17/19: Normal esophagus.Z-line regular, 39 cm from the incisors.Normal stomach. Normal examined duodenum. No specimens collected. Review of Systems Constitutional: no fever, no chills, no fatigue and no weakness Respiratory: no cough, no chest congestion, no dyspnea and no wheezing Cardiovascular: no chest pain, no radiating jaw, neck or arm pain, no dyspnea on exertion and no palpitations Gastrointestinal: no abdominal pain, no nausea, no vomiting, no coffee ground emesis, no hematemesis, no blood in stools (no BM or rectal bleeding since early AM 01/31/19) and no melena Physical Exam Constitutional: well developed, + ill appearing (chronically ill) and average body habitus; no acute distress Neck: trachea midline Respiratory: normal respiratory effort, lungs clear to auscultation no respiratory distress and no labored breathing Cardiovascular: Rate/Rhythm: regular rate and regular rhythm Heart Sounds: no gallop and no murmur Gastrointestinal (Abdomen): normal bowel sounds, soft, nontender, no he patosplenomegaly Percussion/Palpation: no guarding, abdomen not rigid, no abdominal mass and no ascites Skin: no rashes, warm and dry Psychiatric: A+Ox3, euthymic affect Results & Data Vital Signs (Past 12 Hours) Vital Signs Temp Pulse Pulse Resp BP Pulse Ox 02/01/19 07:44 37.0 C 104 H 18 132/72 99 02/01/19 03:02 37.1 C 101 H 20 143/78 H 95 02/01/19 01:30 121 H 02/01/19 00:01 37.2 C 97 H 18 132/70 97 (1) GI bleed GI bleed type/associated pathology: unspecified gastrointestinal hemorrhage type Qualified Code(s): K92.2 - Gastrointestinal hemorrhage, unspecified
--- NOTE | 2019-02-01 09:31 | Cardiology Progress Note ---
Date of Service February 01, 2019 Assessment & Plan (1) Elevated troponin: His troponin was elevated at 0.147 on arrival and trended down to 0.134. He denies angina. ECG shows no acute ischemic changes. The troponin elevation was likely secondary to demand ischemia in the setting of acute blood loss anemia. No evidence of ACS at this time. (2) GI bleed: He is being worked up by GI. Will defer the decision to restart anticoagulation therapy to GI. Could consider the use of heparin in the inpatient setting. (3) H/O mitral valve replacement with mechanical valve: No significant mitral valve stenosis documented by echo during his recent admission at [facility]. Continue to monitor over time. Will defer decision regarding anticoagulation therapy to GI given his significant blood loss anemia. 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 Continue to monitor on telemetry. Would refrain from utilizing any AV trisha blocking agents in the future. No indication for pacemaker implantation at this time. (5) Cardiomyopathy: LV EF 37% by echo at [facility]. He appears euvolemic on exam. Would not initiate a beta bindu given his second degree AV block. Recommend starting a low dose ALMAZ inhibitor such as lisinopril 5 mg daily. Patient discussed with Dr. Obrien, and the plan was made in collaboration with him. Supervising Physician Co-Signing Physician Notes Pt seen and examined. Agree with Sue Hollis's assessment and plan. Subjective Mr. Chavez is an 88-year-old male with a past medical history significant for mechanical mitral valve replacement ([employer] Kenny #[id number]) in 1985, AAA repair in 1985, hypertension, hypercholesterolemia, diabetes mellitus, CKD, and recent GI bleeding who presented to the ED yesterday due to recurrent blood in his his stool. He presented to the emergency room at [facility] on 01/16/19 and was found have a hemoglobin 4.7. His INR was reportedly supratherapeutic, and he he was treated with Vitamin K and Kaycentra. He was transferred to [facility] for further care. He underwent colonoscopy here which showed blood throughout the entire colon and ileum. He was subsequently transferred to [facility]. A repeat EGD and Colonoscopy was done there which showed no evidence of active bleeding. A small bowel capsule study was done which was also negative for acute bleeding. His anticoagulation was restarted with Lovenox bridge to Coumadin. He was transfused multiple units PRBC. During patient's admission at [facility], he was noted to have second-degree heart block type I, and his diltiazem and digoxin were discontinued. Patient also underwent an echocardiogram which showed reduced LV systolic function with an EF of 37%. Significant mitral valve stenosis across the mitral valve prosthesis was absent. He was discharged from [facility] on 01/25/19. He presented to the ED yesterday morning with painless rectal bleeding beginning earlier in the morning. Hemoglobin on arrival was 8.4. INR was 2.3. Troponin was elevated at 0.159 which trended down to 0.134. He has been seen by GI who ordered a bleeding scan, which showed no evidence of GI bleed. His anticoagulation therapy is currently on hold. The patient is asymptomatic this morning. He denies chest pain or shortness of breath. He has not noted any lower extremity edema. He denies palpitations, lightheadedness, syncope, or presyncope. He denies cerebrovascular symptoms. As noted in HPI. All other ROS are reviewed and otherwise negative at this time. Physical Exam Physical Exam: Constitutional: Alert, oriented, in no acute distress HEENT: Head is atraumatic and normocephalic. EOMs intact. Sclera anicteric. Face is symmetric. No perioral cyanosis. Mucous membranes moist. Neck: Supple, no JVD Pulmonary: Normal respiratory effort, clear to auscultation bilaterally Cardiac: Regular rate and rhythm, crisp mechanical valve sounds, no gallops, no rubs, no obvious murmurs Extremities: No clubbing, cyanosis, or significant edema. Pulses intact Abdomen: Normal bowel sounds, soft, non-tender, no abdominal mass palpated Skin: Normal skin color, turgor, and pigmentation, no rash, no skin lesions Neurological: Oriented to person, place, and time Results & Data Vital Signs (Past 12 Hours) Vital Signs Temp Pulse Pulse Resp BP Pulse Ox 02/01/19 07:44 37.0 C 104 H 18 132/72 99 02/01/19 03:02 37.1 C 101 H 20 143/78 H 95 02/01/19 01:30 121 H 02/01/19 00:01 37.2 C 97 H 18 132/70 97 Laboratory Results Laboratory Results WBC 8.99 K/uL (4.8-10.8) 02/01/19 05:58 RBC 2.80 M/uL (4.7-6.1) L 02/01/19 05:58 Hgb 8.1 g/dL (14.0-18.0) L 02/01/19 05:58 POC Hgb 8.8 g/dl (14.0-18.0) L 01/31/19 08:56 Hct 25.5 % (42-52) L 02/01/19 05:58 POC Hct 26 % (42-52) L 01/31/19 08:56 MCV 91.1 fL (80-100) 02/01/19 05:58 MCH 28.9 pg (25-34) 02/01/19 05:58 MCHC 31.8 g/dL (32-36) L 02/01/19 05:58 RDW Std Deviation 57.6 fL (36.4-46.3) H 02/01/19 05:58 RDW Coeff of Ayo 18.4 % (11.5-14.5) H 02/01/19 05:58 Plt Count 221 K/uL (130-400) 02/01/19 05:58 MPV 9.5 fL (7.4-10.4) 02/01/19 05:58 Immature Gran % (Auto) 1.9 % 01/31/19 08:52 Neut % (Auto) 77.2 % 01/31/19 08:52 Lymph % (Auto) 9.3 % 01/31/19 08:52 Prentiss % (Auto) 10.5 % 01/31/19 08:52 Eos % (Auto) 1.0 % 01/31/19 08:52 Baso % (Auto) 0.1 % 01/31/19 08:52 Immature Gran # (Auto) 0.18 K/uL (0.00-0.02) H 01/31/19 08:52 Neut # (Auto) 7.51 K/uL (1.4-6.5) H 01/31/19 08:52 Lymph # (Auto) 0.90 K/uL (1.2-3.4) L 01/31/19 08:52 Prentiss # (Auto) 1.02 K/uL (0.11-0.59) H 01/31/19 08:52 Eos # (Auto) 0.10 K/uL (0-0.5) 01/31/19 08:52 Baso # (Auto) 0.01 K/uL (0-0.2) 01/31/19 08:52 Absolute Nucleated RBC 0.03 K/uL (0-0) H 02/01/19 05:58 Nucleated RBC % (auto) 0.4 % 02/01/19 05:58 PT 22.6 Seconds (9.0-12.0) H 02/01/19 05:58 INR 2.3 (0.9-1.1) H 02/01/19 05:58 APTT 35.6 Seconds (21.0-31.0) H 01/31/19 08:52 PTT Ratio 1.3 01/31/19 08:52 POC Sodium 141 mEq/L (135-144) 01/31/19 08:56 Sodium 142 mmol/L (136-145) 02/01/19 05:58 POC Potassium 3.9 mEq/L (3.3-5.0) 01/31/19 08:56 Potassium 3.6 mmol/L (3.5-5.1) 02/01/19 05:58 POC Chloride 105 mEq/L (101-112) 01/31/19 08:56 Chloride 109 mmol/L (98-107) H 02/01/19 05:58 Carbon Dioxide 29 mmol/L (21-32) 02/01/19 05:58 POC Total CO2 22 mEq/l (24-31) L 01/31/19 08:56 Anion Gap 4.0 (3-11) 02/01/19 05:58 POC Anion Gap 19.0 mmol/L (16-25) 01/31/19 08:56 POC BUN 21 mg/dl (7-18) H 01/31/19 08:56 BUN 19 mg/dl (7-18) H 02/01/19 05:58 Creatinine 1.29 mg/dl (0.6-1.4) 02/01/19 05:58 POC Creatinine 1.2 mg/dl (0.6-1.3) 01/31/19 08:56 Est Cr Clr Drug Dosing 37.1 ml/min 02/01/19 05:58 Est GFR ( Amer) 57.8 02/01/19 05:58 Est GFR (Non-Af Amer) 49.9 02/01/19 05:58 BUN/Creatinine Ratio 14.6 (10-20) 02/01/19 05:58 Glucose 111 mg/dl (70-99) H 02/01/19 05:58 POC Glucose 128 (70-99) H 02/01/19 06:31 POC Glucose (other) 155 mg/dl (70-99) H 01/31/19 08:56 Calcium 8.2 mg/dl (8.5-10.1) L 02/01/19 05:58 POC Ioniz Calcium Jose Roberto 1.21 mmol/l (1.12-1.32) 01/31/19 08:56 Total Bilirubin 0.9 mg/dl (0.2-1) 02/01/19 05:58 AST 21 U/L (15-37) 02/01/19 05:58 ALT 22 U/L (12-78) 02/01/19 05:58 Alkaline Phosphatase 105 U/L (45-117) 02/01/19 05:58 Troponin I 0.134 ng/ml (0-0.045) H* 02/01/19 00:47 Total Protein 5.2 gm/dl (6.4-8.2) L 02/01/19 05:58 Albumin 2.6 gm/dl (3.4-5.0) L 02/01/19 05:58 Globulin 2.6 gm/dl (2.5-4.0) 02/01/19 05:58 Albumin/Globulin Ratio 1.0 (0.9-2) 02/01/19 05:58 POC Stool Occult Blood Positive (Negative) A 01/31/19 08:55 Blood Type O Negative 01/31/19 08:52 Antibody Screen POSITIVE A 01/31/19 08:52 Antibody Identification Anti-Jkb 01/31/19 08:52 Crossmatch See Detail 01/31/19 08:52 Diagnostic Findings ECGs and telemetry reviewed. He has evidence of sinus rhythm with first degree AV block at times as well as second-degree AV block Mobitz type I. PVCs and PACs. Echo 01/21/19: LV EF 37%. Diffuse hypokinesis. Normal RV size and systolic function. Mitral valve prosthetic regurgitation not assessed. Significant mitral valve prosthesis stenosis is absent. Mean diastolic gradient across the mitral prosthesis is 5 mmHg. Mild TR. Aortic root borderline enlarged (3.7 cm). Moderate pulmonary hypertension with estimated pulmonary artery systolic pressure of 52 mmHg. (1) GI bleed GI bleed type/associated pathology: unspecified gastrointestinal hemorrhage type Qualified Code(s): K92.2 - Gastrointestinal hemorrhage, unspecified
--- NOTE | 2019-02-01 21:34 | Hospitalist Progress Note ---
Date of Service February 01, 2019 Assessment & Plan (1) GI bleed: Recurrent GI bleeding on warfarin therapy for mechanical mitral valve replacement. Has undergone recent upper and lower endoscopic evaluations as well as video capsule endoscopy. Only findings were some nonbleeding AVMs in the colon that were cauterized. Hemoglobin was 8.4 at the time of admission and fell to 8.1 this morning. GI consulted. Repeat endoscopy not recommended at this time. Bleeding scan ordered and is in process. (2) Acute on chronic blood loss anemia: Baseline hemoglobin around 10-12. Recent GI bleeding with associated acute blood loss anemia. Hemoglobin this morning 8.1. Transfuse for hemoglobin threshold less than 8 unless patient symptomatic at higher levels. (3) H/O mitral valve replacement with mechanical valve: On warfarin for mechanical mitral valve replacement. INR 2.3 at time of admission. INR this morning = 2.3. High risk for cardioembolism. Maintain anticoagulation unless actively bleeding. 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 (5) Cardiomyopathy: History of cardiomyopathy with LVEF of 37% per recent cardiac imaging. No signs/symptoms of CHF. Not on ALMAZ or ARB because of significant renal insufficiency in past. No beta-bindu at this time because of second-degree heart block. (6) Elevated troponin: Troponin slightly elevated at 0.159 and trending downward. No anginal symptoms. Probable demand ischemia secondary to GI bleeding. (7) HTN (hypertension): Monitor and titrate therapy. (8) CKD (chronic kidney disease) stage 3, GFR 30-59 ml/min: Fluctuating renal function during recent admissions. Creatinine was as high as 3.95 in September 2018. Creatinine this morning = 1.29. Follow. (9) T2DM (type 2 diabetes mellitus): Diabetes mellitus type 2 managed with glipizide. Hold glipizide during hospital stay. Insulin coverage as needed. Fasting blood sugar this morning 128. (10) HLD (hyperlipidemia): Continue atorvastatin. (11) Hypothyroidism: Continue levothyroxine. (12) DVT (deep venous thrombosis): On warfarin with therapeutic INR. (13) Discharge planning issues: Anticipated discharge to home. Family Medicine follow-up with Dr. Ivan. Cardiology follow-up with Dr. Acevedo. Subjective Recheck for GI bleed and other problems. Patient seen in their room around 1820. Son visiting. Admitted yesterday with rectal bleeding. On warfarin for mechanical mitral valve replacement. Recurrent episode of hematochezia this afternoon, but not as voluminous as yesterday. No chest pain, lightheadedness, shortness of breath. Review of Systems: Constitutional- no fever. Cardiac- no chest pain. Pulmonary- no cough or SOB. GI- as noted above - no urinary symptoms. Otherwise, as noted above. Physical Exam Constitutional: no acute distress Respiratory: no respiratory distress Auscultation: lungs clear to auscultation bilaterally Cardiovascular: Rate/Rhythm: regular rate and regular rhythm Heart Sounds: + murmur (mechanical valve sounds mitral position); no gallop and no cardiac rub Vessels: no JVD Extremities: no calf tenderness and no edema Gastrointestinal (Abdomen): normal bowel sounds, soft, nontender, no hepatosplenomegaly Skin: no rashes, warm and dry Psychiatric: Orientation: alert and oriented x 3 Results & Data Vital Signs (Past 12 Hours) Vital Signs Temp Pulse Resp BP Pulse Ox 02/01/19 15:23 37.0 C 102 H 17 140/75 95 02/01/19 11:00 36.9 C 100 H 20 133/77 96 Laboratory Results Laboratory Results - last 24 hr 01/31/19 02/01/19 02/01/19 08:52 05:58 05:58 WBC 8.99 RBC 2.80 L Hgb 8.1 L Hct 25.5 L MCV 91.1 MCH 28.9 MCHC 31.8 L RDW Std Deviation 57.6 H RDW Coeff of Ayo 18.4 H Plt Count 221 MPV 9.5 Absolute Nucleated RBC 0.03 H Nucleated RBC % (auto) 0.4 PT INR Sodium 142 Potassium 3.6 Chloride 109 H Carbon Dioxide 29 Anion Gap 4.0 BUN 19 H Creatinine 1.29 Est Cr Clr Drug Dosing 37.1 Est GFR ( Amer) 57.8 Est GFR (Non-Af Amer) 49.9 BUN/Creatinine Ratio 14.6 Glucose 111 H POC Glucose Calcium 8.2 L Total Bilirubin 0.9 AST 21 ALT 22 Alkaline Phosphatase 105 Total Protein 5.2 L Albumin 2.6 L Globulin 2.6 Albumin/Globulin Ratio 1.0 Antibody Identification Anti-Jkb 02/01/19 02/01/19 02/01/19 05:58 06:31 11:21 WBC RBC Hgb Hct MCV MCH MCHC RDW Std Deviation RDW Coeff of Ayo Plt Count MPV Absolute Nucleated RBC Nucleated RBC % (auto) PT 22.6 H INR 2.3 H Sodium Potassium Chloride Carbon Dioxide Anion Gap BUN Creatinine Est Cr Clr Drug Dosing Est GFR ( Amer) Est GFR (Non-Af Amer) BUN/Creatinine Ratio Glucose POC Glucose 128 H 129 H Calcium Total Bilirubin AST ALT Alkaline Phosphatase Total Protein Albumin Globulin Albumin/Globulin Ratio Antibody Identification 02/01/19 02/02/19 18:04 00:02 WBC RBC Hgb Hct MCV MCH MCHC RDW Std Deviation RDW Coeff of Ayo Plt Count MPV Absolute Nucleated RBC Nucleated RBC % (auto) PT INR Sodium Potassium Chloride Carbon Dioxide Anion Gap BUN Creatinine Est Cr Clr Drug Dosing Est GFR ( Amer) Est GFR (Non-Af Amer) BUN/Creatinine Ratio Glucose POC Glucose 123 H 130 H Calcium Total Bilirubin AST ALT Alkaline Phosphatase Total Protein Albumin Globulin Albumin/Globulin Ratio Antibody Identification (1) GI bleed GI bleed type/associated pathology: unspecified gastrointestinal hemorrhage type Qualified Code(s): K92.2 - Gastrointestinal hemorrhage, unspecified
[2019-02-01] MEDS: TRAZODONE HCL 50 MG TAB PO SCH (21:57)
[2019-02-01] MEDS: TAMSULOSIN HCL 0.4 MG CAP PO SCH (21:59)
[2019-02-01] MEDS: PANTOprazole 40 MG TAB PO SCH (21:59)
[2019-02-02] MEDS: INSULIN ASPART 100 UNITS/ML 3 ML PEN SC SCH ×6 (00:03→20:31)
[2019-02-02] MEDS: LEVOTHYROXINE SODIUM 75 MCG TABLET PO SCH (05:44)
[2019-02-02] MEDS: FOLIC ACID 1 MG TAB PO SCH (07:37)
[2019-02-02] MEDS: PANTOprazole 40 MG TAB PO SCH ×2 (07:37→20:34)
[2019-02-02] MEDS: FERROUS SULFATE 325 MG TAB PO SCH ×2 (07:37→17:15)
--- NOTE | 2019-02-02 08:45 | Gastroenterology Progress Note ---
Date of Service February 02, 2019 Assessment & Plan (1) GI bleed: 88 year old male with history of MVR x 3, AAA repair on coumadin w/ recent admission for obscure GIB w/ negative EGD/Colonoscopy x 2 and negative capsule who was restarted on coumadin w/ lovenox bridge on 01/25/19 who developed painless rectal bleeding last evening x 3 episodes. No melena, no prior report of coffee ground emesis or hematemesis. He is awake, alert and oriented w/o leukocytosis. HGB this AM pending, previously stable from OP value of 9.1 w/o BUN elevation. INR is 2.3. Troponin trended, elevated 0.159 w/o report of CP, SOB. Since admission one episode of BRBPR, delayed bleeding scan was negative last evening. Repeat endoscopy at this point in time likely low yield. - Await AM lab - No current plan for repeat endoscopic evaluation - PO PPI - Trend H&H - Monitor and document all GI output - Transfuse PRN HGB < 8 per the primary service - I did discuss safety of skilled nursing coumadin use given recurrent episodes of GIB and would recommend ongoing conversation regarding this with his regular outpatient prescriber. He is at high risk for recurrent bleeding with resumption of anti-coagulation; presumably, given his MVR, he is at also at high risk of thromboembolism. There is no way to mitigate his risk of recurrent GIB, and yield of repeat endoscopic w/u is likely low in the absence of acute ongoing GIB. Thank you for allowing us to participate in the care of this patient. Please call with any acute changes, questions or concerns. Please see addendum below with additional recommendation from my supervising physician. Supervising Physician Co-Signing Physician Notes I saw and evaluated the patient. He had presented several weeks ago with a similar history. I suspect that the patient's bleeding is likely from small bowel AVMs. Should recurrent bleeding be noted then perhaps the patient is best served by transfer to a tertiary center with double-balloon enteroscopy capabilities. Perhaps it would be worthwhile discussing with cardiology about the need for anticoagulation and what regimen they would recommend to reduce his chance of recurrent bleeding. Please call with any additional questions or concerns during the remainder hospital admission. We will sign off for the present time. Subjective Pt was seen and evaluated, chart reviewed. Delayed bleeding scan was negative for GI source. Denies further episodes of bleeding. AM labs yet to return. Bleeding scan: No evidence of gastrointestinal bleed. 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 No aneurysm, acute dissection or proximal branch occlusion identified.40% luminal narrowing at the origin of the celiac trunk secondary to mixed plaque formation.Fluid-filled loops of small and large bowel are noted without bowel obstruction. Cortically clinically to exclude enteritis with diarrheal illness.Prostamegaly with urinary bladder distention and wall thickening suggestive of chronic bladder outlet obstruction. Correlate with urinalysis to exclude cystitis.Small pleural effusions with bibasilar groundglass densities suggestive of atelectasis or pneumonitis. Cardiomegaly. VCE 01/22/19: bilious fluid throughout, no blood identified EGD 01/22/19: Small hiatal hernia.Successful completion of the Video CapsuleEnteroscope placement. Colonoscopy 01/22/19: Diverticulosis in the sigmoid colon. Three non-bleeding colonic angiodysplastic lesions.Treated with argon plasma coagulation (APC). Internal hemorrhoids. The examined portion of the ileum was normal. COMMENT: It is unlikely that these three small AVMsled to the clinically significant GI bleeding. Colonoscopy 01/18/19: Non-thrombosed external hemorrhoids found on digital rectal exam.Internal hemorrhoids. Blood in the terminal ileum. Blood in the entire examined colon. No specimens collected. EGD 01/17/19: Normal esophagus.Z-line regular, 39 cm from the incisors.Normal stomach. Normal examined duodenum. No specimens collected. Review of Systems Constitutional: no fever, no chills, no fatigue and no anorexia Respiratory: no cough, no dyspnea, no snoring and no wheezing Cardiovascular: no chest pain, no chest pain at rest, no dyspnea and no claudication Gastrointestinal: no abdominal pain, no belching, no heartburn, no coffee ground emesis, no hematemesis, no blood in stools and no melena Physical Exam Constitutional: well developed, + ill appearing (chronically ill) and average body habitus; no acute distress Neck: trachea midline Respiratory: normal respiratory effort, lungs clear to auscultation no resp iratory distress and no labored breathing Cardiovascular: Rate/Rhythm: regular rate and regular rhythm Heart Sounds: no gallop and no murmur Gastrointestinal (Abdomen): normal bowel sounds, soft, nontender, no hepatosplenomegaly Percussion/Palpation: no guarding, abdomen not rigid, no abdominal mass and no ascites Skin: no rashes, warm and dry Psychiatric: A+Ox3, euthymic affect Results & Data Vital Signs (Past 12 Hours) Vital Signs Temp Pulse Resp BP Pulse Ox 02/02/19 07:45 36.9 C 94 H 20 131/74 92 02/02/19 03:45 37.5 C 92 H 18 123/73 95 02/01/19 23:49 37.2 C 104 H 19 131/99 97 Laboratory Results 02/02/19 02/02/19 02/01/19 Range/Units 05:42 00:02 18:04 POC Glucose 122 H 130 H 123 H (70-99) Antibody Identification 02/01/19 01/31/19 Range/Units 11:21 08:52 POC Glucose 129 H (70-99) Antibody Identification Anti-Jkb (1) GI bleed GI bleed type/associated pathology: unspecified gastrointestinal hemorrhage type Qualified Code(s): K92.2 - Gastrointestinal hemorrhage, unspecified
[2019-02-02 09:38] LABS: Basophils # (auto) 0.01 K/uL (0-0.2); Basophils % (auto) 0.1 %; Eosinophils # (auto) 0.08 K/uL (0-0.5); Eosinophils % (auto) 0.9 %; Hemoglobin 7.8 g/dL (14.0-18.0); Immature Granulocytes # (auto) 0.13 K/uL (0.00-0.02); Immature Granulocytes % (auto) 1.5 %; Lymphocytes # (auto) 1.02 K/uL (1.2-3.4); Lymphocytes % (auto) 11.7 %; Mean Corpuscular Hgb Conc 31.2 g/dL (32-36); Mean Corpuscular Volume 92.6 fL (80-100); Mean Platelet Volume 9.7 fL (7.4-10.4); Monocytes % (auto) 9.2 %; Neutrophils # (auto) 6.69 K/uL (1.4-6.5); Neutrophils % (auto) 76.6 %; Platelet Count 203 K/uL (130-400); RDW Coefficient of Variation 19.6 % (11.5-14.5); RDW Standard Deviation 62.6 fL (36.4-46.3); White Blood Count 8.73 K/uL (4.8-10.8)
[2019-02-02 09:59] LABS: INR 2.3 (0.9-1.1)
[2019-02-02 10:09] LABS: Albumin Level 2.6 gm/dl (3.4-5.0); BUN Creatinine Ratio 14.9 (10-20); Calcium 8.1 mg/dl (8.5-10.1); Creatinine Clr Calc Pharmacy 37.4 ml/min; Est GFR (African American) 58.3; Est GFR (Non-African American) 50.3; Potassium 3.8 mmol/L (3.5-5.1)
[2019-02-02 10:13] LABS: Bilirubin,Total 1.5 mg/dl (0.2-1); Globulin 2.6 gm/dl (2.5-4.0); Total Protein 5.2 gm/dl (6.4-8.2)
[2019-02-02 10:46] LABS: Anisocytosis Present; Schistocytes 1+; Tear Drop Cells 1+
--- NOTE | 2019-02-02 13:00 | Cardiology Progress Note ---
Date of Service February 02, 2019 Assessment & Plan (1) Elevated troponin: Troponin elevation was likely secondary to demand ischemia in the setting of acute blood loss anemia. No evidence of an acute coronary syndrome. (2) GI bleed: Workup in progress. Will defer the decision to restart anticoagulation therapy to GI. Could consider the use of intravenous heparin. (3) H/O mitral valve replacement with mechanical valve: No significant mitral valve stenosis documented by echocardiogram during his recent admission at [facility]. 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 Continue to monitor on telemetry. Would avoid all AV active medications. (5) Cardiomyopathy: LVEF = 37% by echocardiogram at [facility]. Would not initiate a beta bindu given his second degree AV block. Recommend starting a low dose ALMAZ inhibitor such as lisinopril 5 mg daily. Subjective The patient is resting comfortably in bed without complaints of chest pain or dyspnea. Physical Exam Physical Exam: In general is a pale, well-developed well-nourished white male lying supine in bed without complaints. HEENT exam is negative. Neck is supple with full carotid upstrokes. There are no carotid bruits. Jugular venous pressure is flat at 90 degrees. There is no thyromegaly. Cardiovascular exam reveals a regular rhythm with an occasional extrasystole. [place] mechanical valve sounds noted. No obvious murmurs. No S3. Lungs are clear without rales, rhonchi or wheezes. Chest reveals a well-healed midline scar. Abdomen is soft nontender without bruits. Well-healed midline scar is noted. Extremities reveal intact radial artery pulses bilaterally. Trace pretibial edema is noted. Results & Data Vital Signs (Past 12 Hours) Vital Signs Temp Pulse Resp BP Pulse Ox 02/02/19 10:32 37.0 C 95 02/02/19 07:45 36.9 C 94 H 20 131/74 92 02/02/19 03:45 37.5 C 92 H 18 123/73 95 Laboratory Results Laboratory Results - last 24 hr 01/31/19 02/01/19 02/02/19 08:52 18:04 00:02 WBC RBC Hgb Hct MCV MCH MCHC RDW Std Deviation RDW Coeff of Ayo Plt Count MPV Immature Gran % (Auto) Neut % (Auto) Lymph % (Auto) [place] % (Auto) Eos % (Auto) Baso % (Auto) Immature Gran # (Auto) Neut # (Auto) Lymph # (Auto) [place] # (Auto) Eos # (Auto) Baso # (Auto) Anisocytosis Tear Drop Cells Schistocytes PT INR Sodium Potassium Chloride Carbon Dioxide Anion Gap BUN Creatinine Est Cr Clr Drug Dosing Est GFR ( Amer) Est GFR (Non-Af Amer) BUN/Creatinine Ratio Glucose POC Glucose 123 H 130 H Calcium Total Bilirubin AST ALT Alkaline Phosphatase Total Protein Albumin Globulin Albumin/Globulin Ratio Antibody Identification Anti-Jkb 02/02/19 02/02/19 02/02/19 05:42 09:24 09:24 WBC RBC Hgb Hct MCV MCH MCHC RDW Std Deviation RDW Coeff of Ayo Plt Count MPV Immature Gran % (Auto) Neut % (Auto) Lymph % (Auto) [place] % (Auto) Eos % (Auto) Baso % (Auto) Immature Gran # (Auto) Neut # (Auto) Lymph # (Auto) [place] # (Auto) Eos # (Auto) Baso # (Auto) Anisocytosis Tear Drop Cells Schistocytes PT 22.0 H INR 2.3 H Sodium 141 Potassium 3.8 Chloride 110 H Carbon Dioxide 25 Anion Gap 6.0 BUN 19 H Creatinine 1.28 Est Cr Clr Drug Dosing 37.4 Est GFR ( Amer) 58.3 Est GFR (Non-Af Amer) 50.3 BUN/Creatinine Ratio 14.9 Glucose 116 H POC Glucose 122 H Calcium 8.1 L Total Bilirubin 1.5 H D AST 20 ALT 18 Alkaline Phosphatase 106 Total Protein 5.2 L Albumin 2.6 L Globulin 2.6 Albumin/Globulin Ratio 1.0 Antibody Identification 02/02/19 02/02/19 09:24 11:48 WBC 8.73 RBC 2.70 L Hgb 7.8 L Hct 25.0 L MCV 92.6 MCH 28.9 MCHC 31.2 L RDW Std Deviation 62.6 H RDW Coeff of Ayo 19.6 H Plt Count 203 MPV 9.7 Immature Gran % (Auto) 1.5 Neut % (Auto) 76.6 Lymph % (Auto) 11.7 [place] % (Auto) 9.2 Eos % (Auto) 0.9 Baso % (Auto) 0.1 Immature Gran # (Auto) 0.13 H Neut # (Auto) 6.69 H Lymph # (Auto) 1.02 L [place] # (Auto) 0.80 H Eos # (Auto) 0.08 Baso # (Auto) 0.01 Anisocytosis Present Tear Drop Cells 1+ Schistocytes 1+ PT INR Sodium Potassium Chloride Carbon Dioxide Anion Gap BUN Creatinine Est Cr Clr Drug Dosing Est GFR ( Amer) Est GFR (Non-Af Amer) BUN/Creatinine Ratio Glucose POC Glucose 121 H Calcium Total Bilirubin AST ALT Alkaline Phosphatase Total Protein Albumin Globulin Albumin/Globulin Ratio Antibody Identification Diagnostic Findings library monitor notes sinus rhythm with occasional episodes of second-degree Mobitz type I AV block. (1) GI bleed GI bleed type/associated pathology: unspecified gastrointestinal hemorrhage type Qualified Code(s): K92.2 - Gastrointestinal hemorrhage, unspecified
--- NOTE | 2019-02-02 13:42 | XRay Report ---
XR chest 1V portable HISTORY: 88 years-old Male GI bleed, ? CHF acute rectal bleeding COMPARISON: CTA 01/31/2019, nuclear medicine bleeding study 01/31/2019, chest radiograph 01/31/2019 TECHNIQUE: Portable AP view of the chest FINDINGS: Cardiac silhouette is enlarged, unchanged. Prior median sternotomy with cardiac valvular prosthesis. Mild pulmonary vascular congestion without pneumothorax, or overt pulmonary edema. Trace pleural effu sions. No lobar airspace consolidation. Degenerative changes of the shoulders and spine. IMPRESSION: 1. Cardiomegaly with mild pulmonary vascular congestion. 2. Trace pleural effusions. The above report was generated using voice recognition software. It may contain grammatical, syntax o r spelling errors. Electronically signed by: Bird Christopher M.D. 02/02/2019 1:40 PM
[2019-02-02] MEDS ORDERED: INSULIN ASPART 100 UNITS/ML 3 ML PEN SC SCH (16:42)
[2019-02-02] MEDS ORDERED: Nursing to Pharmacy Communication ONE (16:43)
[2019-02-02] MEDS ORDERED: SODIUM CHLORIDE 0.9% 250 ML IV PRN (17:01)
[2019-02-02] MEDS ORDERED: FUROSEMIDE 40 MG/4 ML VIAL IV SCH (17:15)
[2019-02-02] MEDS: SODIUM CHLORIDE 0.9% 1000ML 1,000 ML IV SCH (17:15)
[2019-02-02] MEDS: TRAZODONE HCL 50 MG TAB PO SCH (20:32)
[2019-02-02] MEDS: TAMSULOSIN HCL 0.4 MG CAP PO SCH (20:34)
--- NOTE | 2019-02-03 00:22 | Hospitalist Progress Note ---
Date of Service February 02, 2019 Assessment & Plan (1) GI bleed: Recurrent GI bleeding on warfarin therapy for mechanical mitral valve replacement. Has undergone recent upper and lower endoscopic evaluations as well as video capsule endoscopy. Only findings were some nonbleeding AVMs in the colon that were cauterized. Hemoglobin was 8.4 at the time of admission and fell to 8.1 this morning. GI consulted. Repeat endoscopy not recommended at this time. Bleeding scan did not show any specific active site of bleeding. (2) Acute on chronic blood loss anemia: Baseline hemoglobin around 10-12. Recent GI bleeding with associated acute blood loss anemia. Hemoglobin this morning 7.8. Transfuse for hemoglobin threshold less than 8 unless patient symptomatic at higher levels. Transfuse 1 unit pRBC's today. (3) H/O mitral valve replacement with mechanical valve: On warfarin for mechanical mitral valve replacement. INR 2.3 at time of admission. INR this morning = 2.3. High risk for cardioembolism. Maintain anticoagulation unless actively bleeding. 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 (5) Cardiomyopathy: History of cardiomyopathy with LVEF of 37% per recent cardiac imaging. Has some bibasilar rales today and chest x-ray shows CHF. 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 Not on ALMAZ or ARB because of significant renal insufficiency in past. No beta-bindu at this time because of second-degree heart block. Furosemide IV x 1 today prior to pRBC's. Check f/u chest x-ray tomorrow. (6) Elevated troponin: Troponin slightly elevated at 0.159 and trending downward. No anginal symptoms. Probable demand ischemia secondary to GI bleeding. (7) HTN (hypertension): Monitor and titrate therapy. (8) CKD (chronic kidney disease) stage 3, GFR 30-59 ml/min: Fluctuating renal function during recent admissions. Creatinine was as high as 3.95 in September 2018. Creatinine this morning = 1.28. Follow. (9) T2DM (type 2 diabetes mellitus): Diabetes mellitus type 2 managed with glipizide. Hold glipizide during hospital stay. Insulin coverage as needed. Fasting blood sugar this morning 116. (10) HLD (hyperlipidemia): Continue atorvastatin. (11) Hypothyroidism: Continue levothyroxine. (12) DVT (deep venous thrombosis): On warfarin with therapeutic INR. (13) Discharge planning issues: Anticipated discharge to home. Family Medicine follow-up with Dr. Ivan. Cardiology follow-up with Dr. Acevedo. Subjective Recheck for GI bleed and other problems. Patient seen in their room around 1000. Son visiting. Had some confusion last night. Recurrent episode of hematochezia during the night. No chest pain, lightheadedness, shortness of breath. Review of Systems: Constitutional- no fever. Cardiac- no chest pain. Pulmonary- no cough or SOB. GI- as noted above - no urinary symptoms. Otherwise, as noted above. Physical Exam Constitutional: no acute distress Respiratory: no respiratory distress Auscultation: + rales Cardiovascular: Rate/Rhythm: regular rate and regular rhythm Heart Sounds: + murmur (mechanical valve sounds mitral position); no gallop and no cardiac rub Vessels: no JVD Extremities: no calf tenderness and no edema Gastrointestinal (Abdomen): normal bowel sounds, soft, nontender, no hepatosplenomegaly Skin: no rashes, warm and dry Psychiatric: Orientation: alert and oriented x 3 Results & Data Vital Signs (Past 12 Hours) Vital Signs Temp Pulse Pulse Resp BP BP Pulse Ox 02/02/19 23:31 37.3 C 87 19 134/68 96 02/02/19 19:23 37.1 C 90 18 152/95 H 96 02/02/19 18:48 36.4 C L 97 H 16 139/64 96 02/02/19 18:18 37.2 C 100 H 18 121/67 96 02/02/19 18:03 36.8 C 96 H 18 126/67 96 02/02/19 17:47 37.4 C 93 H 18 124/78 95 02/02/19 15:07 36.6 C 99 H 18 126/68 96 Laboratory Results Abnormal Lab Results 01/31/19 02/02/19 02/02/19 08:52 05:42 09:24 WBC RBC Hgb Hct MCV MCH MCHC RDW Std Deviation RDW Coeff of Ayo Plt Count MPV Immature Gran % (Auto) Neut % (Auto) Lymph % (Auto) [place] % (Auto) Eos % (Auto) Baso % (Auto) Immature Gran # (Auto) Neut # (Auto) Lymph # (Auto) [place] # (Auto) Eos # (Auto) Baso # (Auto) Anisocytosis Tear Drop Cells Schistocytes PT INR Sodium 141 Potassium 3.8 Chloride 110 H Carbon Dioxide 25 Anion Gap 6.0 BUN 19 H Creatinine 1.28 Est Cr Clr Drug Dosing 37.4 Est GFR ( Amer) 58.3 Est GFR (Non-Af Amer) 50.3 BUN/Creatinine Ratio 14.9 Glucose 116 H POC Glucose 122 H Calcium 8.1 L Total Bilirubin 1.5 H D AST 20 ALT 18 Alkaline Phosphatase 106 Total Protein 5.2 L Albumin 2.6 L Globulin 2.6 Albumin/Globulin Ratio 1.0 Blood Type O Negative Antibody Screen POSITIVE A Antibody Identification Anti-Jkb Crossmatch See Detail 02/02/19 02/02/19 02/02/19 09:24 09:24 11:48 WBC 8.73 RBC 2.70 L Hgb 7.8 L Hct 25.0 L MCV 92.6 MCH 28.9 MCHC 31.2 L RDW Std Deviation 62.6 H RDW Coeff of Ayo 19.6 H Plt Count 203 MPV 9.7 Immature Gran % (Auto) 1.5 Neut % (Auto) 76.6 Lymph % (Auto) 11.7 [place] % (Auto) 9.2 Eos % (Auto) 0.9 Baso % (Auto) 0.1 Immature Gran # (Auto) 0.13 H Neut # (Auto) 6.69 H Lymph # (Auto) 1.02 L [place] # (Auto) 0.80 H Eos # (Auto) 0.08 Baso # (Auto) 0.01 Anisocytosis Present Tear Drop Cells 1+ Schistocytes 1+ PT 22.0 H INR 2.3 H Sodium Potassium Chloride Carbon Dioxide Anion Gap BUN Creatinine Est Cr Clr Drug Dosing Est GFR ( Amer) Est GFR (Non-Af Amer) BUN/Creatinine Ratio Glucose POC Glucose 121 H Calcium Total Bilirubin AST ALT Alkaline Phosphatase Total Protein Albumin Globulin Albumin/Globulin Ratio Blood Type Antibody Screen Antibody Identification Crossmatch 02/02/19 02/02/19 16:35 20:30 WBC RBC Hgb Hct MCV MCH MCHC RDW Std Deviation RDW Coeff of Ayo Plt Count MPV Immature Gran % (Auto) Neut % (Auto) Lymph % (Auto) [place] % (Auto) Eos % (Auto) Baso % (Auto) Immature Gran # (Auto) Neut # (Auto) Lymph # (Auto) [place] # (Auto) Eos # (Auto) Baso # (Auto) Anisocytosis Tear Drop Cells Schistocytes PT INR Sodium Potassium Chloride Carbon Dioxide Anion Gap BUN Creatinine Est Cr Clr Drug Dosing Est GFR ( Amer) Est GFR (Non-Af Amer) BUN/Creatinine Ratio Glucose POC Glucose 132 H 143 H Calcium Total Bilirubin AST ALT Alkaline Phosphatase Total Protein Albumin Globulin Albumin/Globulin Ratio Blood Type Antibody Screen Antibody Identification Crossmatch (1) GI bleed GI bleed type/associated pathology: unspecified gastrointestinal hemorrhage type Qualified Code(s): K92.2 - Gastrointestinal hemorrhage, unspecified
[2019-02-03 06:14] LABS: Hematocrit (blood only) 27.1 % (42-52); Hemoglobin 8.6 g/dL (14.0-18.0)
[2019-02-03 06:26] LABS: INR 1.9 (0.9-1.1); Prothrombin Time 18.5 Seconds (9.0-12.0)
[2019-02-03] MEDS: LEVOTHYROXINE SODIUM 75 MCG TABLET PO SCH (06:41)
[2019-02-03 06:42] LABS: BUN Creatinine Ratio 15.4 (10-20); Calcium 8.3 mg/dl (8.5-10.1); Creatinine Clr Calc Pharmacy 31.3 ml/min; Est GFR (Non-African American) 40.6; Potassium 3.4 mmol/L (3.5-5.1)
--- NOTE | 2019-02-03 07:01 | XRay Report ---
XR chest 1V portable CLINICAL HISTORY: 88 years-old Male presenting with CHF. TECHNIQUE: Portable upright AP view of the chest was obtained. COMPARISON: 02/02/2019. FINDINGS: Median sternotomy wires and prosthetic valve noted, also with prosthetic aortic valve. Cardiac silhou ette mildly enlarged. Minimal bibasilar opacities. Trace bilateral pleural effusions. No pneumothorax . Degenerative changes of the thoracic spine. Upper abdomen normal. IMPRESSION: 1. Cardiomegaly without overt evidence of volume overload on the current radiograph. No pulmonary ed angélica. 2. Trace bilateral pleural effusions. 3. Minimal bibasilar atelectasis. Electronically signed by: Rafi De Los Santos M.D. 02/03/2019 7:00 AM
[2019-02-03] MEDS: FERROUS SULFATE 325 MG TAB PO SCH ×2 (08:03→16:57)
[2019-02-03] MEDS: FOLIC ACID 1 MG TAB PO SCH (08:03)
[2019-02-03] MEDS: INSULIN ASPART 100 UNITS/ML 3 ML PEN SC SCH ×4 (08:03→20:45)
[2019-02-03] MEDS: PANTOprazole 40 MG TAB PO SCH ×2 (08:03→20:30)
--- NOTE | 2019-02-03 11:23 | Cardiology Progress Note ---
Date of Service February 03, 2019 Assessment & Plan (1) Elevated troponin: Troponin elevation was likely secondary to demand ischemia in the setting of acute blood loss anemia. No evidence of an acute coronary syndrome. (2) GI bleed: No definable source. It appears that the bleeding scan did not reveal a source. Hemoglobin relatively stable but not increasing. (3) H/O mitral valve replacement with mechanical valve: Mechanical mitral valve appears to be functioning well. However, lack of continuous anticoagulation will put him at risk for thromboembolic events. He has not had atrial fibrillation which would put him at the highest risk of thromboembolism. At this point there continues to be a debate regarding anticoagulation in the setting of recurrent severe gastrointestinal hemorrhage. His INR is slightly subtherapeutic today. Naturally, from a cardiology standpoint he would benefit from anticoagulation in the setting of a mechanical valve. 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 These episodes appear to be more related to sinus bradycardia rather than high-degree heart block. He continues to have evidence of Mobitz 1 conduction while awake. In the absence of symptoms or higher degree heart block, there is not appear to be any indication for more aggressive therapy such as pacing. (5) Cardiomyopathy: While he is known to have a significant cardiomyopathy and would benefit from more aggressive medical therapy, use of beta-blockers and Lawson inhibitors appears to be relatively contraindicated at this time. Subjective This morning the patient claims to be feeling well. He denies any symptoms of abdominal discomfort. He has been ambulatory around his room with minimal symptoms. He did not report dizziness or lightheadedness. He has not report feeling of presyncope. He has no sensation of palpitations. No chest pain. Review of Systems Review of Systems: Per HPI Physical Exam Physical Exam: The patient is alert and oriented. Mood and affect appeared normal. He answered all questions appropriately. HEENT: Pupils are equal and reactive to light and accommodation. Extraocular movements are intact. The sclerae are anicteric. Neuro: Cranial nerves intact Lungs: Clear to auscultation bilaterally. He has good air movement without use of accessory muscles. No rales wheezes or rhonchi. Cardiac: Heart demonstrates an irregular rate and rhythm. Mechanical S1 and S2. Very soft diastolic murmur. Pulses: The patient has palpable radial pulses bilaterally that are equal in intensity Extremities: He has pale nail beds and is pale overall. There is no cyanosis or clubbing. There is no edema. Skin: I did not appreciate any rashes on examination today. Results & Data Vital Signs (Past 12 Hours) Vital Signs Temp Pulse Resp BP Pulse Ox 02/03/19 10:49 36.7 C 69 17 133/63 97 02/03/19 07:26 36.6 C 76 18 131/72 97 02/03/19 03:48 37.5 C 77 19 127/76 94 02/02/19 23:31 37.3 C 87 19 134/68 96 Laboratory Results Abnormal Lab Results 01/31/19 02/02/19 02/02/19 08:52 11:48 16:35 Hgb Hct PT INR Sodium Potassium Chloride Carbon Dioxide Anion Gap BUN Creatinine Est Cr Clr Drug Dosing Est GFR ( Amer) Est GFR (Non-Af Amer) BUN/Creatinine Ratio Glucose POC Glucose 121 H 132 H Calcium Blood Type O Negative Antibody Screen POSITIVE A Antibody Identification Anti-Jkb Crossmatch See Detail 02/02/19 02/03/19 02/03/19 20:30 05:45 05:45 Hgb 8.6 L Hct 27.1 L PT 18.5 H INR 1.9 H Sodium Potassium Chloride Carbon Dioxide Anion Gap BUN Creatinine Est Cr Clr Drug Dosing Est GFR ( Amer) Est GFR (Non-Af Amer) BUN/Creatinine Ratio Glucose POC Glucose 143 H Calcium Blood Type Antibody Screen Antibody Identification Crossmatch 02/03/19 02/03/19 05:45 07:25 Hgb Hct PT INR Sodium 142 Potassium 3.4 L Chloride 109 H Carbon Dioxide 25 Anion Gap 8.0 BUN 24 H Creatinine 1.53 H Est Cr Clr Drug Dosing 31.3 Est GFR ( Amer) 47.0 Est GFR (Non-Af Amer) 40.6 BUN/Creatinine Ratio 15.4 Glucose 109 H POC Glucose 125 H Calcium 8.3 L Blood Type Antibody Screen Antibody Identification Crossmatch ECG Additional Comments: Reviewed his telemetry reveals both sinus bradycardia, first-degree and second-degree AV block. (1) GI bleed GI bleed type/associated pathology: unspecified gastrointestinal hemorrhage type Qualified Code(s): K92.2 - Gastrointestinal hemorrhage, unspecified
[2019-02-03] MEDS ORDERED: Heparin IV Low Dose *NO* Bolus IV SCH (15:22)
[2019-02-03 16:46] LABS: Basophils # (auto) 0.01 K/uL (0-0.2); Basophils % (auto) 0.1 %; Eosinophils # (auto) 0.13 K/uL (0-0.5); Eosinophils % (auto) 1.6 %; Hemoglobin 9.4 g/dL (14.0-18.0); Immature Granulocytes # (auto) 0.14 K/uL (0.00-0.02); Immature Granulocytes % (auto) 1.8 %; Lymphocytes # (auto) 1.49 K/uL (1.2-3.4); Lymphocytes % (auto) 18.9 %; Mean Corpuscular Volume 88.2 fL (80-100); Mean Platelet Volume 9.8 fL (7.4-10.4); Monocytes # (auto) 0.92 K/uL (0.11-0.59); Monocytes % (auto) 11.6 %; Neutrophils # (auto) 5.21 K/uL (1.4-6.5); Platelet Count 161 K/uL (130-400); RDW Standard Deviation 75.5 fL (36.4-46.3)
[2019-02-03] MEDS: Heparin Adult LOW DOSE Wt-Based Dextrose 5% 25,000 units/500 mL IV SCH (16:56)
[2019-02-03 16:59] LABS: Mean Corpuscular Hgb Conc 31.3 g/dL (32-36)
[2019-02-03 17:04] LABS: INR 1.6 (0.9-1.1); Partial Thromboplastin Ratio 1.1; Partial Thromboplastin Time 28.5 Seconds (21.0-31.0); Prothrombin Time 16.1 Seconds (9.0-12.0)
[2019-02-03 17:15] LABS: Echinocytes 1+; Ovalocytes 1+; Polychromasia 1+; Schistocytes 1+
[2019-02-03] MEDS: WARFARIN SOD 5 MG TAB PO SCH (17:16)
--- NOTE | 2019-02-03 18:35 | Hospitalist Progress Note ---
Date of Service February 03, 2019 Assessment & Plan (1) GI bleed: Recurrent GI bleeding on warfarin therapy for mechanical mitral valve replacement. Has undergone recent upper and lower endoscopic evaluations as well as video capsule endoscopy. Only findings were some nonbleeding AVMs in the colon that were cauterized. Hemoglobin was 8.4 at the time of admission and fell as low as 7.8. GI consulted. Repeat endoscopy not recommended at this time. Bleeding scan did not show any specific active site of bleeding. Received 1 unit of packed RBCs. Hemoglobin this morning = 8.6. Follow. (2) Acute on chronic blood loss anemia: Baseline hemoglobin around 10-12. Recent GI bleeding with associated acute blood loss anemia as discussed above. (3) H/O mitral valve replacement with mechanical valve: On warfarin for mechanical mitral valve replacement. INR 2.3 at time of admission. INR this morning = 1.9. High risk for cardioembolism. Maintain anticoagulation unless actively bleeding. No hematochezia noted for greater than 24 hours. Resume warfarin. Start IV heparin without bolus. 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 Second-degree heart block, Mobitz type I with intermittent sinus bradycardia. Asymptomatic. Continue to monitor. (5) Cardiomyopathy: History of cardiomyopathy with LVEF of 37% per recent cardiac imaging. Has some bibasilar rales today and chest x-ray shows CHF. 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 Not on ALMAZ or ARB because of significant renal insufficiency in past. No beta-bindu at this time because of second-degree heart block. Furosemide IV x 1 / prior to pRBC's. Chest x-ray today shows cardiomegaly without pulmonary edema. Follow. (6) Elevated troponin: Troponin slightly elevated at 0.159 and trended downward. No anginal symptoms. Probable demand ischemia secondary to GI bleeding. (7) HTN (hypertension): Monitor and titrate therapy. (8) CKD (chronic kidney disease) stage 3, GFR 30-59 ml/min: Fluctuating renal function during recent admissions. Creatinine was as high as 3.95 in September 2018. Creatinine this morning = 1.53 Follow. (9) T2DM (type 2 diabetes mellitus): Diabetes mellitus type 2 managed with glipizide. Hold glipizide during hospital stay. Insulin coverage as needed. Fasting blood sugar this morning 125. (10) HLD (hyperlipidemia): Continue atorvastatin. (11) Hypothyroidism: Continue levothyroxine. (12) DVT (deep venous thrombosis): On warfarin with therapeutic INR until this a.m. IV heparin until INR therapeutic. (13) Discharge planning issues: Anticipated discharge to home. Family Medicine follow-up with Dr. Ivan. Cardiology follow-up with Dr. Acevedo. Subjective Recheck for GI bleed and other problems. Patient seen in their room around 1310. Doing well. Out of bed in chair. No further hematochezia; no melena. Noted to have Mobitz type I second-degree heart block and periods of sinus bradycardia on telemetry, but asymptomatic. No chest pain, lightheadedness, shortness of breath. Review of Systems: Constitutional- no fever. Cardiac- no chest pain. Pulmonary- no cough or SOB. GI- as noted above - no urinary symptoms. Otherwise, as noted above. Physical Exam Constitutional: no acute distress Respiratory: no respiratory distress Auscultation: lungs clear to auscultation bilaterally Cardiovascular: Rate/Rhythm: regular rate and regular rhythm Heart Sounds: + murmur (mechanical valve sounds mitral position); no gallop and no cardiac rub Vessels: no JVD Extremities: no calf tenderness and no edema Gastrointestinal (Abdomen): normal bowel sounds, soft, nontender, no hepatosplenomegaly Skin: no rashes, warm and dry Psychiatric: Orientation: alert and oriented x 3 Results & Data Vital Signs (Past 12 Hours) Vital Signs Temp Pulse Resp BP Pulse Ox 02/03/19 15:31 36.6 C 86 16 126/63 97 02/03/19 10:49 36.7 C 69 17 133/63 97 02/03/19 07:26 36.6 C 76 18 131/72 97 Laboratory Results Laboratory Results - last 24 hr 01/31/19 02/02/19 02/03/19 08:52 20:30 05:45 WBC RBC Hgb Hct MCV MCH MCHC RDW Std Deviation RDW Coeff of Ayo Plt Count MPV Immature Gran % (Auto) Neut % (Auto) Lymph % (Auto) [place] % (Auto) Eos % (Auto) Baso % (Auto) Immature Gran # (Auto) Neut # (Auto) Lymph # (Auto) [place] # (Auto) Eos # (Auto) Baso # (Auto) Polychromasia Ovalocytes Echinocytes Schistocytes PT 18.5 H INR 1.9 H APTT PTT Ratio Sodium Potassium Chloride Carbon Dioxide Anion Gap BUN Creatinine Est Cr Clr Drug Dosing Est GFR ( Amer) Est GFR (Non-Af Amer) BUN/Creatinine Ratio Glucose POC Glucose 143 H Calcium Crossmatch See Detail 02/03/19 02/03/19 02/03/19 05:45 05:45 07:25 WBC RBC Hgb 8.6 L Hct 27.1 L MCV MCH MCHC RDW Std Deviation RDW Coeff of Ayo Plt Count MPV Immature Gran % (Auto) Neut % (Auto) Lymph % (Auto) [place] % (Auto) Eos % (Auto) Baso % (Auto) Immature Gran # (Auto) Neut # (Auto) Lymph # (Auto) [place] # (Auto) Eos # (Auto) Baso # (Auto) Polychromasia Ovalocytes Echinocytes Schistocytes PT INR APTT PTT Ratio Sodium 142 Potassium 3.4 L Chloride 109 H Carbon Dioxide 25 Anion Gap 8.0 BUN 24 H Creatinine 1.53 H Est Cr Clr Drug Dosing 31.3 Est GFR ( Amer) 47.0 Est GFR (Non-Af Amer) 40.6 BUN/Creatinine Ratio 15.4 Glucose 109 H POC Glucose 125 H Calcium 8.3 L Crossmatch 02/03/19 02/03/19 02/03/19 11:19 16:06 16:31 WBC 7.90 RBC 3.40 L Hgb 9.4 L Hct 30.0 L MCV 88.2 MCH 27.6 MCHC 31.3 L RDW Std Deviation 75.5 H RDW Coeff of Ayo 24.0 H Plt Count 161 MPV 9.8 Immature Gran % (Auto) 1.8 Neut % (Auto) 66.0 Lymph % (Auto) 18.9 [place] % (Auto) 11.6 Eos % (Auto) 1.6 Baso % (Auto) 0.1 Immature Gran # (Auto) 0.14 H Neut # (Auto) 5.21 Lymph # (Auto) 1.49 [place] # (Auto) 0.92 H Eos # (Auto) 0.13 Baso # (Auto) 0.01 Polychromasia 1+ Ovalocytes 1+ Echinocytes 1+ Schistocytes 1+ PT 16.1 H INR 1.6 H APTT 28.5 PTT Ratio 1.1 Sodium Potassium Chloride Carbon Dioxide Anion Gap BUN Creatinine Est Cr Clr Drug Dosing Est GFR ( Amer) Est GFR (Non-Af Amer) BUN/Creatinine Ratio Glucose POC Glucose 164 H Calcium Crossmatch 02/03/19 16:31 WBC RBC Hgb Hct MCV MCH MCHC RDW Std Deviation RDW Coeff of Ayo Plt Count MPV Immature Gran % (Auto) Neut % (Auto) Lymph % (Auto) [place] % (Auto) Eos % (Auto) Baso % (Auto) Immature Gran # (Auto) Neut # (Auto) Lymph # (Auto) [place] # (Auto) Eos # (Auto) Baso # (Auto) Polychromasia Ovalocytes Echinocytes Schistocytes PT INR APTT PTT Ratio Sodium Potassium Chloride Carbon Dioxide Anion Gap BUN Creatinine Est Cr Clr Drug Dosing Est GFR ( Amer) Est GFR (Non-Af Amer) BUN/Creatinine Ratio Glucose POC Glucose 181 H Calcium Crossmatch (1) GI bleed GI bleed type/associated pathology: unspecified gastrointestinal hemorrhage type Qualified Code(s): K92.2 - Gastrointestinal hemorrhage, unspecified
[2019-02-03] MEDS: TRAZODONE HCL 50 MG TAB PO SCH (20:30)
[2019-02-03] MEDS: TAMSULOSIN HCL 0.4 MG CAP PO SCH (20:30)
[2019-02-03 23:23] LABS: Partial Thromboplastin Ratio 1.9
[2019-02-03 23:29] LABS: Partial Thromboplastin Time 51.4 Seconds (21.0-31.0)
[2019-02-04] MEDS: LEVOTHYROXINE SODIUM 75 MCG TABLET PO SCH (05:51)
[2019-02-04 07:00] LABS: Hematocrit (blood only) 26.6 % (42-52); Hemoglobin 8.6 g/dL (14.0-18.0); Mean Corpuscular Hgb Conc 32.3 g/dL (32-36); Nucleated RBC # (auto) 0.02 K/uL (0-0); Nucleated RBC % (auto) 0.3 %; Platelet Count 182 K/uL (130-400); RDW Coefficient of Variation 24.4 % (11.5-14.5); Red Blood Count 2.99 M/uL (4.7-6.1); White Blood Count 7.71 K/uL (4.8-10.8)
[2019-02-04 07:28] LABS: BUN Creatinine Ratio 17.2 (10-20); Calcium 8.2 mg/dl (8.5-10.1); Creatinine Clr Calc Pharmacy 30.9 ml/min; Est GFR (African American) 46.3; Est GFR (Non-African American) 39.9; Potassium 3.4 mmol/L (3.5-5.1)
[2019-02-04 07:29] LABS: INR 1.6 (0.9-1.1); Partial Thromboplastin Ratio 1.7; Prothrombin Time 15.5 Seconds (9.0-12.0)
[2019-02-04 07:38] LABS: Partial Thromboplastin Time 45.8 Seconds (21.0-31.0)
[2019-02-04] MEDS: PANTOprazole 40 MG TAB PO SCH ×2 (08:14→20:40)
[2019-02-04] MEDS: FOLIC ACID 1 MG TAB PO SCH (08:14)
[2019-02-04] MEDS: INSULIN ASPART 100 UNITS/ML 3 ML PEN SC SCH ×4 (08:15→20:26)
[2019-02-04] MEDS: FERROUS SULFATE 325 MG TAB PO SCH ×2 (08:15→17:06)
[2019-02-04] MEDS ORDERED: HEPARIN IV BOLUS 3,000 UNITS in SYRINGE 0 ML IV ONE (12:30)
[2019-02-04] MEDS: Heparin Adult LOW DOSE Wt-Based Dextrose 5% 25,000 units/500 mL IV SCH (17:05)
[2019-02-04] MEDS: WARFARIN SOD 5 MG TAB PO SCH (17:05)
--- NOTE | 2019-02-04 18:13 | Hospitalist Progress Note ---
Date of Service February 04, 2019 Assessment & Plan (1) GI bleed: Recurrent GI bleeding on warfarin therapy for mechanical mitral valve replacement. Has undergone recent upper and lower endoscopic evaluations as well as video capsule endoscopy. Only findings were some nonbleeding AVMs in the colon that were cauterized. Hemoglobin was 8.4 at the time of admission and fell as low as 7.8. GI consulted. Repeat endoscopy not recommended at this time. Bleeding scan did not show any specific active site of bleeding. Received 1 unit of packed RBCs 02/02. Hemoglobin this morning = 8.6. Follow H/H. Transfuse as necessary to maintain Hgb > 8. (2) Acute on chronic blood loss anemia: Baseline hemoglobin around 10-12. Recent GI bleeding with associated acute blood loss anemia as discussed above. (3) H/O mitral valve replacement with mechanical valve: On warfarin for mechanical mitral valve replacement. INR 2.3 at time of admission. Warfarin held temporarily due to active GI bleeding. High risk for cardioembolism; need to maintain anticoagulation unless actively bleeding. No hematochezia noted for greater than 48 hours. Started IV heparin and resumed warfarin 02/03. INR today = 1.6. Continue IV heparin until INR ~ 2.5. 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 Second-degree heart block, Mobitz type I with intermittent sinus bradycardia. Asymptomatic. Continue to monitor. (5) Cardiomyopathy: History of cardiomyopathy with LVEF of 37% per recent cardiac imaging. Has some bibasilar rales today and chest x-ray shows CHF. 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 Not on ALMAZ or ARB because of significant renal insufficiency in past. No beta-bindu at this time because of second-degree heart block. Furosemide IV x 1 02/02 prior to pRBC's. Chest x-ray 02/03 showed cardiomegaly without pulmonary edema. Follow. (6) Elevated troponin: Troponin slightly elevated at 0.159 and trended downward. No anginal symptoms. Probable demand ischemia secondary to GI bleeding. (7) HTN (hypertension): Monitor and titrate therapy. (8) CKD (chronic kidney disease) stage 3, GFR 30-59 ml/min: Fluctuating renal function during recent admissions. Creatinine was as high as 3.95 in September 2018. Creatinine this morning = 1.55 Follow. (9) T2DM (type 2 diabetes mellitus): Diabetes mellitus type 2 managed with glipizide. Hold glipizide during hospital stay. Insulin coverage as needed. Fasting blood sugar this morning = 125. (10) HLD (hyperlipidemia): Continue atorvastatin. (11) Hypothyroidism: Continue levothyroxine. (12) Hypokalemia: K today = 3.4. Replace. Follow. (13) DVT (deep venous thrombosis): On warfarin with therapeutic INR at time of admission. Warfarin was held due to GI bleeding. INR now < 2. IV heparin until INR therapeutic. (14) Discharge planning issues: Anticipated discharge to home. Family Medicine follow-up with Dr. Ivan. Cardiology follow-up with Dr. Acevedo in [place]. Please have DC summary sent to her. Her office # is [phone]. Son Thong given update by phone this evening. Subjective Recheck for GI bleed and other problems. Patient seen in their room around 11:20. Doing well. No further hematochezia; no melena. (Last hematochezia was 2 nights ago.) No chest pain, lightheadedness, shortness of breath. Review of Systems: Constitutional- no fever. Cardiac- no chest pain. Pulmonary- no cough or SOB. GI- as noted above - no urinary symptoms. Otherwise, as noted above. Physical Exam Constitutional: no acute distress Respiratory: no respiratory distress Auscultation: lungs clear to auscultation bilaterally Cardiovascular: Rate/Rhythm: regular rate and regular rhythm Heart Sounds: + murmur (mechanical valve sounds mitral position); no gallop and no cardiac rub Vessels: no JVD Extremities: no calf tenderness and no edema Gastrointestinal (Abdomen): normal bowel sounds, soft, nontender, no hepatosplenomegaly Skin: no rashes, warm and dry Psychiatric: Orientation: alert and oriented x 3 Results & Data Vital Signs (Past 12 Hours) Vital Signs Temp Pulse Resp BP BP Pulse Ox 02/04/19 15:41 36.5 C 79 20 121/68 98 02/04/19 10:46 36.7 C 76 18 120/62 97 02/04/19 07:44 36.5 C 91 H 19 127/74 95 (1) GI bleed GI bleed type/associated pathology: unspecified gastrointestinal hemorrhage type Qualified Code(s): K92.2 - Gastrointestinal hemorrhage, unspecified
[2019-02-04 19:53] LABS: Potassium 3.8 mmol/L (3.5-5.1)
[2019-02-04 20:00] LABS: Magnesium 1.8 mg/dl (1.8-2.4)
[2019-02-04 20:07] LABS: Partial Thromboplastin Time 54.4 Seconds (21.0-31.0)
[2019-02-04] MEDS: TAMSULOSIN HCL 0.4 MG CAP PO SCH (20:40)
[2019-02-04] MEDS: TRAZODONE HCL 50 MG TAB PO SCH (20:40)
[2019-02-05 06:08] LABS: Hematocrit (blood only) 27.8 % (42-52); Hemoglobin 8.8 g/dL (14.0-18.0); Mean Corpuscular Hgb Conc 31.7 g/dL (32-36); Mean Platelet Volume 9.8 fL (7.4-10.4); Platelet Count 185 K/uL (130-400); RDW Coefficient of Variation 24.4 % (11.5-14.5); RDW Standard Deviation 77.3 fL (36.4-46.3); Red Blood Count 3.09 M/uL (4.7-6.1)
[2019-02-05] MEDS: LEVOTHYROXINE SODIUM 75 MCG TABLET PO SCH (06:10)
[2019-02-05 06:27] LABS: INR 1.7 (0.9-1.1); Prothrombin Time 16.7 Seconds (9.0-12.0)
[2019-02-05 06:30] LABS: Partial Thromboplastin Time 52.9 Seconds (21.0-31.0)
[2019-02-05 06:38] LABS: Calcium 8.2 mg/dl (8.5-10.1); Creatinine Clr Calc Pharmacy 31.3 ml/min; Est GFR (Non-African American) 40.6; Potassium 3.7 mmol/L (3.5-5.1)
[2019-02-05] MEDS: INSULIN ASPART 100 UNITS/ML 3 ML PEN SC SCH ×4 (08:16→20:49)
[2019-02-05] MEDS: FERROUS SULFATE 325 MG TAB PO SCH ×2 (08:17→17:33)
[2019-02-05] MEDS: FOLIC ACID 1 MG TAB PO SCH (08:17)
[2019-02-05] MEDS: PANTOprazole 40 MG TAB PO SCH ×2 (08:17→20:49)
--- NOTE | 2019-02-05 10:07 | Cardiology Progress Note ---
Date of Service February 05, 2019 Assessment & Plan (1) Elevated troponin: Troponin elevation was likely secondary to demand ischemia in the setting of acute blood loss. No evidence of an acute coronary syndrome. No further evaluation necessary at this time. (2) GI bleed: No further bleeding, and hemoglobin has remained stable. Currently on heparin as warfarin is subtherapeutic. (3) H/O mitral valve replacement with mechanical valve: No significant mitral valve stenosis documented by echocardiogram during his recent admission at [facility]. 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 Continue to monitor on telemetry. Would avoid all AV active medications. (5) Cardiomyopathy: LVEF = 37% by echocardiogram at [facility]. Would not initiate a beta bindu given his second degree AV block, and ACEI/ARB on hold because of his renal insufficiency. Subjective The patient is resting comfortably in bed without complaints of chest pain, dyspnea, or palpitations. He is anxious for hospital discharge. Physical Exam Physical Exam: In general is a well-developed well-nourished white male lying supine in bed without complaints. HEENT exam is negative. Neck is supple with full carotid upstrokes. There are no carotid bruits. Jugular venous pressure is flat at 90 degrees. There is no thyromegaly. Cardiovascular exam reveals a regular rhythm with an occasional extrasystole. [place] mechanical valve sounds noted. No obvious murmurs. No S3. Lungs are clear without rales, rhonchi or wheezes. Chest reveals a well-healed midline scar. Abdomen is soft nontender without bruits. Well-healed midline scar is noted. Extremities reveal intact radial artery pulses bilaterally. Trace pretibial edema is noted. Results & Data Vital Signs (Past 12 Hours) Vital Signs Temp Pulse Pulse Resp BP Pulse Ox 02/05/19 07:22 91 H 02/05/19 07:15 36.7 C 85 18 134/73 96 02/05/19 03:53 36.4 C L 85 16 135/75 94 02/04/19 23:02 36.5 C 79 18 146/79 H 92 Diagnostic Findings conveyor monitor notes sinus rhythm and frequent episodes of Mobitz I second- degree AV block. (1) GI bleed GI bleed type/associated pathology: unspecified gastrointestinal hemorrhage type Qualified Code(s): K92.2 - Gastrointestinal hemorrhage, unspecified
[2019-02-05 13:40] LABS: Appearance Urine Turbid (Clear); Bacteria Urine Automated 4+ (Negative); Bilirubin Urine Negative (Negative); Blood Urine 1+ (Negative); Color Urine Yellow; Epithelial Cell Urine Auto 0-5 /lpf (0-5); Glucose Urine UA Negative (Negative); Ketones Urine Negative (Negative); Leukocyte Esterase Urine 3+ (Negative); Nitrite Urine Positive (Negative); Specific Gravity Urine 1.015 (1.000-1.030); Urobilinogen Urine Negative (Negative); WBC Urine Automated >30 /hpf (0-5); pH Urine 7.5 (4.5-7.5)
[2019-02-05 13:48] LABS: Protein Urine 1+ (Negative)
--- NOTE | 2019-02-05 15:05 | Hospitalist Progress Note ---
Date of Service February 05, 2019 Assessment & Plan (1) GI bleed: Recurrent GI bleeding on warfarin therapy for mechanical mitral valve replacement. Has undergone recent upper and lower endoscopic evaluations as well as video capsule endoscopy. Only findings were some nonbleeding AVMs in the colon that were cauterized. Hemoglobin was 8.4 at the time of admission and fell as low as 7.8. GI consulted. Repeat endoscopy not recommended at this time. Bleeding scan did not show any specific active site of bleeding. Received 1 unit of packed RBCs 02/02. Hemoglobin this morning = 8.8. Follow H/H. Transfuse as necessary to maintain Hgb > 8. Normal BM this morning without blood per patient Cont Protonix BID (2) UTI (urinary tract infection): Turbid urine, +UA. Pt appears to have evolving encephalopathy. Discussed PCN allergy with pharmacy who reports use of cephalosporins last year. Started on empiric Rocephin pending culture. FQ considered, however, medication reaction with coumadin not desired here and this is an older patient prone to delirium in the hospital. (3) Hemoptysis: recent excessive dry cough per patient. He just coughed up a scant amount of bright red blood onto his sleeve. He is oxygenating well on room air and in no clear respiratory distress. He denies fevers, chills, malaise or other signs of an evolving pneumonia and CXR is clear of infiltrates. He is on blood thinners including coumadin restarted two days ago and heparin, so the coughing may have caused some irritation leading to this. Will monitor for continued hemoptysis-estela is aware. Blod thinners continued at this time. (4) Acute on chronic blood loss anemia: Baseline hemoglobin around 10-12. Recent GI bleeding with associated acute blood loss anemia as discussed above. (5) H/O mitral valve replacement with mechanical valve: On warfarin for mechanical mitral valve replacement. INR 2.3 at time of admission. Warfarin held temporarily due to active GI bleeding. High risk for cardioembolism; need to maintain anticoagulation unless actively bleeding. No hematochezia noted for greater than 48 hours. Started IV heparin and resumed warfarin 02/03. INR today = 1.7. Continue IV heparin until INR ~ 2.5. 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 Continue to monitor on telemetry. Avoid all AV active medications per Cardiology recommendations. (7) Cardiomyopathy: History of cardiomyopathy with LVEF of 37% per recent cardiac imaging. Chronic left ventricular systolic heart failure-compensated. Not on ALMAZ or ARB because of significant renal insufficiency in past. No beta-bindu at this time because of second-degree heart block. Furosemide IV x 1 02/02 prior to pRBC's. Chest x-ray 02/03 showed cardiomegaly without pulmonary edema. (8) Elevated troponin: Troponin slightly elevated at 0.159 and trended downward. No anginal symptoms. Probable demand ischemia secondary to GI bleeding. (9) CKD (chronic kidney disease) stage 3, GFR 30-59 ml/min: around baseline, (10) T2DM (type 2 diabetes mellitus): Diabetes mellitus type 2 managed with glipizide. Hold glipizide during hospital stay. Insulin coverage as needed. Currently at goal (11) Hypothyroidism: Continue levothyroxine. (12) DVT prophylaxis: warfarin/heparin until INR 2.5-3.5 Full Dispo-to home when medically stable. Emelina Leblanc DO [facility] Hospitalist Subjective 88 yo M with mechanical mitral valve on Coumadin with recurrent GI bleeds who presents with BRBPR. He was recently on Coumadin with a Lovenox bridge post discharge from the hospital ([facility] [place] Today he reports having had a cold with nonproductive cough for about 3 days. He has coughed up some blood onto his sleeve that is bright red. He reports excessive coughing, but declines fevers chills or malaise and is refusing a cough syrup. He appears somewhat slow to respond and, although he is oriented, he asks me the same question over again. Nurse reported urine looking turbid so UA was pulled just prior to this. He otherwise denies any pain, SOB, chest pain. He reports having a normal- appearing BM this morning. Review of Systems Review of Systems: All systems reviewed & are unremarkable except as noted in HPI & below Physical Exam Physical Exam: CONSTITUTIONAL: WNWD, vitals as above, generally well- appearing, Small area of BRBPR noted on hospital gown sleeve size of a golf ball. EYES: normal conjunctivae, no scleral icterus, ENT: MMM, clear OP, no blood in mouth RESPIRATORY: clear to auscultation bilaterally, no crackles, rales or wheezes, normal respiratory effort CARDIOVASCULAR: regular rate and rhythm,S1 and 2 heard wihtout murmurs, mechanical valve sounds noted, no JVD, no peripheral edema GASTROINTESTINAL: normal bowel sounds, soft, nontender, nondistended MUSCULOSKELETAL: strength 5/5 throughout, head is normocephalic and atraumatic SKIN: warm and dry NEUROLOGIC: CN 2-12 grossly intact, slow to respond to questioning but oriented and can give accurate history, almost appears as evolving encephalopathy PSYCHIATRIC: alert cooperative and oriented to person, place and time. Results & Data Vital Signs (Past 12 Hours) Vital Signs Temp Pulse Pulse Resp BP Pulse Ox 02/05/19 07:22 91 H 02/05/19 07:15 36.7 C 85 18 134/73 96 02/05/19 03:53 36.4 C L 85 16 135/75 94 Laboratory Results Short CBC 02/05/19 Range/Units 05:51 WBC 7.50 (4.8-10.8) K/uL Hgb 8.8 L (14.0-18.0) g/dL Hct 27.8 L (42-52) % Plt Count 185 (130-400) K/uL BMP 02/05/19 05:51 Sodium 142 Potassium 3.7 Chloride 110 H Carbon Dioxide 26 BUN 28 H Creatinine 1.53 H Glucose 124 H Calcium 8.2 L Urine 02/05/19 Range/Units 12:55 Urine Color Yellow Urine Appearance Turbid A (Clear) Urine pH 7.5 (4.5-7.5) Ur Specific [place] 1.015 (1.000-1.030) Urine Protein 1+ H (Negative) Urine Glucose (UA) Negative (Negative) INR 1.7 Diagnostic Findings CXR (02/05): FINDINGS: Cardiac silhouette is enlarged, unchanged. Prior median sternotomy. Mild chronic interstitial coarsening of the lung bases. No pneumothorax, large pleural effusion or overt pulmonary edema. Possible trace pleural effusions. Degenerative changes of the shoulders and spine. IMPRESSION: 1. Cardiomegaly without overt pulmonary edema. 2. Mild blunting of the costophrenic angles may reflect trace pleural effusions. Medications Administered Current Inpatient Medications Acetaminophen (Tylenol) 650 mg PO Q4H PRN PRN Reason: fever or pain Stop: 03/02/19 19:04 Dextrose (Dextrose 50%) 25 - 50 ml IV UD PRN; Protocol PRN Reason: Hypoglycemia Protocol Stop: 03/02/19 19:04 Ferrous Sulfate (Feosol) 325 mg PO BIDM NOLAN Stop: 03/03/19 07:59 Last Admin: 02/05/19 17:33 Dose: 325 mg Documented by: Folic Acid (Folvite) 1 mg PO DAILY NOALN Stop: 03/03/19 08:59 Last Admin: 02/05/19 08:17 Dose: 1 mg Documented by: Glucagon (Glucagen) 1 mg SQ UD PRN; Protocol PRN Reason: Hypoglycemia Protocol Stop: 03/02/19 19:04 Glucose (Glucose 40%) 15 - 30 gm PO UD PRN; Protocol PRN Reason: Hypoglycemia Protocol Stop: 03/02/19 19:04 Glucose (Dex4 Glucose) 4 - 8 tabs PO UD PRN; Protocol PRN Reason: Hypoglycemia Protocol Stop: 03/02/19 19:04 Sodium Chloride (Nss) 250 mls @ 15 mls/hr IV .[id number] PRN PRN Reason: For Transfusion Stop: 03/04/19 17:00 Heparin Sodium/Dextrose (Heparin Sodium/Dextrose) 25,000 units in 500 mls @ 17 mls/hr IV .Q24H NOLAN; Protocol Stop: 03/05/19 15:44 Last Titration: 02/05/19 23:44 Dose: 850 units/hr, 17 mls/hr Documented by: Ceftriaxone Sodium 1,000 mg/ (Dextrose) 50 mls @ 100 mls/hr IV Q24H NOLAN; Protocol Stop: 02/10/19 14:59 Last Infusion: 02/05/19 16:39 Dose: Infused Documented by: Insulin Aspart (Novolog Flexpen) 0 units SC ACHS NOLAN Stop: 03/04/19 16:44 Last Admin: 02/05/19 20:49 Dose: Not Given Documented by: Levothyroxine Sodium (Synthroid) 75 mcg PO DAILYBB NOLAN Stop: 03/03/19 06:29 Last Admin: 02/05/19 06:10 Dose: 75 mcg Documented by: Miscellaneous (Carbohydrates For Hypoglycemia) 15 - 30 gm PO UD PRN PRN Reason: Hypoglycemia Treatment Stop: 03/02/19 19:04 Pantoprazole Sodium (Protonix) 40 mg PO BID [facility] Stop: 03/03/19 20:59 Last Admin: 02/05/19 20:49 Dose: 40 mg Documented by: Tamsulosin HCl (Flomax) 0.8 mg PO [facility] Stop: 03/02/19 20:59 Last Admin: 02/05/19 20:50 Dose: 0.8 mg Documented by: Trazodone HCl (Desyrel) 50 mg PO [facility] Stop: 03/02/19 20:59 Last Admin: 02/05/19 20:50 Dose: 50 mg Documented by: Warfarin Sodium (Coumadin) 5 mg PO DAILY@1600 [facility] Stop: 03/05/19 15:59 Last Admin: 02/05/19 17:07 Dose: 5 mg Documented by: (1) GI bleed GI bleed type/associated pathology: unspecified gastrointestinal hemorrhage type Qualified Code(s): K92.2 - Gastrointestinal hemorrhage, unspecified
--- NOTE | 2019-02-05 16:07 | XRay Report ---
XR chest 1V portable HISTORY: 88 years-old Male hemoptysis, coughing and on bl thinners acute shortness of breath with pu lmonary edema COMPARISON: Chest radiograph 02/03/2019 TECHNIQUE: Portable AP view of the chest FINDINGS: Cardiac silhouette is enlarged, unchanged. Prior median sternotomy. Mild chronic interstitial coarsen ing of the lung bases. No pneumothorax, large pleural effusion or overt pulmonary edema. Possible tra ce pleural effusions. Degenerative changes of the shoulders and spine. IMPRESSION: 1. Cardiomegaly without overt pulmonary edema. 2. Mild blunting of the costophrenic angles may reflect trace pleural effusions. The above report was generated using voice recognition software. It may contain grammatical, syntax o r spelling errors. Electronically signed by: Bird Christopher M.D. 02/05/2019 4:06 PM
[2019-02-05] MEDS: cefTRIAXone SODIUM 1,000 MG in DEXTROSE 5% 50 ML IV SCH (16:09)
[2019-02-05] MEDS: Heparin Adult LOW DOSE Wt-Based Dextrose 5% 25,000 units/500 mL IV SCH (17:05)
[2019-02-05] MEDS: WARFARIN SOD 5 MG TAB PO SCH (17:07)
[2019-02-05] MEDS: TRAZODONE HCL 50 MG TAB PO SCH (20:50)
[2019-02-05] MEDS: TAMSULOSIN HCL 0.4 MG CAP PO SCH (20:50)
[2019-02-06] MEDS: LEVOTHYROXINE SODIUM 75 MCG TABLET PO SCH (05:46)
[2019-02-06 06:53] LABS: Hematocrit (blood only) 28.9 % (42-52); Hemoglobin 9.2 g/dL (14.0-18.0); Mean Corpuscular Hgb Conc 31.8 g/dL (32-36); Mean Corpuscular Volume 89.5 fL (80-100); Mean Platelet Volume 9.4 fL (7.4-10.4); Platelet Count 173 K/uL (130-400); RDW Coefficient of Variation 24.3 % (11.5-14.5); RDW Standard Deviation 79.3 fL (36.4-46.3); Red Blood Count 3.23 M/uL (4.7-6.1); White Blood Count 5.82 K/uL (4.8-10.8)
[2019-02-06 07:11] LABS: BUN Creatinine Ratio 17.1 (10-20); Calcium 8.5 mg/dl (8.5-10.1); Creatinine Clr Calc Pharmacy 36.5 ml/min; Est GFR (African American) 51.5; Est GFR (Non-African American) 44.4; INR 1.9 (0.9-1.1); Partial Thromboplastin Ratio 2.2; Potassium 4.1 mmol/L (3.5-5.1)
[2019-02-06 07:34] LABS: Partial Thromboplastin Time 59.4 Seconds (21.0-31.0)
[2019-02-06] MEDS: PANTOprazole 40 MG TAB PO SCH ×2 (08:00→21:12)
[2019-02-06] MEDS: FERROUS SULFATE 325 MG TAB PO SCH ×2 (08:01→17:33)
[2019-02-06] MEDS: FOLIC ACID 1 MG TAB PO SCH (08:01)
[2019-02-06] MEDS: INSULIN ASPART 100 UNITS/ML 3 ML PEN SC SCH ×4 (08:02→21:12)
--- NOTE | 2019-02-06 12:55 | Hospitalist Progress Note ---
Date of Service February 06, 2019 Assessment & Plan (1) GI bleed: Recurrent GI bleeding on warfarin therapy for mechanical mitral valve replacement. Has undergone recent upper and lower endoscopic evaluations as well as video capsule endoscopy. Only findings were some nonbleeding AVMs in the colon that were cauterized. Hemoglobin was 8.4 at the time of admission and fell as low as 7.8. GI consulted. Repeat endoscopy not recommended at this time. Bleeding scan did not show any specific active site of bleeding. Received 1 unit of packed RBCs 02/02. Hemoglobin this morning stable. Follow H/H. Transfuse as necessary to maintain Hgb > 8. Normal BM this morning without blood per patient Cont Protonix BID (2) UTI (urinary tract infection): Turbid urine, +UA. Pt appears to have evolving encephalopathy. Discussed PCN allergy with pharmacy who reports use of cephalosporins last year. Started on empiric Rocephin pending culture. FQ considered, however, medication reaction with coumadin not desired here and this is an older patient prone to delirium in the hospital. Doing well on Rocephin and asymptomatic. Awaiting urine cultures. (3) Hemoptysis: Resolved-likely secondary to dry coughing in setting of dual blood thinner therapy. Chest x-ray was negative and no further respiratory symptoms present. (4) Acute on chronic blood loss anemia: Baseline hemoglobin around 10-12. Recent GI bleeding with associated acute blood loss anemia as discussed above. (5) H/O mitral valve replacement with mechanical valve: On warfarin for mechanical mitral valve replacement. INR 2.3 at time of admission. Warfarin held temporarily due to active GI bleeding. High risk for cardioembolism; need to maintain anticoagulation unless actively bleeding. No hematochezia noted for greater than 48 hours. Started IV heparin and resumed warfarin 02/03. INR today = 1.9 Continue IV heparin until INR ~ 2.5. (6) 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: Digoxin and diltiazem were discontinued at [facility] due to Mobitz type 1 second degree AV block. Continue to monitor on telemetry. Avoid all AV active medications per Cardiology recommendations. (7) Cardiomyopathy: History of cardiomyopathy with LVEF of 37% per recent cardiac imaging. Chronic left ventricular systolic heart failure-compensated. Not on ALMAZ or ARB because of significant renal insufficiency in past. No beta-bindu at this time because of second-degree heart block. Furosemide IV x 1 02/02 prior to pRBC's. Chest x-ray 02/03 showed cardiomegaly without pulmonary edema. (8) Elevated troponin: Troponin slightly elevated at 0.159 and trended downward. No anginal symptoms. Probable demand ischemia secondary to GI bleeding. (9) CKD (chronic kidney disease) stage 3, GFR 30-59 ml/min: around baseline (10) T2DM (type 2 diabetes mellitus): Diabetes mellitus type 2 managed with glipizide. Hold glipizide during hospital stay. Insulin coverage as needed. Currently at goal (11) Hypothyroidism: Continue levothyroxine. (12) DVT prophylaxis: warfarin/heparin until INR 2.5-3.5 Full Dispo-to home when medically stable. Emelina Leblanc DO [facility] Hospitalist Subjective Denies UTI symptoms Denies pain Feels well without issues Reports he is ready to go home No further issues with hemoptysis overnight aside from the one episode we discussed. Denies further bleeding Review of Systems Review of Systems: All systems reviewed & are unremarkable except as noted in HPI & below Physical Exam Physical Exam: CONSTITUTIONAL: WNWD, vitals as above, generally well- appearing EYES: normal conjunctivae, no scleral icterus ENT: MMM, clear OP, no blood in mouth RESPIRATORY: clear to auscultation bilaterally, no crackles, rales or wheezes, normal respiratory effort CARDIOVASCULAR: regular rate and rhythm,S1 and 2 heard without murmurs, mechanical valve sounds noted, no JVD, no peripheral edema GASTROINTESTINAL: normal bowel sounds, soft, nontender, nondistended MUSCULOSKELETAL: strength 5/5 throughout, head is normocephalic and atraumatic SKIN: warm and dry NEUROLOGIC: CN 2-12 grossly intact, again with delayed response to questioning but oriented and can give accurate history, almost appears as evolving encephalopathy PSYCHIATRIC: alert cooperative and oriented to person, place and time. Results & Data Vital Signs (Past 12 Hours) Vital Signs Temp Pulse Resp BP Pulse Ox 02/06/19 12:07 36.8 C 66 18 133/70 98 02/06/19 06:59 36.4 C L 85 16 124/59 L 98 02/06/19 03:36 36.6 C 85 16 134/71 95 Laboratory Results Short CBC 02/06/19 Range/Units 06:34 WBC 5.82 (4.8-10.8) K/uL Hgb 9.2 L (14.0-18.0) g/dL Hct 28.9 L (42-52) % Plt Count 173 (130-400) K/uL BMP 02/06/19 06:34 Sodium 141 Potassium 4.1 Chloride 110 H Carbon Dioxide 25 BUN 24 H Creatinine 1.42 H Glucose 128 H Calcium 8.5 Urine 02/05/19 Range/Units 12:55 Urine Color Yellow Urine Appearance Turbid A (Clear) Urine pH 7.5 (4.5-7.5) Ur Specific [place] 1.015 (1.000-1.030) Urine Protein 1+ H (Negative) Urine Glucose (UA) Negative (Negative) Medications Administered Current Inpatient Medications Acetaminophen (Tylenol) 650 mg PO Q4H PRN PRN Reason: fever or pain Stop: 03/02/19 19:04 Dextrose (Dextrose 50%) 25 - 50 ml IV UD PRN; Protocol PRN Reason: Hypoglycemia Protocol Stop: 03/02/19 19:04 Ferrous Sulfate (Feosol) 325 mg PO BIDM [facility] Stop: 03/03/19 07:59 Last Admin: 02/06/19 08:01 Dose: 325 mg Documented by: Folic Acid (Folvite) 1 mg PO DAILY [facility] Stop: 03/03/19 08:59 Last Admin: 02/06/19 08:01 Dose: 1 mg Documented by: Glucagon (Glucagen) 1 mg SQ UD PRN; Protocol PRN Reason: Hypoglycemia Protocol Stop: 03/02/19 19:04 Glucose (Glucose 40%) 15 - 30 gm PO UD PRN; Protocol PRN Reason: Hypoglycemia Protocol Stop: 03/02/19 19:04 Glucose (Dex4 Glucose) 4 - 8 tabs PO UD PRN; Protocol PRN Reason: Hypoglycemia Protocol Stop: 03/02/19 19:04 Sodium Chloride (Nss) 250 mls @ 15 mls/hr IV .[id number] PRN PRN Reason: For Transfusion Stop: 03/04/19 17:00 Heparin Sodium/Dextrose (Heparin Sodium/Dextrose) 25,000 units in 500 mls @ 17 mls/hr IV .Q24H [facility]; Protocol Stop: 03/05/19 15:44 Last Titration: 02/06/19 07:04 Dose: 850 units/hr, 17 mls/hr Documented by: Ceftriaxone Sodium 1,000 mg/ (Dextrose) 50 mls @ 100 mls/hr IV Q24H [facility]; Protocol Stop: 02/10/19 14:59 Last Infusion: 02/05/19 16:39 Dose: Infused Documented by: Insulin Aspart (Novolog Flexpen) 0 units SC ACHS [facility] Stop: 03/04/19 16:44 Last Admin: 02/06/19 12:44 Dose: 7 units Documented by: Levothyroxine Sodium (Synthroid) 75 mcg PO DAILYBB [facility] Stop: 03/03/19 06:29 Last Admin: 02/06/19 05:46 Dose: 75 mcg Documented by: Miscellaneous (Carbohydrates For Hypoglycemia) 15 - 30 gm PO UD PRN PRN Reason: Hypoglycemia Treatment Stop: 03/02/19 19:04 Pantoprazole Sodium (Protonix) 40 mg PO BID [facility] Stop: 03/03/19 20:59 Last Admin: 02/06/19 08:00 Dose: 40 mg Documented by: Tamsulosin HCl (Flomax) 0.8 mg PO [facility] Stop: 03/02/19 20:59 Last Admin: 02/05/19 20:50 Dose: 0.8 mg Documented by: Trazodone HCl (Desyrel) 50 mg PO HS [facility] Stop: 03/02/19 20:59 Last Admin: 02/05/19 20:50 Dose: 50 mg Documented by: Warfarin Sodium (Coumadin) 5 mg PO DAILY@1600 [facility] Stop: 03/05/19 15:59 Last Admin: 02/05/19 17:07 Dose: 5 mg Documented by: (1) GI bleed GI bleed type/associated pathology: unspecified gastrointestinal hemorrhage type Qualified Code(s): K92.2 - Gastrointestinal hemorrhage, unspecified
[2019-02-06] MEDS: Heparin Adult LOW DOSE Wt-Based Dextrose 5% 25,000 units/500 mL IV SCH ×2 (15:07→19:30)
[2019-02-06] MEDS: cefTRIAXone SODIUM 1,000 MG in DEXTROSE 5% 50 ML IV SCH (15:16)
[2019-02-06] MEDS: WARFARIN SOD 5 MG TAB PO SCH (17:28)
[2019-02-06] MEDS: TAMSULOSIN HCL 0.4 MG CAP PO SCH (21:12)
[2019-02-06] MEDS: TRAZODONE HCL 50 MG TAB PO SCH (21:12)
[2019-02-07] MEDS: LEVOTHYROXINE SODIUM 75 MCG TABLET PO SCH (05:57)
[2019-02-07 06:04] LABS: Prothrombin Time 19.8 Seconds (9.0-12.0)
[2019-02-07 07:49] LABS: Hematocrit (blood only) 28.9 % (42-52); Hemoglobin 8.9 g/dL (14.0-18.0); Mean Corpuscular Hgb Conc 30.8 g/dL (32-36); Mean Corpuscular Volume 91.5 fL (80-100); Mean Platelet Volume 9.2 fL (7.4-10.4); Platelet Count 166 K/uL (130-400); RDW Coefficient of Variation 23.7 % (11.5-14.5); Red Blood Count 3.16 M/uL (4.7-6.1); White Blood Count 5.72 K/uL (4.8-10.8)
[2019-02-07 08:23] LABS: BUN Creatinine Ratio 16.9 (10-20); Calcium 9.1 mg/dl (8.5-10.1); Creatinine Clr Calc Pharmacy 31.5 ml/min; Est GFR (African American) 47.4; Est GFR (Non-African American) 40.9; Potassium 4.6 mmol/L (3.5-5.1)
[2019-02-07 08:40] LABS: Partial Thromboplastin Time 53.7 Seconds (21.0-31.0)
[2019-02-07] MEDS: ALLOPURINOL 300 MG TAB PO SCH (08:55)
[2019-02-07] MEDS: INSULIN ASPART 100 UNITS/ML 3 ML PEN SC SCH ×4 (08:56→20:48)
[2019-02-07] MEDS: FOLIC ACID 1 MG TAB PO SCH (09:00)
[2019-02-07] MEDS: PANTOprazole 40 MG TAB PO SCH ×2 (09:00→20:26)
[2019-02-07] MEDS: WARFARIN SOD 7.5 MG TAB PO SCH (15:47)
[2019-02-07] MEDS: cefTRIAXone SODIUM 1,000 MG in DEXTROSE 5% 50 ML IV SCH (15:47)
--- NOTE | 2019-02-07 18:11 | Hospitalist Progress Note ---
Date of Service February 07, 2019 Assessment & Plan (1) GI bleed: Recurrent GI bleeding on warfarin therapy for mechanical mitral valve replacement. Has undergone recent upper and lower endoscopic evaluations as well as video capsule endoscopy. Only findings were some nonbleeding AVMs in the colon that were cauterized. Hemoglobin was 8.4 at the time of admission and fell as low as 7.8. GI consulted. Repeat endoscopy not recommended at this time. Bleeding scan did not show any specific active site of bleeding. Received 1 unit of packed RBCs 02/02. Hemoglobin this morning stable. Follow H/H, which has been stable Transfuse as necessary to maintain Hgb > 8. Continues to have normal BMs without blood. Cont Protonix BID (2) UTI (urinary tract infection): Proteus UTI. Patient asymptomatic. Change Rocephin to oral Cefdinir. Considered other antibiotics per sensitivites listed such as fluoroquinolones and Bactrim, however, these are very interactive with Coumadin and would not be ideal in his age group. (3) Hemoptysis: Resolved-likely secondary to dry coughing in setting of dual blood thinner therapy. Also a possibility is the fact that this did not come from him coughing but more from his IV. He is a poor historian and was relatively confused at the time the blood was noted on his sleeve. He continued to repeat the same questions although he was answering orientation questions correctly. I have noticed that I need to repeat the assessment and plan for him several times prior to leaving the room each day I see him. Chest x-ray was negative and no further respiratory symptoms present. (4) Acute on chronic blood loss anemia: Baseline hemoglobin around 10-12. Recent GI bleeding with associated acute blood loss anemia as discussed above. (5) H/O mitral valve replacement with mechanical valve: On warfarin for mechanical mitral valve replacement. INR 2.3 at time of admission. Warfarin held temporarily due to active GI bleeding. High risk for cardioembolism; need to maintain anticoagulation unless actively bleeding. No hematochezia noted for greater than 48 hours. Started IV heparin and resumed warfarin 02/03. INR today = 2.0 Continue IV heparin until INR ~ 2.5. 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 Continue to monitor on telemetry. Avoid all AV active medications per Cardiology recommendations. (7) Cardiomyopathy: History of cardiomyopathy with LVEF of 37% per recent cardiac imaging. Chronic left ventricular systolic heart failure-compensated. Not on ALMAZ or ARB because of significant renal insufficiency in past. No beta-bindu at this time because of second-degree heart block. Furosemide IV x 1 02/02 prior to pRBC's. Chest x-ray 02/03 showed cardiomegaly without pulmonary edema. Patient is euvolemic. (8) Elevated troponin: Troponin slightly elevated at 0.159 and trended downward. No anginal symptoms. Probable demand ischemia secondary to GI bleeding. (9) CKD (chronic kidney disease) stage 3, GFR 30-59 ml/min: around baseline (10) T2DM (type 2 diabetes mellitus): Diabetes mellitus type 2 managed with glipizide. Hold glipizide during hospital stay. Insulin coverage as needed. Currently at goal (11) Hypothyroidism: Continue levothyroxine. (12) DVT prophylaxis: warfarin/heparin until INR 2.5-3.5 Full Dispo-to home when medically stable. Emelina Leblanc DO [facility] Hospitalist Subjective No acute issues. Son is in the room today. We discussed the plan and all questions were answered. Patient is asymptomatic without evidence of bleeding. He reports normal bowel movements. H&H is stable. Awaiting INR elevation to 2.5 goal prior to discharge. Review of Systems Review of Systems: All systems reviewed & are unremarkable except as noted in HPI & below Physical Exam Physical Exam: CONSTITUTIONAL: WNWD, vitals as above, generally well- appearing EYES: normal conjunctivae, no scleral icterus ENT: MMM RESPIRATORY: clear to auscultation bilaterally, no crackles, rales or wheezes, normal respiratory effort CARDIOVASCULAR: regular rate and rhythm, S1 and 2 heard without murmurs, mechanical valve sounds noted, no JVD, no peripheral edema GASTROINTESTINAL: normal bowel sounds, soft, nontender, nondistended MUSCULOSKELETAL: strength 5/5 throughout, head is normocephalic and atraumatic SKIN: warm and dry NEUROLOGIC: CN 2-12 grossly intact, no gross focal deficits. PSYCHIATRIC: alert cooperative and oriented to person, place and time. Results & Data Vital Signs (Past 12 Hours) Vital Signs Temp Pulse Resp BP Pulse Ox 02/07/19 15:36 36.3 C L 85 18 144/80 H 100 02/07/19 07:00 36.7 C 81 14 101/64 94 Laboratory Results Short CBC 02/07/19 Range/Units 07:35 WBC 5.72 (4.8-10.8) K/uL Hgb 8.9 L (14.0-18.0) g/dL Hct 28.9 L (42-52) % Plt Count 166 (130-400) K/uL BMP 02/07/19 07:35 Sodium 143 Potassium 4.6 Chloride 110 H Carbon Dioxide 27 BUN 26 H Creatinine 1.52 H Glucose 129 H Calcium 9.1 Medications Administered Current Inpatient Medications Acetaminophen (Tylenol) 650 mg PO Q4H PRN PRN Reason: fever or pain Stop: 03/02/19 19:04 Allopurinol (Zyloprim) 300 mg PO DAILY [facility] Stop: 03/09/19 08:59 Last Admin: 02/07/19 08:55 Dose: 300 mg Documented by: Cefdinir (Omnicef Cap) 300 mg PO BID [facility]; Protocol Stop: 02/13/19 08:59 Dextrose (Dextrose 50%) 25 - 50 ml IV UD PRN; Protocol PRN Reason: Hypoglycemia Protocol Stop: 03/02/19 19:04 Ferrous Sulfate (Feosol) 325 mg PO BIDM [facility] Stop: 03/03/19 07:59 Last Admin: 02/06/19 17:33 Dose: 325 mg Documented by: Folic Acid (Folvite) 1 mg PO DAILY [facility] Stop: 03/03/19 08:59 Last Admin: 02/07/19 09:00 Dose: 1 mg Documented by: Glucagon (Glucagen) 1 mg SQ UD PRN; Protocol PRN Reason: Hypoglycemia Protocol Stop: 03/02/19 19:04 Glucose (Glucose 40%) 15 - 30 gm PO UD PRN; Protocol PRN Reason: Hypoglycemia Protocol Stop: 03/02/19 19:04 Glucose (Dex4 Glucose) 4 - 8 tabs PO UD PRN; Protocol PRN Reason: Hypoglycemia Protocol Stop: 03/02/19 19:04 Heparin Sodium/Dextrose (Heparin Sodium/Dextrose) 25,000 units in 500 mls @ 17 mls/hr IV .Q24H [facility]; Protocol Stop: 03/05/19 15:44 Last Titration: 02/07/19 09:31 Dose: 850 units/hr, 17 mls/hr Documented by: Insulin Aspart (Novolog Flexpen) 0 units SC ACHS [facility] Stop: 03/04/19 16:44 Last Admin: 02/07/19 17:33 Dose: 6 units Documented by: Levothyroxine Sodium (Synthroid) 75 mcg PO DAILYBB [facility] Stop: 03/03/19 06:29 Last Admin: 02/07/19 05:57 Dose: 75 mcg Documented by: Miscellaneous (Carbohydrates For Hypoglycemia) 15 - 30 gm PO UD PRN PRN Reason: Hypoglycemia Treatment Stop: 03/02/19 19:04 Pantoprazole Sodium (Protonix) 40 mg PO BID [facility] Stop: 03/03/19 20:59 Last Admin: 02/07/19 09:00 Dose: 40 mg Documented by: Tamsulosin HCl (Flomax) 0.8 mg PO HS [facility] Stop: 03/02/19 20:59 Last Admin: 02/06/19 21:12 Dose: 0.8 mg Documented by: Trazodone HCl (Desyrel) 50 mg PO HS [facility] Stop: 03/02/19 20:59 Last Admin: 02/06/19 21:12 Dose: 50 mg Documented by: Warfarin Sodium (Coumadin) 7.5 mg PO DAILY@1600 [facility] Stop: 03/09/19 15:59 Last Admin: 02/07/19 15:47 Dose: 7.5 mg Documented by: (1) GI bleed GI bleed type/associated pathology: unspecified gastrointestinal hemorrhage type Qualified Code(s): K92.2 - Gastrointestinal hemorrhage, unspecified
[2019-02-07] MEDS: Heparin Adult LOW DOSE Wt-Based Dextrose 5% 25,000 units/500 mL IV SCH (20:24)
[2019-02-07] MEDS: TRAZODONE HCL 50 MG TAB PO SCH (20:25)
[2019-02-07] MEDS: TAMSULOSIN HCL 0.4 MG CAP PO SCH (20:25)
[2019-02-08] MEDS: LEVOTHYROXINE SODIUM 75 MCG TABLET PO SCH (05:18)
[2019-02-08 07:09] LABS: INR 2.2 (0.9-1.1); Prothrombin Time 21.5 Seconds (9.0-12.0)
[2019-02-08] MEDS: PANTOprazole 40 MG TAB PO SCH ×2 (07:42→20:45)
[2019-02-08] MEDS: FOLIC ACID 1 MG TAB PO SCH (07:42)
[2019-02-08] MEDS: CEFDINIR 300 MG CAP PO SCH ×2 (07:43→20:45)
[2019-02-08] MEDS: ALLOPURINOL 300 MG TAB PO SCH (07:43)
[2019-02-08] MEDS: INSULIN ASPART 100 UNITS/ML 3 ML PEN SC SCH ×4 (08:37→20:23)
[2019-02-08 09:54] LABS: Partial Thromboplastin Ratio 2.1
[2019-02-08 10:00] LABS: Partial Thromboplastin Time 56.4 Seconds (21.0-31.0)
[2019-02-08] MEDS: WARFARIN SOD 7.5 MG TAB PO SCH (16:03)
--- NOTE | 2019-02-08 17:59 | Hospitalist Progress Note ---
Date of Service February 08, 2019 Assessment & Plan (1) H/O mitral valve replacement with mechanical valve: On warfarin for mechanical mitral valve replacement. INR 2.3 at time of admission. Warfarin held temporarily due to active GI bleeding. High risk for cardioembolism; need to maintain anticoagulation unless actively bleeding. No hematochezia noted for greater than 48 hours. Started IV heparin and resumed warfarin 02/03. INR today = 2.2 Continue IV heparin until INR ~ 2.5. (2) GI bleed: Recurrent GI bleeding on warfarin therapy for mechanical mitral valve replacement. Has undergone recent upper and lower endoscopic evaluations as well as video capsule endoscopy. Only findings were some nonbleeding AVMs in the colon that were cauterized. Hemoglobin was 8.4 at the time of admission and fell as low as 7.8. GI consulted. Repeat endoscopy not recommended at this time. Bleeding scan did not show any specific active site of bleeding. Received 1 unit of packed RBCs 02/02. Hemoglobin this morning stable. Follow H/H, which has been stable Transfuse as necessary to maintain Hgb > 8. Continues to have normal BMs without blood. Cont Protonix BID (3) UTI (urinary tract infection): Proteus UTI. Patient asymptomatic. Change Rocephin to oral Cefdinir. Considered other antibiotics per sensitivites listed such as fluoroquinolones and Bactrim, however, these are very interactive with Coumadin and would not be ideal in his age group. (4) Acute on chronic blood loss anemia: Baseline hemoglobin around 10-12. Recent GI bleeding with associated acute blood loss anemia as discussed above. 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 Continue to monitor on telemetry. Avoid all AV active medications per Cardiology recommendations. (6) Cardiomyopathy: History of cardiomyopathy with LVEF of 37% per recent cardiac imaging. Chronic left ventricular systolic heart failure-compensated. Not on ALMAZ or ARB because of significant renal insufficiency in past. No beta-bindu at this time because of second-degree heart block. Furosemide IV x 1 02/02 prior to pRBC's. Chest x-ray 02/03 showed cardiomegaly without pulmonary edema. Patient is euvolemic. (7) Elevated troponin: Troponin slightly elevated at 0.159 and trended downward. No anginal symptoms. Probable demand ischemia secondary to GI bleeding. (8) CKD (chronic kidney disease) stage 3, GFR 30-59 ml/min: around baseline (9) T2DM (type 2 diabetes mellitus): Diabetes mellitus type 2 managed with glipizide. Hold glipizide during hospital stay. Insulin coverage as needed. Currently at goal (10) Hypothyroidism: Continue levothyroxine. (11) DVT prophylaxis: warfarin/heparin until INR 2.5-3.5 Full Dispo-to home when medically stable. Emelina Leblanc DO [facility] Hospitalist Subjective doing well no changes INR still subtherapeutic Review of Systems Review of Systems: All systems reviewed & are unremarkable except as noted in HPI & below Physical Exam Physical Exam: CONSTITUTIONAL: WNWD, vitals as above, generally well- appearing EYES: normal conjunctivae, no scleral icterus ENT: MMM RESPIRATORY: clear to auscultation bilaterally, no crackles, rales or wheezes, normal respiratory effort CARDIOVASCULAR: regular rate and rhythm, S1 and 2 heard without murmurs, mechanical valve sounds noted, no JVD, no peripheral edema GASTROINTESTINAL: normal bowel sounds, soft, nontender, nondistended MUSCULOSKELETAL: strength 5/5 throughout, head is normocephalic and atraumatic SKIN: warm and dry NEUROLOGIC: CN 2-12 grossly intact, no gross focal deficits. PSYCHIATRIC: alert cooperative and oriented to person, place and time. Results & Data Vital Signs (Past 12 Hours) Vital Signs Temp Pulse Resp BP BP Pulse Ox 02/08/19 15:44 36.6 C 70 18 126/72 100 02/08/19 07:00 36.6 C 88 18 144/77 H 98 Laboratory Results INR 2.2 Medications Administered Current Inpatient Medications Acetaminophen (Tylenol) 650 mg PO Q4H PRN PRN Reason: fever or pain Stop: 03/02/19 19:04 Allopurinol (Zyloprim) 300 mg PO DAILY [facility] Stop: 03/09/19 08:59 Last Admin: 02/08/19 07:43 Dose: 300 mg Documented by: Cefdinir (Omnicef Cap) 300 mg PO BID [facility]; Protocol Stop: 02/13/19 08:59 Last Admin: 02/08/19 07:43 Dose: 300 mg Documented by: Dextrose (Dextrose 50%) 25 - 50 ml IV UD PRN; Protocol PRN Reason: Hypoglycemia Protocol Stop: 03/02/19 19:04 Ferrous Sulfate (Feosol) 325 mg PO BIDM [facility] Stop: 03/03/19 07:59 Last Admin: 02/06/19 17:33 Dose: 325 mg Documented by: Folic Acid (Folvite) 1 mg PO DAILY [facility] Stop: 03/03/19 08:59 Last Admin: 02/08/19 07:42 Dose: 1 mg Documented by: Glucagon (Glucagen) 1 mg SQ UD PRN; Protocol PRN Reason: Hypoglycemia Protocol Stop: 03/02/19 19:04 Glucose (Glucose 40%) 15 - 30 gm PO UD PRN; Protocol PRN Reason: Hypoglycemia Protocol Stop: 03/02/19 19:04 Glucose (Dex4 Glucose) 4 - 8 tabs PO UD PRN; Protocol PRN Reason: Hypoglycemia Protocol Stop: 03/02/19 19:04 Heparin Sodium/Dextrose (Heparin Sodium/Dextrose) 25,000 units in 500 mls @ 17 mls/hr IV .Q24H [facility]; Protocol Stop: 03/05/19 15:44 Last Titration: 02/08/19 06:50 Dose: 850 units/hr, 17 mls/hr Documented by: Insulin Aspart (Novolog Flexpen) 0 units SC ACHS [facility] Stop: 03/04/19 16:44 Last Admin: 02/08/19 17:40 Dose: 5 units Documented by: Levothyroxine Sodium (Synthroid) 75 mcg PO DAILYBB [facility] Stop: 03/03/19 06:29 Last Admin: 02/08/19 05:18 Dose: 75 mcg Documented by: Miscellaneous (Carbohydrates For Hypoglycemia) 15 - 30 gm PO UD PRN PRN Reason: Hypoglycemia Treatment Stop: 03/02/19 19:04 Pantoprazole Sodium (Protonix) 40 mg PO BID [facility] Stop: 03/03/19 20:59 Last Admin: 02/08/19 07:42 Dose: 40 mg Documented by: Tamsulosin HCl (Flomax) 0.8 mg PO HS [facility] Stop: 03/02/19 20:59 Last Admin: 02/07/19 20:25 Dose: 0.8 mg Documented by: Trazodone HCl (Desyrel) 50 mg PO HS [facility] Stop: 03/02/19 20:59 Last Admin: 02/07/19 20:25 Dose: 50 mg Documented by: Warfarin Sodium (Coumadin) 7.5 mg PO DAILY@1600 [facility] Stop: 03/09/19 15:59 Last Admin: 02/08/19 16:03 Dose: 7.5 mg Documented by: (1) GI bleed GI bleed type/associated pathology: unspecified gastrointestinal hemorrhage type Qualified Code(s): K92.2 - Gastrointestinal hemorrhage, unspecified
[2019-02-08] MEDS: TAMSULOSIN HCL 0.4 MG CAP PO SCH (20:45)
[2019-02-08] MEDS: TRAZODONE HCL 50 MG TAB PO SCH (20:46)
[2019-02-08] MEDS: Heparin Adult LOW DOSE Wt-Based Dextrose 5% 25,000 units/500 mL IV SCH (23:48)
[2019-02-09] MEDS: LEVOTHYROXINE SODIUM 75 MCG TABLET PO SCH (06:07)
[2019-02-09 07:44] LABS: INR 2.8 (0.9-1.1); Prothrombin Time 27.1 Seconds (9.0-12.0)
[2019-02-09] MEDS: PANTOprazole 40 MG TAB PO SCH (08:30)
[2019-02-09] MEDS: CEFDINIR 300 MG CAP PO SCH (08:31)
[2019-02-09] MEDS: FOLIC ACID 1 MG TAB PO SCH (08:31)
[2019-02-09] MEDS: ALLOPURINOL 300 MG TAB PO SCH (08:31)
[2019-02-09] MEDS: INSULIN ASPART 100 UNITS/ML 3 ML PEN SC SCH ×2 (08:33→12:14)
--- NOTE | 2019-02-09 11:48 | Discharge Summary ---
Date of Service February 09, 2019 Admission HPI Per Admitting Provider This is an 88-year-old male with a PMH of recent GI bleed, h/o MV replacement in on coumadin, DM II, HTN, CKD III, AAA repair, hypothyroidism and other medical problems listed below who presents with bright red bleeding per rectum starting last night. Patient was discharged home with services from [facility] on 01/25 and denies any blood per rectum until last evening, when he reports 3 episodes of blood per rectum last night. No stool or blood clots noted. Not associated with abdominal or rectal pain. Denies lightheadedness, chest pain, SOB, nausea or vomiting. Patient was recently admitted to our service in late December with symptomatic anemia and melena, requiring blood transfusion and reversal of coumadin with vitamin K. Underwent EGD that was negative, followed by colonoscopy with evidence of blood in the colon but no identifiable source and was transferred to [facility]. Repeat colonoscopy performed on January 22 with three non-bleeding AVMs and diverticulosis. Gastroenterology did not feel that was source of bleeding. Repeat EGD with capsule study negative. Was treated with Argon plasma coagulation. During admission, found to be in second degree AV block Mobitz Type I and diltiazem and digoxin have been held since then. 2D echo performed with EF of 37% (unable to view report). Has upcoming cardiology appointment with Dr. Acevedo later this month. Coumadin was restarted while at [facility] with Lovenox bridge until yesterday. Also recently completed antibiotic course of Cipro as of 01/29/19. Repeat urine cx from 01/30 with mixed normal tonya. Hemodynamically stable. Hgb of 8.4. INR of 2.3. Central line was placed while patient was in ED for access. GI evaluated the patient and he was sent for nuclear medicine GI bleeding scan that was negative for acute bleeding. Admission Exam Per Admitting Provider General Appearance: WD/WN, appears acutely ill, pale Head: normocephalic, atraumatic Eyes: normal inspection, PERRL, EOMI ENT: hearing grossly normal, pharynx normal (dry mucous membranes). + L IJ central line in place, no bleeding Neck: supple, no JVD, no adenopathy Respiratory/Chest: lungs clear to auscultation. No wheezes, rales or rhonci. No respiratory distress or accessory muscle use Cardiovascular: regular rate, irregular rhythm, no murmur appreciated, normal peripheral pulses, trace BLE edema Abdomen/GI: normal bowel sounds, soft, non-tender to palpation Extremities/Musculoskelatal: normal inspection, no calf tenderness, normal capillary refill Neurologic/Psych: alert, normal mood/affect, oriented x 3. 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 INR 2.3 at time of admission. Warfarin held temporarily due to active GI bleeding. High risk for cardioembolism; need to maintain anticoagulation unless actively bleeding. No hematochezia noted for greater than 48 hours. Started IV heparin and resumed warfarin 02/03. INR therapeutic at discharge 2.8 on 7.5mg PO daily. Goal 2.5-3.5 (2) GI bleed: Recurrent GI bleeding on warfarin therapy for mechanical mitral valve replacement. Has undergone recent upper and lower endoscopic evaluations as well as video capsule endoscopy. Only findings were some nonbleeding AVMs in the colon that were cauterized. Hemoglobin was 8.4 at the time of admission and fell as low as 7.8. GI consulted. Repeat endoscopy not recommended at this time. Bleeding scan did not show any specific active site of bleeding. Received 1 unit of packed RBCs 02/02. Hemoglobin this morning stable. Follow H/H, which has been stable Transfuse as necessary to maintain Hgb > 8. Continues to have normal BMs without blood. Cont Protonix BID (3) UTI (urinary tract infection): Proteus UTI. Patient asymptomatic. Change Rocephin to oral Cefdinir. Considered other antibiotics per sensitivites listed such as fluoroquinolones and Bactrim, however, these are very interactive with Coumadin and would not be ideal in his age group. Cont 5 day course at home. (4) Acute on chronic blood loss anemia: Baseline hemoglobin around 10-12. Recent GI bleeding with associated acute blood loss anemia as discussed above. 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 Continue to monitor on telemetry. Avoid all AV active medications per Cardiology recommendations. (6) Cardiomyopathy: History of cardiomyopathy with LVEF of 37% per recent cardiac imaging. Chronic left ventricular systolic heart failure-compensated. Not on ALMAZ or ARB because of significant renal insufficiency in past. No beta-bindu at this time because of second-degree heart block. Furosemide IV x 1 02/02 prior to pRBC's. Chest x-ray 02/03 showed cardiomegaly without pulmonary edema. Patient is euvolemic. Doesn't appear to be on regular Lasix. Would discuss this with primary care physician or Cardiology on follow-up. (7) Elevated troponin: Troponin slightly elevated at 0.159 and trended downward. No anginal symptoms. Probable demand ischemia secondary to GI bleeding. (8) CKD (chronic kidney disease) stage 3, GFR 30-59 ml/min: around baseline (9) T2DM (type 2 diabetes mellitus): Diabetes mellitus type 2 managed with glipizide. Hold glipizide during hospital stay. Insulin coverage as needed as inpatinet. Currently at goal Resume home regimen without changes. (10) Hypothyroidism: Continue levothyroxine. Tuak-hg-volm examination was conducted at time of discharge. The patient is mentating and ambulating at baseline and is tolerating p.o. He was hemodynamically stable and afebrile with no active bleeding ongoing and multiple normal bowel movements prior to discharge. Physical exam is unremarkable. He will follow up with his primary care doctor within the week. 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 You will need to continue taking warfarin at the 7.5mg daily dose until repeat INR and further guidance by the Anticoagulation Clinic. I recommend a repeat INR within the next two days. You have the following appointment: 02/12/2019 10:40 AM Kelvin Ivan MD [facility] [place] Please bring all discharge paperwork with you to this appointment. It was a pleasure taking care of you! Please call if you have any questions or problems. You can reach a [facility] hospitalist on duty at [facility] 24 hours a day by calling [phone]. Take care of yourself. Emelina Leblanc, DO [facility] Hospitalist Prescriptions: New cefdinir 300 mg Capsule 300 mg PO BID 5 Days Qty: 10 RF: 0 pantoprazole 40 mg Tablet,Delayed Release (Dr/Ec) 40 mg PO BID 30 Days Qty: 60 RF: 1 Continued levothyroxine 75 mcg Capsule 75 mcg PO DAILY RF: 0 trazodone 50 mg Tablet 50 mg PO HS RF: 0 allopurinol 300 mg Tablet 300 mg PO DAILY RF: 0 acetaminophen [Mapap (acetaminophen)] 325 mg Tablet 650 mg PO Q4H PRN (Reason: fever or pain) Qty: 20 RF: 0 atorvastatin 20 mg Tablet 20 mg PO DAILY RF: 0 glipizide 10 mg Tablet 10 mg PO DAILY RF: 0 warfarin [Jantoven] 2.5 mg Tablet 2.5 mg PO MOFR@1600 RF: 0 tamsulosin 0.4 mg Capsule 0.8 mg PO HS RF: 0 ferrous sulfate 325 mg (65 mg iron) Tablet 325 mg PO BIDM RF: 0 folic acid 1 mg Tablet 1 mg PO DAILY RF: 0 colchicine 0.6 mg Tablet 0.6 mg PO DAILY PRN (Reason: GOUT) RF: 0 warfarin 2.5 mg Tablet 5 mg PO YI@1600 RF: 0 Stand-Alone Forms: [facility] Discharge Orders: Discharge Order (Routine); Ordered 02/09/19 Ordered By: Emelina Leblanc Admission Data Admit Date/Time: 01/31/19 17:16 Attending Provider: Emelina Leblanc Admit Provider: Ravinder Kern Primary Care Provider: Kelvin Ivan Other Providers: Collins Alicia ; Home,Nursing Agency ; Thong Choudhary ; Kenney Yu Service: Medical
== END 2019-02-09 12:22 | disposition home health service (06) | DRG 378 ==
LOC: ED 08:13 → 2E 17:16 → SUATTDRO 17:16 → 2E 18:07 → 4E 02-06 20:18